=== PATIENT | female | born 1955 | race Caucasian/White ===

== ENCOUNTER → 2018-02-26 09:07 | Outpatient (CLI) | payer BC, SELFPAY ==
[2018-02-26 09:58] LABS: Bilirubin Negative (Negative); Blood Large (Negative); Clarity Clear; Glucose Negative (Negative); Ketones Negative (Negative); Leukocyte Esterase Large (Negative); Nitrite Negative (Negative); Urobilinogen 0.2 EU/dL (Up TO 0.2)
[2018-02-26 10:16] LABS: Bacteria Moderate HPF (Negative); C & S Indicated? C&S Done As Ordered; Casts Negative LPF (Negative); Crystals Negative HPF (Negative); Epithelial Cells Few HPF (Negative); Mucus Negative (Negative); RBC 20-50 (0-2); WBC >50 HPF (0-5)
== END ==
PROVIDERS: PCP Family Medicine; Visit Provider Advanced Practice Midwife
DX: R30.0 Dysuria (principal)
CPT/HCPCS: 81003; 81015; 87086

== ENCOUNTER 2018-04-28 16:19 | Outpatient (REF) | payer BC, SELFPAY ==
[2018-04-28 18:56] LABS: Abs Immature Grans 0.01 k/cumm (0.0-0.09); Absolute Basophil Count 0.04 k/cumm (0.0-0.2); Absolute Eosinophil Count 0.01 k/cumm (0.0-0.7); Absolute Lymphocyte Count 1.06 k/cumm (1.2-3.4); Absolute Monocyte Count 0.29 k/cumm (0.11-0.7); Absolute Neutrophil Count 3.47 k/cumm (1.2-6.7); Basophils % 0.8; Eosinophils % 0.2; HCT 37.3 % (36.0-46.0); HGB 12.1 g/dL (12.0-15.5); Immature Grans % 0.2; Lymphocytes % 21.7; Mean Corp. HGB Concentration 32.4 g/dL (32.0-36.0); Mean Corpuscular Hemoglobin 30.6 pg (27.0-33.0); Mean Corpuscular Volume 94.4 fL (80-95); Mean Platelet Volume 11.9 fL (8.0-11.0); Monocytes % 5.9; Neutrophils % 71.2; Platelet Count 144 x1000/uL (130-400); RBC 3.95 m/cumm (4.00-5.20); RBC Distribution Width 12.8 % (11.7-14.6); White Blood Cell Count 4.88 k/cumm (4.4-10.8)
== END 2018-04-28 16:39 ==
LOC: NCHCN 16:19
PROVIDERS: PCP Family Medicine; Visit Provider Family Medicine
DX: D69.6 Thrombocytopenia, unspecified (principal)
CPT/HCPCS: 85025

== ENCOUNTER 2018-07-19 12:50 | Outpatient (REF) | payer BC, SELFPAY ==
[2018-07-19] MEDS: Sulfameth/Trimeth DS TAB 3 TAB PO (13:11)
[2018-07-19 13:21] LABS: Bilirubin Negative (Negative); Blood Large (Negative); Clarity Sl Cloudy; Glucose Negative (Negative); Ketones Negative (Negative); Leukocyte Esterase Large (Negative); Nitrite Negative (Negative); Specific Gravity 1.015 (1.005-1.025); Urobilinogen 0.2 EU/dL (Up TO 0.2); pH 7.5 (5-8)
[2018-07-19 13:31] LABS: Bacteria Moderate HPF (Negative); C & S Indicated? C&S Done As Ordered; Casts Negative LPF (Negative); Crystals Negative HPF (Negative); Epithelial Cells Few HPF (Negative); Mucus Negative (Negative); RBC 20-50 (0-2); WBC >50 HPF (0-5)
== END 2018-07-19 13:10 ==
LOC: LBN 12:50
PROVIDERS: PCP Family Medicine; Visit Provider General Practice
DX: N39.0 Urinary tract infection, site not specified (principal)
CPT/HCPCS: 81003; 81015; 87086

== ENCOUNTER 2018-08-29 00:39 | Outpatient (CLI) | payer BC, SELFPAY ==
--- NOTE | 2018-08-29 09:27 | DI.MAMMO_ITS ---
SYMPTOMS/DIAGNOSIS: SCREENING, Z12.39 MAMMOGRAM: Mammograms were interpreted according to the usual protocol including computer analysis with CAD system, tomosynthesis and C view imaging. Comparison is made with 2013 through 2017. The breasts are composed of heterogeneously dense fibroglandular tissue, breast density Category C. No suspicious masses or suspicious microcalcifications are seen. There has been no significant change. IMPRESSION: Category I C, negative mammogram. Yearly screening mammography is recommended. [facility] [place] ASSESSMENT OF FINDINGS: Negative. Category 1. Patient will receive a letter notifying them of these results. Bi-RADS category C. The breasts are heterogeneously dense, which may obscure small masses.
== END 2018-08-29 00:59 ==
PROVIDERS: PCP Family Medicine; Visit Provider Family Medicine
DX: Z12.31 Encounter for screening mammogram for malignant neoplasm of breast (principal)
CPT/HCPCS: 77063; 77067

== ENCOUNTER 2019-08-21 12:57 | Outpatient (REF) | payer BC, SELFPAY ==
[2019-08-21 19:26] LABS: Anion Gap 6.1 mmol/L (3-11); BUN 19 mg/dL (7-18); C-Reactive Protein 0.08 mg/dL (0.0-0.3); CO2 28.9 mmol/L (21.0-32.0); CREATININE 1.05 mg/dL (0.55-1.02); Calcium 11.2 mg/dL (8.5-10.1); Chloride 106 mmol/L (98-107); Estimated GFR 53.28 (mL/min/1.73m2); Glucose 90 mg/dL (74-106); Potassium 4.7 mmol/L (3.5-5.1); Sodium 141 mmol/L (136-145); TSH (W/Ref FT4) 1.56 uIU/mL (0.36-3.74)
[2019-08-21 19:28] LABS: ESR 13 mm/hr (0-30)
== END 2019-08-21 13:17 ==
LOC: NCHCN 12:57
PROVIDERS: PCP Family Medicine; Visit Provider Family Medicine
DX: R51 Headache (principal)
CPT/HCPCS: 80048; 85652; 84443; 86140

== ENCOUNTER 2019-08-25 15:31 | Outpatient (CLI) | payer BC, SELFPAY ==
[2019-08-25 17:14] LABS: Calcium 10.7 mg/dL (8.5-10.1)
[2019-08-25 22:19] LABS: Ionized Calcium 1.39 mmol/L (1.12-1.32)
[2019-08-28 08:07] LABS: Vitamin D 25 Total 33.5 ng/ml (30-100)
[2019-08-28 11:44] LABS: Parathyroid Hormone,Intact 182 pg/mL (19-88)
== END 2019-08-25 15:51 ==
PROVIDERS: PCP Family Medicine; Visit Provider Family Medicine
DX: E83.52 Hypercalcemia (principal)
CPT/HCPCS: 36415; 82306; 82310; 82330; 83970

== ENCOUNTER 2019-09-09 08:47 | Outpatient (CLI) | payer BC, SELFPAY ==
[2019-09-09 10:42] LABS: Albumin 4.3 g/dL (3.4-5.0); CREATININE 0.97 mg/dL (0.55-1.02); Calcium 11.2 mg/dL (8.5-10.1); Estimated GFR 58.38 (mL/min/1.73m2)
[2019-09-11 05:48] LABS: Vitamin D 25 Total 31.6 ng/ml (30-100)
[2019-09-11 11:34] LABS: Parathyroid Hormone,Intact 171 pg/mL (19-88)
== END 2019-09-09 09:07 ==
PROVIDERS: PCP Family Medicine; Visit Provider Student in an Organized Health Care Education/Training Program
DX: E21.0 Primary hyperparathyroidism (principal)
CPT/HCPCS: 36415; 82306; 82040; 82310; 82565; 83970

== ENCOUNTER 2019-09-09 09:30 | Outpatient (REF) | payer BC, SELFPAY ==
[2019-09-09 10:36] LABS: Creatinine,Urine 57.21 mg/dL
[2019-09-09 10:47] LABS: Creatinine,24hr Ur 1.14 g/24hr (0.60-1.80); Total Volume 2000 ml
[2019-09-11 11:09] LABS: Calcium Urine 19.3 mg/dL (See Note); Calcium Urine 24 hr 386 mg/24hrs (100-300)
[2019-09-11 16:15] LABS: Timed Urine Volume 2000 mL
== END 2019-09-09 09:50 ==
LOC: LBN 09:30
PROVIDERS: PCP Family Medicine; Visit Provider Student in an Organized Health Care Education/Training Program
DX: E21.0 Primary hyperparathyroidism (principal)
CPT/HCPCS: 81050; 82340; 82570

== ENCOUNTER 2019-10-11 02:14 | Outpatient (CLI) | payer BC, SELFPAY ==
--- NOTE | 2019-10-11 | DI.DEXA_ITS ---
EXAM: XR DEXA BONE DENSITY W/WO MAYLIN CLINICAL HISTORY: PRIMARY HYPERPARATHYROIDISM, E21.0, TO ASSESS FOR OSTEOPOROSIS COMPARISON: No exams were available for comparison FINDINGS: DEXA scan was performed according to the usual protocol. Findings for left hip scanning are T-score -2.1 with left femoral neck T-score -2.4. Findings for lumbar spine scanning are T-score -2.5. Findings for left forearm scanning are T-score -3.7. IMPRESSION: Findings consistent with osteoporosis according to the WHO criteria. The lateral vertebral scanogram shows no gross vertebral compression fracture. I would note that the mid to upper thoracic spine is not well visualized and additional evaluation with thoracic spine radiographs may be obtained to ted luate the possibility of subtle compression fractures.
== END 2019-10-11 02:34 ==
PROVIDERS: PCP Family Medicine; Visit Provider Student in an Organized Health Care Education/Training Program
DX: E20.1 Pseudohypoparathyroidism (principal); M81.0 Age-related osteoporosis without current pathological fracture
CPT/HCPCS: 77080

== ENCOUNTER 2020-03-11 02:30 | Outpatient (CLI) | payer BC, SELFPAY ==
[2020-03-11 15:14] LABS: Calcium 9.4 mg/dL (8.5-10.1)
[2020-03-12 08:28] LABS: Parathyroid Hormone,Intact 98 pg/mL (19-88)
== END 2020-03-11 02:50 ==
PROVIDERS: PCP Family Medicine; Visit Provider Surgery
DX: E21.0 Primary hyperparathyroidism (principal)
CPT/HCPCS: 36415; 82310; 83970

== ENCOUNTER 2020-03-25 04:45 | Outpatient (CLI) | payer BC, SELFPAY ==
[2020-03-25 10:12] LABS: Anion Gap 5.2 mmol/L (3-11); BUN 19 mg/dL (7-18); CO2 30.8 mmol/L (21.0-32.0); CREATININE 1.03 mg/dL (0.55-1.02); Calcium 9.7 mg/dL (8.5-10.1); Chloride 105 mmol/L (98-107); Glucose 97 mg/dL (74-106); Potassium 4.1 mmol/L (3.5-5.1); Sodium 141 mmol/L (136-145); TSH 2.87 uIU/mL (0.36-3.74)
[2020-03-25 10:25] LABS: Vitamin D 25 Total 37.3 ng/ml (30-100)
[2020-03-26 11:55] LABS: Parathyroid Hormone,Intact 58 pg/mL (19-88)
== END 2020-03-25 05:05 ==
PROVIDERS: PCP Family Medicine; Visit Provider Internal Medicine Endocrinology, Diabetes & Metabolism
DX: E21.3 Hyperparathyroidism, unspecified (principal)
CPT/HCPCS: 36415; 80048; 82306; 83970; 84443

== ENCOUNTER 2020-05-03 16:14 | Outpatient (REF) | payer BC, SELFPAY ==
--- NOTE | 2020-05-03 15:30 | PAPFT_PTH ---
PATIENT: Acacia Silveira LOC: [facility] U#:[id number] AGE/SX: 64/F ROOM: RE05/03/[address]: Jordana Parsons : 1955 BED: DIS: 05/03/2020 SPEC #: [id number] RECD: 05/03/20 18:02 STATUS: JENNA REYajaira #: [id number] SILVIA: 05/03/20 15:[address]: Jordana Parsons DEPT: [facility] Cytology RECD BY: Linda Ferro Tissues: 1 - CX/ENDOCX FOR PAP SMEARS Procedures: PAP THIN PREP/UVM Screening HPV DNA PROBE Comments: [id number]
== END 2020-05-03 16:34 ==
LOC: NCHCN 16:14
PROVIDERS: PCP Family Medicine; Visit Provider Family Medicine
DX: Z12.4 Encounter for screening for malignant neoplasm of cervix (principal); Z11.51 Encounter for screening for human papillomavirus (HPV)
CPT/HCPCS: 88142; 87624

== ENCOUNTER 2020-05-14 01:24 | Outpatient (CLI) | payer BC, SELFPAY ==
[2020-05-14 10:22] LABS: Calcium 9.5 mg/dL (8.5-10.1)
[2020-05-15 11:06] LABS: Parathyroid Hormone,Intact 36 pg/mL (19-88)
== END 2020-05-14 01:44 ==
PROVIDERS: Surgery; PCP Family Medicine; Visit Provider Nurse Practitioner Adult Health
DX: E21.0 Primary hyperparathyroidism (principal)
CPT/HCPCS: 36415; 82310; 83970

== ENCOUNTER 2020-05-22 04:09 | Outpatient (CLI) | payer BC, SELFPAY ==
[2020-05-22 16:34] LABS: Anion Gap 4.2 mmol/L (3-11); BUN 26 mg/dL (7-18); CO2 29.8 mmol/L (21.0-32.0); CREATININE 0.94 mg/dL (0.55-1.02); Calcium 9.3 mg/dL (8.5-10.1); Chloride 106 mmol/L (98-107); Glucose 93 mg/dL (74-106); Potassium 4.1 mmol/L (3.5-5.1); Sodium 140 mmol/L (136-145)
[2020-05-23 04:26] LABS: Vitamin D 25 Total 36.1 ng/ml (30-100)
[2020-05-30 13:01] LABS: Parathyroid Hormone,Intact 44.3 pg/mL (19-88)
== END 2020-05-22 04:29 ==
PROVIDERS: PCP Family Medicine; Visit Provider Internal Medicine Endocrinology, Diabetes & Metabolism
DX: E21.3 Hyperparathyroidism, unspecified (principal)
CPT/HCPCS: 36415; 80048; 82306; 83970

== ENCOUNTER 2020-05-23 01:28 | Outpatient (CLI) | payer BC, SELFPAY ==
--- NOTE | 2020-05-23 | DI.MAMMO_ITS ---
EXAM: MG MAMMO SCREENING CLINICAL HISTORY: SCREENING, Z12.39 TECHNIQUE: Mammograms were interpreted according to the usual protocol including computer analysis w [email or web address] CAD system, tomosynthesis and C-view imaging. COMPARISON: FINDINGS: The breasts are heterogeneously dense. No dominant mass or clumped microcalcification is identified in either breast. Current examination is compared with previous examinations including August 2018 and there has been no gross interval change in appearance in comparison with the prior studies. IMPRESSION: No specific evidence of malignancy at this time. Routine screening examinations are suggested at yea rly intervals in this age group according to the ACS ACR guidelines. BI-RADS Category 1 - Negative Breast Density - Category C - Heterogeneously dense
== END 2020-05-23 01:48 ==
PROVIDERS: PCP Family Medicine; Visit Provider Family Medicine
DX: Z12.31 Encounter for screening mammogram for malignant neoplasm of breast (principal)
CPT/HCPCS: 77063; 77067

== ENCOUNTER 2020-10-22 03:46 | Outpatient (CLI) | payer BC, SELFPAY ==
[2020-10-22 16:55] LABS: BUN 19 mg/dL (7-18); CREATININE 0.9 mg/dL (0.55-1.02); Calcium 9.8 mg/dL (8.5-10.1); Chloride 103 mmol/L (98-107); Glucose 85 mg/dL (74-106); Potassium 4.5 mmol/L (3.5-5.1); Sodium 140 mmol/L (136-145)
[2020-10-24 04:40] LABS: Vitamin D 25 Total 55.2 ng/mL (30-100)
== END 2020-10-22 03:47 | disposition home or self-care (01) ==
LOC: LBO 03:46
PROVIDERS: PCP Family Medicine; Visit Provider Internal Medicine Endocrinology, Diabetes & Metabolism
DX: E21.3 Hyperparathyroidism, unspecified (principal); M81.8 Other osteoporosis without current pathological fracture
CPT/HCPCS: 36415; 80048; 82306

== ENCOUNTER 2021-06-05 02:23 | Outpatient (CLI) | payer BC, SELFPAY ==
[2021-06-06 08:45] LABS: Anion Gap 6.7 mmol/L (3-11); BUN 16 mg/dL (7-18); CO2 30.3 mmol/L (21.0-32.0); CREATININE 0.9 mg/dL (0.55-1.02); Calcium 9.2 mg/dL (8.5-10.1); Chloride 105 mmol/L (98-107); Glucose 86 mg/dL (74-106); Potassium 4.6 mmol/L (3.5-5.1); Sodium 142 mmol/L (136-145)
== END 2021-06-05 02:24 | disposition home or self-care (01) ==
LOC: LBO 02:23
PROVIDERS: PCP Family Medicine; Visit Provider Internal Medicine Endocrinology, Diabetes & Metabolism
DX: E21.3 Hyperparathyroidism, unspecified (principal); M81.8 Other osteoporosis without current pathological fracture
CPT/HCPCS: 36415; 80048; 82306

== ENCOUNTER 2021-08-25 00:44 | Outpatient (CLI) | payer BC, SELFPAY ==
--- NOTE | 2021-08-25 14:00 | DI.US_ITS ---
APPROVED REPORT EXAM: Comprehensive 2D, Doppler, and color-flow Echocardiogram Patient Location: Out-Patient Multimedia Production Assistant: Gogo Oliva RDCS (AE) Indications: Murmur Other Information Study Quality: Adequate Conclusion Normal left ventricular wall thickness and chamber size. Estimated ejection fraction is 60%. Wall m otion is normal Normal right ventricular size and systolic function Both atria are normal in size There are no structural or hemodynamically significant valvular abnormalities Borderline dilated ascending aorta measuring 3.38 cm Dilated aortic root measuring 3.49 cm Wall motion Left Ventricle The left ventricle is normal size. The left ventricular systolic function is normal. The left ventric ular ejection fraction is within the normal range. There is normal left ventricular wall thickness. T here is normal LV segmental wall motion. There is no ventricular septal defect visualized. LVEF is 60 %. Right Ventricle The right ventricle is normal size. The right ventricular systolic function is normal. The RVSP is 25 .4mmHg. Atria The left atrium size is normal. The right atrium size is normal. The interatrial septum is intact wit h no evidence for an atrial septal defect. Aortic Valve The aortic valve is normal in structure. There is no aortic valvular stenosis. No aortic regurgitatio n is present. Mitral Valve The mitral valve is normal in structure. No evidence of mitral valve stenosis. Trace mitral regurgita tion. Tricuspid Valve The tricuspid valve is normal in structure. There is no tricuspid valve stenosis. Trace tricuspid reg urgitation. Pulmonic Valve The pulmonary valve is normal in structure. There is no pulmonic valvular stenosis. There is no pulmo laura valvular regurgitation. Great Vessels Aortic root is mildly dilated. The ascending aorta is borderline dilated.3.38 cm IVC is normal in siz e and collapses >50% with inspiration. Pericardium There is no pericardial effusion. 2D Dimensions IVSD d PLAX 0.90 cm F: 0.6-1.0 LV Vol A2C d MOD 66.2 mL LVPW d PLAX 0.91 cm F: 0.6 - 1.0 LV Vol A4C d MOD 75.2 mL LVID d PLAX 4.33 cm F: 3.8 - 5.2 LA vol/ BSA A2C s A-L 18.6 mL/m2 LVDs 2.90 cm F: 2.2 - 3.5 LA vol/ BSA A4C s A-L 12.5 mL/m2 Ao Root d 3.49 cm F: 2.7 - 3.3 LA Vol/ BSA Biplane s A-L 15.5 mL/m2 RA Area A4C 8.91 cm2 LA Area A4C s MOD 9.76 cm2 RA Vol/ BSA A4C s A-L 11.2 mL/m2 LA Area A2C s MOD 11.72 cm2 Ao Asc Diam d 3.38 cm F: 2.3 - 3.1 LV EF A4C MOD 60.8 % LV EF Teichholz 61.6 % LV EF A2C MOD 60.2 % LVEF (Steiner's) 59.91 % F: 54 - 74 LV EF Biplane MOD 59.9 % LV Volume 57.61 mL F: 46 - 106 SV 42.72 mL LV Volume Index 35.56 mL/m2 F: 29 - 61 SV Index 26.31 mL/m2 LV Vol Biplane MOD 71.3 mL FS 32.80 % M-Mode TAPSE 2.03 cm (M/F) >1.7 LV Diastology MV E' medial 0.055 (>0.07 m/s) E/A Ratio 1.2 LV E/e MED 11.90 (<14) MV E Vmax 0.65 (0.4-1.3 m/s) MV E' lateral 0.100 (>0.1 m/s) MV A Vmax 0.55 (0.4-1.3 m/s) LV E/e LAT 6.50 (<14) MV E/A Ratio 1.09 MV E/E' medial 11.90 MV E/E' lateral 6.54 Aortic Valve LVOT Area 3.10 cm2 AoV Area Vmax 2.58 cm2 LVOT Vmax 0.79 m/s AoV Area/ BSA (Vmax) 1.59 cm2/m2 LVOT Mean Rodriguez. 0.49 m/s KAREN Mean Rodriguez. 2.10 cm2 LVOT Peak Grad 2.5 mmHg KAREN Mean Rodriguez. Index 1.29 cm2/m2 LVOT Mean Grad 1.2 mmHg LVOT VTI 0.151 m LVOT Diam s 1.95 cm AoV Vmax 0.95 m/s Velocity Ratio 0.83 AoV Mean Rodriguez. 0.73 m/s AoV Peak Grad 3.6 mmHg LVOT SV 46.72 mL AoV Mean Grad 2.3 mmHg AoV VTI 0.199 m AoV Area VTI 2.35 cm2 AoV Area/ BSA (VTI) 1.45 cm/m2 Mitral Valve MV DT 196 (160-240 msec) MV PHT 57 msec MV Area PHT 3.87 cm2 MV VTI 0.257 m MV Area VTI 1.82 (4.0-6.0 cm2) Pulmonary Valve PV Vmax 0.86 (0.5-1.5 m/s) RVOT Peak Gr. 2.75 mmHg PV Peak Grad 3.0 mmHg RVOT Mean Gr. 1.20 mmHg PV Mean Grad 1.4 mmHg RVOT VTI 0.172 m PV VTI 0.177 m RVOT Vmax 0.83 m/s Tricuspid Valve TR Peak Grad 22.3 mmHg TR Vmax 2.37 m/s RA Pressure 3.00 mmHg RVSP (TR) 25.4 mmHg
--- NOTE | 2021-08-25 15:15 | DI.MAMMO_ITS ---
Exam(s) MAMMO SCREENING EXAM: MAMMO SCREENING CLINICAL HISTORY: SCREENING, Z12.39 TECHNIQUE: Mammograms were interpreted according to the usual protocol including computer analysis w [employer] CAD system, tomosynthesis and C-view imaging. COMPARISON: 2012 through 2019 FINDINGS: The breasts are composed of heterogeneously dense fibroglandular densities, Breast Density category C . No suspicious masses or suspicious microcalcifications are seen. No skin thickening or abnormal axillary lymph nodes are seen. There has been no significant change from prior exams. IMPRESSION: BI-RADS Category 1, Negative mammogram. Yearly screening mammography is recommended. Breast Density Category C, heterogeneously Dense. The mammogram demonstrates the patient's breast tissue is dense. Dense breast tissue is very common a nd is not abnormal but dense breast tissue can make it harder to find cancer on a mammogram. Also, de nse breast tissue may increase breast cancer risk. This information about the result of the mammogram report was provided to the patient to raise their awareness. Use this report when you speak with the patient about their risks for breast cancer, which includes their family history. At that time, you may recommend additional screening tests (Ultrasound or MRI) as they might be useful based on their r isk. A negative radiographic report should not delay biopsy if a dominant or clinically suspicious mass is present. Up to ten percent of cancers are not identified on mammography. A negative report may reinforce clinical impression. Adenosis and dense breasts may obscure an underlying neoplasm. False positive reports average 6 to 10%.
== END 2021-08-25 01:04 ==
PROVIDERS: PCP Family Medicine; Visit Provider Family Medicine
DX: R01.1 Cardiac murmur, unspecified (principal); Z12.31 Encounter for screening mammogram for malignant neoplasm of breast; I77.810 Thoracic aortic ectasia; R92.2 Inconclusive mammogram
CPT/HCPCS: 77063; 77067; 93306

== ENCOUNTER 2021-09-05 11:11 | Outpatient (REF) | payer BC, SELFPAY ==
[2021-09-05 15:14] LABS: Anion Gap 8.3 mmol/L (3-11); BUN 24 mg/dL (7-18); CO2 28.7 mmol/L (21.0-32.0); CREATININE 1.1 mg/dL (0.55-1.02); Calcium 9.3 mg/dL (8.5-10.1); Chloride 107 mmol/L (98-107); Estimated GFR 50.17 (mL/min/1.73m2); Glucose 95 mg/dL (74-106); Sodium 144 mmol/L (136-145)
== END 2021-09-05 11:12 | disposition home or self-care (01) ==
LOC: NCHCN 11:11
PROVIDERS: PCP Family Medicine; Visit Provider Family Medicine
DX: R03.0 Elevated blood-pressure reading, without diagnosis of hypertension (principal)
CPT/HCPCS: 80048

== ENCOUNTER 2021-10-16 02:36 | Outpatient (CLI) | payer BC, SELFPAY ==
--- NOTE | 2021-10-16 | DI.DEXA_ITS ---
Exam(s) XR DEXA BONE DENSITY W/WO MAYLIN EXAM: XR DEXA BONE DENSITY W/WO MAYLIN CLINICAL HISTORY: HX OF PRIMARY HYPERPARATHYROIDISM, OSTEOPOROSIS TECHNIQUE: COMPARISON: CR XR DEXA BONE DENSITY W/WO MAYLIN from 10/11/2019 FINDINGS: Lateral Spine Image: Unremarkable. No compression deformities identified. Left hip: Total T-Score: -1.5. This compares to -2.1 on the prior examination for improvement of 9.6 percent in bone mineral density. Total Z-Score: -0.4 T- and Z-scores: Findings are consistent with osteopenia. Lumbar Spine: Total T-Score: -2.1. This compares with a total T-score of -2.5 on the prior examination for improvem ent of 6 percent in bone mineral density. Total Z-Score: -0.4 T- and Z-scores: Findings are consistent with osteopenia. IMPRESSION: Findings of osteopenia in the lumbar spine and left hip. Bone mineral density has improved since the prior examination from 10/11/2019.
== END 2021-10-16 02:56 ==
PROVIDERS: PCP Family Medicine; Visit Provider Internal Medicine Endocrinology, Diabetes & Metabolism
DX: Z13.820 Encounter for screening for osteoporosis (principal); M85.89 Other specified disorders of bone density and structure, multiple sites
CPT/HCPCS: 77080

== ENCOUNTER 2021-11-17 21:44 | Outpatient (REF) | payer BC, SELFPAY ==
[2021-11-17 18:52] LABS: Anion Gap 8.2 mmol/L (3-11); BUN 26 mg/dL (7-18); CO2 28.8 mmol/L (21.0-32.0); CREATININE 0.9 mg/dL (0.55-1.02); Chloride 100 mmol/L (98-107); Glucose 87 mg/dL (74-106); Potassium 3.7 mmol/L (3.5-5.1); Sodium 137 mmol/L (136-145); TSH (W/Ref FT4) 1.66 uIU/mL (0.36-3.74)
== END 2021-11-17 21:45 | disposition home or self-care (01) ==
LOC: NCHCN 21:44
PROVIDERS: PCP Family Medicine; Visit Provider Family Medicine
DX: E21.0 Primary hyperparathyroidism (principal); E83.52 Hypercalcemia
CPT/HCPCS: 80048; 84443

== ENCOUNTER 2022-02-25 15:24 | Outpatient (REF) | payer BC, SELFPAY ==
[2022-02-25 16:09] LABS: Anion Gap 3.5 mmol/L (3-11); BUN 26 mg/dL (7-18); CO2 30.5 mmol/L (21.0-32.0); CREATININE 1.1 mg/dL (0.55-1.02); Calcium 9.4 mg/dL (8.5-10.1); Chloride 105 mmol/L (98-107); Estimated GFR 50.01 (mL/min/1.73m2); Glucose 87 mg/dL (74-106); Potassium 4.3 mmol/L (3.5-5.1); Sodium 139 mmol/L (136-145)
== END 2022-02-25 15:25 | disposition home or self-care (01) ==
LOC: NCHCN 15:24
PROVIDERS: PCP Family Medicine; Visit Provider Family Medicine
DX: Z00.00 Encounter for general adult medical examination without abnormal findings (principal); I10 Essential (primary) hypertension; E83.52 Hypercalcemia; I73.00 Raynaud's syndrome without gangrene
CPT/HCPCS: 80048

== ENCOUNTER 2022-05-22 15:18 | Outpatient (REF) | payer BC, SELFPAY ==
[2022-05-22 18:17] LABS: Anion Gap 8.1 mmol/L (3-11); BUN 23 mg/dL (7-18); CO2 28.9 mmol/L (21.0-32.0); CREATININE 0.9 mg/dL (0.55-1.02); Calcium 9.4 mg/dL (8.5-10.1); Calculated LDL 103 mg/dL (<100); Chloride 103 mmol/L (98-107); Cholesterol 215 mg/dL (<200); Estimated GFR 71.39 (mL/min/1.73m2); Glucose 85 mg/dL (74-106); HDL Cholesterol 83 mg/dL (40-60); Potassium 3.7 mmol/L (3.5-5.1); Sodium 140 mmol/L (136-145); Triglyceride 148 mg/dL (<150)
[2022-05-25 10:39] LABS: Hepatitis C Ab w Rflx HCV PCR Negative (Negative)
[2022-05-25 10:45] LABS: HIV-1/2 Ag & Ab Screen Negative (Negative)
== END 2022-05-22 15:19 | disposition home or self-care (01) ==
LOC: NCHCN 15:18
PROVIDERS: PCP Family Medicine; Visit Provider Family Medicine
DX: Z00.00 Encounter for general adult medical examination without abnormal findings (principal); I10 Essential (primary) hypertension; Z11.4 Encounter for screening for human immunodeficiency virus [HIV]; Z11.59 Encounter for screening for other viral diseases
CPT/HCPCS: 80048; 80061; 86803; 87389

== ENCOUNTER 2022-08-26 02:59 | Outpatient (CLI) | payer BC, SELFPAY ==
--- NOTE | 2022-08-26 15:50 | DI.MAMMO_ITS ---
Exam(s) MAMMO SCREENING EXAM: MAMMO SCREENING CLINICAL HISTORY: SCREENING, Z12.39 TECHNIQUE: Mammograms were interpreted according to the usual protocol including computer analysis w [employer] CAD system, tomosynthesis and C-view imaging. COMPARISON: 2015 through 2021 FINDINGS: The breasts are composed of heterogeneously dense fibroglandular densities, Breast Density category C . No suspicious masses or suspicious microcalcifications are seen. No skin thickening or abnormal axillary lymph nodes are seen. There has been no significant change from prior exams. IMPRESSION: BI-RADS Category 1, Negative mammogram. Yearly screening mammography is recommended. Breast Density Category C, heterogeneously Dense. The mammogram demonstrates the patient's breast tissue is dense. Dense breast tissue is very common a nd is not abnormal but dense breast tissue can make it harder to find cancer on a mammogram. Also, de nse breast tissue may increase breast cancer risk. This information about the result of the mammogram report was provided to the patient to raise their awareness. Use this report when you speak with the patient about their risks for breast cancer, which includes their family history. At that time, you may recommend additional screening tests (Ultrasound or MRI) as they might be useful based on their r isk. A negative radiographic report should not delay biopsy if a dominant or clinically suspicious mass is present. Up to ten percent of cancers are not identified on mammography. A negative report may reinforce clinical impression. Adenosis and dense breasts may obscure an underlying neoplasm. False positive reports average 6 to 10%.
== END 2022-08-26 03:19 ==
LOC: DI 03:00
PROVIDERS: PCP Family Medicine; Visit Provider Family Medicine
DX: Z12.31 Encounter for screening mammogram for malignant neoplasm of breast (principal); R92.8 Other abnormal and inconclusive findings on diagnostic imaging of breast
CPT/HCPCS: 77063; 77067

== ENCOUNTER 2022-10-02 02:49 | Outpatient (CLI) | payer BC, SELFPAY ==
[2022-10-02 16:51] LABS: Anion Gap 8.9 mmol/L (3-11); BUN 17 mg/dL (7-18); CO2 28.1 mmol/L (21.0-32.0); CREATININE 1.1 mg/dL (0.55-1.02); Calcium 9.3 mg/dL (8.5-10.1); Chloride 104 mmol/L (98-107); Estimated GFR 56.11 (mL/min/1.73m2); Glucose 88 mg/dL (74-106); Potassium 3.8 mmol/L (3.5-5.1); Sodium 141 mmol/L (136-145)
[2022-10-02 17:16] LABS: Vitamin D 25 Total 71.6 ng/mL (30-100)
== END 2022-10-02 02:50 | disposition home or self-care (01) ==
PROVIDERS: PCP Family Medicine; Visit Provider Internal Medicine Endocrinology, Diabetes & Metabolism
DX: M81.8 Other osteoporosis without current pathological fracture (principal); Z86.39 Personal history of other endocrine, nutritional and metabolic disease
CPT/HCPCS: 36415; 80048; 82306

== ENCOUNTER → 2023-08-27 00:58 | Outpatient (CLI) | payer OTHER, SELFPAY ==
--- NOTE | 2023-08-27 11:54 | DI.MAMMO_ITS ---
Exam(s) MAMMO SCREENING EXAM: MAMMO SCREENING CLINICAL HISTORY: SCREENING, Z12.39 TECHNIQUE: Bilateral full field digital CC and MLO mammographic images were obtained with 3D tomosyn thesis and utilizing computer aided detection (CAD). COMPARISON: Available for comparison. FINDINGS: Masses/Architectural Distortion: None seen. Microcalcifications: No suspicious pleomorphic-type are seen. Skin Thickening/Nipple Retraction: None. IMPRESSION: 1. No significant interval change with no specific features of malignancy noted. 2. Unless there is more urgent need, screening mammography is recommended, as per [employer] guidelines. BI-RADS Category 1 - Negative Breast Density - Category C - Heterogeneously dense Breast density category C or D implies that the patient has dense breast tissue. Dense breast tissue is very common and is not abnormal but dense breast tissue can make it harder to find cancer on a ma mmogram. Also, dense breast tissue may increase their breast cancer risk. This information about the result of the mammogram report was provided to the patient to raise their awareness. Use this report when you speak with the patient about their risks for breast cancer, which includes their family hist ory. At that time, you may recommend for more screening tests (Ultrasound or MRI) as they might be us eful based on their risk. A negative radiographic report should not delay biopsy if a dominant or clinically suspicious mass is present. Up to ten percent of cancers are not identified on mammography. A negative report may reinforce clinical impression. Adenosis and dense breasts may obscure an underlying neoplasm. False positive reports average 6 to 10%. Patient will receive a letter notifying them of these results.
== END ==
PROVIDERS: PCP Family Medicine; Visit Provider Family Medicine
DX: Z12.31 Encounter for screening mammogram for malignant neoplasm of breast (principal); R92.333 Mammographic heterogeneous density, bilateral breasts
CPT/HCPCS: 77063; 77067

== ENCOUNTER → 2023-10-22 00:53 | Outpatient (CLI) | payer OTHER, SELFPAY ==
--- NOTE | 2023-10-22 | DI.DEXA_ITS ---
Exam(s) XR DEXA BONE DENSITY W/WO MAYLIN EXAM: XR DEXA BONE DENSITY W/WO MAYLIN CLINICAL HISTORY: OSTEOPOROSIS M81.8 HYPERPARATHYROIDISM Z86.39 TECHNIQUE: COMPARISON: CR XR DEXA BONE DENSITY W/WO MAYLIN from 10/16/2021 FINDINGS: Lateral Spine Image: Unremarkable. No compression deformities identified. Left hip: Total T-Score: -1.7. This compares to -1.5 on the prior examination. Total Z-Score: -0.4 T- and Z-scores: Findings are consistent with osteopenia. Lumbar Spine: Total T-Score: -1.9. This compares to -2.1 on the prior examination. Total Z-Score: 0.0 T- and Z-scores: This is consistent with osteopenia. Left forearm: There is osteoporosis in the left forearm with a total T-score of -3.8 and a Z-score of -2.2. This compares with a total T-score of -4.3 on the prior examination. IMPRESSION: There is no evidence of osteoporosis in the lumbar spine or left hip. Osteoporosis is again seen in the left forearm.
== END ==
PROVIDERS: PCP Family Medicine; Visit Provider Internal Medicine Endocrinology, Diabetes & Metabolism
DX: M81.0 Age-related osteoporosis without current pathological fracture (principal); M85.88 Other specified disorders of bone density and structure, other site; Z86.39 Personal history of other endocrine, nutritional and metabolic disease
CPT/HCPCS: 77080

== ENCOUNTER 2023-10-22 13:49 | Outpatient (CLI) | payer OTHER, SELFPAY ==
[2023-10-22 11:02] LABS: Abs Immature Grans 0.02 10^3/uL (0.0-0.06); Absolute Basophil Count 0.05 10^3/uL (0.0-0.2); Absolute Eosinophil Count 0.03 10^3/uL (0.0-0.7); Absolute Lymphocyte Count 1.53 10^3/uL (1.2-3.4); Absolute Monocyte Count 0.43 10^3/uL (0.1-0.8); Basophils % 0.9; Eosinophils % 0.5; HCT 38.7 % (36.0-46.0); HGB 12.8 g/dL (11.2-15.7); Immature Grans % 0.4; MCH 30.6 pg (27.0-33.0); MCHC 33.1 % (32.0-36.0); MCV 93 fL (80-95); MPV 11.2 fL (8.0-11.0); Monocytes % 7.9; Neutrophils % 62.3; Platelet Count 208 10^3/uL (130-400); RBC 4.18 10^6/uL (3.93-5.22); RDW 12.7 % (11.7-14.6); RDW-SD 43.3 fL; WBC 5.46 10^3/uL (4.4-10.8)
[2023-10-22 11:27] LABS: BUN 28 mg/dL (7-18); Calcium 9.1 mg/dL (8.5-10.1); Chloride 104 mmol/L (98-107); Estimated GFR 62.13 (mL/min/1.73m2); Glucose 104 mg/dL (74-106); Potassium 4.2 mmol/L (3.5-5.1); Sodium 141 mmol/L (136-145)
== END 2023-10-22 13:50 | disposition home or self-care (01) ==
LOC: LBO 13:50
PROVIDERS: PCP Family Medicine; Visit Provider Family Medicine
DX: M85.89 Other specified disorders of bone density and structure, multiple sites (principal); D69.6 Thrombocytopenia, unspecified; I10 Essential (primary) hypertension
CPT/HCPCS: 36415; 80048; 82306; 85025

== ENCOUNTER 2024-06-02 00:47 | Outpatient (CLI) | payer BC, MEDICARE, SELFPAY ==
--- OUTSIDE RECORDS SUMMARY | 2024-06-02 00:51 | XMS_ITS | Encounter Summary ---
Author Organization [facility] [place] [address] Care Team Providers Care Vessel Slagman Name Role Phone Jordana Parsons MD Primary Care Provider [phone] Reason for Visit * Auth/Cert Specialty Diagnoses / Procedures Referred By Contac t Referred To Contact Diagnoses HYPERPARATHYROIDISM Procedures PRO EXPLORE PARATHYROID GLANDS PRG EMG, LARYNX PARATHYROIDECTOMY OR EXPLORATION OF PARATHYROID(S) (WRVU 15.6) FACIAL NERVE MONITORING, SETUP LARYNGEAL (WRVU 1.57) Referral ID Status Reason Start Date Expiration Date Visits Re quested Visits Authorized [id number] 1 1 Encounter Details Date Type Department Care Team (Late st Contact Info) Description 02/12/2020 7:29 AM EDT Anesthesia [place] [address] Robert Melendez MD [facility] [place] [address] Wendy Stokes MD [facility] [place] [address] Anesthesia Record Procedure Summary Procedure Name Responsible Anesthesiologist Anesthesia Start Time Anesthesia Stop Time PARATHYROIDECTOMY OR EXPLORATION OF PARATHYROID(S) (WRVU 15.6) (Neck) Robert Melendez MD 02/12/20 0729 02/12/20 1044 Events Date Time Event Comment 02/12/2020 0704 0729 AN Verify 0729 Start 0729 An Start Data 0738 An Induction 0739 An Intubation 0745 Anesthesia Ready 0755 Quick Note Local by alberto n 0808 Procedure Start 0832 Break/Relief In I assumed ca re for Break Relief before which we: 1. Identified the patient 2. Identified the responsible provider(s) 3. Reviewed the pertinent medical history 4. Discussed the surgical plan and course 5. Reviewed intra-op anesthesia management and issues during anesthesia 6. Set expectations for the relief (and/or post-procedure) period 7. Allowed opportunity for questions and acknowledgement of understanding Wendy Stokes MD 0849 Break/Relief Out 1032 Extubation/LMA Out 1039 an stop data 1044 Recovery or ICU Handoff Noemí ent care was transferred to the destination unit staff after review of the patient's medical history, current anesthetic/surgical status and plan, according to the Provider Handoff Checklist. 1044 Stop Meds Name Total Midazolam 2 mg fentaNYL 100 mcg IV Lidocaine 60 mg Propofol 150 mg Rocuronium 6 mg ePHEDrine 30 mg Ondansetron 4 mg Dexamethasone 4 mg REMIfentanil INF 1.85 mg Succinylcholine 80 mg Lactated Ringers 700 mL * Agents Name O2 Air N2O Sevoflurane (et) * Blood No blood administrations on file. Lines, Drains, and Airways Type Details Placement Removal (RETIRED) Peripheral IV Line - Single Lumen 02/12/20; 620; metacarpal vein (top of hand), right; [id number]-[id number] catheter system; 20 gauge; Lyubov Schaeffer RN; distraction, intradermal injection; 0; no longer indicated, catheter/device intact, removed per policy/procedure; 02/12/20; 1304 02/12/20 0621 by Nate Gunderson RN 02/12/20 1304 by Khai Florian, CHELSEY ETT Mask Ventilation: Ea sy (1); ETT Type: Cuffed, NIM; ETT Size: 6 mm; Mac Blade: 3; Laryngoscopy Grade: 2; ETT Placement Verified By: Auscultation, Capnometry, Visual; Secured at Teeth: 23 cm; Inserted by: wong; Removal Date: 02/12/20; Removal Time: 1032 02/12/20 0744 by Wendy Stokes MD 02/12/20 1032 by Wendy Stokes MD Incision 02/12/20; 0819; neck ; 03/23/22 (LDA cleanup utility RA#[id number]); 1715 (LDA cleanup utility RA#[id number]) 02/12/20 0819 by Radha Wallace RN 03/23/22 1715 by Farhad Bateman documented in this encounter Social History Tobacco Use Types Packs/Day Years Used Date Smoking Tobacco: Never Smokeless Tobacco: Never Alcohol Use Standard Drinks/Week Comments Yes 5 (1 standard drink = 0.6 oz pur e alcohol) Sex and Gender Information Value Date Recorded Sex Assigned at Not on file Gender Identity Not on file Sexual Orientation Not on file documented as of this encounter OR Notes * Anesthesia Postprocedure Evaluation - Wendy Stokes - 02/12/2020 11:08 AM EDT Department of Anesthesiology Post-procedure Note Patient: Brayden Silveira Procedure Summary Date: 02/12/20 Room / Location: [address] MAIN OR Anesthesia Start: 728 Anesthesia Stop: 1043 Procedures: PARATHYROIDECTOMY OR EXPLORATION OF PARATHYROID(S) (WRVU 15.6) (N/A Neck) FACIAL NERVE MONITORING, SETUP LARYNGEAL (WRVU 1.57) (N/A Neck) Diagnosis: (HYPERPARATHYROIDISM) Surgeon: Starla Mayers MD Responsible Provider: Robert Melendez MD Anesthesia Type: general ASA Status: 2 All Anesthesia Providers: Anesthesiologist: Robert Melendez MD Soap Press Feeder: Wendy Stokes MD Vitals Value Taken Time BP 167/90 02/12/2020 11:00 AM Temp 36.4 ??C (97.5 ??F) 02/12/2020 10:43 AM Pulse Resp 18 02/12/2020 10:43 AM SpO2 99 % 02/12/2020 11:05 AM Pain Level 0 02/12/2020 10:43 AM Vitals shown include unvalidated device data. Patient Location: PACU/[facility] Level of Consciousness: Awake and Alert Pain Management: Satisfactory Analgesia PONV: None Cardiovascular Status: At Baseline Respiratory Status: At Baseline Postoperative Fluid Status: Possible Anesthetic Complications: NONE apparent at time of evaluation Final Primary Anesthesia Type: General (The anesthetic type performed was the same as planned.) Comments: * Anesthesia Preprocedure Evaluation - Robert Melendez MD - 02/09/2020 4:09 PM EDT Pre-Anesthesia Evaluation for: Brayden Silveira a 64 y.o. female. Procedure(s): PARATHYROIDECTOMY OR EXPLORATION OF PARATHYROID(S) (WRVU 15.6) FACIAL NERVE MONITORING, SETUP LARYNGEAL (WRVU 1.57) Patient Active Problem List Diagnosis ??? Hyperparathyroidism ??? Hypercalcemia ? ? Hyperparathyroidism, primary (PTH 182, Ca 10.1-11.2; upper limit of normal 10.1) => US+1cm RPTH adenoma ??? Nevus ??? Other seborrheic keratosis Past Medical History: Diagnosis Date ??? Hypercalcemia ??? Hyperparathyroidism ??? Raynaud's disease ??? Thrombocytopenia Past Surgical History: Procedure Laterality Date ??? SECTION ??? SINUS SURGERY ??? TONSILLECTOMY AND ADENOIDECTOMY ??? TUBAL LIGATION ??? TYMPANOPLASTY Bilateral Social History Tobacco Use ??? Smoking status: Never Smoker ??? Smokeless tobacco: Never Used Substance Use Topics ??? Alcohol use: Not on file Social History Substance and Sexual Activity Drug Use Not on file No Known Allergies Medications: MAR and/or home medications have been reviewed. Physical Exam: There were no vitals filed for this visit. There is no height or weight on file to calculate BMI. Airway Assessment: Mallampati: I TM distance: >3 FB Neck ROM: full Cardiovascular Assessment: Rhythm: regular Rate: normal cardiovascular exam normal Pulmonary Assessment: breath sounds clear to auscultation pulmonary exam normal Dental Assessment: - normal exam Misc Assessment: Patient is wearing No contact(s). IV access: Peripheral line Other exam findings: Anesthesia Plan: ASA 2 general, with a(n) intravenous induction 64 y.o., 58 kg female with hyperparathyroidism presenting for parathyroidectomy PMH significant for Raynaud's syndrome, migraines Anesthetic hx: No reported prior complications with anesthesia Airway hx: no records Anesthetic Plan: GA with Nim tube Region - Other Informed Consent: Anesthetic plan and risks discussed with patient. Use of blood products discussed with patient who consented to blood products. Plan discussed with attending. PAT Clinic Note documented in this encounter Plan of Treatment Upcoming Encounters Date Type Department Care Team (Late st Contact Info) Description 11/17/2024 9:30 AM EDT TH Visit (TeleHealth) Endocrinology at [facility] [place] [address] Elsy Staley MD [facility] [place] [address] 01/04/2025 10:45 AM EDT Office Visit Dermatology at [place] [address] [place] [address] Yousif Myers MD [address], [place] [address] documented as of this encounter Visit Diagnoses Not on filedocumented in this encounter Administered Medications Inactive Administered Medications - up to 3 most recent administrations Medication Order MAR Action Action Date Dose Rate Site dexamethasone (Decadron) injection PRN, Starting on Wed02/12/20 at 0740, Until Wed02/12/20 at 1050, Anesthesia Intra-op, Routine Given 02/12/2020 7:40 AM EDT 4 mg ePHEDrine 5 mg/mL multi-dose injection PRN, Starting on Wed02/12/20 at 0754, Until Wed02/12/20 at 1050, Anesthesia Intra-op, Routine Given 02/12/2020 10:13 AM EDT 5 mg Given 02/12/2020 9:22 AM EDT 5 mg Given 02/12/2020 9:19 AM EDT 5 mg fentaNYL 50 mcg/mL multi-dose injection PRN, Starting on Wed02/12/20 at 0738, Until Wed02/12/20 at 1050, Anesthesia Intra-op, Routine Given 02/12/2020 10:35 AM EDT 50 mcg Given 02/12/2020 7:38 AM EDT 50 mcg lactated ringers infusion CONTINUOUS PRN, Starting on Wed02/12/20 at 0729, Until Wed02/12/20 at 1050, Anesthesia Intra-op New Bag 02/12/2020 7:29 AM EDT lidocaine (PF) (XYLOCAINE) 100 mg/5 mL (2 %) injection PRN, Starting on Wed02/12/20 at 0738, Until Wed02/12/20 at 1050, Anesthesia Intra-op, Routine Given 02/12/2020 7:38 AM EDT 60 mg midazolam (PF) (VERSED) multi-dose injection PRN, Starting on Wed02/12/20 at 0729, Until Wed02/12/20 at 1050, Anesthesia Intra-op, Routine Given 02/12/2020 7:29 AM EDT 2 mg ondansetron (ZOFRAN) injection PRN, Starting on Wed02/12/20 at 1010, Until Wed02/12/20 at 1050, Anesthesia Intra-op, Routine Given 02/12/2020 10:10 AM EDT 4 mg propofol (DIPRIVAN) 10 mg/mL bolus injection (Anesthesia) PRN, Starting on Wed02/12/20 at 0738, Until Wed02/12/20 at 1050, Anesthesia Intra-op Given 02/12/2020 7:38 AM EDT 150 mg remifentanil (ULTIVA) 0.02 mg/mL IV infusion (ANESTHESIA) CONTINUOUS PRN, Starting on Wed02/12/20 at 0742, Until Wed02/12/20 at 1050, Anesthesia Intra-op New Bag 02/12/2020 7:39 AM EDT 0.2 mcg/kg/min 34.3 mL/hr rocuronium (ZEMURON) multi-dose injection PRN, Starting on Wed02/12/20 at 0738, Until Wed02/12/20 at 1050, Anesthesia Intra-op, Routine Given 02/12/2020 7:38 AM EDT 6 mg succinylcholine chloride (Quelicin) injection PRN, Starting on Wed02/12/20 at 0738, Until Wed02/12/20 at 1050, Anesthesia Intra-op, Routine Given 02/12/2020 7:38 AM EDT 80 mg documented in this encounter Care Teams Vessel Slagman Relationship Specialty Start Date End Date Jordana Parsons MD [facility] [address] [place] [address] PCP - General 06/17/10 documented as of this encounter
--- OUTSIDE RECORDS SUMMARY | 2024-06-02 00:51 | XMS_ITS | Encounter Summary ---
[place] [address] Care Team Providers Care Medical Instrument Technician Name Role Phone Jordana Parsons MD Primary Care Provider [phone] Encounter Details Date Type Department Care Team (Late st Contact Info) Description 07/27/2023 Telephone Dermatology at [address] [address] Sherrie Jeffrey LPN Social History Tobacco Use Types Packs/Day Years Used Date Smoking Tobacco: Never Smokeless Tobacco: Never Alcohol Use Standard Drinks/Week Comments Yes 5 (1 standard drink = 0.6 oz pur e alcohol) Sex and Gender Information Value Date Recorded Sex Assigned at Not on file Gender Identity Not on file Sexual Orientation Not on file documented as of this encounter Miscellaneous Notes * Telephone Encounter - Sherrie Jeffrey LPN - 07/27/2023 12:39 PM EST 07/06/23 right bicep, skin shave biopsy ED&C Bx: Actinic keratosis, no skin cancer, no further treatment necessary, return to clinic 12/30/23 at 10 AM. Reviewed biopsy results and Dr. Patel recommendation with patient. She voiced understanding. documented in this encounter Plan of Treatment Upcoming Encounters Date Type Department Care Team (Late st Contact Info) Description 11/17/2024 9:30 AM EDT TH Visit (TeleHealth) [place] [address] Elsy Staley MD [facility] [place] [address] 01/04/2025 10:45 AM EDT Office Visit Dermatology at [place] [address] [place] [phone] Yousif Myers MD [address], [place] [address] documented as of this encounter Visit Diagnoses Not on filedocumented in this encounter Care Teams Medical Instrument Technician Relationship Specialty Start Date End Date Jordana Parsons MD [facility] [address] [place] [address] PCP - General 06/17/10 documented as of this encounter
--- OUTSIDE RECORDS SUMMARY | 2024-06-02 00:51 | XMS_ITS | Encounter Summary ---
Author Organization [facility] [place] [address] Care Team Providers Care Airworthiness Safety Inspector Name Role Phone Jordana Parsons MD Primary Care Provider [phone] Encounter Details Date Type Department Care Team (Late st Contact Info) Description 09/15/2022 Telephone [place] [phone] Leta Walton Social History Tobacco Use Types Packs/Day Years [...] encounter Miscellaneous Notes * Telephone Encounter - Leta Walton - 09/15/2022 11:43 AM EST [facility] says they need a new DEXA dated for September it will w/today's date prior to when patient can have test done. documented in this encounter Plan of Treatment Upcoming Encounters Date Type Department Care Team (Late st Contact Info) Description 11/17/2024 9:30 AM EDT TH Visit (TeleHealth) [place] [phone] Elsy Staley MD [facility] DR ENDOCRINOLOGY [place], [place] [id number] 01/04/2025 10:45 AM EDT Office Visit Dermatology at [place] [address] [place] [phone] Yousif Myers MD [address], ROBERT [place] [address] documented as of this encounter Visit Diagnoses Not on filedocumented in this encounter Care Teams Airworthiness Safety Inspector Relationship Specialty Start Date End Date Jordana Parsons MD [facility] [address] [facility] [address] [place] [address] PCP - General 06/17/10 documented as of this encounter
--- OUTSIDE RECORDS SUMMARY | 2024-06-02 00:51 | XMS_ITS | Encounter Summary ---
Author Organization [facility] Address [facility] [place] [address] Care Team Providers Care Manager Content Name Role Phone Jordana Parsons MD Primary Care Provider [phone] Encounter Details Date Type Department Care Team (Latest Contact Info) Description 02/27/2021 2:00 PM EDT TH Visit (TeleHealth) [place] [address] Elsy Staley MD [facility] [place] [address] Hyperparathyroidism (PTH 182, Ca 10.1-11.2; normal<10.1) before PTH surgery; Other osteoporosis, unspecified pathological fracture presence Social History Tobacco Use Types Packs/Day Years Used Date Smoking Tobacco: Never Smokeless Tobacco: Never Alcohol Use Standard Drinks/Week Comments Yes 5 (1 standard drink = 0.6 oz pur e alcohol) Sex and Gender Information Value Date Recorded Sex Assigned at Not on file Gender Identity Not on file Sexual Orientation Not on file documented as of this encounter Last Filed Vital Signs Vital Sign Reading Time Taken Comments Blood Pressure - - Pulse 60 02/27/2021 2:07 PM EDT Temperature - - Respiratory Rate 12 02/27/2021 2:07 PM EDT Oxygen Saturation - - Inhaled Oxygen Concentration - - Weight 59 kg (130 lb) 02/27/2021 2:07 PM EDT Height 162.6 cm (5' 4) 02/27/2021 2:07 PM EDT Body Mass Index 22.31 02/27/2021 2:07 PM EDT documented in this encounter Patient Instructions * Patient Instructions* Elsy Staley MD - 02/27/2021 2:00 PM EDT # Primary => secondary hyperparathyroidism s/p RLP PTH adenoma resection on 02/12/20 with normalized iop PTH but now rising to 98 with normal Ca 9.4 likely d/t low vitD -She has good 25vitamin D at 36-37=> 55 (12/22/20) a year after surgery with normal TSH - To cont OTC-vit 4,000 iu daily +500 iu from Ca/D = 4,500 iu vitD daily to help enhance Ca absorption and cont taking Ca/D 600 mg/day supplement for her osteoporosis. - Target is to keep vitD up in 50s-60s range. BMP results were all ok with good kidney and Ca 9.7-9.8. - DXA on 10/11/19 pre-op showed severe osteoporosis T-score -3.7 at the distal 1/3 radius > spine(T-score -2.5) and femoral neck (T-score -2.4) - to recheck DXA in Sep 2021 at [facility] which should show better bone density results. - To recheck lab in Mar after 6 months interval at [facility] lab for BMP and 25vitD - will let her know all the results during the interim. - RTC late September 2021 a week after DXA scan or earlier if needed. Elsy Staley MD, PhD, FACE, FACP documented in this encounter Progress Notes * lEsy Staley MD - 02/27/2021 2:00 PM EDT Images from the original note were not included. Subjective: Patient ID: Brayden Silveira is a 65 y.o. female. 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 Smith& me) by her PCP, Jordana Parsons MD, on 09/07/19 for primary hyperparathyroidism. She was transferred under my care directly since 03/22/[address] Smith's recent graduation. Patient verbally consents to this telehealth visit and understands that this visit may be billed, similar to a clinic office visit. I provided care to the patient today via VDO call. The total time associated with this visit, chartreview, documentation, and coordination of care was 32 minutes. De-Kimberly reports that she stopped her routine running regimen in summer 2018- as she experienced severe joint pain for the previous 6 months and noted more muscle aches and body pain. No hx of nephrolithiasis or fracture but more GAINES daily since Jun 2019.=> better after PTH adenoma surgery in January 2020. She had menopause age 48 and tries not to eat dairy products. Maybe broke R 4th and 5th toes- stubbed running to get candy for the kids. She had an implant L maxilla over 1 year ago. Lab before initial endocrine consult visit showed elevated Ca 10.1-11.2 with high PTH 182 c/w primary hyperPTH 08/25/2019: 10.7 mg/dL concomitant PTH 182 pg/mL 25 OH 33.5 ng/mL ionized Ca2+ 1.39 mmol/L creatinine 1.05 mg/dL GFR 53 08/21/2019: 11.2 mg/dL 11/06/2016: 10.1 mg/dL 07/22/2012: 10.2 mg/dL At initial visit we did office neck US and it showed a distinct RLP 1-cm PTH adenoma which is confirmed by NM PTH nuclear scan on 11/09/19 as faint activity in the R lower pole. She underwent RLP PTH adenoma resection with Dr. Starla Mayers on 02/12/20 with good drop of PTHfrom 332 to 33 confirming that the adenoma was removed. Pathology confirmed RLP PTH adenoma. Surgical Pathology DIAGNOSIS A - Parathyroid, right lower, excision: Enlarged (0.10 g), hypercellular parathyroid, consistent with parathyroid adenoma. B - Central neck contents, left, excision: Two (2) benign lymph nodes. Electronically signed by: ??Juany BLANKENSHIP, Lydia Han Verified: ??02/19/2020 ?Pathologist Performed at: ??-[facility] Dept. of Pathology, [place], [place] Apart from occasional muscle ache after walking, she feels generally well with less GAINES and no kidney stone or fracture. Patient Active Problem List Diagnosis Code ??? Nevus D22.9 ??? Other seborrheic keratosis L82.1 ??? Hypercalcemia E83.52 ??? Rt PTH adenoma 1cm by ultrasound 09/07/19 s/p Rt lower PTH adenoma resection 02/12/20 with [id number] => 33 E21.0 ? ? Hyperparathyroidism (PTH 182, Ca 10.1-11.2; normal<10.1) before PTH surgery E21.3 Family Hx: Unsure if there is a family hx of FHH Mother is 85-pulmonary HTN, valve replacement, slight dementia- not as active as she used to be Father turning 90- bright still- had an [place], bypass in 70s 1 living sibling- they're well, Other brother in accident No known family hx of neck surgery, no pancreatic surgery, no pituitary surgery No Known Allergies Meds: Current Outpatient Medications: ??? calcium combo no.2-vitamin D3 600 mg-12.5 mcg (500 unit) Tablet Sustained Release, Take 1 tablet by mouth daily., Disp: , Rfl: ??? fluocinolone acetonide (SYNALAR) 0.01 % Solution, Soak Q-tips with the solution then use clean ears gently 2-3 times weekly. Use a few times weekly on the scalp as needed., Disp: 60 mL, Rfl: 0 ??? magnesium oxide (Mag-Ox) 400 mg (241.3 mg magnesium) Tablet, Take 400 mg by mouth daily., Disp:, Rfl: Review of Systems Endocrine: Negative for polyuria. Musculoskeletal: Positive for arthralgias. Neurological: Positive for headaches. Objective:Pulse 60 Resp 12 Ht 162.6 cm (5' 4) Wt 59 kg (130 lb) BMI 22.31 kg/m?? Physical Exam Appearance: Patient is very pleasant white female, normal weight, clinically euthyroid, not in acute distress, sitting comfortably at home. Skin - normal in appearance HEENT - PERRLA, EOMI, no lid lag or exophthalmos. Neck - supple, no goiter or nodule visible. Small surgical scar in the lower neck. Neuro - Non-focal, no proximal muscle weakness, no tremor, no facial asymmetry. ENDOCRINOLOGY THYROID ULTRASOUND REPORT Patient:Brayden Silveira, [id number] Date of exam: 09/07/19 Indication: primary hyperparathyroidism, to assess for parathyroid adenoma Comparison: none Performed by: Jenn Smith MD, Elsy Staley MD Real time images of the thyroid gland were obtained using a [id number] US machine. All measurements aregiven as Longitudinal/Sagittal x AP x Transverse. Right Lobe: The right lobe measures 3.5 x 0.7 x 1.0 , with homogeneous texture. There is a R sided parathyroid adenoma measuring 0.8 x 0.3 x 0.4cm with a very clear feeding vessel. Left Lobe:The left lobe measures 3.2 x 0.7 x 0.9cm, with homogeneous texture. Isthmus:The isthmus measures 0.2 cm. Impression: R sided parathyroid adenoma. Rec: Await DEXA & refer to see Dr. Starla Mayers for RLP adenoma resection DXA scan at [facility] ob 10/11/19 showed osteoporosis at the wrist >> spine > hip Outside LAB before the surgery: 08/25/2019: 10.7 mg/dL concomitant PTH 182 pg/mL 25 OH 33.5 ng/mL ionized Ca2+ 1.39 mmol/L creatinine 1.05 mg/dL GFR 53 08/21/2019: 11.2 mg/dL 11/06/2016: 10.1 mg/dL 07/22/2012: 10.2 mg/dL Intra-operative lab: Ref. Range 02/12/2020 08:23 02/12/2020 08:45 02/12/2020 08:54 02/12/2020 09:05 02/12/2020 09:40 Intraoper PTH Range: 9 - 77 pg/mL 332 (H) 101 (H) 81 (H) 33 Surgical Pathology Report Unknown [id number] ... Recent lab (outside) after the surgery: Date 03/11/20 03/25/20 05/22/20 10/22/20 06/05/21 Ca 9.4 9.7 9.3 9.8 9.2 PTH 98H 36.1 - 25vitaminD 37.3 - 55.2 60, better Outside lab on 06/05/21 showed entirely normal Calcium at 9.2 (normal 8.5-10.5) with good 25vitaminD at 60 (normal 30-100). So, you should take the same dose of all Rx further. Assessment and Plan: This is a very pleasant 65 y.o. female with a past medical history significant for thrombocytopenia, migraine headaches, initially referred to us on 09/07/19 for primary hyperparathyroidism. Parathyroid hormone is inappropriately elevated in the setting of hypercalcemia and a low normal vitamin D level at 33.5. She used to have worsening joint pain, worsening migraines which are likely related to the hyperparathyroidism and much better after PTH adenoma removal since January 2020. Patient has never experienced nephrolithiasis or fracture. The highest value of calcium obtained onroutine blood work was 11.2 mg/dL before the surgery. She has no history of osteoporotic fractures but DEXA scan on 10/11/19 showed severe osteoporosis at the wrist (T-score -3.7). No family history of hypercalcemia and her 24-hour urinary calcium level definitively excluded familial hypocalcuric hypercalcemia. She underwent RLP PTH adenoma resection with Dr. Starla Mayers on 02/12/20 with good drop of PTHfrom 332 to 33, confirming a cure and that the adenoma was removed. However, post-op lab in mid Feb 2020 showed rising PTH again at 98 (normal 19-88 at outside lab) with entirely normal Ca 9.4, suggestive of 2ry hyperPTH and most likely due to vitamin D deficiency since her pre-op was borderline low at 33.5 (normal 30-100). After PTH adenoma removal, we would expect the other 3 glands to resume producing normal amount of PTH but if pt has concommittent vitD defici ency with hungry bone syndrome post-op, then both Ca & vitD will drop low and PTH will rise to abnormally high to maintain Ca back within normal range. She is taking Ca/D 600mg/500iu without extra vitD initially so we added OTC-vitamin D supplement 2,000-4,000 iu daily to enhance Ca absorption and suppress PTH down successfully. # Primary => secondary hyperparathyroidism s/p RLP PTH adenoma resection on 02/12/20 with normalized iop PTH but now rising to 98 with normal Ca 9.4 likely d/t low vitD -She has good 25vitamin D at 36-37=> 55 (12/22/20) a year after surgery with normal TSH - To cont OTC-vit 4,000 iu daily +500 iu from Ca/D = 4,500 iu vitD daily to help enhance Ca absorption and cont taking Ca/D 600 mg/day supplement for her osteoporosis. - Target is to keep vitD up in 50s-60s range. BMP results were all ok with good kidney and Ca 9.7-9.8. - DXA on 10/11/19 pre-op showed severe osteoporosis T-score -3.7 at the distal 1/3 radius > spine(T-score -2.5) and femoral neck (T-score -2.4) - to recheck DXA in Sep 2021 at [facility] which should show better bone density results. - To recheck lab in Mar after 6 months interval at [facility] lab for BMP and 25vitD - will let her know all the results during the interim. - RTC late September 2021 a week after DXA scan or earlier if needed. Elsy Staley MD, PhD, FACE, FACP documented in this encounter Plan of Treatment Upcoming Encounters Date Type Department Care Team (Late st Contact Info) Description 11/17/2024 9:30 AM EDT TH Visit (TeleHealth) [place] [address] Elsy Staley MD [facility] [place] [address] 01/04/2025 10:45 AM EDT Office Visit Dermatology at [place] [address] [place] [id number] Yousif Myers MD [address], [place] [address] documented as of this encounter Visit Diagnoses Diagnosis Hyperparathyroidism (PTH 182, Ca 10.1-11.2; normal<10.1) before PTH surgery Hyperparathyroidism, unspecified Other osteoporosis, unspecified pathological fracture presence documented in this encounter Care Teams Manager Content Relationship Specialty Start Date End Date Jordana Parsons MD [address] [facility] [address] [place] [address] PCP - General 06/17/10 documented as of this encounter
--- OUTSIDE RECORDS SUMMARY | 2024-06-02 00:51 | XMS_ITS | Encounter Summary ---
Author Organization [facility] Address [facility] [place] [address] Care Team Providers Care Field Operations Coordinator Name Role Phone Jordana Parsons MD Primary Care Provider [phone] Encounter Details Date Type Department Care Team (Latest Contact Info) Description 09/15/2022 10:30 AM EST TH Visit (TeleHealth) [place] [address] Elsy Staley MD [facility] [place] [address] Other osteoporosis, unspecified pathological fracture presence; History of primary hyperparathyroidism Social History Tobacco Use Types Packs/Day Years [...] Sign Reading Time Taken Comments Blood Pressure 116/79 09/15/2022 10:15 AM EST Pulse 60 09/15/2022 10:15 AM EST Temperature - - Respiratory Rate 12 09/15/2022 10:15 AM EST Oxygen Saturation - - Inhaled Oxygen Concentration - - Weight 59 kg (130 lb) 09/15/2022 10:15 AM EST Height 162.6 cm (5' 4) 09/15/2022 10:15 AM EST Body Mass Index 22.31 09/15/2022 10:15 AM EST documented in this encounter Patient Instructions * Patient Instructions* Elsy Staley MD - 09/15/2022 10:30 AM EST # Primary and then secondary hyperparathyroidism s/p RLP PTH adenoma resection on 02/12/20 with normalized iop PTH but now rising to 98 with normal Ca 9.4 likely d/t low vitD -She has good 25vitamin D at 36-37=> 55 (12/22/20) a year after surgery in adequate vitD supplement with normalized PTH -To cont OTC-vitamin D 5,000 iu daily +500 iu from Ca/D = 5,500 iu vitD daily for now until we knowtest results soon to help enhance Ca absorption and cont taking Ca/D 600 mg/day supplement for her osteoporosis. Target is to keep vitD up in 50s-70s (normal 30-100 range). BMP results were all ok with good kidney and Ca 9.7-9.8. - DXA on 10/11/19 pre-op showed severe osteoporosis T-score -3.7 at the distal 1/3 radius > spine(T-score -2.5) and femoral neck (T-score -2.4) Repeat DXA ~ 2y post-op in Sep 2021 at [facility] showed much better bone density results out of osteoporosis into osteopenia, which is excellent. - To recheck lab soon at [facility] lab for BMP and 25vitD Orders Placed This Encounter Procedures Vitamin D, 25-Hydroxy Basic Metabolic Panel (non-fasting) - will let her know all the results during the interim. - RTC - 1 year after next DXA scan in Sep 2023. Indication for DXA scan at [facility] = history of primary hyperparathyroidism and osteoporosis s/p surgery in January 2020 with last DXA scan at [facility] on 10/07/21. To check 3 sites at spine, hip and wrist Elsy Staley MD, PhD, FACE, FACP documented in this encounter Progress Notes * Elsy Staley MD - 09/15/2022 10:30 AM EST Images from the original note were not included. Subjective: Patient ID: Brayden Silveira is a 66 y.o. female. 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 Smith& me) by her PCP, Jordana Parsons MD, on 09/07/19 for primary hyperparathyroidism. DXA scan beforesurgery showed severe osteoporosis in Sep 2019 and repeat DXA scan in Sep 2021 after PTH adenoma resection showed much better results back in osteopenia at both L-spine and hip which is excellent. Patient verbally consents to this telehealth visit and understands that this visit may be billed, similar to a clinic office visit. I provided care to the patient today via VDO call. The total time associated with this visit, chartreview prior to the visit, documentation, and coordination of care was 30 minutes. Brayden experienced severe joint pain for 6 months with more muscle aches and body pain. No hx of nephrolithiasis or fracture but more GAINES daily since Jun 2019. => all symptoms were better after PTH adenoma surgery in January 2020. She had menopause age 48 and tries not to eat dairy products. Maybe broke R 4th and 5th toes- stubbed running to get candy for the kids. She had an implant L maxilla over a few years prior. Lab before initial endocrine consult visit showed elevated Ca 10.1-11.2 with high PTH 182 c/w primary hyperPTH 08/25/2019: 10.7 mg/dL concomitant PTH 182 pg/mL 25 OH 33.5 ng/mL ionized Ca2+ 1.39 mmol/L creatinine 1.05 mg/dL GFR 53 08/21/2019: 11.2 mg/dL 11/06/2016: 10.1 mg/dL 07/22/2012: 10.2 mg/dL At initial visit we did office neck US which showed a distinct RLP 1-cm PTH adenoma, confirmed by NM PTH nuclear scan on [...] (2) benign lymph nodes. Electronically signed by: ??Lydia Harrington MD Verified: ??02/19/2020 ?Pathologist Performed at: ??-[facility] Dept. of Pathology, [place], [place] Apart from occasional muscle ache after walking, she feels generally well with less GAINES and no kidney stone or fracture. Patient Active Problem List Diagnosis Code ??? Nevus D22.9 ??? Other seborrheic keratosis L82.1 ??? Hypercalcemia E83.52 ??? Rt PTH adenoma 1cm by ultrasound 09/07/19 s/p Rt lower PTH adenoma resection 02/12/20 with [id number] => 33 E21.0 ? ? Hyperparathyroidism (PTH 182, Ca 10.1-11.2; normal<10.1) before PTH surgery E21.3 Family Hx: Unsure if there is a family hx of FHH Mother is 85-pulmonary HTN, valve replacement, slight dementia- not as active as she used to be Father turning 90- bright still- had an [place], bypass in 70s 1 living sibling- they're well, Other brother in accident No known family hx of neck surgery, no pancreatic surgery, no pituitary surgery No Known Allergies Meds: Current Outpatient Medications: ??? amLODIPine (Norvasc) 2.5 mg Tablet, Take 2.5 mg by mouth daily., Disp: , Rfl: ??? candesartan (Atacand) 16 mg Tablet, Take 16 mg by mouth daily., Disp: , Rfl: ??? Ubrelvy 100 mg Tablet, TAKE ONE TABLET BY MOUTH ONCE A SINGLE DOSE FOR MIGRAINE. MAY REPEAT ONCE IN 2 HOURS AFTER FIRST DOSE IF NEED, Disp: , Rfl: ??? calcium combo no.2-vitamin D3 600 mg-12.5 [...] 400 mg by mouth daily., Disp:, Rfl: ??? cholecalciferol, Vitamin D3, 125 mcg (5,000 unit) Tablet, Take 1 tablet by mouth daily., Disp: , Rfl: Review of Systems Endocrine: Negative for polyuria. Musculoskeletal: Positive for arthralgias. Neurological: Positive for headaches. Objective:BP 116/79 Pulse 60 Resp 12 Ht 162.6 cm (5' [...] asymmetry. ENDOCRINOLOGY THYROID ULTRASOUND REPORT Patient:Brayden Silveira, [id number] Date of exam: 09/07/19 Indication: primary hyperparathyroidism, to assess for parathyroid adenoma Comparison: none Performed by: Jenn Smith MD, Elsy Staley MD Real time images of the thyroid gland were obtained using a [id number] US machine. All measurements aregiven as Longitudinal/Sagittal [...] for RLP adenoma resection DXA scan at [facility] ob 10/11/19 showed osteoporosis at the [...] 81 (H) 33 Surgical Pathology Report Unknown [id number] ... Recent lab (outside) after the surgery: Date 03/11/20 03/25/20 05/22/20 10/22/20 06/05/21 11/17/21 10/02/22 TSH 1.66 Ca 9.4 9.7 9.3 9.8 9.2 9.3 PTH 98H 36.1 - 25vitaminD 37.3 - 55.2 60 71.6, better BMP All normal Outside lab on 06/05/21 showed entirely normal Calcium at 9.2 (normal 8.5-10.5) with good 25vitaminD at 60 (normal 30-100). So, you should take the same dose of all Rx further. Outside DXA scan at [facility] on 10/17/21 showed significant improvement in osteopenia at back and hip T-score -2.1 at the spine (up +6% since 10/11/2019) T-score -2.2 at the femoral neck T-score -1.5 at the total hip (+9.2% since 2019) (T-score -4.3 but some error on measurement of mid radius at mid radius, will recheck next time) Assessment and Plan: This is a very pleasant 66 y.o. female with a past medical history [...] normal Ca 9.4, suggestive of 2ry hyperPTH due to vitamin D deficiency since her pre-op was borderline low at 33.5 (normal 30- 100). After PTH adenoma removal, we would expect the other 3 glands to resume producing normal amount of PTH but if pt has concommittent vitD deficiency with hungry bone syndrome post-op, then both Ca & vitD will drop low and PTH will rise to abnormally high to maintain Ca back within normal range. She was taking Ca/D 600mg/500iu without extra vitD initially so we added OTC-vitamin D supplement 2,000-5,000 iu daily to enhance Ca absorption and suppress PTH down successfully. # Primary and then secondary hyperparathyroidism s/p RLP PTH adenoma resection on 02/12/20 with normalized iop PTH but now rising to 98 with normal Ca 9.4 likely d/t low vitD -She has good 25vitamin D at 36-37=> 55 (12/22/20) a year after surgery in adequate vitD supplement with normalized PTH -To cont OTC-vitamin D 5,000 iu daily +500 iu from Ca/D = 5,500 iu vitD daily for now until we knowtest results soon to help enhance Ca absorption and cont taking Ca/D 600 mg/day supplement for her osteoporosis. Target is to keep vitD up in 50s-70s (normal 30-100 range). BMP results were all ok with good kidney and Ca 9.7-9.8. - DXA on 10/11/19 pre-op showed severe osteoporosis T-score -3.7 at the distal 1/3 radius > spine(T-score -2.5) and femoral neck (T-score -2.4) Repeat DXA ~ 2y post-op in Sep 2021 at [facility] showed much better bone density results, out of osteoporosis into osteopenia at both the spine and hip, which is excellent. - To recheck lab soon at [facility] lab for BMP and 25vitD Orders Placed This Encounter Procedures ??? DXA Central Spine, Hip, and/or Whole Body (Generic) ??? Vitamin D, 25-Hydroxy ??? Basic Metabolic Panel (non-fasting) Indication for DXA scan at [facility] = history of primary hyperparathyroidism and osteoporosis s/p surgery in January 2020 with last DXA scan at [facility] on 10/07/21. To check 3 sites at spine, hip and wrist - RTC - 1 year after next DXA scan in Sep 2023. Elsy Staley MD, PhD, FACE, FACP documented in this encounter Plan of Treatment Upcoming Encounters Date Type Department Care Team (Late st Contact Info) Description 11/17/2024 9:30 AM EDT TH Visit (TeleHealth) [place] [address] Elsy Staley MD [facility] [place] [address] 01/04/2025 10:45 AM EDT Office Visit Dermatology at [address] [place] [phone] Yousif Myers MD [address], [place] [address] documented as of this encounter Visit Diagnoses Diagnosis Other osteoporosis, unspecified pathological fracture presence History of primary hyperparathyroidism documented in this encounter Care Teams Field Operations Coordinator Relationship Specialty Start Date End Date Jordana Parsons MD [address] [place] [address] [address] [place] [address] PCP - General 06/17/10 documented as of this encounter
--- OUTSIDE RECORDS SUMMARY | 2024-06-02 00:51 | XMS_ITS | Encounter Summary ---
Author Organization [facility] [place] [address] Care Team Providers Care Product Safety Engineer Name Role Phone Jordana Parsons MD Primary Care Provider [phone] Encounter Details Date Type Department Care Team (Latest Contact Info) Description 07/06/2023 Travel Social History Tobacco Use Types Packs/Day Years Used Date Smoking Tobacco: Never Smokeless Tobacco: Never Alcohol Use Standard Drinks/Week Comments Yes 5 (1 standard drink = 0.6 oz pur e alcohol) Sex and Gender Information Value Date Recorded Sex Assigned at Not on file Gender Identity Not on file Sexual Orientation Not on file documented as of this encounter Plan of Treatment Upcoming Encounters Date Type Department Care Team (Late st Contact Info) Description 11/17/2024 9:30 AM EDT TH Visit (TeleHealth) [place] [address] Elsy Staley MD [facility] [place] [address] 01/04/2025 10:45 AM EDT Office Visit Dermatology at [place] [address] [facility] [place] [phone] Yousif Myers MD [address], [place] [address] documented as of this encounter Visit Diagnoses Not on filedocumented in this encounter Care Teams Product Safety Engineer Relationship Specialty Start Date End Date Jordana Parsons MD [address] [place] [address] PCP - General 06/17/10 documented as of this encounter
--- OUTSIDE RECORDS SUMMARY | 2024-06-02 00:51 | XMS_ITS | Encounter Summary ---
Author Organization [facility] [place] [address] Care Team Providers Care Porcelain Enamel Sprayer Name Role Phone Jordana Parsons MD Primary Care Provider Encounter Details Date Type Department Care Team (Latest Contact Info) Description 06/02/2023 Transcribe [place] [phone] Jordana Parsons MD [address] [place] [address] [address] [place] [address] Thrombocytopenia, unspecified Social History Tobacco Use Types Packs/Day Years [...] AM EDT TH Visit (TeleHealth) [place] [phone] Elsy Staley MD [facility] [place] [address] 01/04/2025 10:45 AM EDT Office Visit Dermatology at [address] [place] [address] Yousif Myers MD [address], [place] [address] Scheduled Orders Name Type Priority Associated Diagnoses Orde r Schedule CBC (with Diff) Lab Routine Thrombocytopenia, unspecified Expected: 09/24/2023 (Approximate), Expires: 09/23/2024 Lab Use Only, Fax Request Lab Routine Thrombocytopenia, unspecified Expected: 06/02/2023 (Approximate), Expires: 06/02/2024 documented as of this encounter Visit Diagnoses Diagnosis Thrombocytopenia, unspecified documented in this encounter Care Teams Porcelain Enamel Sprayer Relationship Specialty Start Date End Date Jordana Parsons MD [address] [place] [address] [address] [place] [address] PCP - General 06/17/10 documented as of this encounter
--- OUTSIDE RECORDS SUMMARY | 2024-06-02 00:51 | XMS_ITS | Encounter Summary ---
Author Organization [facility] [place] [address] Care Team Providers Care Culinary Director Name Role Phone Jordana Parsons MD Primary Care Provider [phone] Reason for Visit * Reason Comments Follow-up Encounter Details Date Type Department Care Team (Latest Contact Info) Description 05/17/2020 10:20 AM EDT TH Visit (TeleHealth) [place] [address] Isamar Chambers APRN [facility] [place] [address] S/P parathyroidectomy Social History Tobacco Use Types Packs/Day Years Used Date Smoking Tobacco: Never Smokeless Tobacco: Never Alcohol Use Standard Drinks/Week Comments Yes 5 (1 standard drink = 0.6 oz pur e alcohol) Sex and Gender Information Value Date Recorded Sex Assigned at Not on file Gender Identity Not on file Sexual Orientation Not on file documented as of this encounter Progress Notes * Isamar Chambers APRN - 05/17/2020 10:20 AM EDT Parathyroidectomy Post-Op video health Visit Subjective: Ms. Brayden Silveira is a very pleasant 64 y.o. year old female who is 6 weeks s/p right lower parathyroidectomy for primary hyperparathyroidism. She is doing very well without complaints. She is not having hypocalcemic symptoms or issues with pain or difficulty swallowing. Exam: No data found. Healing anterior neck incision no ridge. No hematoma or seroma. Voice appears normal. Pathology results: A - Parathyroid, right lower, excision: Enlarged (0.10 g), hypercellular parathyroid, consistent with parathyroid adenoma. B - Central neck contents, left, excision: Two (2) benign lymph nodes. Labs: Ca 9.5 PTH 38 Assessment and Plan: Ms. Brayden Silveira is a very pleasant 64 y.o. year old female s/p targeted parathyroidectomy for primary hyperparathyroidism who is doing very well post- operatively without evidence of complications. Idiscussed the pathology results with the patient and recommended no further treatment. Calcium was checked today and was normal. She does not need to continue taking post-operative supplemental doses of calcium and vitamin D. She is taking calcium and D for bone health under the direction of Dr. Staley. I explained that she should have her serum calcium checked annually, and that we do not need to follow PTH levels unless her calcium level rises again. I discussed scar massage with vitamin E to aid in incisional appearance and discussed the importance of UV light protection on scar healing. Overall, she is doing very well post-operatively and I recommended follow up with me on an as needed basis hereafter. Isamar Chambers APRN documented in this encounter Plan of Treatment Upcoming Encounters Date Type Department Care Team (Late st Contact Info) Description 11/17/2024 9:30 AM EDT TH Visit (TeleHealth) [place] [address] Elsy Staley MD [facility] [place] [address] 01/04/2025 10:45 AM EDT Office Visit Dermatology at [place] [address] [facility] [place] [address] Yousif Myers MD [address], [place] [address] documented as of this encounter Visit Diagnoses Diagnosis S/P parathyroidectomy Other postprocedural status documented in this encounter Care Teams Culinary Director Relationship Specialty Start Date End Date Jordana Parsons MD [address] [facility] 1 [place] [address] PCP - General 06/17/10 documented as of this encounter
--- OUTSIDE RECORDS SUMMARY | 2024-06-02 00:51 | XMS_ITS | Encounter Summary ---
Author Organization [facility] [place] [address] Care Team Providers Care Hiv Prevention Specialist Name Role Phone Jordana Parsons MD Primary Care Provider [phone] Encounter Details Date Type Department Care Team (Late st Contact Info) Description 10/16/2021 Ancillary Procedure Radiology Library at [facility] [place] [phone] Elsy Staley MD [facility] [place] [address] Social History Tobacco Use Types Packs/Day Years [...] AM EDT TH Visit (TeleHealth) Endocrinology at [facility] [place] [phone] Elsy Staley MD [facility] [place] [address] 01/04/2025 10:45 AM EDT Office Visit Dermatology at [address] [address] Yousif Myers MD [address], [place] [address] documented as of this encounter Procedures Procedure Name Priority Date/Time Associated Diagnosis Comments FILM LIBRARY- STORAGE ONLY DXA IMAGES Routine 10/16/2021 12:00 AM EDT documented in this encounter Results * Film Library- Storage Only DXA Images (10/16/2021 12:00 AM EDT) Narrative [facility] - 10/17/2021 7:42 AM EDT This exam is auto-finalizing. It's purpose is for storage only. Elsy Staley MD IMG FILM LIBRARY ORDERABLES [place], [place] documented in this encounter Visit Diagnoses Not on filedocumented in this encounter Care Teams Hiv Prevention Specialist Relationship Specialty Start Date End Date Jordana Parsons MD [address] [place] [address] PCP - General 06/17/10 documented as of this encounter
--- OUTSIDE RECORDS SUMMARY | 2024-06-02 00:51 | XMS_ITS | Encounter Summary ---
Author Organization [facility] [place] [address] Care Team Providers Care Box Car Washer Name Role Phone Jordana Parsons MD Primary Care Provider [phone] Encounter Details Date Type Department Care Team (Latest Contact Info) Description 07/06/2023 9:56 PM EST - 07/06/2023 11:59 PM EST [place] [address] Discharge Disposition: Home Social History Tobacco Use Types Packs/Day Years Used Date Smoking Tobacco: Never Smokeless Tobacco: Never Alcohol Use Standard Drinks/Week Comments Yes 5 (1 standard drink = 0.6 oz pur e alcohol) Sex and Gender Information Value Date Recorded Sex Assigned at Not on file Gender Identity Not on file Sexual Orientation Not on file documented as of this encounter Medications at Time of Discharge Medication Sig Dispensed Refills Start Date End Date indomethacin (Indocin) 25 mg capsule TAKE 1 CAPSULE BY MOUTH NEEDED FOR MIGRAINES 06/21/2023 12/30/2023 cholecalciferol, Vitamin D3, 125 mcg (5,000 unit) Tablet Take 1 tablet by mouth daily. 09/15/2022 12/30/2023 candesartan (Atacand) 16 mg Tablet Take 16 mg by mouth daily. 05/06/2022 12/30/2023 Ubrelvy 100 mg Tablet TAKE ONE TABLET BY MOUTH ONCE A SINGLE DOSE FOR MIGRAINE. MAY REPEAT ONCE IN 2 HOURS AFTER FIRST DOSE IF NEED 03/12/2022 12/30/2023 calcium combo no.2-vitamin D3 600 mg-12.5 mcg (500 unit) Tablet Sustained Release Take 1 tablet by mouth daily. 02/27/2021 12/30/2023 fluocinolone acetonide (SYNALAR) 0.01 % Solution Soak Q-tips with the solution then use clean ears gently 2-3 times weekly. Use a few times weekly on the scalp as needed. 60 mL 10/17/2020 11/09/2023 magnesium oxide (Mag-Ox) 400 mg (241.3 mg magnesium) Tablet Take 400 mg by mouth daily. 12/30/2023 documented as of this encounter Plan of Treatment Upcoming Encounters Date Type Department Care Team (Late st Contact Info) Description 11/17/2024 9:30 AM EDT TH Visit (TeleHealth) [place] [address] Elsy Staley MD [facility] [address] 01/04/2025 10:45 AM EDT Office Visit Dermatology at [place] [address] [facility] [place] [address] Yousif Myers MD [address], [place] [address] documented as of this encounter Procedures Procedure Name Priority Date/Time Associated Diagnosis Comments SURGICAL PATHOLOGY REPORT Routine 07/06/2023 9:55 AM EST documented in this encounter Results * Surgical Pathology Report (07/06/2023 9:55 AM EST) Final Diagnosis [id number] ? Location: OPW The signing pathologist has (i) examined the relevant preparation(s) for the specimen(s) and (ii) rendered or confirmed the diagnosis(es). . ?Surgical Pathology DIAGNOSIS Right bicep, skin shave biopsy ED&C: - ??Lichenoid actinic keratosis Electronically signed by: ?Jolanta BLANKENSHIP, Estefania Verified: ??07/23/2023 16:19 ??Dermatopatholo gist Performed at: ??-[facility], [place] [address] Forestry Fire Aide: Farhad Loya MD, FCAP, ??CLIA Certificate: [id number] ADDITIONAL STUDIES Melan-A highlights pelt dropper distributed junctional melanocytes. SPECIMEN(S) SUBMITTED A - R biceps area of arm, shave ED&C Referring Identifier: ?(not provided) CLINICAL INFORMATION Since May erythematous 1 cm scaly patch; BCC/SCC SPECIMEN PROCESSING A - Labeled/Fixative : Patient demographics, formalin. Quantity/Size: ??Single, 1.5 x 1.0 x 0.1 cm. Tissue Description: Shave of a aponte-pink skin patch Sections/Process ing: Inked and entirely submitted in 2 cassettes as follows: ?A1: ??tips ?A2: ??body ??sns 07/23/2023 4:19 PM EST [facility] SPECIMEN FROM SKIN / Unknown 07/06/2023 9:55 AM EST 07/06/2023 9:55 AM EST Yousif Myers MD PATHOLOGY/CYTOLOGY O RDERABLES Performing Organization Address City/State/[facility] [[email or web address]] Co de Phone Number [facility] [address] [place] [address] documented in this encounter Visit Diagnoses Not on filedocumented in this encounter Care Teams Box Car Washer Relationship Specialty Start Date End Date Jordana Parsons MD [address] [place] [address] PCP - General 06/17/10 documented as of this encounter
--- OUTSIDE RECORDS SUMMARY | 2024-06-02 00:51 | XMS_ITS | Encounter Summary ---
Author Organization [facility] Address [facility] [place] [address] Care Team Providers Care Executive Meeting Manager Name Role Phone Jordana Parsons MD Primary Care Provider [phone] Reason for Visit * Reason Comments Establish Care * Consultation (Routine) - Closed Specialty Diagnoses / Procedures Referred By Agus galaviz Referred To Contact General Surgery Diagnoses Primary hyperparathyroidism Jenn Smith MD [facility] [place] [address] Starla Mayers MD [facility] [place] [address] Referral ID Status Reason Start Date Expiration Date V isits Requested Visits Authorized [id number] Closed Consult, Test & Treat 10/12/2019 10/11/2020 1 1 Encounter Details Date Type Department Care Team (Late st Contact Info) Description 12/28/2019 8:00 AM EDT Office [place] [address] Starla Mayers MD [facility] [place] [address] Isamar Chambers APRN [facility] [place] [address] Hyperparathyroidism, primary Social History Tobacco Use Types Packs/Day Years Used Date Smoking Tobacco: Never Smokeless Tobacco: Never Sex and Gender Information Value Date Recorded Sex Assigned at Not on file Gender Identity Not on file Sexual Orientation Not on file documented as of this encounter Last Filed Vital Signs Vital Sign Reading Time Taken Comments Blood Pressure 134/74 12/28/2019 7:41 AM EDT Pulse 66 12/28/2019 7:41 AM EDT Temperature 36.5 ??C (97.7 ??F) 12/28/2019 7:41 AM ED T Respiratory Rate 16 12/28/2019 7:41 AM EDT Oxygen Saturation 100% 12/28/2019 7:41 AM EDT Inhaled Oxygen Concentration - - Weight 58.1 kg (128 lb) 12/28/2019 7:41 AM EDT Height 162.6 cm (5' 4.02) 12/28/2019 7:41 AM ED T Body Mass Index 21.96 12/28/2019 7:41 AM EDT documented in this encounter Progress Notes * Starla Mayers MD - 12/28/2019 8:00 AM EDT Endocrine Surgery Initial Consultation HPI: Ms. Brayden Silveira is a very pleasant 64 y.o. year old female who presents for evaluation of primary hyperparathyroidism as a referral from Dr. Smith. Her hypercalcemia was initially detected on routinelabs. There is not a history of nephrolithiasis. She does have a history of osteoporosis. There is not a recent history of fractures. She reports symptoms of hyperparathyroidism includingfatigue, constipation and achiness. She also states her mood has been depressed and she feels irritable She states she has resigned from one of her jobs due to fatigue. She has daily headaches. There is not a history of previous anterior neck surgery. She does not have a family history of endocrinopathies, hypercalcemia or endocrine malignancy. She presents today for consideration of surgical management of her hyperparathyroidism. Recent labs: Serum calcium 11.2 mg/dL PTH 171 pg/mL 25-OH Vitamin D 31.6 ng/mL Ionized Calcium 1.39 mmol/L Phosphorus mg/dL 24 hour urine calcium 386 mg/24hr Recent studies: Recent DEXA scan: osteoporosis (lowest T score -3.7 in the forearm) Sestamibi scan: possible right lower parathyroid abnormality Cervical ultrasound with endocrinology demonstrated: Right Lobe: The right lobe measures 3.5 x 0.7 x 1.0 , with homogeneous texture. There is a R sided parathyroid adenoma measuring 0.8 x 0.3 x 0.4cm with a very clear feeding vessel. ?? Left Lobe: The left lobe measures 3.2 x 0.7 x 0.9cm, with homogeneous texture. ?? Isthmus: The isthmus measures 0.2 cm. ?? Impression: R sided parathyroid adenoma. Past Medical History: Diagnosis Date ??? Hypercalcemia ??? Hyperparathyroidism ??? Raynaud's disease ??? Thrombocytopenia Past Surgical History: Procedure Laterality Date ??? SECTION ??? SINUS SURGERY ??? TONSILLECTOMY AND ADENOIDECTOMY ??? TUBAL LIGATION ??? TYMPANOPLASTY Bilateral Current Outpatient Medications on File Prior to Visit Medication Sig Dispense Refill ??? indomethacin (Indocin) 25 mg Capsule Take 1 capsule by mouth 2 times daily (with meals). 270 capsule 12 ??? pantoprazole EC (Protonix) 20 mg Tablet, Delayed Release (E.C.) Take 1 tablet by mouth daily. 30 tablet 11 ??? amitriptyline (Elavil) 10 mg Tablet 1-2 PO QHS 60 tablet 3 ??? hydrOXYzine (VISTARIL) 25 mg Capsule TAKE ONE CAPSULE BY MOUTH THREE TIMES A DAY FOR MIGRAINE WITH INDOMETHACIN ??? indomethacin (Indocin) 25 mg Capsule TAKE UP TO THREE TIMES A DAY FOR MIGRAINE WITH VISTARIL ??? naratriptan (Amerge) 2.5 mg Tablet TAKE ONE TABLET BY MOUTH AT FIRST ONSET OF HEADACHE MAY REPEAT IN 2 HOURS MAX OF 5MG PER 24 HOURS ??? magnesium oxide (Mag-Ox) 400 mg (241.3 mg magnesium) Tablet Take 400 mg by mouth daily. ??? riboflavin, vitamin B2, (VITAMIN B-2 ORAL) Take 400 mg by mouth daily. No current facility-administered medications on file prior to visit. Allergies as of 12/28/2019 ??? (No Known Allergies) Family History: No thyroid cancer. No pituitary, pancreas or adrenal tumors. No parathyroid disease. 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 She lives with her . Nonsmoker. No professional public speaking or singing Review of Systems: Negative/Normal Positive/Abnormal Energy Level [] Fatigue, malaise Fever [x] Appetite [x] Weight Loss/Gain [x] ENT [x] Cardiovascular [x] Respiratory [x] Gastrointestinal [x] Bleeding [x] Bruising [x] Genitourinary [x] Musculoskeletal [] Some aching in bones Endocrine [x] Neuro [x] Psych [] Decreased concentration and mood Encounter Vitals: BP 134/74 Pulse 66 Temp 36.5 ??C (97.7 ??F) Resp 16 Ht 162.6 cm (5' 4.02) Wt 58.1 kg (128 lb) SpO2 100% BMI 21.96 kg/m?? Physical Exam: System Normal Abnl Findings General [x] [] Well nourished, appears well Skin [x] [] Warm and dry Neck [x] [] No thyromegaly, no masses, trachea midline Lymph Nodes [x] [] No cervical lymphadenopathy Lungs [x] [] Normal respiratory effort, clear to auscultation bilaterally Cardiovascular [x] [] Regular rate and rhythm, no murmurs Extremities [x] [] Warm, no edema, full ROM Neuro [x] [] Motor intact, voice normal Psych [x] [] Normal mood and affect; responds to questions appropriately Procedures performed this visit: Thyroid, Parathyroid and Cervical Ultrasound I performed a thyroid, parathyroid and cervical ultrasound at the time of the clinic visit today using the 12 mHz linear ultrasound transducer. The thyroid, parathyroid and central and bilateral lateral neck lymph node basins were evaluated. The findings include: Thyroid Isthmus: Thickness: 0.15 cm Nodules: none Right lobe: Lobe: 4.21 x 1.00 x 1.38 cm Nodules: none Left lobe: Lobe: 3.60 x 0.92 x 1.09 cm Nodules: none In the right upper parathyroid location (posterior to the midpole of the right thyroid) is a hypoechoic nodule measuring 1.13 x 0.29 x 0.42cm There is also a very small (3 x 3 x 3mm) hypoechoic, avascular nodule posterior to the left lower pole that could represent a very mildly enlarged parathyroid. Cervical lymph nodes Central neck: Normal ultrasonographic appearing lymph nodes Right lateral neck: Normal ultrasonographic appearing lymph nodes Left lateral neck: Normal ultrasonographic appearing lymph nodes Assessment and Plan: Ms. Brayden Silveiar is a 64 y.o. year old female with symptomatic biochemical primary hyperparathyroidism and a history of osteoporosis . Localization studies including ultrasound and sestamibi scan indicate a definite right-sided parathyroid abnormality, and I also visualized a very small (3mm) nodule on the left. We discussed the typical work up and management of primary hyperparathyroidism. I therefore recommended parathyroidectomy with intraoperative parathyroid hormone monitoring targeting the right-sided gland. If IOPTH levels do not decrease appropriately, we will have a low threshold to p roceed with a bilateral exploration. I discussed the risks of parathyroidectomy with the patient including, but not limited to, nerve injury resulting in voice changes or hoarseness of voice, low calcium related to removal of parathyroid tissue, bleeding which may require reoperation, infection andcomplications related to anesthesia. She confirmed understanding of these risks and consent was obtained today. Surgery will be scheduled for the soonest mutually convenient date. [facility] Data Patient Characteristics Body mass index is 21.96 kg/m??. Patient Ethnicity & Race Ethnic Group Patient Race Not nor White Prior neck irradiation: no Prior anterior neck surgery: no Pre-operative laryngoscopy: no Anti-coagulation meds (aspirin, warfarin, clopidogrel, heparin, oral thrombin or factor Xa inhibitors): no Disease Characteristics Primary Pre-Operative Diagnosis: sporadic primary hyperparathyroidism Persistent/Recurrent Hyperparathyroidism: No Calcium: high 24-hour Urine calcium: high GFR decreased: No Ionized calcium: high PTH: high [id number] D: normal Subjective Symptoms: yes Objective Symptoms: yes Imaging Studies: Localization studies performed: yes Localization study type: ultrasound and sestamibi Ultrasound result: Localized single gland with high confidence Sestamibi result: Localized single gland with low confidence documented in this encounter Plan of Treatment Upcoming Encounters Date Type Department Care Team (Late st Contact Info) Description 11/17/2024 9:30 AM EDT TH Visit (TeleHealth) [place] [address] Elsy Staley MD [facility] [place] [address] 01/04/2025 10:45 AM EDT Office Visit Dermatology at [address] [place] [address] Yousif Myers MD [address], [place] [address] Scheduled Referrals Name Type Priority Associated Diagnoses Orde r Schedule Referral to General Surgery Outpatient Referral Routine Primary hyperparathyroidism Ordered: 10/12/2019 documented as of this encounter Visit Diagnoses Diagnosis Hyperparathyroidism, primary Primary hyperparathyroidism documented in this encounter Care Teams Executive Meeting Manager Relationship Specialty Start Date End Date Jordana Parsons MD [facility] [address] [place] [address] PCP - General 06/17/10 documented as of this encounter
--- OUTSIDE RECORDS SUMMARY | 2024-06-02 00:51 | XMS_ITS | Encounter Summary ---
Author Organization [facility] Address [facility] [place] [address] Care Team Providers Care Research And Development Director Name Role Phone Jordana Parsons MD Primary Care Provider [phone] Encounter Details Date Type Department Care Team (Late st Contact Info) Description 02/19/2020 Telephone [place] [phone] Starla Mayers MD [facility] [address] [place] [address] Social History Tobacco Use Types Packs/Day Years [...] encounter Miscellaneous Notes * Telephone Encounter - Starla Myaers MD - 02/19/2020 2:35 PM EDT I called Ms. Brayden Silveira today to discuss the results of her pathology. Specifically, this demonstrated A - Parathyroid, right lower, excision: Enlarged (0.10 g), hypercellular parathyroid, consistent with parathyroid adenoma. B - Central neck contents, left, excision: Two (2) benign lymph nodes. She is doing well. Her voice sounds normal. She is not complaining of perioral numbness/tingling, numbness/tingling in the hands, or muscle spasms. She will taper off her calcium supplementation. I answered her questions, and we will plan to do her follow up remotely. Isamar Chambers APRN has already sent a Ca and PTH lab orders to [facility] to be done mid-February. documented in this encounter Plan of Treatment Upcoming Encounters Date Type Department Care Team (Late st Contact Info) Description 11/17/2024 9:30 AM EDT TH Visit (TeleHealth) [place] [id number] Elsy Staley MD [facility] [place] [address] 01/04/2025 10:45 AM EDT Office Visit Dermatology at [place] [address] [facility] [place] [phone] Yousif Myers MD [address] [place] [address] documented as of this encounter Visit Diagnoses Not on filedocumented in this encounter Care Teams Research And Development Director Relationship Specialty Start Date End Date Jordana Parsons MD [address] [place] [address] PCP - General 06/17/10 documented as of this encounter
--- OUTSIDE RECORDS SUMMARY | 2024-06-02 00:51 | XMS_ITS | Encounter Summary ---
Author Organization [facility] [place] [address] Care Team Providers Care Wrapper Sorter Name Role Phone Jordana Parsons MD Primary Care Provider [phone] Reason for Visit * Auth/Cert Specialty Diagnoses / Procedures Referred By Contac t Referred To Contact Diagnoses HYPERPARATHYROIDISM Procedures PRO EXPLORE PARATHYROID GLANDS PRG EMG, LARYNX PARATHYROIDECTOMY OR EXPLORATION OF PARATHYROID(S) (WRVU 15.6) FACIAL NERVE MONITORING, SETUP LARYNGEAL (WRVU 1.57) Referral ID Status Reason Start Date Expiration Date Visits Re quested Visits Authorized [id number] 1 1 Encounter Details Date Type Department Care Team (Late st Contact Info) Description 02/12/2020 7:30 AM EDT - 02/12/2020 9:58 AM EDT [place] [address] Jevon Fisher MD [facility] [place] [address] PARATHYROIDECTOMY OR EXPLORATION OF PARATHYROID(S) (WRVU 15.6) Social History Tobacco Use Types Packs/Day Years [...] Sign Reading Time Taken Comments Blood Pressure 154/96 02/12/2020 6:05 AM EDT Pulse 62 02/12/2020 6:05 AM EDT Temperature 36.5 ??C (97.7 ??F) 02/12/2020 6:05 AM ED T Respiratory Rate 16 02/12/2020 6:05 AM EDT Oxygen Saturation 100% 02/12/2020 6:05 AM EDT Inhaled Oxygen Concentration - - Weight 57.2 kg (126 lb) 02/12/2020 6:05 AM EDT Height 162.6 cm (5' 4) 02/12/2020 6:05 AM EDT Body Mass Index 21.63 02/12/2020 6:05 AM EDT documented in this encounter Discharge Instructions * Patient Instructions* JulienAndreyjosé Valle - 02/12/2020 10:46 AM EDT PARATHYROIDECTOMY PATIENT DISCHARGE INSTRUCTIONS What to Expect Following Surgery: Swelling and/or bruising under and around the incision is normal. It is usually greatest on the second or third day following surgery. You may also feel the sensation of swelling or firmness that canlast for a month or more Your scar will be most visible for 1-2 months following your operation and will gradually fade overthe next 6-8 months. As it heals, a scar often looks more pink or red than the skin around it. You may feel a ???healing ridge?? directly under the incision. This is completely normal and is the result of swelling, healing, and scar formation. Usually, this will go away when healing is complete in 3-6 months. The skin just above and below your incision will feel numb. This will improve over several months but some patients may have long-term decrease in sensation over these areas. You may notice minor difficulty in swallowing which will improve over time. Your voice may be hoarse or weak at first--this is normal and does not mean there was damage done to the nerves that make the vocal cords move. Your voice will usually go back to normal after severaldays to a few weeks. Incision Care: Neck incisions heal rapidly--usually within a week or two. The incision can get wet in the shower 24 hours after surgery. However, do not submerge the incision underwater (i.e. bath tub, swimming pool, hot tub, etc.) for at least 2 weeks after your operation. Pat the incision dry immediately following your shower. Do not scrub the area vigorously for the next 2 weeks. You have a skin glue closure, and you may notice tiny pieces of yellow/white/julien material on your washcloth or there may be a thin clear or purplish/julien crust around the edges of the incision. Thisis normal. The glue will start to come off about a week after surgery. Do not pull off the skin glue in order to allow time for the incision to heal completely. If there is still some glue on your skin 2 weeks after surgery, you may gently wash it away. Do not use any ointments/salves/Vitamin E on the incision for 2 weeks as these may impair early wound healing. After 2 weeks (and after the skin glue is gone), you may apply vitamin E oil or scar creams to the incision. Gentle massage may help soften your scar tissue. Incisions are sensitive to sunlight. For at least 1 year after surgery you should use sunscreen when outdoors for long periods of time to prevent permanent darkening of the scar. This includes tanning booths. Pain Management: You may apply ice or cold packs to the incision for 15-20 minutes several times a day for the first2-3 days following surgery to help with discomfort. You may feel some stiffness/soreness in your shoulders, back, and neck. This may take a few days orweeks to go away completely. You may use moist warm heat, a heating pad, or massage to these areas for 15-20 minutes several times a day. Do not be afraid to move your neck - gently flexing and stretching your neck muscles and light massage will help prevent stiffness NSAIDs (non-steroidal anti-inflammatory drugs) such as ibuprofen (Motrin, Advil) and naproxen (Naprosyn, Aleve) or acetaminophen (Tylenol) are most helpful for the pain experienced after surgery. Generally, these are even more effective than the stronger pain medications (narcotics or opioids) after parathyroid surgery. Take NSAIDS or Tylenol every 6 hours [id number] for the first 3-5 days following surgery to help minimize pain. It is unusual to require opioid pain medications after parathyroid surgery. If you were prescribed oxycodone, use only for severe pain, and never take with alcohol. Opioid medications typically causeconstipation, so we suggest using a stool softener in addition (metamucil, colace...etc.). Diet & Activity: No restrictions in your diet are necessary. Activity as tolerated by your comfort level. You may return to work as soon as you would like. However, if your job requires heavy lifting or strenuous physical activity, your surgeon may ask you to wait to return to work for two weeks. NO DRIVING for at least 8 hours following any dose of an opioid pain medication if one was prescribed for you. Pathology Report: All specimens removed at surgery are analyzed by a pathologist. This report usually takes approximately 5-7 business days to be ready. Dr. Fisher will call you with this report as soon as it is available. Follow-up Appointment: Will be scheduled with Dr. Fisher in 6 weeks with a lab appointment to check your calcium Date and time will be mailed to you Please call [phone] to confirm the date and time of your appointment if you do not hear from us in the next 2 weeks Call Doctor for: Call if you have trouble talking or breathing (call [phone] if this is severe) Call if you develop numbness or tingling around your mouth/lips or on the tips of your fingers or your hands, as this may mean your calcium is low. This may also be related to pain medication, where the breathing tube was positioned against your lips, the positioning of your arms and hands in the operating room, or how you were positioned when sleeping. If the sensation does not go away within a half hour, or if it worsens prior to that, call us immediately so we can discuss increasing your calcium if we think you need it. Call if your incision becomes red or begins to drain fluid. Call if you have fevers greater than 101 degrees F Call if you have persistent nausea or vomiting (this may be related to opioid pain medications). Call if you begin feeling worse, rather than better, several days after surgery. Information about Calcium Supplementation WHAT IS THE EFFECT OF SURGERY ON MY CALCIUM LEVELS? The parathyroid glands are responsible for controlling the body???s calcium levels, and you probably needed parathyroid surgery because your calcium level was too high. However, after we remove the abnormal gland(s), the remaining parathyroids frequently do not work perfectly right away. This can result in a decrease in blood calcium levels. This is usually temporary and the remaining parathyroid glands almost always make a full recovery. ??? WHAT ARE THE SYMPTOMS OF LOW CALCIUM? If the calcium level in the blood stream decreases after surgery, you may experience symptoms of numbness, tingling, or cramps in the fingers, toes, legs, or around the mouth. ??? WHAT ARE CALCIUM SUPPLEMENTS? Each over the counter calcium supplement tablet is approximately 500-600 mg. ??? There are several different types of calcium sold over the counter. Some of the more common brands you will see include: Tums, Viactiv, Citracal, Caltrate. ??? The two main forms of calcium in supplements are carbonate and citrate. Calcium carbonate (Tums, Viactiv) is absorbed most efficiently when taken with food, whereas calcium citrate (Citracal) is absorbed equally well when taken with or without food. ??? HOW MUCH CALCIUM SHOULD I TAKE AFTER SURGERY? The exact dose of calcium that is right for you after surgery depends on several factors including the type and extent of surgery. ??? Most patients will temporarily require some extra calcium as the parathyroid glands recover. ??? You probably already purchased calcium supplements after reviewing your preoperative handout. ??? A good guideline is to start with 600-1200 mg (1-2 over the counter supplements) twice a day. If you notice symptoms of numbness/tingling, you may need to take it more frequently (up to 3-4 timesper day). If you have no symptoms, the dose can be gradually decreased and the extra calcium stopped altogether within a few days of surgery. ??? WHAT ABOUT VITAMIN D? Vitamin D can be very helpful with calcium levels, as adequate vitamin D stores in the body help your body absorb calcium. ??? If you were on Vitamin D prior to surgery, this can be resumed post-operatively. ??? Additional Vitamin D may be included in your calcium supplement, this is fine as well. ??? If you are not on Vitamin D and would like to start after surgery, an over the counter supplement of 400-800 IU is the usual recommended dosage, however, if you are on other medications or have other health issues, you will want to discuss this with your PCP. ??? If your surgeon is concerned about your calcium levels, (s)he may prescribe a different form ofvitamin D called Rocaltrol (Calcitriol). This should be taken as instructed. Note that this is not a replacement for calcium, it should be taken in addition to the recommended calcium supplements to help with absorption. COMMONLY ASKED QUESTIONS: ??? Are there side effects to calcium supplements? The most common side effect is constipation and stomach upset. If you are taking high doses of calcium after surgery, be sure to include a stool softener or laxative as needed. Minimize narcotics, as these can also cause constipation. Finally, decrease your calcium supplements if you note no symptoms of low calcium as noted above. Do I need a blood test after surgery to check my calcium levels? Your calcium level will be checkedat your routine follow up visit to make sure it has returned to normal. You will most likely be offthe postoperative supplements by then. Our bodies will signal us that the calcium level is low withthe symptoms noted above. If you do not have these symptoms, then most likely your calcium level isjust fine. Should I take a long-term calcium supplement? Routine calcium supplements can be good for general bone health, especially if you have osteoporosis as a result of your hyperparathyroidism. We recommend that you discuss long-term supplementation with your PCP. Phone number for questions: [phone] before 5 PM on weekdays [phone] after 5 PM and on weekends/holidays. Ask for the general surgery resident window/distribution clerk. Future Appointments Date Time Provider Department Center 05/17/2020 9:20 AM [facility]L [facility] 05/17/2020 10:20 AM Isamar Chambers APRN [facility] SURG [facility] documented in this encounter Medications at Time of Discharge Medication Sig Dispensed Refills Start Date End Date calcium citrate-vitamin D (Calcium Citrate +) 315 mg-5 mcg (200 unit) Tablet Take 2 tablets by mouth 3 times daily (with meals). 02/12/2020 02/27/2021 calcium carbonate (CALCIUM 600 ORAL) Take 1,200 mg by mouth daily. 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 12/30/2023 riboflavin, vitamin B2, (VITAMIN B-2 ORAL) Take 400 mg by mouth daily. 02/27/2021 documented as of this encounter Progress Notes * Khai Florian RN - 02/12/2020 12:36 PM EDT Patient alert and oriented, vital signs stable. Reviewed discharge instructions; patient and Damaso- verbalized understanding. Copy of instruction sheet with contact numbers for questions/concerns with patient and . Pain assessment documented. Patient escorted out of department via wheelchair with RN to OR. documented in this encounter H&P Notes * Gopi Julien - 02/12/2020 5:43 AM EDT Endocrine Surgery Preop H&P NAME: Brayden Silveira DATE: 02/12/20 SURGEON: JEVON FISHER PROCEDURE: Parathyroidectomy BRIEF HISTORY: Brayden Silveira is a 64 y.o. female with symptomatic biochemical primary hyperparathyroidism. She presents today for parathyroidectomy. The patient reports no interval change. There has been no interval medical illness or hospitalizations. Questions have been addressed. Smoking HX: Social History Tobacco Use Smoking Status Never Smoker Smokeless Tobacco Never Used PMH: Patient Active Problem List Diagnosis Date Noted ??? Hyperparathyroidism ??? Hypercalcemia 09/07/2019 ? ? Hyperparathyroidism, primary (PTH 182, Ca 10.1-11.2; upper limit of normal 10.1) => US+1cm RPTH adenoma 09/07/2019 ??? Nevus 11/16/2013 ??? Other seborrheic keratosis 11/16/2013 PSH: Past Surgical History: Procedure Laterality Date ??? SECTION ??? SINUS SURGERY ??? TONSILLECTOMY AND ADENOIDECTOMY ??? TUBAL LIGATION ??? TYMPANOPLASTY Bilateral MEDS: No current facility-administered medications on file prior to encounter. Current Outpatient Medications on File Prior to Encounter Medication Sig Dispense Refill ??? calcium carbonate (CALCIUM 600 ORAL) Take 1,200 mg by mouth daily. ??? magnesium oxide (Mag-Ox) 400 mg (241.3 mg magnesium) Tablet Take 400 mg by mouth daily. ??? riboflavin, vitamin B2, (VITAMIN B-2 ORAL) Take 400 mg by mouth daily. ??? amitriptyline (Elavil) 10 mg Tablet 1-2 PO QHS 60 tablet 3 ??? hydrOXYzine (VISTARIL) 25 mg Capsule TAKE ONE CAPSULE BY MOUTH THREE TIMES A DAY FOR MIGRAINE WITH INDOMETHACIN ??? indomethacin (Indocin) 25 mg Capsule TAKE UP TO THREE TIMES A DAY FOR MIGRAINE WITH VISTARIL ALL: No Known Allergies Physical Exam There were no vitals filed for this visit. Gen: NAD, pleasant, sitting comfortably in bed HEENT: normocephalic, atraumatic, EOMI, sclerae anicteric Neck: supple, trachea midline Card: RRR, Pulm: Non-labored breathing on room air Abd: soft, NT, BS+ Ext: warm, dry, no edema Neuro: A&Ox3, CN II-XII grossly intact, nonfocal, conversant LABS: No results found for: NA, K, CL, CO2, BUN, CREATININE Assessment/Plan: Brayden Silveira is a 64 y.o. female presenting today for planned parathyroidectomy due to symptomatic biochemical primary hyperparathyroidism. Consent signed and confirmed in chart. Questions addressed. Will proceed with planned surgery. Gopi Julien MD 02/12/2020 Endocrine Surgery Service Pager [phone] documented in this encounter Miscellaneous Notes * Op Note - Jevon Fisher MD - 02/12/2020 10:26 AM EDT [facility] Operative Note Patient Name: Brayden Silveira : [id number] MR#: [id number] Case Date: 02/12/2020 Surgeon: Surgeon(s) and Role: * Jevon Fisher MD - Primary * Gopi Julien MD - Resident Preoperative diagnosis: HYPERPARATHYROIDISM Postoperative diagnosis: HYPERPARATHYROIDISM Procedure(s) (LRB): PARATHYROIDECTOMY OR EXPLORATION OF PARATHYROID(S) (WRVU 15.6) (N/A) FACIAL NERVE MONITORING, SETUP LARYNGEAL (WRVU 1.57) (N/A) Anesthesia: General Estimated Blood Loss: 21 mL Specimens removed during surgery: Order Name Source Comment Collection Info Order Time SPECIMEN TO PATHOLOGY 312 HYPERPARATHYROIDISM ? right lower parathyroid excision YES, Please perform frozen section No 02/12/2020 8:45 AM Number of tissue samples (in container) 1 Time specimen removed from patient: 8:45 AM Biospecimen to store? No SPECIMEN TO PATHOLOGY 3-3122 OR 22 HYPERPARATHYROIDISM Left central neck contents excision No 02/12/2020 10:06 AM Time specimen removed from patient: 10:05 AM Number of tissue samples (in container) 1 Biospecimen to store? No Drains: * No LDAs found * Surgical Closure: Primary Closure - skin incision is completely closed without any wires, juan carlos, drains or other devices Disposition: awakened from anesthesia, extubated and taken to the recovery room in a stable condition, having suffered no apparent untoward event. Condition: doing well without problems (Please see the Surgical Encounter Summary for any Implant and Specimen details pertinent to this patient.) HPI/Surgical Indications: Ms. Brayden Silveira is a 64 y.o. year old female [...] we will have a low threshold to proceed with a bilateral exploration. Procedure Description: The patient was taken to the operating room and placed on the operating table in the supine position. Adequate general anesthesia was completed by anesthesiology with the eRALOS3 recurrent laryngeal nerve monitoring system. A crease on the anterior neck was identified and marked, and this area was infiltrated with 10 cc 0.25% marcaine with epinephrine. She was then prepped and draped in the usual sterile fashion over the anterior neck. A timeout procedure was done, and all members of the OR team were in agreement. The procedure began by making a curvilinear incision along the lower anterior neck along the previously marked skin crease with a scalpel. Electrocautery was used to continue dissection through the subcutaneous tissue and through the platysma muscle. Subplatysmal flaps were created in cranial and caudal directions. The median raphe of the strap muscles was divided with electrocautery. We developed a plane between the right strap muscles down to the right internal jugular vein, and florina a baseline PTH from the internal jugular vein. IOPTH levels are noted in the below. We then dissected the strap muscles off the thyroid lobe out to its lateral aspect. The middle thyroidal veins were ligated.We dissected into the paratracheal and paraesophageal space and identified the recurrent laryngeal nerve as it ran into the tracheoesophageal groove and carefully preserved this. We identified a right upper parathyroid gland in the normal anatomic position which was normal appearing. It seemed that the large upper parathyroid gland I had visualized on pre-operative ultrasound was probably a thyroid nodule. We then identified a right lower parathyroid that was mildly enlarged and closely attached to the right inferior pole of the thyroid. We dissected it free, but did not have good enough exposure to draw a pre-excision level. We ligated its vascular pedicle with a 3-0 silk suture. The gland was passed off the table as a frozen specimen since it did not seem remarkably enlarged. At 10 and 20 minutes, we florina post-excision PTHs from the internal jugular vein. It was confirmed an enlarged parathyroid gland, but because of the preoperative ultrasound suspicion for a possible left-sided gland and because the intraoperative findings had not matched the ultrasound, I decided to proceed directly to a bilateral exploration. The left side was explored in an identical fashion. First we the left thyroid lobe from the overlying vertical strap muscles. We dissected into the tracheoesophageal groove, and identified a recurrent laryngeal nerve signal. Almost immediately, we identified a left lower parathyroid glandthat was normal in appearance. We continue to explore for the left upper gland. Especially as we got the results of the 10 and 20-minute IO PTH, which had declined significantly from 332 to 81, but were not yet convincing for biochemical cure. I then asked anesthesia to draw peripheral IO PTH level, which was done from the patient's left foot. While we waited for this to result, we continue to explore for the missing left-sided parathyroid gland. I ended up doing a left central neck dissection,but none of the contents appeared to contain a parathyroid gland. There really was no tongue of cervical thymus, so no thymectomy was done. I did open the carotid sheath on the left side and did not find any suspicious parathyroid glands. We mobilized the entire thyroid lobe, so that it was attached only by its upper and lower pole vessels. This allowed us to thoroughly explore the area posteriorto the lobe and also the tracheoesophageal groove along its entire cervical length. No candidate parathyroid glands were seen. I decided not to do a left hemithyroidectomy, since there were no nodules seen in the thyroid on preoperative ultrasound. We decided to wait for the peripheral PTH level, which returned at 33, which is consistent with a biochemical cure. We therefore decided to conclude our exploration without removing additional parathyroid tissue. To summarize, the right lower parathyroid gland was removed. The right upper parathyroid gland was identified in its normal anatomic position and appeared normal. The left lower parathyroid gland wasidentified in its normal anatomical position and also appeared normal. The left upper parathyroid gland was never seen. The IO PTH level fell from 332 to 33. We then irrigated the operative field. A Valsalva to 30 millimeters of mercury was accomplished by Anesthesia. Hemostasis was assured. The recurrent laryngeal nerves were tested again, and both were fully functional on the nerve monitor. We placed Surgicel in the paratracheal spaces bilaterally, closed the strap muscles using running 3-0 Vicryl suture, the platysma with interrupted 3-0 Vicryl suture, and the skin with running 5-0 Prolene subcuticular suture. The decreasing values and kinetics of the IOPTH indicated a biochemical cure. We then placed Dermabond on the incision and removed the Prolene suture. IOPTH findings: Baseline: 332 pg/mL 10-min post-excision 101 pg/mL 20-min post-excision 81 pg/mL 45 minute post-excision peripheral draw 33 Pg/mL Infection Bundle used? N/A Attestation: Case Date: 02/12/2020 I was present and I participated during the entire procedure (does not need to include opening and closing). JEVON FISHER MD 02/12/2020 * Brief Op Note - Jevon Fisher MD - 02/12/2020 10:21 AM EDT Brief Operative Note Patient Name: Brayden Silveira : [id number] MR#: [id number] Case Date: 02/12/2020 Surgeon: Surgeon(s) and Role: * Jevon Fisher MD - Primary * Gopi Julien MD - Resident Preoperative diagnosis: HYPERPARATHYROIDISM Postoperative diagnosis: HYPERPARATHYROIDISM Procedure(s) (LRB): PARATHYROIDECTOMY OR EXPLORATION OF PARATHYROID(S) (WRVU 15.6) (N/A) FACIAL NERVE MONITORING, SETUP LARYNGEAL (WRVU 1.57) (N/A) Anesthesia: General Findings: mildly enlarged right lower parathyroid (confirmed by frozen section). Normal-appearing right upper and left lower parathyroids visualized. Left upper parathyroid not identified, but peripheral blood draw approximately 45 minutes s/p excision of right lower gland confirmed biochemical cure, so we concluded the case. IOPTH findings: Baseline: 332 pg/mL 10-min post-excision 101 pg/mL 20-min post-excision 81 pg/mL 45 minute post-excision peripheral draw 33 Pg/mL Complications: none apparent Intake: Intraprocedure Crystalloid Total Anesthesia Output Blood Loss 21 mL Lactated Ringers Volume (mL) 700 mL Transfusion No data found in the last 1 encounters. Output: Estimated Blood Loss: 21 mL Urine Output:: (no urine output recorded) Other Output: (no other output recorded) Drains: none Specimens removed during surgery: Order Name Source Comment Collection Info Order Time SPECIMEN TO PATHOLOGY 3-3122 HYPERPARATHYROIDISM ? right lower parathyroid excision YES, Please perform frozen section No 02/12/2020 8:45 AM Number of tissue samples (in container) 1 Time specimen removed from patient: 8:45 AM Biospecimen to store? No SPECIMEN TO PATHOLOGY [id number] OR 22 HYPERPARATHYROIDISM Left central neck contents excision No 02/12/2020 10:06 AM Time specimen removed from patient: 10:05 AM Number of tissue samples (in container) 1 Biospecimen to store? No Disposition: awakened from anesthesia, extubated and taken to the recovery room in a stable condition, having suffered no apparent untoward event. Condition: doing well without problems Attestation: Case Date: 02/12/2020 I was present and I participated during the entire procedure (does not need to include opening and closing). (Please see the Surgical Encounter Summary for any Implant and Specimen details pertinent to this patient.) documented in this encounter Plan of Treatment Upcoming Encounters Date Type Department Care Team (Late st Contact Info) Description 11/17/2024 9:30 AM EDT TH Visit (TeleHealth) [place] [address] Elsy Staley MD [facility] [place] [address] 01/04/2025 10:45 AM EDT Office Visit Dermatology at [place] [address] [facility] [place] [place] [address] Yousif Myers MD [address], [place] [address] documented as of this encounter Procedures Procedure Name Priority Date/Time Associated Diagnosis Comments SPECIMEN TO PATHOLOGY Routine 02/12/2020 10:06 AM EDT HC INTRAOPERATIVE PTH STAT 02/12/2020 9:40 AM EDT HC INTRAOPERATIVE PTH STAT 02/12/2020 9:05 AM EDT HC INTRAOPERATIVE PTH STAT 02/12/2020 8:54 AM EDT SURGICAL PATHOLOGY REPORT Routine 02/12/2020 8:45 AM EDT SPECIMEN TO PATHOLOGY STAT 02/12/2020 8:45 AM EDT HC INTRAOPERATIVE PTH STAT 02/12/2020 8:23 AM EDT Needle Electromyography, Larynx Global (64000) 02/12/2020 7:28 AM EDT HYPERPARATHYROIDIS M Explore Parathyroid Glands (50128) 02/12/2020 7:28 AM EDT HYPERPARATHYROIDIS M documented in this encounter Results * Specimen to Pathology (02/12/2020 10:06 AM EDT) AP Specimen 02/12/2020 10:0 6 AM EDT 02/12/2020 10:06 AM EDT Narrative [facility] - 02/12/2020 10:06 AM EDT Specimen requisition ordered. ??Separate Pathology report to follow Jevon Fisher MD PATHOLOGY/CYTOLOG Y ORDERABLES Performing Organization Address [facility] Co de Phone Number [facility] [place] [place] [address] * Intraoperative PTH ([facility]) (02/12/2020 9:40 AM EDT) PTH, Intraoperative 33 9 - 77 pg/mL [facility] Comment: peripheral post Called by: MICHAEL, Read back by: Linda Wallace_, Date/Time:02/12/20 10:10. A 50 % decrease in venous iPTH levels at 10 min post adenoma excision is expected if all the hypersecreting parathyroid tissue has been removed (Maxim GL et al. Surgery 1993:114; [id number]) Blood specimen (specimen) 02/12/2020 9:40 AM EDT 02/12/2020 9:46 AM EDT Narrative Resulting Agency Comment Spec In Lab Jevon Fisher MD CHEMISTRY ORDERAB LES Performing Organization Address [facility]/ZIP Co de Phone Number [facility] [place] [place] [address] * (ABNORMAL) Intraoperative PTH ([facility]) (02/12/2020 9:05 AM EDT) PTH, Intraoperative 81(H) 9 - 77 pg/mL [facility] Comment: 20 minute post Called by: MICHAEL, Read back by: Linda Wallace_, Date/Time:02/12/20 09:37. A 50 % decrease in venous iPTH levels at 10 min post adenoma excision is expected if all the hypersecreting parathyroid tissue has been removed (Maxim GL et al. Surgery 1993:114; [id number]) Blood specimen (specimen) 02/12/2020 9:05 AM EDT 02/12/2020 9:11 AM EDT Narrative Resulting Agency Comment Spec In Lab Jevon Fisher MD CHEMISTRY ORDERAB LES Performing Organization Address [facility] de Phone Number [facility] [place] [place] [address] * (ABNORMAL) Intraoperative PTH ([facility]) (02/12/2020 8:54 AM EDT) PTH, Intraoperative 101(H) 9 - 77 pg/mL [facility] Comment: 10 minute post Called by: MICHAEL, Read back by: Linda Wallace_, Date/Time:02/12/20 09:31. A 50 % decrease in venous iPTH levels at 10 min post adenoma excision is expected if all the hypersecreting parathyroid tissue has been removed (Maxim GL et al. Surgery 1993:114; [id number]) Blood specimen (specimen) 02/12/2020 8:54 AM EDT 02/12/2020 8:59 AM EDT Narrative Resulting Agency Comment Spec In Lab Jevon Fisher MD CHEMISTRY ORDERAB LES Performing Organization Address [facility] de Phone Number [facility] [place] [phone] * Surgical Pathology Report (02/12/2020 8:45 AM EDT) Final Diagnosis [id number] ? Location: [facility]; [facility]; A The signing pathologist has (i) examined the relevant preparation(s) for the specimen(s) and (ii) rendered or confirmed the diagnosis(es). . ?Surgical Pathology DIAGNOSIS A - Parathyroid, right lower, excision: Enlarged (0.10 g), hypercellular parathyroid, consistent with parathyroid adenoma. B - Central neck contents, left, excision: Two (2) benign lymph nodes. Electronically signed by: ??Lydia Harrington MD Verified: ??02/19/2020 ?Pathologist Performed at: ??[facility] Dept. of Pathology, [place], [place] SPECIMEN(S) SUBMITTED A - ? right lower parathyroid, excision (1) ?for frozen section B - Left central neck contents, excision (1) CLINICAL INFORMATION Hyperparathyroidi sm The intraoperative PTH decreased from 322 pg/mL to 33 pg/mL. SPECIMEN PROCESSING A - Labeled/Fixative: ? Right lower parathyroid, fresh for frozen section. Quantity/Size/Abad ght: Single, 0.7 x 0.6 x 0.3 cm, 0.10 g. Tissue Description: Red-brown nodule. Sections/Processi ng: The specimen is totally submitted for frozen section in 1 cassette labeled A1. B - Labeled/Fixative: Left central neck contents, fresh. Quantity/Size: Two, 1.4 x 1.1 x 0.3 cm combined. Tissue Description: [place]-yellow adipose tissue without grossly identified lymph nodes. Sections/Processi ng: Entirely submitted in 1 cassette labeled B1. ??ajw ?Frozen Section FROZEN SECTION DIAGNOSIS AFS - ? right lower parathyroid, excision (1) ?for frozen section: Enlarged parathyroid gland. 02/12/20 09:01 Electronically signed by: ??Rosie Howard MD Verified: ??02/12/2020 ?Pathologist Performed at: ??[facility] Dept. of Pathology, [place], [place] This intraoperative consultation should be interpreted as a preliminary diagnosis pending review of the entire specimen and special studies, if any. 02/19/2020 10:17 AM EDT [facility] LYMPH NODE SPECIMEN / Unknown 02/12/2020 8:45 AM EDT 02/12/2020 8:45 AM EDT LYMPH NODE SPECIMEN / Unknown 02/12/2020 8:45 AM EDT 02/12/2020 8:45 AM EDT Jevon Fisher MD PATHOLOGY/CYTOLOG Y ORDERABLES Performing Organization Address [facility] Co de Phone Number [facility] [place] [place] [address] * Specimen to Pathology (02/12/2020 8:45 AM EDT) AP Specimen 02/12/2020 8:45 AM EDT 02/12/2020 8:45 AM EDT Narrative [facility] - 02/12/2020 8:45 AM EDT Specimen requisition ordered. ??Separate Pathology report to follow Jevon Fisher MD PATHOLOGY/CYTOLOG Y ORDERABLES Performing Organization Address [facility] de Phone Number [facility] [place] [address] * (ABNORMAL) Intraoperative PTH ([facility]) (02/12/2020 8:23 AM EDT) PTH, Intraoperative 332(H) 9 - 77 pg/mL [facility] Comment: baseline. Called by: MICHAEL, Read back by: Linda Wallace_, Date/Time:02/12/20 08:52. A 50 % decrease in venous iPTH levels at 10 min post adenoma excision is expected if all the hypersecreting parathyroid tissue has been removed (Maxim GL et al. Surgery 1993:114; [id number]) Blood specimen (specimen) 02/12/2020 8:23 AM EDT 02/12/2020 8:28 AM EDT Narrative Resulting Agency Comment Spec In Lab Jevon Fisher MD CHEMISTRY ORDERAB LES Performing Organization Address [facility] Co de Phone Number [facility] [place] [place] [address] documented in this encounter Visit Diagnoses Not on filedocumented in this encounter Administered Medications Inactive Administered Medications - up to 3 most recent administrations Medication Order MAR Action Action Date Dose Rate Site acetaminophen (Tylenol) tablet 1,000 mg 1,000 mg, Oral, ONCE, 1 dose, On Wed02/12/20 at 0630, Administer with SIP of H2O only., Day of Surgery (Day of Procedure), Routine Given 02/12/2020 6:12 AM EDT 1,000 mg BUpivacaine-EPINEPHrine 0.25 %-1:200,000 injection ONCE PRN, Starting on Wed02/12/20 at 0833, Until Wed02/12/20 at 1505, Intra-Operative (Intra-Procedure), Routine Given 02/12/2020 8:33 AM EDT 10 mLs 19- Surgical Site fentaNYL 50 mcg/mL multi-dose injection 12.5-25 mcg, Intravenous, EVERY 5 MIN PRN, Starting on Wed02/12/20 at 0816, Until Wed02/12/20 at 1505, Pain, Give 12.5 mcg every 5 minutes PRN for mild to moderate pain (1-5) Give 25 mcg every 5 minutes PRN for moderate to severe pain (6-10). Hold for respiratory rate less than 10 per minute. Maximum dose 250 mcg over one hour. If ordered with hydromorphone or morphine, give hydromorphone or morphine first and use fentanyl for breakthrough pain., Routine Given 02/12/2020 11:14 AM EDT 12.5 mcg Given 02/12/2020 11:08 AM EDT 25 mcg ibuprofen (Advil;Motrin) tablet 600 mg 600 mg, Oral, EVERY 6 HOURS PRN, Starting on Wed02/12/20 at 1048, Until Wed02/12/20 at 1505, Pain, Administer orally with milk or food to minimize GI irritation. Maximum dose of 3200 mg from all sources in 24 hours, Routine Given 02/12/2020 11:27 AM EDT 600 mg lactated ringers infusion 1,000 mL, at 100 mL/hr, Intravenous, CONTINUOUS, Starting on Wed02/12/20 at 0630, Until Wed02/12/20 at 1305, Day of Surgery (Day of Procedure) New Bag 02/12/2020 6:23 AM EDT 1,000 mLs 100 mL/hr lidocaine (XYLOCAINE) 10 mg/mL (1 %) injection 3 mg 3 mg (0.3 mL), Subcutaneous, ONCE PRN, 1 dose, Starting on Wed02/12/20 at 0605, Until Wed02/12/20 at 0612, for discomfort with PIV insertion, Day of Surgery (Day of Procedure), Routine Given 02/12/2020 6:12 AM EDT 3 mg sodium chloride 0.9 % (flush) flush 5-20 mL 5-20 mL, Intravenous, EVERY 1 MIN PRN, Starting on Wed02/12/20 at 0605, Until Wed02/12/20 at 1305, flush, Flush pertains to all indwelling lines. Flush per protocol found in the job aid using the link provided on this medication record., Day of Surgery (Day of Procedure), Routine Given 02/12/2020 6:23 AM EDT 5 mLs documented in this encounter Active and Recently Administered Medications Times are shown in EDT. Scheduled Medication Order 02/10/2020 02/11/2020 02/12/2020 acetaminophen (Tylenol) tablet 1,000 mg (COMPLETED) 1,000 mg, Oral, ONCE, 1 dose, On Wed02/12/20 at 0630, Administer with SIP of H2O only., Day of Surgery (Day of Procedure), Routine 0612 (Given - Provid er: Nate Gunderson RN) Continuous Medication Order 02/10/2020 02/11/2020 02/12/2020 lactated ringers infusion (CANCELED) 1,000 mL, at 100 mL/hr, Intravenous, CONTINUOUS, Starting on Wed02/12/20 at 0630, Until Wed02/12/20 at 1305, Day of Surgery (Day of Procedure) 0623 (New Bag - Prov ider: Nate Gunderson RN) PRN Medication Order 02/10/2020 02/11/2020 02/12/2020 acetaminophen (Tylenol) tablet 650 mg 650 mg, Oral, EVERY 4 HOURS PRN, Starting on Wed02/12/20 at 1048, Until Wed02/12/20 at 1505, Pain, Maximum dose of acetaminophen is 4000 mg from all sources in 24 hours., Routine BUpivacaine-EPINEPHrine 0.25 %-1:200,000 injection (CANCELED) ONCE PRN, Starting on Wed02/12/20 at 0833, Until Wed02/12/20 at 1505, Intra-Operative (Intra-Procedure), Routine 0833 (Given - Provid er: Gopi Julien) fentaNYL 50 mcg/mL multi-dose injection 12.5-25 mcg, Intravenous, EVERY 5 MIN PRN, Starting on Wed02/12/20 at 0816, Until Wed02/12/20 at 1505, Pain, Give 12.5 mcg every 5 minutes PRN for mild to moderate pain (1-5) Give 25 mcg every 5 minutes PRN for moderate to severe pain (6-10). Hold for respiratory rate less than 10 per minute. Maximum dose 250 mcg over one hour. If ordered with hydromorphone or morphine, give hydromorphone or morphine first and use fentanyl for breakthrough pain., Routine 1108 (Given - Provid er: Khai Florian RN)1114 (Given - Provider: Khai Florian RN) ibuprofen (Advil;Motrin) tablet 600 mg 600 mg, Oral, EVERY 6 HOURS PRN, Starting on Wed02/12/20 at 1048, Until Wed02/12/20 at 1505, Pain, Administer orally with milk or food to minimize GI irritation. Maximum dose of 3200 mg from all sources in 24 hours, Routine 1127 (Given - Provid er: Khai Florian RN) lidocaine (XYLOCAINE) 10 mg/mL (1 %) injection 3 mg (COMPLETED) 3 mg (0.3 mL), Subcutaneous, ONCE PRN, 1 dose, Starting on Wed02/12/20 at 0605, Until Wed02/12/20 at 0612, for discomfort with PIV insertion, Day of Surgery (Day of Procedure), Routine 06 (Given - Provid er: Nate Gunderson RN) sodium chloride 0.9 % (flush) flush 5-20 mL (CANCELED) 5-20 mL, Intravenous, EVERY 1 MIN PRN, Starting on Wed02/12/20 at 0605, Until Wed02/12/20 at 1305, flush, Flush pertains to all indwelling lines. Flush per protocol found in the job aid using the link provided on this medication record., Day of Surgery (Day of Procedure), Routine 06 (Given - Provid er: Nate Gunderson RN) documented in this encounter Care Teams Wrapper Sorter Relationship Specialty Start Date End Date Jordana Parsons MD [address] [place] [address] PCP - General 06/17/10 documented as of this encounter
--- OUTSIDE RECORDS SUMMARY | 2024-06-02 00:51 | XMS_ITS | Encounter Summary ---
[place] [address] Care Team Providers Care Travel Specialist Name Role Phone Jordana Parsons MD Primary Care Provider [phone] Reason for Visit * Reason Onset Date Comments Prior Authorization 10/21/2020 fluocinolone acetonide (SYNALAR) 0.01 % Solution Encounter Details Date Type Department Care Team (Late st Contact Info) Description 10/21/2020 Telephone Dermatology at [address] [phone] Flor Nesbitt CMA Prior Authorization (fluocinolone acetonide (SYNALAR) 0.01 % Solution ) Social History Tobacco Use Types Packs/Day Years [...] encounter Miscellaneous Notes * Telephone Encounter - Flor Nesbitt CMA - 10/21/2020 10:53 AM EDT Images from the original note were not included. 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 Use a fewtimes weekly on the scalp as needed. Disp: 60 ml Refills: 0 Currently taking: no If yes, how long: Diagnosis for this medication: ?? Seborrheic dermatitis L21.9 documented in this encounter Plan of Treatment Upcoming Encounters Date Type Department Care Team (Late st Contact Info) Description 11/17/2024 9:30 AM EDT TH Visit (TeleHealth) [place] [address] Elsy Staley MD [facility] [place] [address] 01/04/2025 10:45 AM EDT Office Visit Dermatology at [address] [place] [address] Yousif Myers MD [address] [place] [address] documented as of this encounter Visit Diagnoses Not on filedocumented in this encounter Care Teams Travel Specialist Relationship Specialty Start Date End Date Jordana Parsons MD [facility] [address] [address] PCP - General 06/17/10 documented as of this encounter
--- OUTSIDE RECORDS SUMMARY | 2024-06-02 00:51 | XMS_ITS | Encounter Summary ---
Author Organization [facility] [place] [address] Care Team Providers Care Stave Bolt Equalizer Name Role Phone Jordana Parsons MD Primary Care Provider [phone] Encounter Details Date Type Department Care Team (Late st Contact Info) Description 08/20/2022 Telephone [place] [phone] Paloma Frank Social History Tobacco Use Types Packs/Day Years [...] AM EDT TH Visit (TeleHealth) [place] [address] Elsy Staley MD [facility] [place] [address] 01/04/2025 10:45 AM EDT Office Visit Dermatology at [place] [address] [facility] [place] [phone] Yousif Myers MD [address] [facility], [address] [place] [address] documented as of this encounter Visit Diagnoses Not on filedocumented in this encounter Care Teams Stave Bolt Equalizer Relationship Specialty Start Date End Date Jordana Parsons MD [address] [facility] [address] [place] [address] PCP - General 06/17/10 documented as of this encounter
--- OUTSIDE RECORDS SUMMARY | 2024-06-02 00:51 | XMS_ITS | Encounter Summary ---
Author Organization [facility] [place] [address] Care Team Providers Care Manager Labor Delivery Name Role Phone Jordana Parsons MD Primary Care Provider [phone] Encounter Details Date Type Department Care Team (Latest Contact Info) Description 03/22/2020 11:30 AM EDT TH Visit (TeleHealth) [place] [address] Elsy Staley MD [facility] [place] [address] Hyperparathyroidism (PTH 182, Ca 10.1-11.2; normal<10.1) before PTH surgery Social History Tobacco Use Types Packs/Day Years [...] Taken Comments Blood Pressure - - Pulse - - Temperature - - Respiratory Rate 12 03/22/2020 11:40 AM EDT Oxygen Saturation - - Inhaled Oxygen Concentration - - Weight 57.2 kg (126 lb) 03/22/2020 11:40 AM EDT Height 162.6 cm (5' 4) 03/22/2020 11:40 AM EDT Body Mass Index 21.63 03/22/2020 11:40 AM EDT documented in this encounter Progress Notes * Elsy Staley MD - 03/22/2020 11:30 AM EDT Images from the original note were not included. Subjective: Patient ID: Brayden Silveira is a 64 y.o. female. 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 Smith & me) by her PCP, Jordana Parsons MD, on 09/07/19 for primary hyperparathyroidism. She is now transferred under my care directly from today (03/22/20) after Dr. Smith's recent graduation. Brayden reports that she stopped her routine running regimen last summer 2018- as she experienced severe joint pain for the previous 6 months and noted more muscle aches and body pain. No hx of nephrolithiasis or fracture but more GAINES daily since Jun 2019. Usually takes 400 mg Mg2+/b2 for migraine headaches which used to wake her up at night. She had menopause age 48 and tries [...] Lydia Han Verified: ??02/19/2020 ?Pathologist Performed at: ??-[facility] Dept. of Pathology, [place], [place] Patient Active Problem List Diagnosis Code ??? Nevus D22.9 ??? Other seborrheic keratosis L82.1 ??? Hypercalcemia E83.52 ??? Rt PTH adenoma 1cm by ultrasound 09/07/19 s/p Rt lower PTH adenoma resection 02/12/20 with [id number] => 33 E21.0 ? ? Hyperparathyroidism (PTH 182, Ca 10.1-11.2; normal<10.1) before PTH surgery E21.3 Family Hx: Unsure if there is a family hx of FHH Mother is 85-pulmonary HTN, valve replacement, slight dementia- not as active as she used to be Father turning 90- bright still- had an AR, bypass in 70s 1 living sibling- they're well, Other brother in accident No known family hx of neck surgery, no pancreatic surgery, no pituitary surgery No Known Allergies Meds: Current Outpatient Medications: ??? lactobacillus rhamnosus, GG, (CULTURELLE) 10 billion cell Capsule, Take 1 capsule by mouth daily., Disp: , Rfl: ??? calcium citrate-vitamin D (Calcium Citrate +) 315 mg-5 mcg (200 unit) Tablet, Take 2 tablets bymouth 3 times daily (with meals)., Disp: , Rfl: ??? calcium carbonate (CALCIUM 600 ORAL), Take 1,200 mg by mouth daily., Disp: , Rfl: ??? amitriptyline (Elavil) 10 mg Tablet, 1-2 PO QHS, Disp: 60 tablet, Rfl: 3 ??? hydrOXYzine (VISTARIL) 25 mg Capsule, TAKE ONE CAPSULE BY MOUTH THREE TIMES A DAY FOR MIGRAINE WITH INDOMETHACIN, Disp: , Rfl: ??? indomethacin (Indocin) 25 mg Capsule, TAKE UP TO THREE TIMES A DAY FOR MIGRAINE WITH VISTARIL, Disp: , Rfl: ??? magnesium oxide (Mag-Ox) 400 mg (241.3 mg magnesium) Tablet, Take 400 mg by mouth daily., Disp:, Rfl: ??? riboflavin, vitamin B2, (VITAMIN B-2 ORAL), Take 400 mg by mouth daily., Disp: , Rfl: Review of Systems Endocrine: Negative for polyuria. Musculoskeletal: Positive for arthralgias. Neurological: Positive for headaches. Objective:Resp 12 Ht 162.6 cm (5' 4) Wt 57.2 kg (126 lb) BMI 21.63 kg/m?? Physical Exam Appearance: Patient is very pleasant white female, normal weight, clinically euthyroid, not in acute distress. Skin - normal in appearance HEENT - PERRLA, EOMI, no lid lag or exophthalmos. Neck - supple, no goiter or nodule visible. Small surgical scar in the lower neck. Neuro - Non-focal, no proximal muscle weakness, no tremor, no facial asymmetry. ENDOCRINOLOGY THYROID ULTRASOUND REPORT Patient:Brayden Silveira, [id number] Date of exam: 09/07/19 Indication: primary hyperparathyroidism, to assess for parathyroid adenoma Comparison: none Performed by: Jenn Smith MD, Elsy Staley MD Real time images of the thyroid gland were obtained using a [id number] US machine. All measurements aregiven as Longitudinal/Sagittal [...] for RLP adenoma resection DXA scan at [facility] ob 10/11/19 showed osteoporosis at the [...] 81 (H) 33 Surgical Pathology Report Unknown [id number] ... Recent lab (outside) after the surgery: Date 03/11/20 03/25/20 05/22/20 Ca 9.4 9.7 9.3 PTH 98H 36.1 25vitaminD 37.3 - Assessment and Plan: This is a very pleasant 64 y.o. female with a past medical history significant for thrombocytopenia, migraine headaches, initially referred to us on 09/07/19 for primary hyperparathyroidism. Parathyroid hormone is inappropriately elevated in the setting of hypercalcemia and a low normal vitamin D level at 33.5. Jacob-Kimberly endorses worsening joint pain, worsening migraines for the previous 6 months and is wondering if the symptoms are related to the hyperparathyroidism. Patient has never experienced nephrolithiasis or fracture. The highest value of calcium obtained on routine blood work was 11.2 mg/dL without any a concomitant albumin provided. She has no history of osteoporotic fractures. We tried to obtain a DEXA scan to assess for osteoporosis. Her GFR currently is 53. There is no family history of hypercalcemia or neck surgeries and her 24-hour urinary calcium level definitively excluded familial hypocalcuric hypercalcemia. Dr. Smith explained to Brayden the fact that we would not expect the modest elevation in her calcium level to contribute significantly to joint pain/migraine headache s although it is possible. Thyroid ultrasound at the initial visit on 09/07/19 revealed a right sided parathyroid adenoma, which is confirmed by NM PTH nuclear scan on 11/09/19 as a faint activity in the R lower pole. She underwent RLP PTH adenoma resection with Dr. Starla Mayers on 02/12/20 with good drop of PTHfrom 332 to 33, confirming a cure and that the adenoma was removed. However, recent lab showed rising PTH again at 98 (normal 19-88 at outside lab) but entirely normalCa 9.4, suggestive of 2ry hyperPTH and most likely due to vitamin D deficiency since her pre-op wasborderline low at 33.5 (normal 30-100). After PTH adenoma removal, we would expect the other 3 glands to resume producing normal amount of PTH but if pt has concommittent vitD deficiency with hungry bone syndrome post-op, then both Ca & vitD will drop low and PTH will rise to abnormally high tomaintain Ca back within normal range. She is taking Ca/D 1,200mg but no extra vitD supplement so wewill check lab for new baseline post-op vitD and start OTC-vitD 2,000 iu daily to enhance Ca absorption and suppress PTH down soon. # Primary => secondary hyperparathyroidism s/p RLP PTH adenoma resection on 02/12/20 with normalized iop PTH but now rising to 98 with normal Ca 9.4 likely d/t low vitD -obtain 25vitamin D as new baseline after surgery and will also check TSH at the same time - To start OTC-vit 2,000 iu daily to help enhance Ca absorption and cont taking Ca/D 1,200 mg/day supplement Addendum 04/03/20: Outside lab on 03/25 showed low normal vitamin D at 37.3 (normal 30-100). So, you should take double doses of her OTCvitamin-D from 2,000 to 4,000-5,000 iu daily for her osteoporosis,to keep vitD up in 50s-60s range. BMP results were all ok with good kidney and Ca 9.7. - DXA on 10/11/19 pre-op showed severe osteoporosis T-score -3.7 at the distal 1/3 radius > spine(T-score -2.5) and femoral neck (T-score -2.4) - To recheck lab in 2 mo at [facility] lab for PTH, BMP and 25vitD Orders Placed This Encounter Procedures ??? Vitamin D, 25-Hydroxy ??? Vitamin D, 25-Hydroxy ??? PTH ??? Basic Metabolic Panel (non-fasting) ??? TSH - will let her know all the results soon. - RTC 6-12 mo or earlier if needed. Elsy Staley MD, PhD, FACE, FACP documented in this encounter Plan of Treatment Upcoming Encounters Date Type Department Care Team (Late st Contact Info) Description 11/17/2024 9:30 AM EDT TH Visit (TeleHealth) [place] [address] Elsy Staley MD [facility] [place] [address] 01/04/2025 10:45 AM EDT Office Visit Dermatology at [place] [address] [facility] [place] [phone] Yousif Myers MD [address], [place] [address] documented as of this encounter Visit Diagnoses Diagnosis Hyperparathyroidism (PTH 182, Ca 10.1-11.2; normal<10.1) before PTH surgery Hyperparathyroidism, unspecified documented in this encounter Care Teams Manager Labor Delivery Relationship Specialty Start Date End Date Jordana Parsons MD [facility] [address] [address] PCP - General 06/17/10 documented as of this encounter
--- OUTSIDE RECORDS SUMMARY | 2024-06-02 00:51 | XMS_ITS | Encounter Summary ---
Author Organization [facility] [place] [address] Care Team Providers Care Any Commodity Sales Deliverer Name Role Phone Jordana Parsons MD Primary Care Provider [phone] Reason for Referral * Consultation (Routine) - Closed Specialty Diagnoses / Procedures Referred By Contac t Referred To Contact Endocrinology Diagnoses Hyperparathyroidism, primary Osteopenia, unspecified location Jordana Parsons MD [address] [place] [address] [facility] Endocrinology [address] [place] [id number] Referral ID Status Reason Start Date Expiration Date V isits Requested Visits Authorized [id number] Closed Consult, Test & Treat PCP Updated and/or Approved 06/02/2022 06/02/2023 12 12 Encounter Details Date Type Department Care Team (Latest Contact Info) Description 06/02/2022 Transcribe Orders eDH Incoming Referrals [phone] Jordana Parsons MD [address] [place] [address] Hyperparathyroidism, primary; Osteopenia, unspecified location Social History Tobacco Use Types Packs/Day Years [...] AM EDT TH Visit (TeleHealth) [place] [address] Elsy Staley MD [facility] [place] [address] 01/04/2025 10:45 AM EDT Office Visit Dermatology at [place] [address] [place] [phone] Yousif Myers MD [address], [place] [address] Scheduled Referrals Name Type Priority Associated Diagnoses Order Schedule Referral to Endocrinology Outpatient Referral Routine Hyperparathyroidism , primary Osteopenia, unspecified location Ordered: 06/02/2022 documented as of this encounter Visit Diagnoses Diagnosis Hyperparathyroidism, primary Primary hyperparathyroidism Osteopenia, unspecified location documented in this encounter Care Teams Any Commodity Sales Deliverer Relationship Specialty Start Date End Date Jordana Parsons MD [facility] [address] [place] [address] PCP - General 06/17/10 documented as of this encounter
--- OUTSIDE RECORDS SUMMARY | 2024-06-02 00:51 | XMS_ITS | Clinical Summary ---
[place] [address] Care Team Providers Care Field Examiner Name Role Phone Jordana Parsons MD Primary Care Provider [phone] Allergies No known active allergies Medications Medication Sig Dispensed Refills Start Date End Date Status amLODIPine (Norvasc) 5 mg tablet Take 1 tablet by mouth Daily at Noon. 12/14/2023 Active Active Problems Problem Noted Date Diagnosed Date Hypercalcemia 09/07/2019 Rt PTH adenoma 1cm by ultras ound 09/07/19 s/p Rt lower PTH adenoma resection 02/12/20 with iopPTH 332 => 33 09/07/2019 Nevus 11/16/2013 Other seborrheic keratosis 11/16/2013 Hyperparathyroidism (PTH 182 , Ca 10.1-11.2; normal<10.1) before PTH surgery Encounters Date Type Department Care Team Description 04/10/2024 Telephone [place] [phone] Elsy Staley MD from Last 3 Months Immunizations Name Administration Dates Next Due Covid-19 Monovalent (Moderna Spikevax) 12yrs+ ([id number]) 05/16/2021,08/21/2020,07/24/2020 Social History Tobacco Use Types Packs/Day Years Used Date Smoking Tobacco: Never Smokeless Tobacco: Never Alcohol Use Standard Drinks/Week Comments Yes 5 (1 standard drink = 0.6 oz pur e alcohol) Sex and Gender Information Value Date Recorded Sex Assigned at Not on file Gender Identity Not on file Sexual Orientation Not on file Last Filed Vital Signs Vital Sign Reading Time Taken Comments Blood Pressure 120/70 11/09/2023 10:50 AM EDT Pulse 64 11/09/2023 10:50 AM EDT Temperature 36.4 ??C (97.5 ??F) 02/12/2020 10:43 AM E DT Respiratory Rate 12 11/09/2023 10:50 AM EDT Oxygen Saturation 98% 02/12/2020 12:30 PM EDT Inhaled Oxygen Concentration - - Weight 58.5 kg (129 lb) 11/09/2023 10:50 AM EDT Height 162.6 cm (5' 4) 11/09/2023 10:50 AM EDT Body Mass Index 22.14 11/09/2023 10:50 AM EDT Plan of Treatment Upcoming Encounters Date Type Department Care Team (Late st Contact Info) Description 11/17/2024 9:30 AM EDT TH Visit (TeleHealth) [place] [address] Elsy Staley MD [facility] [address] 01/04/2025 10:45 AM EDT Office Visit Dermatology at [place] [address] [facility] [place] [phone] Yousif Myers MD [address] [facility] [place] [address] Health Maintenance Due Date Last Done Comments CT Colonography 1957 Colonoscopy 1957 Colorectal Cancer Screening 1957 FIT DNA 1957 FIT 1957 Sigmoidoscopy (10 year) with FIT yearly 1957 Sigmoidoscopy 1957 Hepatitis C Screening 10/15/1975 Tetanus/Diphtheria/Pertussis Vaccines (1 - Tdap) 1976 HPV test 10/15/1987 PAP Smear 10/15/1987 Breast Cancer Share Decision Needed 1997 Breast Cancer screening 1997 Zoster vaccine (1 of 2) 10/15/2007 Advance Directive 2012 Bone Density Scan 2022 Pneumoccocal Vaccine: 65+ (1 of 1 - PCV) 2022 Covid-19 Vaccine (4 - 2022-24 season) 2024 05/16/2021, 08/21/2020, 07/24/2020 Influenza (Flu) vaccine (1 o f 1 - Influenza standard series) 03/26/2024 Advance Directives * Full Code (Latest Code Status on File) Date Activated Date Inactivated Comments 02/12/2020 6:50 AM 02/12/2020 3:10 PM Question Answer Comments Does patient have capacity to make decision: Yes Care Teams Field Examiner Relationship Specialty Start Date End Date Jordana Parsons MD [address] [place] [address] PCP - General 06/17/10
--- OUTSIDE RECORDS SUMMARY | 2024-06-02 00:51 | XMS_ITS | Encounter Summary ---
Author Organization [facility] [place] [address] Care Team Providers Care Stock Control Supervisor Name Role Phone Jordana Parsons MD Primary Care Provider [phone] Encounter Details Date Type Department Care Team (Late st Contact Info) Description 02/13/2020 Telephone [place] [address] Deysi Guerrier RN Social History Tobacco Use Types Packs/Day Years [...] encounter Miscellaneous Notes * Telephone Encounter - Deysi Caban RN - 02/13/2020 1:03 PM EDT Per Sonja Chambers NP lab orders (PTH and calcium) sent to local hospital ([facility]) to be completed per patients request. Patient notified. documented in this encounter Plan of Treatment Upcoming Encounters Date Type Department Care Team (Late st Contact Info) Description 11/17/2024 9:30 AM EDT TH Visit (TeleHealth) [place] [address] Elsy Staley MD [facility] [place] [address] 01/04/2025 10:45 AM EDT Office Visit Dermatology at [place] [address] [place] [phone] Yousif Myers MD [address], [place] [address] documented as of this encounter Visit Diagnoses Diagnosis Hyperparathyroidism, primary (PTH 182, Ca 10.1-11.2; upper limit of normal 10.1) => US+1cm R PTH adenoma Primary hyperparathyroidism documented in this encounter Care Teams Stock Control Supervisor Relationship Specialty Start Date End Date Jordana Parsons MD [facility] [address] [place] [address] PCP - General 06/17/10 documented as of this encounter
--- OUTSIDE RECORDS SUMMARY | 2024-06-02 00:51 | XMS_ITS | Encounter Summary ---
Author Organization [facility] [place] [address] Care Team Providers Care Housecleaner Name Role Phone Jordana Parsons MD Primary Care Provider [phone] Reason for Visit * Reason Onset Date Comments Medication Refill 04/14/2021 Encounter Details Date Type Department Care Team (Late st Contact Info) Description 04/14/2021 Refill Neurology at [address] [address] Merrick Le MD [facility] [place] [address] Social History Tobacco Use Types Packs/Day Years [...] AM EDT TH Visit (TeleHealth) [place] [address] Elsy Staley MD [facility] [place] [address] 01/04/2025 10:45 AM EDT Office Visit Dermatology at [address] [place] [address] Yousif Myers MD [address], [place] [address] documented as of this encounter Visit Diagnoses Not on filedocumented in this encounter Care Teams Housecleaner Relationship Specialty Start Date End Date Jordana Parsons MD [facility] [address] [place] [address] PCP - General 06/17/10 documented as of this encounter
--- OUTSIDE RECORDS SUMMARY | 2024-06-02 00:51 | XMS_ITS | Encounter Summary ---
[place] [address] Care Team Providers Care Deckhand Maintenance Name Role Phone Jordana Parsons MD Primary Care Provider Reason for Visit * Reason Comments Skin Lesion Encounter Details Date Type Department Care Team (Late st Contact Info) Description 07/06/2023 9:45 AM EST Office Visit Dermatology at [address] [phone] Yousfi Myers MD [address] [facility] [place] [address] Multiple benign nevi; Family history of malignant melanoma Social History Tobacco Use Types Packs/Day Years Used Date Smoking Tobacco: Never Smokeless Tobacco: Never Alcohol Use Standard Drinks/Week Comments Yes 5 (1 standard drink = 0.6 oz pur e alcohol) Sex and Gender Information Value Date Recorded Sex Assigned at Not on file Gender Identity Not on file Sexual Orientation Not on file documented as of this encounter Progress Notes * Yousif Myers MD - 07/06/2023 9:45 AM EST Problem List: 1. Repeat skin checkup, lesion of concern on her arm 2. History of dysplastic nevus with mild atypia, left anterior thigh, April 2002, excised by Dr. Jacob. 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 4. Family history of malignant melanoma in father who is alive and well. Brayden follows up concerned about lesion on her arm. 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 Assessment plan: Rule out SCC versus BCC, superficial types 1. After obtaining for consent site was anesthetized with shave biopsy 2. Triple antibiotic ointment bandage placed. After curettage site measured 1 cm in diameter. 3. Wound care directions and supplies given. 4. Return to clinic within the next 6 months for a general skin checkup History of solar damage and history of malignant melanoma 1. Return to clinic within the next 6 months for general total-body skin checkup. 2. Her last total-body skin examination with me was in April 2022. CC: Jordana Parsons MD documented in this encounter Plan of Treatment Upcoming Encounters Date Type Department Care Team (Late st Contact Info) Description 11/17/2024 9:30 AM EDT TH Visit (TeleHealth) [place] [address] Elsy Staley MD [facility] [place] [address] 01/04/2025 10:45 AM EDT Office Visit Dermatology at [address] [place] [phone] Yousif Myers MD [address] [place] [address] RD, [place] [address] documented as of this encounter Visit Diagnoses Diagnosis Multiple benign nevi Benign neoplasm of skin, site unspecified Family history of malignant melanoma Family history of other specified malignant neoplasm documented in this encounter Care Teams Deckhand Maintenance Relationship Specialty Start Date End Date Jordana Parsons MD [facility] [address] [place] [address] PCP - General 06/17/10 documented as of this encounter
--- OUTSIDE RECORDS SUMMARY | 2024-06-02 00:51 | XMS_ITS | Encounter Summary ---
Author Organization [facility] Address [facility] [place] [address] Care Team Providers Care Oracle Manufacturing Consultant Name Role Phone Jordana Parsons MD Primary Care Provider [phone] Encounter Details Date Type Department Care Team (Latest Contact Info) Description 11/09/2023 10:30 AM EDT TH Visit (TeleHealth) [place] [address] Elsy Staley MD [facility] [address] Other osteoporosis, unspecified pathological fracture presence; History of primary hyperparathyroidism; Other fatigue Social History Tobacco Use Types Packs/Day Years [...] Pulse 64 11/09/2023 10:50 AM EDT Temperature - - Respiratory Rate 12 11/09/2023 10:50 AM EDT Oxygen Saturation - - Inhaled Oxygen Concentration - - Weight 58.5 kg (129 lb) 11/09/2023 10:50 AM EDT Height 162.6 cm (5' 4) 11/09/2023 10:50 AM EDT Body Mass Index 22.14 11/09/2023 10:50 AM EDT documented in this encounter Patient Instructions * Patient Instructions* Elsy Staley MD - 11/09/2023 10:30 AM EDT During the interim, she stays healthy and no Fx or kidney stone. She has been taking Ca/D and extraOTC-Vitamin 5,000 iu daily as previously Recent lab on 10/22/23 showed good Ca 9.1, Cr 1.0 and good 25vitamin D 60 (normal 30-100) stable trend on current Rx. Follow-up DXA scan 10/22/23 showed improvement out of osteoporosis at the spine back to average withT-score -1.9, better osteopenia at the hip (Total hip -1.7) but still osteoporosis at the wrist (T-score -3.8, up from -4.3) # Primary and then secondary hyperparathyroidism s/p [...] all ok with good kidney and Ca 9.0-9.8. - To repeat DXA ~ 2y post-op in Sep 2025 at [facility] showed much better bone density results, out of osteoporosis into osteopenia at both the spine and hip, which is excellent. Indication for DXA scan at [facility] = history of primary hyperparathyroidism and osteoporosis s/p surgery in January 2020 with last DXA scan at [facility] on 10/07/21. To check 3 sites at spine, hip and wrist - To recheck lab yearly at [facility] lab for BMP, TSH, and 25vitD Orders Placed This Encounter Procedures Basic Metabolic Panel (non-fasting) TSH Vitamin D, 25-Hydroxy - RTC - 1 year after next DXA scan in Oct 2024. Elsy Staley MD, PhD, FACE, FACP documented in this encounter Progress Notes * Elsy Staley MD - 11/09/2023 10:30 AM EDT Images from the original note were not included. Subjective: Patient ID: Brayden Silveira is a 68 y.o. female. 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 Smith& mo) by her PCP, Jordana Parsons MD, on [...] (2) benign lymph nodes. Electronically signed by: Lydia Harrington MD Verified: 02/19/2020 Pathologist Performed at: -[facility] Dept. of Pathology, [place], [place] Apart from occasional muscle ache after walking, she feels generally well with less GAINES and no kidney stone or fracture. During the interim, she stays healthy and no Fx or kidney stone. She has been taking Ca/D and extra OTC-Vitamin 5,000 iu daily as previously Recent lab on 10/22/23 showed good Ca 9.1, Cr 1.0 and good 25vitamin D 60 (normal 30-100) Follow-up showed improvement out of osteoporosis at the spine back to average with T-score -1.9, better osteopenia at the hip (Total hip -1.7) but still osteoporosis at the wrist (T-score -3.8, up from -4.3) Patient Active Problem List Diagnosis Code Nevus D22.9 Other seborrheic keratosis L82.1 Hypercalcemia E83.52 Rt PTH adenoma 1cm by ultrasound 09/07/19 s/p Rt lower PTH adenoma resection 02/12/20 with iopPTH 332=> 33 E21.0 Hyperparathyroidism (PTH 182, Ca 10.1-11.2; normal<10.1) before PTH surgery E21.3 Family Hx: Unsure if there is a family hx of FHH Mother is 85-pulmonary HTN, valve replacement, slight dementia- not as active as she used to be Father turning 90- bright still- had an CO, bypass in 70s 1 living sibling- they're well, Other brother in accident No known family hx of neck surgery, no pancreatic surgery, no pituitary surgery No Known Allergies Meds: Current Outpatient Medications: indomethacin (Indocin) 25 mg capsule, TAKE 1 CAPSULE BY MOUTH NEEDED FOR MIGRAINES, Disp: , Rfl: cholecalciferol, Vitamin D3, 125 mcg (5,000 unit) Tablet, Take 1 tablet by mouth daily., Disp: , Rfl: candesartan (Atacand) 16 mg Tablet, Take 16 mg by mouth daily., Disp: , Rfl: Ubrelvy 100 mg Tablet, TAKE ONE TABLET BY MOUTH ONCE A SINGLE DOSE FOR MIGRAINE. MAY REPEAT ONCEIN 2 HOURS AFTER FIRST DOSE IF NEED, Disp: , Rfl: calcium combo no.2-vitamin D3 600 mg-12.5 mcg (500 unit) Tablet Sustained Release, Take 1 tablet bymouth daily., Disp: , Rfl: magnesium oxide (Mag-Ox) 400 mg (241.3 mg magnesium) Tablet, Take 400 mg by mouth daily., Disp: , Rfl: Review of Systems Endocrine: Negative for polyuria. Musculoskeletal: Positive for arthralgias. Neurological: Positive for headaches. Objective:BP 120/70 Pulse 64 Resp 12 Ht 162.6 cm (5' 4) Wt 58.5 kg (129 lb) BMI 22.14 kg/m?? Physical Exam Appearance: Patient is very [...] asymmetry. ENDOCRINOLOGY THYROID ULTRASOUND REPORT Patient:Brayden Silveira, [id number] Date of exam: 09/07/19 Indication: primary hyperparathyroidism, to assess for parathyroid adenoma Comparison: none Performed by: Jenn Smith MD, Elsy Staley MD Real time images of the thyroid gland were obtained using a [id number] US machine. All measurements aregiven as Longitudinal/Sagittal [...] for RLP adenoma resection DXA scan at [facility] ob 10/11/19 showed osteoporosis at the wrist [...] 81 (H) 33 Surgical Pathology Report Unknown [id number] ... Recent lab (outside) after the surgery: Date 03/11/20 03/25/20 05/22/20 10/22/20 06/05/21 11/17/21 10/02/22 10/22/23 TSH 1.66 Ca 9.4 9.7 9.3 9.8 9.2 9.3 9.1 PTH 98H 36.1 - 25vitaminD 37.3 - 55.2 60 71.6, better 60, stable BMP All normal normal Outside lab on 06/05/21 showed entirely normal Calcium at 9.2 (normal 8.5-10.5) with good 25vitaminD at 60 (normal 30-100). So, you should take the same dose of all Rx further. Outside DXA scan at [facility] on 10/17/21 showed significant improvement in osteopenia at back and hip T-score -2.1 at the spine (up +6% since 10/11/2019) T-score -2.2 at the femoral neck T-score -1.5 at the total hip (+9.2% since 2019) (T-score -4.3 but some error on measurement of mid radius at mid radius, will recheck next time) Outside DXA scan 10/22/23 showed improvement out of osteoporosis at the spine back to average with T-score -1.9, better osteopenia at the hip (Total hip -1.7) but still osteoporosis at the wrist (T-score -3.8, up from -4.3) Assessment and Plan: This is a very pleasant 68 y.o. female with a past medical history [...] removal since January 2020. Patient has never had experienced nephrolithiasis or fracture. The highest value of calcium obtained on routine blood work was 11.2 mg/dL before the surgery. She has no history of osteoporotic fractures but DEXA scan on 10/11/19 showed severe osteoporosis at the wrist (T-score -3.7)=> down to -4.3 on 10/17/21 and then better on recent DXA scan Sep 2023. No family history of hypercalcemia and her [...] initially so we added OTC-vitamin D supplement 5,000 iu daily to enhance Ca absorption and suppress PTH down successfully. During the interim, she stays healthy and no Fx or kidney stone. She has been taking Ca/D and extraOTC-Vitamin 5,000 iu daily as previously Recent lab on 10/22/23 showed good Ca 9.1, Cr 1.0 and good 25vitamin D 60 (normal 30-100) stable trend on current Rx. Follow-up DXA scan 10/22/23 showed improvement out of osteoporosis at the spine back to average withT-score -1.9, better osteopenia at the hip (Total hip -1.7) but still osteoporosis at the wrist (T-score -3.8, up from -4.3) # Primary and then secondary hyperparathyroidism s/p [...] all ok with good kidney and Ca 9.0-9.8. - To repeat DXA ~ 2y post-op in Sep 2025 at [facility] showed much better bone density results, out of osteoporosis into osteopenia at both the spine and hip, which is excellent. Indication for DXA scan at [facility] = history of primary hyperparathyroidism and osteoporosis s/p surgery in January 2020 with last DXA scan at [facility] on 10/07/21. To check 3 sites at spine, hip and wrist - To recheck lab yearly at [facility] lab for BMP, TSH, and 25vitD Orders Placed This Encounter Procedures Basic Metabolic Panel (non-fasting) TSH Vitamin D, 25-Hydroxy - RTC - 1 year after next DXA scan in Oct 2024. Elsy Staley MD, PhD, FACE, FACP documented in this encounter Plan of Treatment Upcoming Encounters Date Type Department Care Team (Late st Contact Info) Description 11/17/2024 9:30 AM EDT TH Visit (TeleHealth) [place] [address] Elsy Staley MD [facility] [place] [address] 01/04/2025 10:45 AM EDT Office Visit Dermatology at [place] [address] [place] [address] Yousif Myers MD [address], [place] [address] Scheduled Orders Name Type Priority Associated Diagnoses Orde r Schedule Basic Metabolic Panel (non-fasting) Lab Routine Other osteoporosis, unspecified pathological fracture presence History of primary hyperparathyroidism Other fatigue Expected: 11/08/2024, Expires: 05/10/2025 TSH Lab Routine Other osteoporosis, unspecified pathological fracture presence History of primary hyperparathyroidism Other fatigue Expected: 11/08/2024, Expires: 05/10/2025 Vitamin D, 25-Hydroxy Lab Routine Other osteoporosis, unspecified pathological fracture presence History of primary hyperparathyroidism Other fatigue Expected: 11/08/2024 (Approximate), Expires: 05/10/2025 documented as of this encounter Visit Diagnoses Diagnosis Other osteoporosis, unspecified pathological fracture presence History of primary hyperparathyroidism Other fatigue documented in this encounter Care Teams Oracle Manufacturing Consultant Relationship Specialty Start Date End Date Jordana Parsons MD [facility] [address] [place] [address] PCP - General 06/17/10 documented as of this encounter
--- OUTSIDE RECORDS SUMMARY | 2024-06-02 00:51 | XMS_ITS | Encounter Summary ---
[place] [address] Care Team Providers Care Linoleum Floor Installer Name Role Phone Jordana Parsons MD Primary Care Provider [phone] Encounter Details Date Type Department Care Team (Late st Contact Info) Description 03/21/2020 Telephone [place] [phone] Caron Luis, [facility] Social History Tobacco Use Types Packs/Day Years [...] encounter Miscellaneous Notes * Telephone Encounter - Caron Luis, [facility] - 03/21/2020 9:57 AM EDT GAP Poultry Breeder Pre-Telemedicine Phone Note [] Patient not reached [x] Patient reached and the following information was reviewed/obtained per protocol: [x] Confirmed patient name and date of [x] Confirmed telemedicine jett (Vidyo and Virtual Visit) is downloaded and functioning [x] Confirmed location of patient - TeleVisit is taking place in [x] [place] [] [place] [] If not on [facility], working on signing up for [facility] [x] Confirmed has completed any pre-visit questionnaires [] If has not received required pre-visit questionnaires, send via [facility] [x] Reviewed patient medications ??? calcium citrate-vitamin D (Calcium Citrate +) 315 mg-5 mcg (200 unit) Tablet ??? calcium carbonate (CALCIUM 600 ORAL) ??? amitriptyline (Elavil) 10 mg Tablet ??? hydrOXYzine (VISTARIL) 25 mg Capsule ??? indomethacin (Indocin) 25 mg Capsule ??? magnesium oxide (Mag-Ox) 400 mg (241.3 mg magnesium) Tablet ??? riboflavin, vitamin B2, (VITAMIN B-2 ORAL) [x] Documented self-reported vitals: [x] Weight: 126lb [x] Height 5'4 [] pulse recorded: [] Other information or concerns documented in this encounter Plan of Treatment Upcoming Encounters Date Type Department Care Team (Late st Contact Info) Description 11/17/2024 9:30 AM EDT TH Visit (TeleHealth) [place] [address] Elsy Staley MD [facility] [place] [address] 01/04/2025 10:45 AM EDT Office Visit Dermatology at [place] [address] [place] [phone] Yousif Myers MD [address] [facility], [place] [address] documented as of this encounter Visit Diagnoses Not on filedocumented in this encounter Care Teams Linoleum Floor Installer Relationship Specialty Start Date End Date Jordana Parsons MD [facility] [address] [facility] [address] [place] [address] PCP - General 06/17/10 documented as of this encounter
--- OUTSIDE RECORDS SUMMARY | 2024-06-02 00:51 | XMS_ITS | Encounter Summary ---
[place] [address] Care Team Providers Care Switchboard Manager Name Role Phone Jordana Parsons MD Primary Care Provider [phone] Reason for Visit * Reason Comments Follow-up Encounter Details Date Type Department Care Team (Late st Contact Info) Description 12/30/2023 10:00 AM EDT Office Visit Dermatology at [address] [address] Yousif Myers MD [address] [facility], [facility] [address] Family history of malignant melanoma; Multiple benign nevi Social History Tobacco Use Types Packs/Day Years [...] Progress Notes * Yousif Myers MD - 12/30/2023 10:00 AM EDT Problem List: 1. Repeat skin checkup, 2. History of dysplastic nevus with mild atypia, left anterior thigh, April 2002, excised by Dr. Jacob. 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 4. Family history of malignant melanoma in father who is alive and well. Brayden follows up for repeat skin checkup. She continues to work [employer]di[employer] at the [employer] and is enjoying this very much. Patient grew up in [facility] [facility] has had a fair amount of sun exposure over the years. She has not noted any new lesions of concern. An actinic keratosis biopsied and treated on the right bicep area at her last visit in June remains well-healed. Physical examination reveals a pleasant 67-year-old woman who has benign examination of the head and the neck the chest the back the hands arms forearms thighs and calves. She has mild actinic damageof the nasal bridge and lower cutaneous lip but nothing requires therapy at this time. She has excellent healing at the actinic keratosis treatment site on her right bicep without evidence of recurrence. Assessment plan: Benign skin examination in a 66-year-old woman 1. Continue sun avoidance precautions 2. Return to clinic in 1 year for repeat check given the family history of melanoma and her own personal sun exposure history Family history of malignant melanoma in her father who is alive and well 1. Patient reassured about her benign examination today. cc Jordana Parsons MD documented in this encounter Plan of Treatment Upcoming Encounters Date Type Department Care Team (Late st Contact Info) Description 11/17/2024 9:30 AM EDT TH Visit (TeleHealth) [place] [address] Elsy Staley MD [facility] [place] [address] 01/04/2025 10:45 AM EDT Office Visit Dermatology at [place] [address] [facility] [place] [address] Yousif Myers MD [address] [facility], [place] [address] documented as of this encounter Visit Diagnoses Diagnosis Family history of malignant melanoma Family history of other specified malignant neoplasm Multiple benign nevi Benign neoplasm of skin, site unspecified documented in this encounter Care Teams Switchboard Manager Relationship Specialty Start Date End Date Jordana Parsons MD [address] [place] [address] PCP - General 06/17/10 documented as of this encounter
--- OUTSIDE RECORDS SUMMARY | 2024-06-02 00:51 | XMS_ITS | Encounter Summary ---
[place] [address] Care Team Providers Care Cook Fry Name Role Phone Jordana Parsons MD Primary Care Provider [phone] Reason for Visit * Reason Comments Skin Check Encounter Details Date Type Department Care Team (Late st Contact Info) Description 05/25/2022 3:45 PM EDT Office Visit Dermatology at [address] [address] Yousif Myers MD [address] [facility], [facility] [place] [address] Multiple benign nevi; Family history [...] Progress Notes * Yousif Myers MD - 05/25/2022 3:45 PM EDT Problem List: 1. ??Repeat skin checkup, ?? 2. ??History of dysplastic nevus with mild atypia, left anterior thigh, April 2002, excised by Dr. Jacob. ?? 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. ?? 4. ??Family history of malignant melanoma in father who is alive and well. Brayden follows up for repeat skin checkup. I last saw her in 2019. She is still working at the [employer] but plans to retire after this year. Patient grew up in [facility] has had a fair amount of sun exposure over the years. Physical examination reveals a pleasant 66-year-old woman who has benign examination of the head and the neck the chest the back the hands arms forearms thighs and calves. She has mild actinic damageof the nasal bridge and lower cutaneous lip but nothing requires therapy at this time. Assessment plan: Benign skin examination in a 66-year-old woman 1. Continue sun avoidance precautions 2. Continue with repeat skin checkups every roughly 3-year basis given the family history of melanoma and [...] AM EDT TH Visit (TeleHealth) [place] [address] Elsy Staley MD [facility] [address] 01/04/2025 10:45 AM EDT Office Visit Dermatology at [address] [phone] Yousif Myers MD [address] [facility] [address] [place] [address] documented as of this encounter Visit Diagnoses Diagnosis Multiple benign nevi Benign neoplasm of skin, site unspecified Family history of malignant melanoma Family history of other specified malignant neoplasm documented in this encounter Care Teams Cook Fry Relationship Specialty Start Date End Date Jordana Parsons MD [address] [place] [address] [address] [place] [address] PCP - General 06/17/10 documented as of this encounter
--- OUTSIDE RECORDS SUMMARY | 2024-06-02 00:51 | XMS_ITS | Encounter Summary ---
Author Organization [facility] [place] [address] Care Team Providers Care Rn Medication Name Role Phone Jordana Parsons MD Primary Care Provider Encounter Details Date Type Department Care Team (Late st Contact Info) Description 10/22/2023 Ancillary Procedure Radiology Library at [facility] [place] [phone] Jordana Parsons MD [address] [place] [address] [address] [place] [address] Social History Tobacco Use Types Packs/Day Years [...] AM EDT TH Visit (TeleHealth) Endocrinology at [facility] [place] [phone] Elsy Staley MD [facility] [place] [address] 01/04/2025 10:45 AM EDT Office Visit Dermatology at [address] [place] [address] Yousif Myers MD [address] [place] [address] RD, [place] [address] documented as of this encounter Procedures Procedure Name Priority Date/Time Associated Diagnosis Comments FILM LIBRARY- STORAGE ONLY DXA IMAGES Routine 10/22/2023 12:00 AM EDT documented in this encounter Results * Film Library- Storage Only DXA Images (10/22/2023 12:00 AM EDT) Narrative [facility] - 10/26/2023 3:48 PM EDT This exam is auto-finalizing. It's purpose is for storage only. Jordana Parsons MD IMG FILM LIBRARY ORD ERABLES [place], [place] documented in this encounter Visit Diagnoses Not on filedocumented in this encounter Care Teams Rn Medication Relationship Specialty Start Date End Date Jordana Parsons MD [facility] [address] [place] [address] PCP - General 06/17/10 documented as of this encounter
--- OUTSIDE RECORDS SUMMARY | 2024-06-02 00:51 | XMS_ITS | Encounter Summary ---
Author Organization [facility] [place] [address] Care Team Providers Care Colorist Photography Name Role Phone Jordana Parsons MD Primary Care Provider [phone] Encounter Details Date Type Department Care Team (Late st Contact Info) Description 04/10/2024 Telephone [place] [phone] Elsy Staley MD [facility] [place] [place] [address] Social History Tobacco Use Types Packs/Day Years [...] encounter Miscellaneous Notes * Telephone Encounter - Shanel Mcdonnell RN - 04/10/2024 2:41 PM EDT This nurse faxed the requested labs to [facility] per the patient's call to the office. * Telephone Encounter - Shanel Mcdonnell RN - 04/10/2024 2:41 PM EDT Copied from CRM #[id number]. Topic: Specialty Dept CRMs - Orders >> Apr 10, 2024 10:08 AM Gaby Resendiz wrote: Orders Request Specialist: Elsy Staley MD Relationship (if other than patient-full name): Brayden Silveira Type of Request: [x] Input orders Type/Name of Order: Labs If Labs and Imaging list name of specific test(s): To recheck lab yearly at [facility] lab for BMP, TSH, and 25vitD Date of Lab/Imaging/Testing Appt: x Date of Provider Appt: 11.14.24 Appt Type with Provider: FUV Patient Requesting to Have Orders Sent to Facility Outside of [facility]: Yes If Yes, Name of Facility: [facility] Address: x Phone #: x Fax #: x documented in this encounter Plan of Treatment Upcoming Encounters Date Type Department Care Team (Late st Contact Info) Description 11/17/2024 9:30 AM EDT TH Visit (TeleHealth) [place] [address] Elsy Staley MD [facility] [place] [address] 01/04/2025 10:45 AM EDT Office Visit Dermatology at [address] [place] [phone] Yousif Myers MD [address] [facility], [place] [address] documented as of this encounter Visit Diagnoses Not on filedocumented in this encounter Care Teams Colorist Photography Relationship Specialty Start Date End Date Jordana Parsons MD [facility] [address] [address] PCP - General 06/17/10 documented as of this encounter
--- OUTSIDE RECORDS SUMMARY | 2024-06-02 00:51 | XMS_ITS | Encounter Summary ---
Author Organization [facility] [place] [address] Care Team Providers Care Count Team Clerk Name Role Phone Jordana Parsons MD Primary Care Provider [phone] Reason for Visit * Auth/Cert Specialty Diagnoses / Procedures Referred By Contac t Referred To Contact Diagnoses HYPERPARATHYROIDISM Procedures PRO EXPLORE PARATHYROID GLANDS PRG EMG, LARYNX PARATHYROIDECTOMY OR EXPLORATION OF PARATHYROID(S) (WRVU 15.6) FACIAL NERVE MONITORING, SETUP LARYNGEAL (WRVU 1.57) Referral ID Status Reason Start Date Expiration Date Visits Re quested Visits Authorized [id number] 1 1 Encounter Details Date Type Department Care Team (Latest Contact Info) Description 02/12/2020 5:35 AM EDT - 02/12/2020 1:05 PM EDT Hospital [place] [address] Jevon Fisher MD [facility] [place] [address] Hyperparathyroidism , primary (PTH 182, Ca 10.1-11.2; upper limit of normal 10.1) => US+1cm R PTH adenoma; Hyperparathyroidism Discharge Disposition: Home Social History Tobacco Use [...] Sign Reading Time Taken Comments Blood Pressure 157/82 02/12/2020 12:00 PM EDT Pulse 62 02/12/2020 6:05 AM EDT Temperature 36.4 ??C (97.5 ??F) 02/12/2020 10:43 AM E DT Respiratory Rate 16 02/12/2020 12:00 PM EDT Oxygen Saturation 98% 02/12/2020 12:30 PM EDT Inhaled Oxygen Concentration - - Weight 57.2 kg (126 lb) 02/12/2020 6:05 AM EDT Height 162.6 cm (5' 4) 02/12/2020 6:05 AM EDT Body Mass Index 21.63 02/12/2020 6:05 AM EDT documented in this encounter Discharge Instructions * Patient Instructions* Gopi Julien - 02/12/2020 10:46 AM EDT PARATHYROIDECTOMY PATIENT [...] Take NSAIDS or Tylenol every 6 hours [id number] for the first 3-5 days following surgery [...] will be mailed to you Please call [phone] to confirm the date and time of [...] with your PCP. Phone number for questions: [phone] before 5 PM on weekdays [phone] after 5 PM and on weekends/holidays. Ask for the general surgery resident concrete floater. Future Appointments Date Time Provider Department Center 05/17/2020 9:20 AM [facility]Y [facility]W L Lab 3L [facility] 05/17/2020 10:20 AM Isamar Chambers APRN [facility] [place] documented in this encounter Medications at Time [...] of department via wheelchair with RN to [place]. documented in this encounter H&P Notes * [...] Julien MD 02/12/2020 Endocrine Surgery Service Pager [phone] documented in this encounter Miscellaneous Notes * Op Note - Jevon Fisher MD - 02/12/2020 10:26 AM EDT [facility] [place] Note Patient Name: Brayden Silveira : [id number] MR#: [id number] Case Date: 02/12/2020 Surgeon: Surgeon(s) and Role: [...] anesthesia was completed by anesthesiology with the [employer] recurrent laryngeal nerve monitoring system. A crease [...] Operative Note Patient Name: Brayden Silveira : [id number] MR#: [id number] Case Date: 02/12/2020 Surgeon: Surgeon(s) and Role: [...] AM EDT TH Visit (TeleHealth) [place] [address] Elsy Staley MD [facility] [place] [address] 01/04/2025 10:45 AM EDT Office Visit Dermatology at [place] [address] [facility] [facility] [place] [address] Yousif Myers MD [address] [place] [address] documented as of this encounter Procedures Procedure [...] 8:23 AM EDT Needle Electromyography, Larynx Global (37269) 02/12/2020 7:28 AM EDT HYPERPARATHYROIDIS M Explore Parathyroid Glands (38364) 02/12/2020 7:28 AM EDT HYPERPARATHYROIDIS M documented in this encounter Results * Specimen to Pathology (02/12/2020 10:06 AM EDT) AP Specimen 02/12/2020 10:0 6 AM EDT 02/12/2020 10:06 AM EDT Narrative [facility] - 02/12/2020 10:06 AM EDT Specimen requisition ordered. ??Separate Pathology report to follow Jevon Fisher MD PATHOLOGY/CYTOLOG Y ORDERABLES Performing Organization Address [facility] Co de Phone Number [facility] [place] [address] * Intraoperative PTH ([facility]) (02/12/2020 9:40 AM EDT) PTH, Intraoperative 33 9 - 77 pg/mL [facility] Comment: peripheral post Called by: MICHAEL, Read back by: Linda Wallace_, Date/Time:02/12/20 10:10. A 50 % decrease in venous iPTH levels at 10 min post adenoma excision is expected if all the hypersecreting parathyroid tissue has been removed (Maxim GL et al. Surgery 1993:114; [id number]) Blood specimen (specimen) 02/12/2020 9:40 AM EDT 02/12/2020 9:46 AM EDT Narrative Resulting Agency Comment Spec In Lab Jevon Fisher MD CHEMISTRY ORDERAB LES Performing Organization Address [facility]/ZIP Co de Phone Number [facility] [place] [address] * (ABNORMAL) Intraoperative PTH ([facility]) (02/12/2020 9:05 AM EDT) PTH, Intraoperative 81(H) 9 - 77 pg/mL [facility] Comment: 20 minute post Called by: MICHAEL, Read back by: Linda Wallace_, Date/Time:02/12/20 09:37. A 50 % decrease in venous iPTH levels at 10 min post adenoma excision is expected if all the hypersecreting parathyroid tissue has been removed (Maxim GL et al. Surgery 1993:114; [id number]) Blood specimen (specimen) 02/12/2020 9:05 AM EDT 02/12/2020 9:11 AM EDT Narrative Resulting Agency Comment Spec In Lab Jevon Fisher MD CHEMISTRY ORDERAB LES Performing Organization Address [facility] de Phone Number [facility] [place] [address] * (ABNORMAL) Intraoperative PTH ([facility]) (02/12/2020 8:54 AM EDT) PTH, Intraoperative 101(H) 9 - 77 pg/mL [facility] Comment: 10 minute post Called by: MICHAEL, Read back by: Linda Wallace_, Date/Time:02/12/20 09:31. A 50 % decrease in venous iPTH levels at 10 min post adenoma excision is expected if all the hypersecreting parathyroid tissue has been removed (Maxim GL et al. Surgery 1993:114; [id number]) Blood specimen (specimen) 02/12/2020 8:54 AM EDT 02/12/2020 8:59 AM EDT Narrative Resulting Agency Comment Spec In Lab Jevon Fisher MD CHEMISTRY ORDERAB LES Performing Organization Address [facility] Co de Phone Number [facility] [place] [address] * Surgical Pathology Report (02/12/2020 8:45 AM EDT) Final Diagnosis [id number] ? Location: [place]; [facility]; A The signing pathologist has (i) examined the relevant preparation(s) for the specimen(s) and (ii) rendered or confirmed the diagnosis(es). . ?Surgical Pathology DIAGNOSIS A - Parathyroid, right lower, excision: Enlarged (0.10 g), hypercellular parathyroid, consistent with parathyroid adenoma. B - Central neck contents, left, excision: Two (2) benign lymph nodes. Electronically signed by: ??Lydai Harrington MD Verified: ??02/19/2020 ?Pathologist Performed at: ??-[facility] [place]. [place], [place], [place] SPECIMEN(S) SUBMITTED A - ? right [...] Howard MD Verified: ??02/12/2020 ?Pathologist Performed at: ??-[facility] [place]. [place], [place], [place] This intraoperative consultation should be interpreted as a preliminary diagnosis pending review of the entire specimen and special studies, if any. 02/19/2020 10:17 AM EDT [facility] LYMPH NODE SPECIMEN / Unknown 02/12/2020 8:45 AM EDT 02/12/2020 8:45 AM EDT LYMPH NODE SPECIMEN / Unknown 02/12/2020 8:45 AM EDT 02/12/2020 8:45 AM EDT Jevon Fisher MD PATHOLOGY/CYTOLOG Y ORDERABLES Performing Organization Address [facility] de Phone Number [facility] [place] [address] * Specimen to Pathology (02/12/2020 8:45 AM EDT) AP Specimen 02/12/2020 8:45 AM EDT 02/12/2020 8:45 AM EDT Narrative [facility] - 02/12/2020 8:45 AM EDT Specimen requisition ordered. ??Separate Pathology report to follow Jevon Fisher MD PATHOLOGY/CYTOLOG Y ORDERABLES Performing Organization Address [facility] de Phone Number [facility] [place] [address] * (ABNORMAL) Intraoperative PTH ([facility]) (02/12/2020 8:23 AM EDT) PTH, Intraoperative 332(H) 9 - 77 pg/mL [facility] Comment: baseline. Called by: MICHAEL, Read back by: Linda Wallace_, Date/Time:02/12/20 08:52. A 50 % decrease in venous iPTH levels at 10 min post adenoma excision is expected if all the hypersecreting parathyroid tissue has been removed (Maxim GL et al. Surgery 1993:114; 3160-1655) Blood specimen (specimen) 02/12/2020 8:23 AM EDT 02/12/2020 8:28 AM EDT Narrative Resulting Agency Comment Spec In Lab Jevon Fisher MD CHEMISTRY ORDERAB LES Performing Organization Address [facility] Co de Phone Number [facility] [place] [address] documented in this encounter Visit Diagnoses Diagnosis Hyperparathyroidism, primary (PTH 182, Ca 10.1-11.2; upper limit of normal 10.1) => US+1cm R PTH adenoma Primary hyperparathyroidism Hyperparathyroidism Hyperparathyroidism, unspecified documented in this encounter Administered Medications Inactive Administered Medications - up to 3 most recent administrations Medication Order MAR Action Action Date Dose Rate Site acetaminophen (Tylenol) tablet 1,000 mg 1,000 mg, Oral, ONCE, 1 dose, On Wed02/12/20 at 0630, Administer with SIP of H2O only., Day of Surgery (Day of Procedure), Routine Given 02/12/2020 6:12 AM EDT 1,000 mg fentaNYL 50 mcg/mL multi-dose injection 12.5-25 mcg, [...] 1305, Day of Surgery (Day of Procedure) 06 (New Bag - Prov ider: Nate Gunderson [...] Until Wed02/12/20 at 1505, Intra-Operative (Intra-Procedure), Routine 08 (Given - Provid er: Gopi Julien) fentaNYL [...] RN) documented in this encounter Care Teams Count Team Clerk Relationship Specialty Start Date End Date Jordana Parsons MD [facility] [address] [place] [address] PCP - General 06/17/10 documented as of this encounter
--- OUTSIDE RECORDS SUMMARY | 2024-06-02 00:51 | XMS_ITS | Encounter Summary ---
Author Organization [facility] [address] Care Team Providers Care Photoengraving Machine Operator/Tender Name Role Phone Jordana Parsons MD Primary Care Provider [phone] Reason for Visit * Reason Comments Skin Check Encounter Details Date Type Department Care Team (Late st Contact Info) Description 10/17/2020 2:00 PM EDT Office Visit Dermatology at [facility] [address] [place] [address] Laina Montes MD [facility] [place] [address] Notalgia paresthetica; Clavus; Multiple benign nevi; Seborrheic dermatitis; EIC (epidermal inclusion cyst) Social History Tobacco Use Types Packs/Day Years Used Date Smoking Tobacco: Never Smokeless Tobacco: Never Alcohol Use Standard Drinks/Week Comments Yes 5 (1 standard drink = 0.6 oz pur e alcohol) Sex and Gender Information Value Date Recorded Sex Assigned at Not on file Gender Identity Not on file Sexual Orientation Not on file documented as of this encounter Progress Notes * Laina Montes MD - 10/17/2020 2:00 PM EDT DERMATOLOGY OUTPATIENT CLINIC NOTE Date of service: 10/17/2020 Brayden Silveira : 1955 Provider: Laina Montes MD PROBLEM: FSE SKIN HISTORY: Dysplastic nevus with mild atypia, left anterior thigh, April 2002, excised by Dr. Jacob. TORO Silveira is a 65 y.o. year old female. Here today for FSE with the following concerns: - Spot on her stomach, present for years, unsure if changing. - Growths on her palms, maybe warts? She has had these previously - Lesions on her nose and upper lip, previously diagnosed and treated with LN2 as AK's - Pimple like lesions on the back of her neck and on her hairline which do not go away - Using tea tree shampoo for scaly scalp - Itchy spot on her back - Small growth under her left arm, used to be able to express white fluid - Wears hearing aids and notes she has itchy ears. - Small spot on her upper eyelid excised by a previous logistics planning manager. Eyelashes are growing into her eye now in that place. 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 lactobacillus rhamnosus, GG, (CULTURELLE) 10 billion cell Capsule Take 1 capsule by mouth daily. ??? calcium citrate-vitamin D (Calcium Citrate +) 315 mg-5 mcg (200 unit) Tablet Take 2 tablets by mouth 3 times daily (with meals). ??? calcium carbonate (CALCIUM 600 ORAL) Take 1,200 mg by mouth daily. ??? amitriptyline (Elavil) 10 mg Tablet 1-2 PO QHS 60 tablet 3 ??? hydrOXYzine (VISTARIL) 25 mg Capsule TAKE ONE CAPSULE BY MOUTH THREE TIMES A DAY FOR MIGRAINE WITH INDOMETHACIN ??? indomethacin (Indocin) 25 mg Capsule TAKE UP TO THREE TIMES A DAY FOR MIGRAINE WITH VISTARIL ??? magnesium oxide (Mag-Ox) 400 mg (241.3 mg magnesium) Tablet Take 400 mg by mouth daily. ??? riboflavin, vitamin B2, (VITAMIN B-2 ORAL) Take 400 mg by mouth daily. No current facility-administered medications for this visit. PROBLEM LIST: Patient Active Problem List Diagnosis Code ??? Nevus D22.9 ??? Other seborrheic keratosis L82.1 ??? Hypercalcemia E83.52 ??? Rt PTH adenoma 1cm by ultrasound 09/07/19 s/p Rt lower PTH adenoma resection 02/12/20 with [id number] => 33 E21.0 ? ? Hyperparathyroidism (PTH 182, Ca 10.1-11.2; normal<10.1) before PTH surgery E21.3 ROS General: feeling well. Oriented X 3. Skin: denies other skin complaints EXAM General: NAD, pleasant, cooperative Skin: The patient was asked to disrobe to the level of their comfort. Full skin examination of the scalp, hair, head, face, neck, back, chest, abdomen, right and left upper extremities, right and left lower extremities and buttocks was normal with the exception of the findings listed below. Significant skin findings: - In medial scapular area where patient describes intense itch there is no rash or other skin findings to account for symptoms. - left palmar hand x 2: 3 mm keratotic papule - right axillae: 3 mm mobile nodule - slight erythema and scale of the scalp and external auditory meatus - Multiple, 0.3-0.5cm, medium-brown, evenly-pigmented macules and papules. All with regular pigmentpattern on dermoscopy. No pigmented lesions suspicious for melanoma. ASSESSMENT/PLAN Notalgia Paresthetica - Discussed benign condition and provided reassurance - OTC Sarna or Capsaicin cream can be applied for the itching Small wart vs [place] - Joint decision to pare down and treat with LN2 today. Liquid Nitrogen Procedure - two freeze thaw cycles Number of lesions - 2 The patient's consent for liquid nitrogen was obtained. Risks and benefits were explained. The possible need for additional liquid nitrogen was reviewed. Risks of increased pigmentation, decreased pigmentation, blister formation, infection, pain, and recurrence were all discussed. The patient tolerated the procedure well. Wound care was reviewed. Epidermal inclusion cyst (EIC) - Discussed benign nature of lesion and provided reassurance - No treatment necessary at this time. Can be excised if it becomes bothersome. - Observe skin for change in color, size or character. Call if such occur Seborrheic Dermatitis - Discussed etiology and therapeutic options. - Start Rx: Synalar solution, soak Q-tips with the solution then clean ears. Use a few times weeklyon the scalp as needed. Benign appearing nevi with even pigmentation and well defined margins are noted - Discussed benign nature of lesion and provided reassurance - No treatment necessary at this time - Observe skin for change in color, size or character. Call if such occur. RTC - 1 year for full skin check, sooner if needed. Reminder placed in system for scheduling. Note initiated and routed to physician for review and change by: Venkatesh Long LPN I, Venkatesh Long LPN, have performed the documentation for this encounter in the presence of and acting as a scribe for Laina Montes MD. I, Dr. Laina Montes, performed the visit service though my nurse assisted me in scribing the note. I reviewed and edited this note above, a scribed service performed by my nurse. On closure of this note I agree with the accuracy of the documentation. Laina Montes MD Section of Dermatology [facility] documented in this encounter Plan of Treatment Upcoming Encounters Date Type Department Care Team (Late st Contact Info) Description 11/17/2024 9:30 AM EDT TH Visit (TeleHealth) [place] [address] Elsy Staley MD [facility] [place] [address] 01/04/2025 10:45 AM EDT Office Visit Dermatology at [address] [place] [address] Yousif Myers MD [address] [place] [address] documented as of this encounter Visit Diagnoses Diagnosis Notalgia paresthetica Disturbance of skin sensation Clavus Corns and callosities Multiple benign nevi Benign neoplasm of skin, site unspecified Seborrheic dermatitis Seborrheic dermatitis, unspecified EIC (epidermal inclusion cyst) Sebaceous cyst documented in this encounter Care Teams Photoengraving Machine Operator/Tender Relationship Specialty Start Date End Date Jordana Parsons MD [address] [place] [address] [address] PCP - General 06/17/10 documented as of this encounter
--- OUTSIDE RECORDS SUMMARY | 2024-06-02 00:52 | XMS_ITS | Encounter Summary ---
Author Organization [facility] Address [address] [place] [address] Care Team Providers Care Life Insurance Salesperson Name Role Phone Unavailable Primary Care Provider Unavailabl e Encounter Details Date Type Department Care Team (Late st Contact Info) Description 01/13/2002 Results Only [facility] [address] [place] [address] Zoltan De La Garza, [employer]ER [address] [place] [address] Social History Tobacco Use Types Packs/Day Years Used Date Smoking Tobacco: Never Assessed Sex and Gender Information Value Date Recorded Sex Assigned at Not on file Gender Identity Not on file Sexual Orientation Not on file documented as of this encounter Plan of Treatment Not on file documented as of this encounter Procedures Procedure Name Priority Date/Time Associated Diagnosis Comments CYTOPATHOLOGY Routine 01/13/2002 0:00 EDT documented in this encounter Results * CYTOPATHOLOGY (01/13/2002 0:00 EDT) Pathology Report: CYTOPATHOLOGY REPORT Reports generated via electronic interface contain original data; however they are lacking the format of the original report. Caution should be taken when reading/interpreti ng unformatted reports. Name: ? KIKI SILVEIRA ? Accession #: ? [id number] : ? 1955 (Age: 46) ??F ?Collect Date: ? 01/13/2002 Location: ? [facility] ? Receive Date: ? 01/17/2002 Provider: ?ZOLTAN DE LA GARZA NP Copy to: ? Specimen/Source: ?ThinPrep Pap Test, Cervix/Endocervix Last Menstrual Period: ? 12/16/01 ? SPECIMEN ADEQUACY ? Satisfactory for Evaluation - transformation zone component present GENERAL CATEGORIZATION ? Negative for Intraepithelial Lesion or Malignancy ? Document reviewed and electronically signed by: ? Bel Suárez, SCT(ASCP) ? Report Date: ??01/20/2002 08:48 End of Report [facility] 01/13/2002 01/17/2002 Zoltan De La Garza NP PATHOLOGY ORDERABLES [facility] [address] [place] [address] documented in this encounter Visit Diagnoses Not on filedocumented in this encounter
--- OUTSIDE RECORDS SUMMARY | 2024-06-02 00:52 | XMS_ITS | Encounter Summary ---
Author Organization [facility] Address [address] [place] [address] Care Team Providers Care Precision Farming Coordinator Name Role Phone Unavailable Primary Care Provider Unavailabl e Encounter Details Date Type Department Care Team (Late st Contact Info) Description 07/21/2012 Results Only [facility] - [facility] [address] [place], [place] [address] Jordana Caldwell MD [address] [facility] [address] [address] [place] [address] Social History Tobacco Use Types Packs/Day Years Used Date Smoking Tobacco: Never Assessed Sex and Gender Information Value Date Recorded Sex Assigned at Not on file Gender Identity Not on file Sexual Orientation Not on file documented as of this encounter Plan of Treatment Not on file documented as of this encounter Procedures Procedure Name Priority Date/Time Associated Diagnosis Comments PAP TEST- RESULT ONLY Routine 07/21/2012 0:00 EST documented in this encounter Results * PAP TEST- RESULT ONLY (07/21/2012 0:00 EST) Pathology Report: CYTOPATHOLOGY REPORT Reports generated via electronic interface contain original data; however they are lacking the format of the original report. Caution should be taken when reading/interpreti ng unformatted reports. Name: ? KIKI SILVEIRA ? Accession #: ? [id number] ? : ? 1955 (Age: 56) ??F ?Collect Date: ? 07/21/2012 ? Location: ? [facility] ? Receive Date: ? 07/25/2012 ? Provider: JORDANA CALDWELL MD Copy to: ? Final Report SPECIMEN ADEQUACY ? Satisfactory for Evaluation - transformation zone component present GENERAL CATEGORIZATION ? Negative for Intraepithelial Lesion or Malignancy ?? Specimen/Source: ??Pap Test, Cervix/Endocervix, ThinPrep Imaging System with manual evaluation Document reviewed and electronically signed by: ? Mike Matson, CT(ASCP) ? Report ??Date: 07/28/2012 11:21 HPV with Pap Test ? Date Ordered: ? 07/28/2012 ? Status: ?? Signed Out ?Date Complete: ? 08/01/2012 ? By: ??System Interface ? Date Reported: ? 08/01/2012 ? Interpretation RESULT: Negative for HPV. No E6 or E7 mRNA is detected from HPV types 16,18,31,33,35, 39,45,51,52,56,58, 59,66, and 68 by loan associate mediated amplification. Comments Document reviewed and electronically signed by: ? System Interface ? Report date: 08/01/2012 By the signature above, the attending physician certifies that he/she has personally conducted a gross and/or microscopic examination of the described specimens and rendered or confirmed the above diagnosis. End of Report [facility] 07/21/2012 07/25/2012 Jordana Caldwell MD PATHOLOGY ORDERABLES Performing Organization Address City/State/[facility] Co de Phone Number [facility] [address] [place] [address] documented in this encounter Visit Diagnoses Not on filedocumented in this encounter
--- OUTSIDE RECORDS SUMMARY | 2024-06-02 00:52 | XMS_ITS | Encounter Summary ---
Author Organization [facility] Address [address] [place] [address] Care Team Providers Care Environmental Research Project Manager Name Role Phone None, Provider Primary Care Provider Unavailabl e Encounter Details Date Type Department Care Team (Late st Contact Info) Description 09/09/2019 Lab Requisition [facility] Pathology & Laboratory Medicine - [address] [address] Unknown, Provider, Social History Tobacco Use Types Packs/Day Years Used Date Smoking Tobacco: Never Assessed Sex and Gender Information Value Date Recorded Sex Assigned at Not on file Gender Identity Not on file Sexual Orientation Not on file documented as of this encounter Plan of Treatment Not on file documented as of this encounter Procedures Procedure Name Priority Date/Time Associated Diagnosis Comments CALCIUM, URINE 24HR Routine 09/09/2019 5:50 EST documented in this encounter Results * (ABNORMAL) CALCIUM, URINE 24HR (09/09/2019 5:50 EST) Calcium, Urine 19.3 See Note mg/dL 09/11/2019 11:05 [facility] Comment: NOTE: Reference range not established Calcium, Urine 24 hr 386(H) 100 - 300 mg/24hrs 09/11/2019 11:05 [facility] Comment: Reference range assumes a normal daily intake of calcium between 600 - 800 mg/day. Urine Volume 2,000 mL 09/11/2019 11:05 [facility] Urine Collection Period 24.0 Hours 09/11/2019 11:05 [facility] Urine 24 HOUR URINE SPECIMEN / Unknown 09/09/2019 5:50 EST 09/10/2019 15:36 EST Provider Unknown MD URINALYSIS ORDERABLE [facility] [address] [place] [id number] documented in this encounter Visit Diagnoses Not on filedocumented in this encounter Care Teams Environmental Research Project Manager Relationship Specialty Start Date End Date None, Provider PCP - General 05/27/16 documented as of this encounter
--- OUTSIDE RECORDS SUMMARY | 2024-06-02 00:52 | XMS_ITS | Encounter Summary ---
Author Organization [facility] Address [address] [place] [address] Care Team Providers Care Airport Representative Name Role Phone None, Provider Primary Care Provider Unavailabl e Encounter Details Date Type Department Care Team (Latest Contact Info) Description 05/06/2020 Lab Requisition [facility] Pathology & Laboratory Medicine - [facility] [address] [place] [address] Jordana Parsons MD [address] [place] [phone] Encounter for general adult medical examination without abnormal findings; Encounter for screening for malignant neoplasm of cervix; Encounter for screening for human papillomavirus (HPV) Social History Tobacco Use Types Packs/Day Years Used Date Smoking Tobacco: Never Assessed Sex and Gender Information Value Date Recorded Sex Assigned at Not on file Gender Identity Not on file Sexual Orientation Not on file documented as of this encounter Plan of Treatment Not on file documented as of this encounter Procedures Procedure Name Priority Date/Time Associated Diagnosis Comments PAP TEST Today 05/03/2020 15:30 EDT Encounter for general adult medical examination without abnormal findings Encounter for screening for malignant neoplasm of cervix Encounter for screening for human papillomavirus (HPV) HPV DNA DETECTION WITH GENOTYPING, PCR Today 05/03/2020 15:30 EDT Encounter for general adult medical examination without abnormal findings Encounter for screening for malignant neoplasm of cervix Encounter for screening for human papillomavirus (HPV) documented in this encounter Results * HUMAN PAPILLOMAVIRUS (HPV) DETECTION-HIGH RISK TYPES (05/03/2020 15:30 EDT) HPV other High Risk types, PCR Negative Negative 05/14/2020 15:14 [facility] Comment:No E6 or E7 mRNA is detected from HPV types 16,18,31,33,35,39,45,51,52,56,58,59,66, and 68 by patient registration rep mediated amplification. Papanicolaou smear specimen (specimen) CERVIX UTERI STRUCTURE / Unknown 05/03/2020 15:30 EDT 05/13/2020 10:53 EDT Jordana Parsons MD MICROBIOLOGY - GENER AL ORDERABLES [facility] [address] [place] [address] * PAP TEST (05/03/2020 15:30 EDT) Specimens A. Cervix and/or Endocervix , ThinPrep Imaging System with Manual Evaluation 05/14/2020 15:14 [facility] Specimen Adequacy Satisfactory for Evaluation - transformation zone component present 05/14/2020 15:14 [facility] General Categorization Negative for intraepithelial lesion or malignancy 05/14/2020 15:14 [facility] Attestation . 05/14/2020 15:14 [facility] at 1514 Clinical History See below 05/14/20 15:14 [facility] HPV The result for the Human Papillomavirus (HPV) Detection-High Risk Types is Negative. No E6 or E7 mRNA is detected from HPV types 16,18,31,33,35,39 ,45,51,52,56,58,5 9,66, and 68 by patient registration rep mediated amplification.Jade ting was performed on specimen [id number] and was resulted on 05/14/2020 1506 EDT by QUINTON, LAB INSTRUMENT RESULTS IN 05/14/2020 15:14 T [facility] Performing Lab [facility] 05/14/2020 15:14 T [facility] Scanned Images 05/14/2020 15:14 [facility] Papanicolaou smear specimen (specimen) CERVIX UTERI STRUCTURE / Unknown 05/03/2020 15:30 EDT 05/06/2020 10:54 EDT Jordana Parsons MD PATHOLOGY ORDERABLES [facility] [address] [place] [address] documented in this encounter Visit Diagnoses Diagnosis Encounter for general adult medical examination without abnormal findings Unspecified general medical examination Encounter for screening for malignant neoplasm of cervix Screening for malignant neoplasm of the cervix Encounter for screening for human papillomavirus (HPV) Special screening examination for human papillomavirus (HPV) documented in this encounter Care Teams Airport Representative Relationship Specialty Start Date End Date None, Provider PCP - General 05/27/16 documented as of this encounter
--- OUTSIDE RECORDS SUMMARY | 2024-06-02 00:52 | XMS_ITS | Encounter Summary ---
Author Organization [facility] Address [facility] [place] [address] Care Team Providers Care Non Emergency Services Ambulance Driver Name Role Phone Jordana Parsons MD Primary Care Provider [phone] Reason for Visit * Consultation (Routine) - Specialty Diagnoses / Procedures Referred By Contac t Referred To Contact Endocrinology Diagnoses Primary hyperparathyroidism Hypercalcemia Jordana Parsons MD [address] [place] [address] [facility] [address] [place] [address] [facility] [address] [place] [phone] Referral ID Status Reason Start Date Expiration Date V isits Requested Visits Authorized [id number] Consult, Test [facility] PCP Updated and/or Approved 08/31/2019 11/29/2019 6 6 Encounter Details Date Type Department Care Team (Latest Contact Info) Description 09/07/2019 10:30 AM EST Office Visit [place] [address] Elsy Staley MD [facility] [place] [address] Jenn Smith MD [facility] [place] [address] Primary hyperparathyroidism Social History Tobacco Use Types Packs/Day Years Used Date Smoking Tobacco: Never Smokeless Tobacco: Never Sex and Gender Information Value Date Recorded Sex Assigned at Not on file Gender Identity Not on file Sexual Orientation Not on file documented as of this encounter Last Filed Vital Signs Vital Sign Reading Time Taken Comments Blood Pressure 139/80 09/07/2019 10:37 AM EST Pulse 67 09/07/2019 10:37 AM EST Temperature - - Respiratory Rate - - Oxygen Saturation - - Inhaled Oxygen Concentration - - Weight 57.5 kg (126 lb 12.8 oz) 020 10:37 AM EST Height 162.6 cm (5' 4) 09/07/2019 10:3 7 AM EST Body Mass Index 21.77 09/07/2019 10:37 AM EST documented in this encounter Patient Instructions * Patient Instructions* Jenn Smith - 09/07/2019 10:30 AM EST Calcium Content of Selected Foods Dairy and Soy Amount Calcium (mg) Milk (skim, low fat, whole) 1 cup 300 Buttermilk 1 cup 300 Cottage Cheese .5 cup 65 Ice Cream or Ice Milk .5 cup 100 Sour Cream, cultured 1 cup 250 Soy Milk, calcium fortified 1 cup 200 to 400 Yogurt 1 cup 450 Yogurt drink 12 oz 300 [place] Instant Breakfast 1 packet 250 Hot [place], calcium fortified 1 packet 320 Nonfat dry milk powder 5 Tbsp 300 Brie Cheese 1 oz 50 Hard Cheese (cheddar, yomi) 1 oz 200 Mozzarella 1 oz 200 Parmesan Cheese 1 Tbsp 70 Vietnamese or Gruyere 1 oz 270 Vegetables [place] squash, cooked 1 cup 90 Arugula, raw 1 cup 125 Bok Cuca, raw 1 cup 40 Broccoli, cooked 1 cup 180 Chard or Okra, cooked 1 cup 100 Chicory (curly endive), raw 1 cup 40 Guido greens 1 cup 50 [place], brine packed 1 cup 10 Dandelion greens, raw 1 cup 80 Kale, raw 1 cup 55 Kelp or Kombe 1 cup 60 Mustard greens 1 cup 40 Spinach, cooked 1 cup 240 Turnip greens, raw 1 cup 80 Fruits Figs, dried, uncooked 1 cup 300 Kiwi, raw 1 cup 50 Sevier juice, calcium fortified 8 oz 300 Sevier juice, from concentrate 1 cup 20 Legumes Garbanzo Beans, cooked 1 cup 80 Legumes, general, cooked .5 cup 15 to 50 Holden Beans, cooked 1 cup 75 Soybeans, boiled .5 cup 100 Temphe .5 cup 75 Tofu, firm, calcium set 4 oz 250 to 750 Tofu, soft regular 4 oz 120 to 390 White Beans, cooked .5 cup 70 Grains Cereals (calcium fortified) .5 to 1 cup 250 to 1000 Amaranth, cooked .5 cup 135 Bread, calcium fortified 1 slice 150 to 200 Brown rice, long grain, raw 1 cup 50 Oatmeal, instant 1 package 100 to 150 Tortillas, corn 2 85 Nuts and Seeds Almonds, toasted unblanched 1 oz 80 Sesame seeds, whole roasted 1 oz 280 Sesame tahini 1 oz (2 Tbsp) 130 [place] seeds, dried 1 oz 50 Fish Mackerel, canned 3 oz 250 Sol[place], canned, with bones 3 oz 170 to 210 Sardines 3 oz 370 Other Molasses, blackstrap 1 Tbsp 135 * When range is given, calcium content varies by product. * The calcium content of plant foods is varied. Most vegetables, legumes, nuts, seeds, and dried fruit contain some calcium. Listed are selected significant sources of well-absorbed calcium. References: ??? USDA database, Handbook 8 palm program ??? Mango and Restoration How Much Do You Need? Age Calcium (mg) 1 - 3 year old 500 mg 4 - 8 year old 800 mg 9 - 18 year old 1300 mg 19 - 50 year old 1000 mg 51 - 70 year old 1200 mg > 70 year old 1200 mg http://[email or web address].org/adult/edu/calciumContent/index.html documented in this encounter Progress Notes * Jenn Smith - 09/07/2019 10:30 AM EST Images from the original note were not included. Subjective: Patient ID: Brayden Silveira is a 63 y.o. female. HPI Brayden Silveira is a 63 y/o female with a past medical hx significant for migraine headaches, thrombocytopenia, Raynaud's disease presenting in referral from Jordana Parsons MD for discussion related to suspected primary hyperparathyroidism. Brayden reports that she stopped her routine running regimen this past summer- has experienced severe joint pain for the past 6 months or so. No hx of nephrolithiasis. Thrombocytopenia is in her chart- did have excessive bleeding with placenta previa but otherwise had a vaginal delivery without trouble/ tonsils and adenoids/4 TM surgeries. Usually takes 400 mg Mg2+/b2 for migraine headaches. Meds on the list are new- supplements have not helped the migraines. Is seeing chiropractor/therapeutic massage for this. Has had a headache daily since Jun, not necessarily migraine. Wake her up at night. Menarche age 15, menopause age 48. Tries not to eat dairy products. Maybe broke R 4th and 5th toes-stubbed running to get candy for the kids. Last visit with the dentist was 6 months ago- has an implant L maxilla 1 year ago. 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 hydrOXYzine (VISTARIL) 25 mg Capsule, TAKE ONE CAPSULE BY MOUTH THREE TIMES A DAY FOR MIGRAINE WITH INDOMETHACIN, Disp: , Rfl: ??? indomethacin (Indocin) 25 mg Capsule, TAKE UP TO THREE TIMES A DAY FOR MIGRAINE WITH VISTARIL, Disp: , Rfl: ??? naratriptan (Amerge) 2.5 mg Tablet, TAKE ONE TABLET BY MOUTH AT FIRST ONSET OF HEADACHE MAY REPEAT IN 2 HOURS MAX OF 5MG PER 24 HOURS, Disp: , Rfl: ??? magnesium oxide (Mag-Ox) 400 mg (241.3 mg magnesium) Tablet, Take 400 mg by mouth daily., Disp:, Rfl: ??? riboflavin, vitamin B2, (VITAMIN B-2 ORAL), Take 400 mg by mouth daily., Disp: , Rfl: Review of Systems Endocrine: Negative for polyuria. Musculoskeletal: Positive for arthralgias. Neurological: Positive for headaches. Objective:BP 139/80 Pulse 67 Ht 162.6 cm (5' 4) Wt 57.5 kg (126 lb 12.8 oz) BMI 21.77 kg/m?? Physical Exam PHYSICAL EXAM: Vitals Office [place] 09/07/[place] [facility] Weight 57.5 kg (126 lb 12.8 oz) Height 162.6 cm (5' 4) BSA (Calculated - sq m) 1.61 sq meters BMI (Calculated) 21.76 Heart Rate 67 BP 139/80 Gen: NAD, AAOx3, speaking full sentences, very pleasant demeanor, normal habitus Skin: no acanthosis nigricans, no rashes, no bruising, no purple striae, no pretibial myxedema or hyperpigmentation Eyes: PERRL, EOMI, anicteric sclerae without injection, no proptosis or lid lag ENT: moist oral mucosa Neck: no thyromegaly, no thyroid nodules Pulm: CTAB, no stridor Cardiac: reg s1s2, no m/r/g GI: minimal abdominal adiposity MSK: 5/5 strength in all muscle groups of the upper and lower extremities, no LE edema Neuro: no tremor is present 07/19/2018: platelets 144 08/25/2019: 10.7 mg/dL concomitant PTH 182 pg/mL 25 OH 33.5 ng/mL ionized Ca2+ 1.39 mmol/L creatinine 1.05 mg/dL GFR 53 08/21/2019: 11.2 mg/dL 11/06/2016: 10.1 mg/dL 07/22/2012: 10.2 mg/dL Assessment and Plan: This is a very pleasant 63-year-old female with a past medical history significant for thrombocytopenia, migraine headaches presenting in referral from Jordana Parsons MD for discussion related to suspected primary hyperparathyroidism. Parathyroid hormone is inappropriately elevated in the setting ofhypercalcemia and a normal vitamin D level. De-Kimberly endorses worsening joint pain, worsening migraines for the past 6 months and is wondering if the symptoms are related to the hyperparathyroidism. Patient has never experienced nephrolithiasis. The highest value of calcium obtained on routine blood work was 11.2 mg/dL without any a concomitant albumin provided. She has no history of osteoporotic fractures. We will obtain a DEXA scan to assess for osteoporosis. Her GFR currently is 53. Thyroid ultrasound today revealed a right sided parathyroid adenoma. There is no family history of hypercalcemia or neck surgeries, will obtain a 24-hour urinary calcium level to definitively exclude familial hypocalcuric hypercalcemia. I explained to De-Kimberly the fact that I would not expect the modest elevation in her calcium level to contribute significantly to joint pain/migraine headaches although it is possible. #primary hyperparathyroidism -obtain 24 Hour urinary calcium level with contomitant PTH,calcium,albumin, 25 OH Vit D to definitively exclude familial hypocalcuric hypercalcemia with calcium/creatinine ratio -obtain DEXA to assess for osteoporosis, needs to include distal 1/3 radius -parathyroid ultrasound with R sided parathyroid adenoma, difficult to assess lower vs upper -anticipate possible administration of zolendronic acid 5mg prior to procedure to reduce risk of hungry bone syndrome -provided list of calcium containing foods, prefer she obtain 1200mg in total daily through divideddoses Case discussed and seen with staff Riding Instructor, Elsy Staley MD. Jenn Smith MD PGY-5 [facility] [place]ocr[facility] Fellow Pager #[phone] * Elsy Staley MD - 09/07/2019 10:30 AM EST Images from the original note were not included. I have seen the patient and reviewed Dr. Smith's above history and I agree with the details as written. The assessment and plan were formulated in discussion with me and I agree with them as documented. I also directly supervised thyroid and parathyroid US and agree with the findings as written. Clearly seen on US is a definite Rt PTH adenoma of 1.0x0.3x0.4 cm with feeding vessels. No need for PTH nuclear scan in our opinion and will refer her to see Dr. Starla Mayers for possible PTH adenoma r esection. Will also check baseline DXA scan locally soon. 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 Patient Active Problem List Diagnosis Code ??? Nevus D22.9 ??? Other seborrheic keratosis L82.1 ??? Hypercalcemia E83.52 ? ? Hyperparathyroidism, primary (PTH 182, Ca 10.1-11.2; upper limit of normal 10.1) => US+1cm RPTH adenoma E21.0 Elsy Staley MD, PhD, FACP, FACE * Jenn Smith - 09/07/2019 10:30 AM EST ENDOCRINOLOGY THYROID ULTRASOUND REPORT Patient:Brayden Silveira, [id number] Date of exam: 09/07/2019 Indication: primary hyperparathyroidism, to assess for parathyroid adenoma Comparison: none Performed by: Jenn Smith MD, Elsy Staley MD Real time images of the thyroid gland were obtained using a [id number] US machine. All measurements aregiven as Longitudinal/Sagittal x AP x Transverse. Right Lobe: The right lobe measures 3.5 x 0.7 x 1.0 , with homogeneous texture. There is a R sided parathyroid adenoma measuring 0.8 x 0.3 x 0.4cm with a very clear feeding vessel. Left Lobe: The left lobe measures 3.2 x 0.7 x 0.9cm, with homogeneous texture. Isthmus: The isthmus measures 0.2 cm. Impression: R sided parathyroid adenoma. Plan: Await DEXA documented in this encounter Plan of Treatment Upcoming Encounters Date Type Department Care Team (Late st Contact Info) Description 11/17/2024 9:30 AM EDT TH Visit (TeleHealth) [place] [address] Elsy Staley MD [facility] [place] [address] 01/04/2025 10:45 AM EDT Office Visit Dermatology at [place] [address] [facility] [place] [id number] Yousif Myers MD [address], [place] [address] documented as of this encounter Visit Diagnoses Diagnosis Primary hyperparathyroidism documented in this encounter Care Teams Non Emergency Services Ambulance Driver Relationship Specialty Start Date End Date Jordana Parsons MD [address] [place] [address] PCP - General 06/17/10 documented as of this encounter
--- OUTSIDE RECORDS SUMMARY | 2024-06-02 00:52 | XMS_ITS | Encounter Summary ---
Author Organization [facility] [place] [address] Care Team Providers Care Armor Reconnaissance Vehicle Crewman Name Role Phone Jordana Parsons MD Primary Care Provider [phone] Encounter Details Date Type Department Care Team (Late st Contact Info) Description 10/11/2019 Ancillary Procedure Radiology Library at [facility] [place] [address] Jordana Parsons MD [address] [place] [address] [facility] [address] [place] [address] Social History Tobacco Use Types Packs/Day Years [...] AM EDT TH Visit (TeleHealth) [place] [address] Elsy Staley MD [facility] [place] [address] 01/04/2025 10:45 AM EDT Office Visit Dermatology at [place] [address] [facility] [place] [place] [address] Yousif Myers MD [address], [place] [address] documented as of this encounter Procedures Procedure Name Priority Date/Time Associated Diagnosis Comments FILM LIBRARY- STORAGE ONLY DXA IMAGES Routine 10/11/2019 12:00 AM EDT documented in this encounter Results * Film Library- Storage Only DXA Images (10/11/2019 12:00 AM EDT) Narrative [facility] - 10/12/2019 3:36 PM EDT This exam is auto-finalizing. It's purpose is for storage only. Jordana Parsons MD IMG FILM LIBRARY ORD ERABLES [place], [place] documented in this encounter Visit Diagnoses Not on filedocumented in this encounter Care Teams Armor Reconnaissance Vehicle Crewman Relationship Specialty Start Date End Date Jordana Parsons MD [address] [place] [address] [address] [place] [address] PCP - General 06/17/10 documented as of this encounter
--- OUTSIDE RECORDS SUMMARY | 2024-06-02 00:52 | XMS_ITS | Referral Summary ---
Author Organization [facility] Address [address] [place] [address] Care Team Providers Care Portfolio Lead Name Role Phone None, Provider Primary Care Provider Unavailabl e Allergies No known active allergies Medications Medication Sig Dispensed Refills Start Date End Date Status hepatitis A vaccine, PF, (HAVRIX) 1,440 Karina unit/mL syringeIndications:Tra chelsy advice encounter Inject 1 mL into the muscle once for 1 dose 1 Syringe 0 08/01/2015 Active typhoid polysaccharide vaccine (TYPHIM ) 25 mcg/0.5 mL syringeIndications:Tra chelsy advice encounter Inject 0.5 mL into the muscle once for 1 dose 1 Syringe 0 08/01/2015 Active diphtheria, pertussis, acellular,, tetanus vaccine, PF, (ADACEL) 2 Lf-(2.5-5-3-5 mcg)-5Lf/0.5 mL syringeIndications:Tra chelsy advice encounter Inject 0.5 mL into the muscle once for 1 dose 1 Syringe 0 08/01/2015 Active poliovirus vaccine, IPV, (IPOL) 40-8-32 unit/0.5 mL syringeIndications:Tra chelsy advice encounter Inject 0.5 mL into the skin once for 1 dose 1 Syringe 0 08/01/2015 Active ciprofloxacin HCl (CIPRO) 500 mg tablet Take 1 Tab by mouth every 12 hours For severe diarrhea 6 Tab 0 08/01/2015 Active Immunizations Name Administration Dates Next Due Hepatitis A Vaccine Adult (HAVRIX/VAQTA) IM 01/2016 Poliovirus Vaccine IPV IM OR SQ 08/01/2015 Tdap Vaccine =>7YO IM 08/01/2015 Typhoid ViCPs (TYPHIM Vi) Vaccine IM 08/01/2015 Social History Tobacco Use Types Packs/Day Years Used Date Smoking Tobacco: Never Assessed Sex and Gender Information Value Date Recorded Sex Assigned at Not on file Gender Identity Not on file Sexual Orientation Not on file Last Filed Vital Signs Vital Sign Reading Time Taken Comments Blood Pressure 124/84 08/01/2015 1419 EST Pulse - - Temperature 35.9 ??C (96.7 ??F) 08/01/2015 1419 EST Respiratory Rate - - Oxygen Saturation - - Inhaled Oxygen Concentration - - Weight - - Height - - Body Mass Index - - Plan of Treatment Not on file Procedures Procedure Name Priority Date/Time Associated Diagnosis Comments HEPATITIS C AB W REFLEX TO HCV RNA BY PCR Routine 05/22/2022 15:55 EDT from Last 3 Months or Most Recently Relevant to Health Maintenance Results * HEPATITIS C AB W REFLEX TO HCV RNA BY PCR (05/22/2022 15:55 EDT) Hep C Antibody Negative Negative 05/25/2022 10:35 EDT [facility] Blood VENOUS BLOOD / Unknown 05/22/2022 15:55 EDT 05/23/2022 21:47 EDT Provider Outr Resulting Lab CHEMISTRY & BLOOD GAS ORDERABLES [facility] [address] [place] [address] from Last 3 Months or Most Recently Relevant to Health Maintenance Care Teams Portfolio Lead Relationship Specialty Start Date End Date None, Provider PCP - General 05/27/16
--- OUTSIDE RECORDS SUMMARY | 2024-06-02 00:52 | XMS_ITS | Encounter Summary ---
Author Organization [facility] Address [address] [place] [address] Care Team Providers Care Dental Equipment Installer And Servicer Name Role Phone None, Provider Primary Care Provider Unavailabl e Encounter Details Date Type Department Care Team (Late st Contact Info) Description 03/25/2020 Lab Requisition [facility] Pathology & Laboratory Medicine - [facility] [address] [place] [address] Outr Resulting Lab, Provider Social History Tobacco Use Types Packs/Day Years Used Date Smoking Tobacco: Never Assessed Sex and Gender Information Value Date Recorded Sex Assigned at Not on file Gender Identity Not on file Sexual Orientation Not on file documented as of this encounter Plan of Treatment Not on file documented as of this encounter Procedures Procedure Name Priority Date/Time Associated Diagnosis Comments PTH INTACT Routine 03/25/2020 9:02 EDT documented in this encounter Results * PTH INTACT (03/25/2020 9:02 EDT) Intact PTH 58 19 - 88 pg/mL 03/26/2020 11:49 EDT [facility] Blood VENOUS BLOOD / Unknown 03/25/2020 9:02 EDT 03/25/2020 16:03 EDT Provider Outr Resulting Lab CHEMISTRY & BLOOD GAS ORDERABLES [facility] [address] [place] [address] documented in this encounter Visit Diagnoses Not on filedocumented in this encounter Care Teams Dental Equipment Installer And Servicer Relationship Specialty Start Date End Date None, Provider PCP - General 05/27/16 documented as of this encounter
--- OUTSIDE RECORDS SUMMARY | 2024-06-02 00:52 | XMS_ITS | Encounter Summary ---
Author Organization [facility] Address [address] [place] [address] Care Team Providers Care Regional Extension Service Specialist Name Role Phone Unavailable Primary Care Provider Unavailabl e Encounter Details Date Type Department Care Team (Late st Contact Info) Description 07/24/2010 Results Only [facility] Laboratory Services - [facility] ([facility]) [address] [place], [place] [address] Zee Thapa, [facility] [address] [place] [phone] Social History Tobacco Use Types Packs/Day Years Used Date Smoking Tobacco: Never Assessed Sex and Gender Information Value Date Recorded Sex Assigned at Not on file Gender Identity Not on file Sexual Orientation Not on file documented as of this encounter Plan of Treatment Not on file documented as of this encounter Procedures Procedure Name Priority Date/Time Associated Diagnosis Comments CYTOPATHOLOGY Routine 07/24/2010 0:00 EST documented in this encounter Results * CYTOPATHOLOGY (07/24/2010 0:00 EST) Pathology Report: CYTOPATHOLOGY REPORT ? Reports generated via electronic interface contain original data; ? however they are lacking the format of the original report. ? Caution should be taken when reading/interpreti ng unformatted reports. ? Name: ? BEST, KIKI ? Accession #: ? [id number] ? : ? 1955 (Age: 54) ??F ?Collect Date: ? 07/24/2010 ? Location: ? [facility] ? Receive Date: ? 07/24/2010 ? Provider: ?ZEE KRISSY SURGICAL SUPPLIES STERILIZER ? Copy to: ? Specimen/Source: ?Pap Test, Cervix/Endocervix, ThinPrep Imaging System ? with manual evaluation ? Last Menstrual Period: ? 2004 ? SPECIMEN ADEQUACY ? Satisfactory for Evaluation ? - transformation zone component present ? - obscuring contamination, possibly lubricant ? GENERAL CATEGORIZATION ? Negative for Intraepithelial Lesion or Malignancy ? Document reviewed and electronically signed by: ? Lynan Dano, CT(ASCP) ? Report Date: ??07/30/2010 09:54 ? End of Report ? LESTER CHEW 07/24/2010 07/24/2010 Zee Thapa SURGICAL SUPPLIES STERILIZER PATHOLOGY ORDERABLES Performing Organization Address City/State/[place] Co de Phone Number LESTER CHEW [address] [place] [address] documented in this encounter Visit Diagnoses Not on filedocumented in this encounter
--- OUTSIDE RECORDS SUMMARY | 2024-06-02 00:52 | XMS_ITS | Encounter Summary ---
Author Organization [facility] Address [address] [place] [address] Care Team Providers Care Topper Packer Name Role Phone Unavailable Primary Care Provider Unavailabl e Encounter Details Date Type Department Care Team (Late st Contact Info) Description 07/22/2009 Orders Only [facility] Laboratory Services - [facility] ([facility]) [address] [place], [place] [id number] Zee Thapa, [facility] [address] [place] [phone] Social History Tobacco Use Types Packs/Day Years Used Date Smoking Tobacco: Never Assessed Sex and Gender Information Value Date Recorded Sex Assigned at Not on file Gender Identity Not on file Sexual Orientation Not on file documented as of this encounter Plan of Treatment Not on file documented as of this encounter Procedures Procedure Name Priority Date/Time Associated Diagnosis Comments CYTOPATHOLOGY Routine 07/22/2009 0:00 EST documented in this encounter Results * CYTOPATHOLOGY (07/22/2009 0:00 EST) Pathology Report: CYTOPATHOLOGY REPORT ? Reports generated via electronic interface contain original data; ? however they are lacking the format of the original report. ? Caution should be taken when reading/interpreti ng unformatted reports. ? Name: ? BEST, KIKI ? Accession #: ? [id number] ? : ? 1955 (Age: 53) ??F ?Collect Date: ? 07/22/2009 ? Location: ? [facility] ? Receive Date: ? 07/23/2009 ? Provider: ?ZEE KRISSY COMMUNITY ORGANIZATION DIRECTOR ? Copy to: ? Specimen/Source: ?Pap Test, Cervix/Endocervix, ThinPrep Imaging System ? with manual evaluation ? Last Menstrual Period: ? 9/04 ? Other: ? HPVA - HPV testing requested if ASC-US on the current ThinPrep Pap test. ? SPECIMEN ADEQUACY ? Satisfactory for Evaluation ? - transformation zone component present ? - scant squamous epithelial component secondary to excessive mucus ? GENERAL CATEGORIZATION ? Negative for Intraepithelial Lesion or Malignancy ? Document reviewed and electronically signed by: ? Barbara Brambilag, CT(ASCP) ? Report Date: ??07/24/2009 13:26 ? End of Report ? LESTER CHEW 07/22/2009 07/23/2009 Zee Thapa COMMUNITY ORGANIZATION DIRECTOR PATHOLOGY ORDERABLES LESTER CHEW [address] [place] [address] documented in this encounter Visit Diagnoses Not on filedocumented in this encounter
--- OUTSIDE RECORDS SUMMARY | 2024-06-02 00:52 | XMS_ITS | Encounter Summary ---
Author Organization [facility] Address [address] [place] [address] Care Team Providers Care Etymology Teacher Name Role Phone Unavailable Primary Care Provider Unavailabl e Encounter Details Date Type Department Care Team (Late st Contact Info) Description 04/22/2006 Results Only [facility] [address] [place] [address] Zee Thapa, [facility] [address] [place] [phone] Social History Tobacco Use Types Packs/Day Years Used Date Smoking Tobacco: Never Assessed Sex and Gender Information Value Date Recorded Sex Assigned at Not on file Gender Identity Not on file Sexual Orientation Not on file documented as of this encounter Plan of Treatment Not on file documented as of this encounter Procedures Procedure Name Priority Date/Time Associated Diagnosis Comments CYTOPATHOLOGY Routine 04/22/2006 0:00 EDT documented in this encounter Results * CYTOPATHOLOGY (04/22/2006 0:00 EDT) Pathology Report: CYTOPATHOLOGY REPORT Reports generated via electronic interface contain original data; however they are lacking the format of the original report. Caution should be taken when reading/interpreti ng unformatted reports. Name: ? KIKI SILVEIRA ? Accession #: ? [id number] : ? 1955 (Age: 50) ??F ?Collect Date: ? 04/22/2006 Location: ? [facility] ? Receive Date: ? 04/26/2006 Provider: ?ZEE THAPA CROTCH PIECE BASTER Copy to: ? Specimen/Source: ?ThinPrep Pap Test, Cervix/Endocervix, processed on AcadiaSoftPrep Imaging System, with manual evaluation Last Menstrual Period: ? Mar 2004 Other: ? HPVA - HPV testing requested if ASC-US on the current ThinPrep Pap test. ? SPECIMEN ADEQUACY ? Satisfactory for Evaluation - transformation zone component present - obscuring lubricant contamination GENERAL CATEGORIZATION ? Negative for Intraepithelial Lesion or Malignancy ? Document reviewed and electronically signed by: ? SARAH Castaneda(ASCP) ? Report Date: ??04/29/2006 13:29 End of Report LESTER CHEW 04/22/2006 04/26/2006 Zee Thapa CROTCH PIECE BASTER PATHOLOGY ORDERABLES LESTER CHEW [address] [place] [address] documented in this encounter Visit Diagnoses Not on filedocumented in this encounter
--- OUTSIDE RECORDS SUMMARY | 2024-06-02 00:52 | XMS_ITS | Encounter Summary ---
Author Organization [facility] Address [facility] [place] [address] Care Team Providers Care Fabric Worker Fitter Name Role Phone Jordana Parsons MD Primary Care Provider [phone] Reason for Referral * Consultation (Routine) - Closed Specialty Diagnoses / Procedures Referred By Contac t Referred To Contact General Surgery Diagnoses Primary hyperparathyroidism Jenn Smith MD [facility] [place] [address] Starla Mayers MD [facility] [place] [address] Referral ID Status Reason Start Date Expiration Date V isits Requested Visits Authorized [id number] Closed Consult, Test & Treat 10/12/2019 10/11/2020 1 1 Encounter Details Date Type Department Care Team (Late st Contact Info) Description 10/12/2019 Telephone [place] [address] Jenn Smith MD [facility] [place] [address] Social History Tobacco Use Types Packs/Day Years Used Date Smoking Tobacco: Never Smokeless Tobacco: Never Sex and Gender Information Value Date Recorded Sex Assigned at Not on file Gender Identity Not on file Sexual Orientation Not on file documented as of this encounter Miscellaneous Notes * Telephone Encounter - Jenn Smith - 10/12/2019 2:36 PM EDT Endocrinology Telephone Note: Spoke with Brayden about the results of her DEXA scan which do show osteoporosis at the level of thelumbar spine with t-score of -2.5, also at the level of the distal 1/3 radius with t-score of -3.7,and L femoral neck osteopenia with t- score -2.4. The results were scanned in to the wrong patient's chart- they are in [id number] (will contact area secretary about that). This finding does warrant consideration for parathyroidectomy but not urgently. All non-urgent OR cases are on hold given current COVID-[address] referral to [facility] to have it in the books. Explained that it is completely fine to wait on this surgery. In the meantime, watch out for sx of nephrolithiasis. Did not order sestamibi at this time. Jenn Smith MD PGY-5 [facility] Endocrinology, Diabetes, and Metabolism Fellow Pager #[phone] documented in this encounter Plan of Treatment Upcoming Encounters Date Type Department Care Team (Late st Contact Info) Description 11/17/2024 9:30 AM EDT TH Visit (TeleHealth) [place] [address] Elsy Staley MD [facility] [place] [address] 01/04/2025 10:45 AM EDT Office Visit Dermatology at [place] [address] [place] [place] [phone] Yousif Myers MD [address], [place] [address] Scheduled Referrals Name Type Priority Associated Diagnoses Orde r Schedule Referral to General Surgery Outpatient Referral Routine Primary hyperparathyroidism Ordered: 10/12/2019 documented as of this encounter Visit Diagnoses Diagnosis Primary hyperparathyroidism documented in this encounter Care Teams Fabric Worker Fitter Relationship Specialty Start Date End Date Jordana Parsons MD [address] [place] [address] PCP - General 06/17/10 documented as of this encounter
--- OUTSIDE RECORDS SUMMARY | 2024-06-02 00:52 | XMS_ITS | Encounter Summary ---
Author Organization [facility] Address [address] [place] [address] Care Team Providers Care Grinder Operator Name Role Phone None, Provider Primary Care Provider Unavailabl e Encounter Details Date Type Department Care Team (Late st Contact Info) Description 06/19/2020 Lab Requisition [facility] Pathology & Laboratory Medicine - [address] [address] Outr Resulting Lab, Provider Social History Tobacco [...] Priority Date/Time Associated Diagnosis Comments PTH INTACT After X-Ray 05/22/2020 15:34 EDT documented in this encounter Results * PTH INTACT (05/22/2020 15:34 EDT) Intact PTH 44 19 - 88 pg/mL 07/11/2020 11:46 EST [facility] Blood VENOUS BLOOD / Unknown 05/22/2020 15:34 EDT 07/09/2020 13:58 EST Provider Outr Resulting Lab CHEMISTRY & BLOOD GAS ORDERABLES [facility] [address] [place] [address] documented in this encounter Visit Diagnoses Not on filedocumented in this encounter Care Teams Grinder Operator Relationship Specialty Start Date End Date None, Provider PCP - General 11/2/16 documented as of this encounter
--- OUTSIDE RECORDS SUMMARY | 2024-06-02 00:52 | XMS_ITS | Encounter Summary ---
Author Organization [facility] [place] [address] Care Team Providers Care Research Physician Name Role Phone Jordana Parsons MD Primary Care Provider [phone] Reason for Visit * Reason Comments TeleHealth Encounter Details Date Type Department Care Team (Late st Contact Info) Description 11/17/2019 Telephone Neurology at [address] [phone] [place] [address] TeleHealth Social History Tobacco Use Types Packs/Day Years Used Date Smoking Tobacco: Never Smokeless Tobacco: Never Sex and Gender Information Value Date Recorded Sex Assigned at Not on file Gender Identity Not on file Sexual Orientation Not on file documented as of this encounter Miscellaneous Notes * Telephone Encounter - Sobia Bean CCMA - 11/17/2019 10:46 AM EDT Unable to speak with patient to review medications and allergies prior to upcoming tele- appointment scheduled with Neurology provider. documented in this encounter Plan of Treatment Upcoming Encounters Date Type Department Care Team (Late st Contact Info) Description 11/17/2024 9:30 AM EDT TH Visit (TeleHealth) [place] [address] Elsy Staley MD [facility] [place] [address] 01/04/2025 10:45 AM EDT Office Visit Dermatology at [place] [address] [place] [phone] Yousif Myers MD [address], [place] [address] documented as of this encounter Visit Diagnoses Not on filedocumented in this encounter Care Teams Research Physician Relationship Specialty Start Date End Date Jordana Parsons MD [address] [place] [address] [address] PCP - General 06/17/10 documented as of this encounter
--- OUTSIDE RECORDS SUMMARY | 2024-06-02 00:52 | XMS_ITS | Encounter Summary ---
Author Organization [facility] Address [address] [place] [address] Care Team Providers Care Cost Control Specialist Name Role Phone None, Provider Primary Care Provider Unavailabl e Encounter Details Date Type Department Care Team (Late st Contact Info) Description 05/23/2022 Lab Requisition [facility] Pathology & Laboratory Medicine - [address] [address] Outr Resulting Lab, Provider Social History Tobacco [...] RNA BY PCR Routine 05/22/2022 15:55 EDT documented in this encounter Results * HEPATITIS C AB W REFLEX TO HCV RNA BY PCR (05/22/2022 15:55 EDT) Hep C Antibody Negative Negative 05/25/2022 10:35 EDT [facility] Blood VENOUS BLOOD / Unknown 05/22/2022 15:55 EDT 05/23/2022 21:47 EDT Provider Outr Resulting Lab CHEMISTRY & BLOOD GAS ORDERABLES [facility] [address] [place] [address] documented in this encounter Visit Diagnoses Not on filedocumented in this encounter Care Teams Cost Control Specialist Relationship Specialty Start Date End Date None, Provider PCP - General 05/27/16 documented as of this encounter
--- OUTSIDE RECORDS SUMMARY | 2024-06-02 00:52 | XMS_ITS | Encounter Summary ---
Author Organization [facility] Address [address] [place] [address] Care Team Providers Care Roller Staker Name Role Phone None, Provider Primary Care Provider Unavailabl e Encounter Details Date Type Department Care Team (Late st Contact Info) Description 08/25/2019 Lab Requisition [facility] Pathology & [place] [address] Unknown, Provider, Social History Tobacco Use Types [...] Date/Time Associated Diagnosis Comments PTH INTACT Routine 08/25/2019 15:51 EST documented in this encounter Results * (ABNORMAL) PTH INTACT (08/25/2019 15:51 EST) Intact PTH 182(H) 19 - 88 pg/mL 08/28/2019 11:38 EST [facility] Blood VENOUS BLOOD / Unknown 08/25/2019 15:51 EST 08/26/2019 7:44 EST Provider Unknown MD CHEMISTRY & BLOOD GA S ORDERABLES [facility] [address] [place] [address] documented in this encounter Visit Diagnoses Not on filedocumented in this encounter Care Teams Roller Staker Relationship Specialty Start Date End Date None, Provider PCP - General 05/27/16 documented as of this encounter
--- OUTSIDE RECORDS SUMMARY | 2024-06-02 00:52 | XMS_ITS | Clinical Summary ---
Author Organization [facility] Address [address] [place] [address] Care Team Providers Care Plum Packer Name Role Phone None, Provider Primary Care [...] Mass Index - - Plan of Treatment Health Maintenance Due Date Last Done Comments RSV Immunization ( o r 60+ Years) (1 - 1-dose 60+ series) 2017 Fall Risk Screening 2022 COVID-19 Vaccine (2022-24 season) 2023 Hepatitis C Screen Completed 05/22/2022 Procedures Procedure Name Priority Date/Time Associated Diagnosis Comments HEPATITIS C AB W REFLEX TO HCV RNA BY PCR Routine 05/22/2022 15:55 EDT from Last 3 Months or Most Recently Relevant to Health Maintenance Results * HEPATITIS C AB W REFLEX TO HCV RNA BY PCR (05/22/2022 15:55 EDT) Hep C Antibody Negative Negative 05/25/2022 10:35 EDT [facility] Blood VENOUS BLOOD / Unknown 05/22/2022 15:55 EDT 05/23/2022 21:47 EDT Provider Outr Resulting Lab CHEMISTRY & BLOOD GAS ORDERABLES [facility] [address] [place] [address] from Last 3 Months or Most Recently Relevant to Health Maintenance Care Teams Plum Packer Relationship Specialty Start Date End Date None, Provider PCP - General 05/27/16
--- OUTSIDE RECORDS SUMMARY | 2024-06-02 00:52 | XMS_ITS | Encounter Summary ---
Author Organization [facility] [place] [address] Care Team Providers Care Manager Games Name Role Phone Jordana Parsons MD Primary Care Provider [phone] Encounter Details Date Type Department Care Team (Late st Contact Info) Description 09/13/2019 Notes [place] [address] Jenn Smith MD [facility] [place] [address] Social History Tobacco Use Types Packs/Day Years Used Date Smoking Tobacco: Never Smokeless Tobacco: Never Sex and Gender Information Value Date Recorded Sex Assigned at Not on file Gender Identity Not on file Sexual Orientation Not on file documented as of this encounter Progress Notes * Jenn Smith - 09/13/2019 12:13 PM EST Received OSH for Brayden Silveira Corrected calcium 11.0 mg/dL Creatinine 0.97 24 hour urinary creatinine 57.21 mg/dL 24 hour urinary calcium 386 mg/24hrs 25 oh vit D 31 PTH 171 Consistent with primary hyperparathyroidism. Calcium to creatinine ratio: 0.5949- definitively excludes [facility]. Await dexa. Jenn Smith MD PGY-5 [facility] Endocrinology, Diabetes, and Metabolism Fellow Pager #[phone] documented in this encounter Plan of Treatment Upcoming Encounters Date Type Department Care Team (Late st Contact Info) Description 11/17/2024 9:30 AM EDT TH Visit (TeleHealth) [place] [address] Elsy Staley MD [facility] [place] [address] 01/04/2025 10:45 AM EDT Office Visit Dermatology at [place] [address] [place] [address] Yousif Myers MD [address], [place] [address] documented as of this encounter Visit Diagnoses Not on filedocumented in this encounter Care Teams Manager Games Relationship Specialty Start Date End Date Jordana Parsons MD [facility] [address] [place] [address] PCP - General 06/17/10 documented as of this encounter
--- OUTSIDE RECORDS SUMMARY | 2024-06-02 00:52 | XMS_ITS | Encounter Summary ---
Author Organization [facility] Address [address] [place] [address] Care Team Providers Care Instrument Repairer Helper Name Role Phone None, Provider Primary Care Provider Unavailabl e Encounter Details Date Type Department Care Team (Late st Contact Info) Description 05/23/2022 Lab Requisition [facility] Pathology & Laboratory Medicine - [facility] [address] [place], [place] [address] Outr Resulting Lab, Provider Social History Tobacco [...] Procedure Name Priority Date/Time Associated Diagnosis Comments HIV 1/2 ANTIGEN AND ANTIBODY, 4TH GENERATION Routine 05/22/2022 15:55 EDT documented in this encounter Results * HIV 1/2 ANTIGEN AND ANTIBODY, 4TH GENERATION (05/22/2022 15:55 EDT) HIV 1 and 2 Antibody/p24 Antigen, 4th Generation Negative Negative 05/25/2022 10:40 EDT [facility] Comment:If acute HIV-1 infec tion is suspected in a high risk patient, submit plasma specimen for HIV-1 RNA quantitation test. Blood VENOUS BLOOD / Unknown 05/22/2022 15:55 EDT 05/23/2022 21:47 EDT Narrative [facility] - 05/25/2022 10:40 EDT Fourth Generation assay performed on the Siemens Centaur XPT. Provider Outr Resulting Lab IMMUNOLOGY A ND SEROLOGY ORDERABLES [facility] [address] [place] [address] documented in this encounter Visit Diagnoses Not on filedocumented in this encounter Care Teams Instrument Repairer Helper Relationship Specialty Start Date End Date None, Provider PCP - General 05/27/16 documented as of this encounter
--- OUTSIDE RECORDS SUMMARY | 2024-06-02 00:52 | XMS_ITS | Encounter Summary ---
Author Organization [facility] Address [address] [place] [address] Care Team Providers Care Medical Office Scheduler Name Role Phone Unavailable Primary Care Provider Unavailabl e Encounter Details Date Type Department Care Team (Late st Contact Info) Description 05/25/2002 Results Only [facility] [address] [place] [address] Hafsa Jacob MD [address] [place], [place] [address] Social History Tobacco Use Types Packs/Day Years Used Date Smoking Tobacco: Never Assessed Sex and Gender Information Value Date Recorded Sex Assigned at Not on file Gender Identity Not on file Sexual Orientation Not on file documented as of this encounter Plan of Treatment Not on file documented as of this encounter Procedures Procedure Name Priority Date/Time Associated Diagnosis Comments SURGICAL PATHOLOGY Routine 05/25/2002 0:00 EST documented in this encounter Results * SURGICAL PATHOLOGY (05/25/2002 0:00 EST) Pathology Report: SURGICAL PATHOLOGY REPORT Reports generated via electronic interface contain original data; however they are lacking the format of the original report. Caution should be taken when reading/interpreti ng unformatted reports. Name: ? KIKI SILVEIRA ? Accession #: ? [id number] ? : ? 1955 (Age: 46) ??F ? Collect Date: ? 05/25/2002 ? Location: ? [facility] ? Receive Date: ? 05/25/2002 ? Provider: HAFSA JACOB MD Copy to: CROW KEITH MD ? Final Pathologic Diagnosis: Skin of thigh, left anterior, shave excision: ? 1. ?? Melanocytic nevus, compound lentiginous type, with unusual architectural features and mild ?cytologic atypia. ?- Lesion extends focally to edge of shave excision specimen. Microscopic Description: ? The epidermis is hyperplastic with elongate and anastomosing rete ridges. There is a proliferation of melanocytes with epidermal and dermal components. The intraepidermal melanocytes are arranged in nests and as individual cells in a lentiginous pattern. ??The nests predominate and vary in size, shape, and spacing. ??Some of the nests bridge between rete ridges. ??Although the individual melanocytes are unevenly spaced in some areas, they show no tendency toward confluent growth or upward migration. ??The melanocytes are enlarged and show a mild degree of nuclear size and shape variation. ??The dermal component consists of nests and cords of similar melanocytes that show clinic administrator maturation with descent. ??There is papillary dermal fibroplasia. ??(Dr. Sparks)/b Document reviewed and electronically signed by: Carlene Sparks MD Report ??Date: 05/29/2002 16:36 By the signature above, the attending physician certifies that he/she has personally conducted a gross and/or microscopic examination of the described specimens and rendered or confirmed the above diagnosis. Specimen(s) Received: ? 3 mm jct nevus/lentigo L ant thigh ??shave exc ? Clinical History: ? Fair freckled skin ??3 mm jct nevus L ant thigh, sl increase pigment; clinically WNL ??R/O atypia Gross Description: ? Received in formalin labelled Silveira and L thigh is a aponte curling irregular 0.7 x 0.5 cm skin shave with a central aponte-brown 0.3 x 0.2 cm homogeneous macule. ??The specimen is trisected and entirely submitted in one cassette. ??(Ted Howard)/sara End of Report [facility] 05/25/2002 05/25/2002 15: 27 EST Hafsa Jacob MD PATHOLOGY ORDERABLES [facility] [address] [place] [address] documented in this encounter Visit Diagnoses Not on filedocumented in this encounter
--- OUTSIDE RECORDS SUMMARY | 2024-06-02 00:52 | XMS_ITS | Encounter Summary ---
[place] [address] Care Team Providers Care Custom Bow Maker Name Role Phone Jordana Parsons MD Primary Care Provider [phone] Reason for Referral * Diagnostic Test (Routine) - Closed Specialty Diagnoses / Procedures Referred By Contac t Referred To Contact Radiology Diagnoses Hyperparathyroidism, primary Procedures NM Parathyroid w Spect CT & Thyroid Imaging (Leb) Starla Mayers MD [facility] [place] [address] [place] [address] Referral ID Status Reason Start Date Expiration Date V isits Requested Visits Authorized [id number] Closed Specialty Service Requested 10/17/2019 04/18/2021 1 1 Reason for Visit * Diagnostic Test (Routine) - Closed Specialty Diagnoses / Procedures Referred By Contac t Referred To Contact Radiology Diagnoses Hyperparathyroidism, primary Procedures NM Parathyroid w Spect CT & Thyroid Imaging (Leb) Starla Mayers MD [facility] [place] [address] [place] [address] Referral ID Status Reason Start Date Expiration Date V isits Requested Visits Authorized [id number] Closed Specialty Service Requested 10/17/2019 04/18/2021 1 1 Encounter Details Date Type Department Care Team (Latest Contact Info) Description 11/15/2019 8:19 AM EDT Hospital Encounter [place] [address] Starla Mayers MD [facility] [place] [address] Hyperparathyroidism , primary (PTH 182, Ca 10.1-11.2; upper limit of normal 10.1) => US+1cm R PTH adenoma Discharge Disposition: Home Social History Tobacco Use Types Packs/Day Years Used Date Smoking Tobacco: Never Smokeless Tobacco: Never Sex and Gender Information Value Date Recorded Sex Assigned at Not on file Gender Identity Not on file Sexual Orientation Not on file documented as of this encounter Medications at Time of Discharge Medication Sig Dispensed Refills Start Date End Date hydrOXYzine (VISTARIL) 25 mg Capsule TAKE ONE CAPSULE BY MOUTH THREE TIMES A DAY FOR MIGRAINE WITH INDOMETHACIN 08/21/2019 02/27/2021 indomethacin (Indocin) 25 mg Capsule TAKE UP TO THREE TIMES A DAY FOR MIGRAINE WITH VISTARIL 08/21/2019 02/27/2021 naratriptan (Amerge) 2.5 mg Tablet TAKE ONE TABLET BY MOUTH AT FIRST ONSET OF HEADACHE MAY REPEAT IN 2 HOURS MAX OF 5MG PER 24 HOURS 08/21/2019 02/09/2020 magnesium oxide (Mag-Ox) 400 mg (241.3 mg magnesium) Tablet Take 400 mg by mouth daily. 12/30/2023 riboflavin, vitamin B2, (VITAMIN B-2 ORAL) Take 400 mg by mouth daily. 02/27/2021 documented as of this encounter Plan of Treatment Upcoming Encounters Date Type Department Care Team (Late st Contact Info) Description 11/17/2024 9:30 AM EDT TH Visit (TeleHealth) [place] [address] Elsy Staley MD [facility] ENDOCRINOLOGY [place], [place] [id number] 01/04/2025 10:45 AM EDT Office Visit Dermatology at [place] [address] [place] [address] Yousif Myers MD [address], [place] [address] documented as of this encounter Procedures Procedure Name Priority Date/Time Associated Diagnosis Comments NM PARATHYROID W/SPECT CT AND THYROID IMAGING Routine 11/15/2019 12:11 PM EDT Hyperparathyroidism , primary (PTH 182, Ca 10.1-11.2; upper limit of normal 10.1) => US+1cm R PTH adenoma documented in this encounter Results * NM Parathyroid w Spect CT & Thyroid Imaging (Leb) (11/15/2019 12:11 PM EDT) Anatomical Region Laterality Modality Nuclear Medicine Impressions 11/15/2019 4:18 PM EDT 1. ??There is suggestion of mildly increased activity in the lower pole of the right thyroid lobe with delayed washout which may represent an adenoma. However, no definite adenoma is visualized. 2. ??Incidentally noted rounded soft tissue density nodule anterior to the aortic arch. This could represent an enlarged lymph node or a thymoma. Comparison with prior imaging if available, to assess for interval change maybe beneficial. Preliminary report signed by: Jamshid Patel at 11/15/2019 3:52 PM I have personally reviewed the image(s) and the resident's interpretation and agree with the findings, Greg Leonardo at 11/15/2019 4:18 PM Thank you for letting us participate in the care of this patient. For questions regarding this report, please contact the number below. ? Electronically signed by: Greg Leonardo [facility] ([phone]), at 11/15/2019 4:18 PM Narrative 11/15/2019 4:18 PM EDT EXAMINATION: NM PARATHYROID W SPECT CT AND THYROID IMAGING (LEB) CLINICAL HISTORY: primary hyperparathyroidism with concomitant osteoporosis SURGICAL PLANNING TECHNIQUE: Technetium-99m sestamibi was administered intravenously at a dose of 21 mCi. 15 minutes later, anterior image of the neck and chest was obtained. Two hours later, the anterior image of the neck and chest was repeated. Tomographic imaging of the neck and chest was then performed with the images reconstructed in the axial, coronal and sagittal planes. A low dose CT scan was acquired for attenuation correction and anatomic localization. Technetium-99m pertechnetate was then administered intravenously at a dose of 17.9 mCi. 20 minutes later, the anterior image of the neck and chest was repeated. COMPARISON: None FINDINGS: Early and delayed sestamibi scans: Suggestion of mildly increased activity at the lower pole of the right thyroid lobe with delayed washout. SPECT-CT sestamibi scan: Suggestion of asymmetrically mildly increased activity within the lower pole of the right thyroid lobe (axial image 40). Pertechnetate thyroid scan: Symmetric thyroid uptake. Incidental CT findings: 1.1 cm round soft tissue density nodule anterior to the aortic arch. Procedure Note Greg Leonardo MD - 11/15/2019 EXAMINATION: NM PARATHYROID W SPECT CT AND THYROID IMAGING (LEB) CLINICAL HISTORY: primary hyperparathyroidism with concomitantosteoporosis SURGICAL PLANNING TECHNIQUE: Technetium-99m sestamibi was administered intravenously at a dose of 21mCi. 15 minutes later, anterior image of the neck and chest was obtained. Two hours later, the anterior image of the neck and chest was repeated. Tomographic imaging of the neck and chest was then performed with theimages reconstructed in the axial, coronal and sagittal planes. A low dose CTscan was acquired for attenuation correction and anatomic localization. Technetium-99m pertechnetate was then administered intravenously at a doseof 17.9 mCi. 20 minutes later, the anterior image of the neck and chest was repeated. COMPARISON: None FINDINGS: Early and delayed sestamibi scans: Suggestion of mildly increased activityat the lower pole of the right thyroid lobe with delayed washout. SPECT-CT sestamibi scan: Suggestion of asymmetrically mildly increasedactivity within the lower pole of the right thyroid lobe (axial image 40). Pertechnetate thyroid scan: Symmetric thyroid uptake. Incidental CT findings: 1.1 cm round soft tissue density nodule anteriorto the aortic arch. IMPRESSION 1. There is suggestion of mildly increased activity in the lower pole ofthe right thyroid lobe with delayed washout which may represent an adenoma.However, no definite adenoma is visualized. 2. Incidentally noted rounded soft tissue density nodule anterior to theaortic arch. This could represent an enlarged lymph node or a thymoma. Comparisonwith prior imaging if available, to assess for interval change maybebeneficial. Preliminary report signed by: Jamshid Patel at 11/15/2019 3:52 PM I have personally reviewed the image(s) and the resident's interpretationand agree with the findings, Greg Leonardo at 11/15/2019 4:18 PM Thank you for letting us participate in the care of this patient. Forquestions regarding this report, please contact the number below. Electronically signed by: Greg Leonardo [facility]([phone]), at 11/15/2019 4:18 PM Starla Mayers MD IMG NM ORDERABLES documented in this encounter Visit Diagnoses Diagnosis Hyperparathyroidism, primary (PTH 182, Ca 10.1-11.2; upper limit of normal 10.1) => US+1cm R PTH adenoma Primary hyperparathyroidism documented in this encounter Administered Medications Inactive Administered Medications - up to 3 most recent administrations Medication Order MAR Action Action Date Dose Rate Site technetium (Tc-99m) sestamibi injection 21 mCi 21 mCi, Intravenous, ONCE PRN, 1 dose, Starting on Wed11/15/19 at 0839, Until Wed11/15/19 at 0839, Per Protocol, Routine Given 11/15/2019 8:39 AM EDT 21 mCi Right Arm documented in this encounter Care Teams Custom Bow Maker Relationship Specialty Start Date End Date Jordana Parsons MD [address] [place] [address] PCP - General 06/17/10 documented as of this encounter
--- OUTSIDE RECORDS SUMMARY | 2024-06-02 00:52 | XMS_ITS | Encounter Summary ---
Author Organization [facility] Address [address] [place] [address] Care Team Providers Care Glue Maker Bone Name Role Phone Manas Dye MD Primary Care Provider Lola petit Encounter Details Date Type Department Care Team (Late st Contact Info) Description 10/24/2015 Results Only [facility] [phone] Liliana Lambert MD [address] [place] [address] Social History Tobacco Use Types Packs/Day Years Used Date Smoking Tobacco: Never Assessed Sex and Gender Information Value Date Recorded Sex Assigned at Not on file Gender Identity Not on file Sexual Orientation Not on file documented as of this encounter Plan of Treatment Not on file documented as of this encounter Procedures Procedure Name Priority Date/Time Associated Diagnosis Comments SURGICAL PATHOLOGY Routine 10/25/2015 11 :27 EDT documented in this encounter Results * SURGICAL PATHOLOGY (10/25/2015 11:27 EDT) Pathology Report: SURGICAL PATHOLOGY REPORT Reports generated via electronic interface contain original data; however they are lacking the format of the original report. Caution should be taken when reading/interpret ing unformatted reports. Name: ? KIKI SILVEIRA ? Accession #: ? [id number] ? : ? 1955 (Age: 60) ??F ? Collect Date: ? 10/25/2015 ? Location: ? [facility] ? Receive Date: ? 10/25/2015 ? Provider: DOCTOR UNKNOWN MD Copy to: ? Comment: ? This order was created erroneously. ??No surgical pathology specimen was submitted on this patient for this date of service. ??The charges have been credited. ?? Document reviewed and electronically signed by: Liliana Bear for STAFF PATHOLOGIST Report ??Date: 10/25/2015 11:37 By the signature above, the attending physician certifies that he/she has personally conducted a gross and/or microscopic examination of the described specimens and rendered or confirmed the above diagnosis. Specimen(s) Received: End of Report [facility] 10/25/2015 11:2 7 EDT 10/25/2015 11:27 EDT Provider Unknown MD PATHOLOGY ORDERABLES [facility] [address] [place] [address] documented in this encounter Visit Diagnoses Not on filedocumented in this encounter Care Teams Glue Maker Bone Relationship Specialty Start Date End Date Manas Dye MD PCP - General 05/31/15 05/26/16 documented as of this encounter
--- OUTSIDE RECORDS SUMMARY | 2024-06-02 00:52 | XMS_ITS | Encounter Summary ---
Author Organization [facility] [place] [address] Care Team Providers Care Net Mender Name Role Phone Jordana Parsons MD Primary Care Provider [phone] Encounter Details Date Type Department Care Team (Late st Contact Info) Description 09/08/2019 Orders Only [place] [address] Jenn Smith MD [facility] [place] [address] Social History Tobacco Use Types Packs/Day Years [...] AM EDT TH Visit (TeleHealth) [place] [address] Elsy Staley MD [facility] [place] [address] 01/04/2025 10:45 AM EDT Office Visit Dermatology at [place] [address] [facility] [place] [phone] Yousif Myers MD [address] [place] [address] documented as of this encounter Visit Diagnoses Not on filedocumented in this encounter Care Teams Net Mender Relationship Specialty Start Date End Date Jordana Parsons MD [facility] [address] [place] [address] PCP - General 06/17/10 documented as of this encounter
--- OUTSIDE RECORDS SUMMARY | 2024-06-02 00:52 | XMS_ITS | Encounter Summary ---
Author Organization [facility] Address [address] [place] [address] Care Team Providers Care Mangle Feeder Name Role Phone Manas Dye MD Primary Care Provider Lola petit Encounter Details Date Type Department Care Team (Late st Contact Info) Description 10/23/2015 Results Only [facility] [phone] Crow Caldwell MD [address] [place] [address] Social History Tobacco Use Types [...] Diagnosis Comments PAP TEST- RESULT ONLY Routine 10/23/2015 0:00 EDT documented in this encounter Results * PAP TEST- RESULT ONLY (10/23/2015 0:00 EDT) Pathology Report: CYTOPATHOLOGY REPORT Reports generated via electronic interface contain original data; however they are lacking the format of the original report. Caution should be taken when reading/interpreti ng unformatted reports. Name: ? KIKI SILVEIRA ? Accession #: ? [id number] ? : ? 1955 (Age: 60) ??F ?Collect Date: ? 10/23/2015 ? Location: ? [facility] ? Receive Date: ? 10/25/2015 ? Provider: CROW CALDWELL MD Copy to: ? Final Report SPECIMEN ADEQUACY ? Satisfactory for Evaluation - assessment of transformation zone component not applicable ( e.g. atrophy, vaginal sample, hysterectomy) GENERAL CATEGORIZATION ? Negative for Intraepithelial Lesion or Malignancy ?? Last Menstrual Period: Years Hormonal/Contracep tive status: None Specimen/Source: ??Pap Test, Cervix, ThinPrep Imaging System with manual evaluation Document reviewed and electronically signed by: ? Shaina Rothman, [facility](ASCP) ? Report ??Date: 10/28/2015 14:46 HPV with Pap Test ? Date Ordered: ? 10/28/2015 ? Status: ?? Signed Out ?Date Complete: ? 10/31/2015 ? By: ??System Interface ? Date Reported: ? 10/31/2015 ? Interpretation RESULT: Negative for HPV. No E6 or E7 mRNA is detected from HPV types 16,18,31,33,35, 39,45,51,52,56,58, 59,66, and 68 by endless track vehicle mechanic mediated amplification. Comments Document reviewed and electronically signed by: ? System Interface ? Report date: 10/31/2015 By the signature above, the attending physician certifies that he/she has personally conducted a gross and/or microscopic examination of the described specimens and rendered or confirmed the above diagnosis. End of Report [facility] 10/23/2015 10/25/2015 Crow Caldwell MD PATHOLOGY ORDERABLES [facility] [address] [place] [address] documented in this encounter Visit Diagnoses Not on filedocumented in this encounter Care Teams Mangle Feeder Relationship Specialty Start Date End Date Manas Dye MD PCP - General 05/31/15 05/26/16 documented as of this encounter
--- OUTSIDE RECORDS SUMMARY | 2024-06-02 00:52 | XMS_ITS | Encounter Summary ---
[place] [address] Care Team Providers Care Ice Guard Skating Rink Name Role Phone Jordana Parsons MD Primary Care Provider [phone] Reason for Visit * Reason Comments Skin Check Encounter Details Date Type Department Care Team (Late st Contact Info) Description 04/27/2019 4:15 PM EDT Office Visit Dermatology at [address] [address] Yousif Myers MD [address] [facility] [place] [address] [place] (actinic keratosis); Family history of malignant melanoma Social History Tobacco Use Types Packs/Day Years Used Date Smoking Tobacco: Never Smokeless Tobacco: Never Sex and Gender Information Value Date Recorded Sex Assigned at Not on file Gender Identity Not on file Sexual Orientation Not on file documented as of this encounter Progress Notes * Yousif Myers MD - 04/27/2019 4:15 PM EDT Problem List: 1. Repeat skin checkup, new lesion left nasal tip 2. History of dysplastic nevus with mild atypia, left anterior thigh, April 2002, excised by Dr. Jacob. ?? 3. 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. ?? 4. Family history of malignant melanoma in father who is alive and well. Brayden follows up after last being seen in 2013. She has noted a new lesion on the left nasal tip. It feels a rough. She reminds me that she grew up in [facility] and had a has had a fair amount of sun exposure over the years. Physical examination reveals a pleasant 63-year-old woman with benign examination of the face the neck the chest the back the hands the arms of forearms the thighs and the calves. She has a very early and fairly minimal actinic keratosis on the left lower nasal tip. There is no evidence of any malig nant lesions. The left anterior thigh scar site is well-healed without any recurrent atypical nevusthere. She has very mild seborrheic dermatitis throughout her scalp and a little bit in the exterior external auditory canals. She has no premalignant or malignant scalp lesions on exam today. Assessment and plan: Benign skin examination in a 63-year-old woman with a family history of malignant melanoma 1. Patient reassured about her benign nevi and about her benign skin examination today 2. Given family history would recommend that I see her on a roughly every 3-year basis for skin checkup. 3. Continue sun avoidance precautions which patient is trying to follow. Mild seborrheic dermatitis scalp and external auditory canals, and acne excoriae lower occipital scalp 1. Agree with use of 1% hydrocortisone cream as she is already doing 2. Recommend trial of tea tree shampoo. 3. This may also help for her mild acne excoriae of the lower occipital scalp Actinic keratosis left nasal tip 1. LN 2 x 2 applied to single site CC: Jordana Parsons MD documented in this encounter Plan of Treatment Upcoming Encounters Date Type Department Care Team (Late st Contact Info) Description 11/17/2024 9:30 AM EDT TH Visit (TeleHealth) [place] [address] Elsy Staley MD [facility] [address] 01/04/2025 10:45 AM EDT Office Visit Dermatology at [place] [address] [facility] [place] [phone] Yousif Myers MD [address] [facility], [place] [address] documented as of this encounter Visit Diagnoses Diagnosis AK (actinic keratosis) Actinic keratosis Family history of malignant melanoma Family history of other specified malignant neoplasm documented in this encounter Care Teams Ice Guard Skating Rink Relationship Specialty Start Date End Date Jordana Parsons MD [facility] [address] [place] [address] PCP - General 06/17/10 documented as of this encounter
--- OUTSIDE RECORDS SUMMARY | 2024-06-02 00:52 | XMS_ITS | Encounter Summary ---
Author Organization [facility] Address [address] [place] [address] Care Team Providers Care Ludlow Machine Operator Name Role Phone None, Provider Primary Care Provider Unavailabl e Encounter Details Date Type Department Care Team (Late st Contact Info) Description 03/11/2020 Lab Requisition [facility] Pathology & Laboratory Medicine - [facility] [address] [place] [address] Outr Resulting Lab, Provider Social History Tobacco [...] Date/Time Associated Diagnosis Comments PTH INTACT Routine 03/11/2020 13:48 EDT documented in this encounter Results * (ABNORMAL) PTH INTACT (03/11/2020 13:48 EDT) Intact PTH 98(H) 19 - 88 pg/mL 03/12/2020 8:22 EDT [facility] Blood VENOUS BLOOD / Unknown 03/11/2020 13:48 EDT 03/11/2020 21:00 EDT Provider Outr Resulting Lab CHEMISTRY & BLOOD GAS ORDERABLES [facility] [address] [place] [address] documented in this encounter Visit Diagnoses Not on filedocumented in this encounter Care Teams Ludlow Machine Operator Relationship Specialty Start Date End Date None, Provider PCP - General 05/27/16 documented as of this encounter
--- OUTSIDE RECORDS SUMMARY | 2024-06-02 00:52 | XMS_ITS | Encounter Summary ---
Author Organization [facility] Address [address] [place] [address] Care Team Providers Care Opener Name Role Phone Unavailable Primary Care Provider Unavailabl e Encounter Details Date Type Department Care Team (Late st Contact Info) Description 01/25/2003 Results Only [facility] - [facility] [address] [place] [address] Zoltan De La Garza, KNITTING INSPECTOR [address] [place] [address] Social History Tobacco Use Types [...] Priority Date/Time Associated Diagnosis Comments CYTOPATHOLOGY Routine 01/25/2003 0:00 EDT documented in this encounter Results * CYTOPATHOLOGY (01/25/2003 0:00 EDT) Pathology Report: CYTOPATHOLOGY REPORT Reports generated via electronic interface contain original data; however they are lacking the format of the original report. Caution should be taken when reading/interpreti ng unformatted reports. Name: ? KIKI SILVEIRA ? Accession #: ? [id number] : ? 1955 (Age: 47) ??F ?Collect Date: ? 01/25/2003 Location: ? [facility] ? Receive Date: ? 01/30/2003 Provider: ?ZOLTAN DE LA GARZA KNITTING INSPECTOR Copy to: ? Specimen/Source: ?ThinPrep Pap Test, Cervix/Endocervix Last Menstrual Period: ? 01/13/03 Other: ? Additional clinical information: [address] HPVA - HPV testing requested if ASC-US on the current ThinPrep Pap test. ? SPECIMEN ADEQUACY ? Satisfactory for Evaluation - transformation zone component present GENERAL CATEGORIZATION ? Negative for Intraepithelial Lesion or Malignancy ? Document reviewed and electronically signed by: ? SARAH Sanchez(ASCP) ? Report Date: ??02/01/2003 06:45 End of Report [facility]W 01/25/2003 01/30/2003 Zoltan De La Garza NP PATHOLOGY ORDERABLES [facility] CHEW [address] [place] [address] documented in this encounter Visit Diagnoses Not on filedocumented in this encounter
--- OUTSIDE RECORDS SUMMARY | 2024-06-02 00:52 | XMS_ITS | Encounter Summary ---
Author Organization [facility] [place] [address] Care Team Providers Care Soaker Hides Name Role Phone Jordana Parsons MD Primary Care Provider [phone] Encounter Details Date Type Department Care Team (Late st Contact Info) Description 11/17/2019 Telephone [place] [phone] Natalia Rahman RN Social History Tobacco Use Types Packs/Day Years Used Date Smoking Tobacco: Never Smokeless Tobacco: Never Sex and Gender Information Value Date Recorded Sex Assigned at Not on file Gender Identity Not on file Sexual Orientation Not on file documented as of this encounter Miscellaneous Notes * Telephone Encounter - Natalia Beal RN - 11/17/2019 11:57 AM EDT Tootie harding left a new home phone number. documented in this encounter Plan of Treatment Upcoming Encounters Date Type Department Care Team (Late st Contact Info) Description 11/17/2024 9:30 AM EDT TH Visit (TeleHealth) [place] [phone] Elsy Staley MD [facility] [place] [place] [address] 01/04/2025 10:45 AM EDT Office Visit Dermatology at [address] [address] Yousif Myers MD [address], [place] [address] documented as of this encounter Visit Diagnoses Not on filedocumented in this encounter Care Teams Soaker Hides Relationship Specialty Start Date End Date Jordana Parsons MD [facility] [address] [place] [address] PCP - General 06/17/10 documented as of this encounter
--- OUTSIDE RECORDS SUMMARY | 2024-06-02 00:52 | XMS_ITS | Encounter Summary ---
Author Organization [facility] Address [address] [place] [address] Care Team Providers Care Bath Attendant Name Role Phone None, Provider Primary Care Provider Unavailabl e Encounter Details Date Type Department Care Team (Late st Contact Info) Description 08/25/2019 Lab Requisition [facility] Pathology & [place] [address] Unknown, Provider, MD Social History Tobacco Use Types Packs/Day Years Used Date Smoking Tobacco: Never Assessed Sex and Gender Information Value Date Recorded Sex Assigned at Not on file Gender Identity Not on file Sexual Orientation Not on file documented as of this encounter Plan of Treatment Not on file documented as of this encounter Procedures Procedure Name Priority Date/Time Associated Diagnosis Comments CALCIUM, IONIZED Routine 08/25/2019 15:5 1 EST documented in this encounter Results * (ABNORMAL) CALCIUM, IONIZED (08/25/2019 15:51 EST) Calcium, Ionized 1.39(H) 1.12 - 1.32 mmol/L 08/25/2019 22:14 EST [facility] Blood VENOUS BLOOD / Unknown 08/25/2019 15:51 EST 08/25/2019 22:05 EST Narrative [facility] - 08/25/2019 22:14 EST Testing performed on heparinized plasma. Results may be biased 5% lower than that of whole blood. Provider Unknown MD CHEMISTRY & BLOOD GA S ORDERABLES [facility] [address] [place] [address] documented in this encounter Visit Diagnoses Not on filedocumented in this encounter Care Teams Bath Attendant Relationship Specialty Start Date End Date None, Provider PCP - General 05/27/16 documented as of this encounter
--- OUTSIDE RECORDS SUMMARY | 2024-06-02 00:52 | XMS_ITS | Encounter Summary ---
Author Organization [facility] Address [address] [place] [address] Care Team Providers Care Readiness Paraprofessional Name Role Phone None, Provider Primary Care Provider Unavailabl e Encounter Details Date Type Department Care Team (Late st Contact Info) Description 05/14/2020 Lab Requisition [facility] Pathology & Laboratory Medicine - [facility] [address] [place] [address] Outr Resulting Lab, Provider Social History Tobacco [...] Date/Time Associated Diagnosis Comments PTH INTACT Routine 05/14/2020 9:22 EDT documented in this encounter Results * PTH INTACT (05/14/2020 9:22 EDT) Intact PTH 36 19 - 88 pg/mL 05/15/2020 11:02 EDT [facility] Blood VENOUS BLOOD / Unknown 05/14/2020 9:22 EDT 05/14/2020 16:58 EDT Provider Outr Resulting Lab CHEMISTRY & BLOOD GAS ORDERABLES [facility] [address] [place] [address] documented in this encounter Visit Diagnoses Not on filedocumented in this encounter Care Teams Readiness Paraprofessional Relationship Specialty Start Date End Date None, Provider PCP - General 05/27/16 documented as of this encounter
--- OUTSIDE RECORDS SUMMARY | 2024-06-02 00:52 | XMS_ITS | Encounter Summary ---
Author Organization [facility] Address [facility] [place] [address] Care Team Providers Care Car Oiler Name Role Phone Jordana Parsons MD Primary Care Provider [phone] Reason for Referral * Diagnostic Test (Routine) - Closed Specialty Diagnoses / Procedures Referred By Contac t Referred To Contact Radiology Diagnoses Hyperparathyroidism, primary Procedures NM Parathyroid w Spect CT & Thyroid Imaging (Leb) Starla Mayers MD [facility] [address] [place] [address] Referral ID Status Reason Start Date Expiration Date V isits Requested Visits Authorized [id number] Closed Specialty Service Requested 10/17/2019 04/18/2021 1 1 Encounter Details Date Type Department Care Team (Late st Contact Info) Description 10/17/2019 Orders Only [place] [address] Starla Mayers MD [facility] [place] [address] Hyperparathyroidism, primary (PTH 182, Ca 10.1-11.2; upper limit of normal 10.1) => US+1cm R PTH adenoma Social History Tobacco Use Types Packs/Day Years [...] AM EDT TH Visit (TeleHealth) [place] [address] Elsy Staley MD [facility] [place] [address] 01/04/2025 10:45 AM EDT Office Visit Dermatology at [place] [address] [place] [address] Yousif Myers MD [address], [place] [address] documented as of this encounter Results * NM Parathyroid w [...] report, please contact the number below. ? Narrative 11/15/2019 4:18 PM EDT EXAMINATION: NM [...] Electronically signed by: Greg Leonardo [facility]([phone]), at 11/15/2019 4:18 PM Starla Mayers MD IM NM ORDERABLES documented in this encounter Visit Diagnoses Diagnosis Hyperparathyroidism, primary (PTH 182, Ca 10.1-11.2; upper limit of normal 10.1) => US+1cm R PTH adenoma Primary hyperparathyroidism Hyperparathyroidism, primary (PTH 182, Ca 10.1-11.2; upper limit of normal 10.1) => US+1cm R PTH adenoma Primary hyperparathyroidism documented in this encounter Care Teams Car Oiler Relationship Specialty Start Date End Date Jordana Parsons MD [address] [place] [address] PCP - General 06/17/10 documented as of this encounter
--- OUTSIDE RECORDS SUMMARY | 2024-06-02 00:52 | XMS_ITS | Encounter Summary ---
Author Organization [facility] [place] [address] Care Team Providers Care Dial Painter Name Role Phone Jordana Parsons MD Primary Care Provider [phone] Reason for Visit * Consultation (Routine) - Closed Specialty Diagnoses / Procedures Referred By Agus t Referred To Contact Neurology Diagnoses New daily persistent headache Jenn Smith MD [facility] [place] [address] [facility] [address] [place] [phone] Referral ID Status Reason Start Date Expiration Date V isits Requested Visits Authorized [id number] Closed Specialty Service Requested 09/10/2019 09/09/2020 1 1 Encounter Details Date Type Department Care Team (Latest Contact Info) Description 11/20/2019 8:30 AM EDT TH Visit (TeleHealth) Neurology at [address] [address] Merrick Le MD [facility] [place] [address] Chronic migraine without aura, with intractable migraine, so stated, with status migrainosus; Hemicrania continua Social History Tobacco Use Types Packs/Day Years Used Date Smoking Tobacco: Never Smokeless Tobacco: Never Sex and Gender Information Value Date Recorded Sex Assigned at Not on file Gender Identity Not on file Sexual Orientation Not on file documented as of this encounter Progress Notes * Merrick Le MD - 11/20/2019 8:30 AM EDT Neurology Headache New Patient Telephone Consultation?11-20-19 [facility] Referring Provider: Jenn Smith MD This is a 64 year-old??R-handed woman referred by Jenn Smith MD, to whom I will send the consult upon completion. CC:?? 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 The mass has not yet been biopsied. Onset of HAs in her 30's. No hx of motion sickness or FHx. She has gradually transformed to continuous daily GAINES. Currently, gets zero GAINES free days and has forat least 1 year. Frequency and severity was going up by 2014 when she had a nl brain MRI. Over time, she has 1 day per week mild, severe as frequently as 2-3 days per week and as infrequently as 2-3 days per month, the rest moderate. Never has had aura. Location: L eye, L temporal, neck, side locked The HAs are throbbing, not worse with activity, with photophonophobia, N, no V. On the ipsilateral side: Positive: periorbital edema Negative: ear fullness, flushing, ptosis, red eye, lacrimation, nasal stuffiness, rhinorrhea, agitation, irritability She is taking indomethacin 25 mg + hydroxyzine 25 mg at least 3 days per week, or hydroxyzine 25 mg4-5 nights per week, but none for a week. This can cause pain freedom or just relief. She has BCBS insurance. No PBM. Prior Treatments: Beta blockers 1. Propranolol Muscle relaxants 2. Cyclobenzaprine Antihistamines 3. Hydroxyzine NSAIDs 4. Indomethacin 5. ASA Excedrin 6. Ibuprofen 7. Naproxen Triptans 8. Kera- did not work 9. Carlene- did not work, but we don't know dose 10. Almo- did not work Supplements 11. Mag 12. B2 Misc 13. APAP Current Outpatient Medications on File Prior to Visit Medication Sig Dispense Refill ??? hydrOXYzine (VISTARIL) 25 mg Capsule TAKE [...] facility-administered medications on file prior to visit. No Known Allergies Previous testing: MRI in 2015 nl by report Family History: Migraine or other headaches in the family:?? no Past Medical History: Diagnosis Date ??? Hypercalcemia ??? Hyperparathyroidism ??? Raynaud's disease ??? Thrombocytopenia Past Surgical History: Procedure Laterality Date ??? SECTION ??? SINUS SURGERY ??? TONSILLECTOMY AND ADENOIDECTOMY ??? TUBAL LIGATION ??? TYMPANOPLASTY Bilateral Social History Socioeconomic History ??? Marital status: Spouse name: Not on file ??? Number of children: Not on file ??? Years of education: Not on file ??? Highest education level: Not on file Occupational History ??? Not on file Social Needs ??? Financial resource strain: Not on file ??? Food insecurity Worry: Not on file Inability: Not on file ??? Transportation needs Medical: Not on file Non-medical: Not on file Tobacco Use ??? Smoking status: Never Smoker ??? Smokeless tobacco: Never Used Substance and Sexual Activity ??? Alcohol use: Not on file ??? Drug use: Not on file ??? Sexual activity: Not on file Lifestyle ??? Physical activity Days per week: Not on file Minutes per session: Not on file ??? Stress: Not on file Relationships ??? Social connections Talks on phone: Not on file Gets together: Not on file Attends judaism service: Not on file Active member of club or organization: Not on file Attends meetings of clubs or organizations: Not on file Relationship status: Not on file ??? Intimate partner violence Fear of current or ex partner: Not on file Emotionally abused: Not on file Physically abused: Not on file Forced sexual activity: Not on file Other Topics Concern ??? Not on file Social History Narrative ??? Not on file ROS: HEENT: headache CV: negative GI: negative : negative Endocrine: high calcium, parathyroid tumor Musculoskeletal: negative Impression: ?? 1. Chronic migraine without aura, with intractable migraine, so stated, with status migrainosus 2. Hemicrania continua This could be HC because of a partial response to prn indocin, side locked GAINES, and ipsilateral periorbital edema. We will do an indocin trial to see if she gets a 100% response. I will protect her GItract with pantoprazole. If she does not have HC, this is chronic migraine. I will start treating her with amitriptyline 10-20 mg PO QHS to help migraine and sleep, since hydroxyzine gives her a hangover. If amitriptyline fails, and since propranolol also failed, she would then be a candidate for a MAB or BTX. In the pandemic, I recommend home use of a MAB. Since 3 generic triptans have failed, she is also a candidate for a gepant. I will wait on this until she no longer has daily continuous GAINES. Plan: Week 1: Start pantoprazole (Protonix) 20 mg daily to protect- stay on that Start Indomethacin (indocin) 25 mg one capsule 3 times per day with meals If in a week, the headache is gone, that is the dose, stay on it. If in a week headache is still there, fill the 50 mg indocin and: Week 2 50 mg indocin 3 times daily with meals If in a week, headache is gone, that is the dose, stay on it. If in a week headache is still there: Week 3: ?? Take one 25 and one 50 mg indocin (75 mg) 3 times daily with meals If in a week, your headache is gone, that is the dose, stay on it. If in a week the headache is still there, this is not HC but Chronic Migraine, and she would stop the indocin, stop the Protonix and talk with me about the next step for Chronic Migraine. I spent 80 minutes in this visit with 60 minutes devoted to telephone patient counseling, in addition to prep time. Brayden Silveira gave verbal consent over the phone for this telephone visit. The patient understands that this visit will be billed to their insurance, similar to a clinic visit. Thank you, Dr. Smith, for this consult. Merrick Le MD documented in this encounter Plan of Treatment Upcoming Encounters Date Type Department Care Team (Late st Contact Info) Description 11/17/2024 9:30 AM EDT TH Visit (TeleHealth) [place] [address] Elsy Staley MD [facility] [place] [address] 01/04/2025 10:45 AM EDT Office Visit Dermatology at [place] [address] [place] [phone] Yousif Myers MD [address], [place] [address] documented as of this encounter Visit Diagnoses Diagnosis 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
--- OUTSIDE RECORDS SUMMARY | 2024-06-02 00:52 | XMS_ITS | Encounter Summary ---
Author Organization [facility] Address [address] [place] [address] Care Team Providers Care Knife Cutter Name Role Phone None, Provider Primary Care Provider Unavailabl e Encounter Details Date Type Department Care Team (Late st Contact Info) Description 09/09/2019 Lab Requisition [facility] Pathology & Laboratory Medicine - [address] [address] Unknown, Provider, Social History Tobacco Use Types [...] Date/Time Associated Diagnosis Comments PTH INTACT Routine 09/09/2019 9:01 EST documented in this encounter Results * (ABNORMAL) PTH INTACT (09/09/2019 9:01 EST) Intact PTH 171(H) 19 - 88 pg/mL 09/11/2019 11:[address] [facility] Blood VENOUS BLOOD / Unknown 09/09/2019 9:01 EST 09/10/2019 15:38 EST Provider Unknown MD CHEMISTRY & BLOOD GA S ORDERABLES [facility] [address] [place] [address] documented in this encounter Visit Diagnoses Not on filedocumented in this encounter Care Teams Knife Cutter Relationship Specialty Start Date End Date None, Provider PCP - General 05/27/16 documented as of this encounter
--- OUTSIDE RECORDS SUMMARY | 2024-06-02 00:52 | XMS_ITS | Encounter Summary ---
[place] [address] Care Team Providers Care Technical Operator Name Role Phone Jordana Parsons MD Primary Care Provider [phone] Reason for Visit * Diagnostic Test (Routine) - Closed Specialty Diagnoses / Procedures Referred By Contac t Referred To Contact Radiology Diagnoses Hyperparathyroidism, primary Procedures NM Parathyroid w Spect CT & Thyroid Imaging (Leb) Starla Mayers MD [facility] [place] [address] [place] [address] Referral ID Status Reason Start Date Expiration Date V isits Requested Visits Authorized [id number] Closed Specialty Service Requested 10/17/2019 04/18/2021 1 1 Encounter Details Date Type Department Care Team (Latest Contact Info) Description 11/15/2019 8:20 AM EDT Hospital Encounter [place] [address] Starla Mayers MD [facility] [place] [address] Discharge Disposition: Home Social History Tobacco Use [...] AM EDT TH Visit (TeleHealth) [place] [address] Elsy Staley MD [facility] [place] [address] 01/04/2025 10:45 AM EDT Office Visit Dermatology at [place] [address] [facility] [place] [address] Yousif Myers MD [address] [facility] [place] [address] documented as of this encounter Procedures Procedure Name Priority Date/Time Associated Diagnosis Comments NM PARATHYROID W/SPECT CT AND THYROID IMAGING Routine 11/15/2019 12:11 PM EDT Hyperparathyroidism , primary (PTH 182, Ca 10.1-11.2; upper limit of normal 10.1) => US+1cm R PTH adenoma documented in this encounter Visit Diagnoses Not on filedocumented in this encounter Administered Medications Inactive Administered Medications - up to 3 most recent administrations Medication Order MAR Action Action Date Dose Rate Site technetium (Tc-99m) pertechnetate (TC04) injection 17.9 mCi 17.9 mCi, Intravenous, ONCE PRN, 1 dose, Starting on Wed11/15/19 at 1150, Until Wed11/15/19 at 1150, Per Protocol, Routine Given 11/15/2019 11:50 AM EDT 17.9 mCi Right Arm documented in this encounter Care Teams Technical Operator Relationship Specialty Start Date End Date Jordana Parsons MD [facility] [address] [facility] [address] [place] [address] PCP - General 06/17/10 documented as of this encounter
--- OUTSIDE RECORDS SUMMARY | 2024-06-02 00:52 | XMS_ITS | Encounter Summary ---
[place] [address] Care Team Providers Care Vending Machine Repairer Name Role Phone Jordana Parsons MD Primary Care Provider [phone] Reason for Visit * Diagnostic Test (Routine) - Closed Specialty Diagnoses / Procedures Referred By Contac t Referred To Contact Radiology Diagnoses Hyperparathyroidism, primary Procedures NM Parathyroid w Spect CT & Thyroid Imaging (Leb) Starla Mayers MD [facility] [place] [address] [place] [address] Referral ID Status Reason Start Date Expiration Date V isits Requested Visits Authorized [id number] Closed Specialty Service Requested 10/17/2019 04/18/2021 1 1 Encounter Details Date Type Department Care Team (Latest Contact Info) Description 11/15/2019 8:20 AM EDT Hospital Encounter [place] [address] Starla Mayers MD [facility] [place] [address] Discharge Disposition: Home Social History [...] AM EDT TH Visit (TeleHealth) [place] [address] Elsy Staley MD [facility] [place] [address] 01/04/2025 10:45 AM EDT Office Visit Dermatology at [place] [address] [facility] [place] [address] Yousif Myers MD [address] [facility], [place] [address] documented as of this encounter Procedures Procedure [...] below. ? Electronically signed by: Greg Leonardo [facility] ([phone]), at 11/15/2019 4:18 PM Narrative 11/15/2019 4:18 [...] the number below. Electronically signed by: Greg Leonardo, [facility]([phone]), at 11/15/2019 4:18 PM Starla Mayers MD IM NM ORDERABLES documented in this encounter Visit Diagnoses Not on filedocumented in this encounter Administered Medications Inactive Administered Medications - up to 3 most recent administrations Medication Order MAR Action Action Date Dose Rate Site ALPRAZolam (Xanax) 0.5 mg tablet 1 dose, Starting on Wed11/15/19 at 1038, Until Wed11/15/19 at 1043, PRAVIN ENGEL: cabinet override Given 11/15/2019 10:43 AM EDT 0.5 mg documented in this encounter Care Teams Vending Machine Repairer Relationship Specialty Start Date End Date Jordana Parsons MD [address] [place] [address] PCP - General 06/17/10 documented as of this encounter
--- OUTSIDE RECORDS SUMMARY | 2024-06-02 00:52 | XMS_ITS | Encounter Summary ---
Author Organization [place] [address] Care Team Providers Care Secondary History Teacher Name Role Phone Jordana Parsons MD Primary Care Provider [phone] Reason for Referral * Consultation (Routine) - Closed Specialty Diagnoses / Procedures Referred By Agus t Referred To Contact Neurology Diagnoses New daily persistent headache Jenn Smith MD [facility] [address] [place] [address] [facility] [address] [place] [address] Referral ID Status Reason Start Date Expiration Date V isits Requested Visits Authorized [id number] Closed Specialty Service Requested 09/10/2019 09/09/2020 1 1 Encounter Details Date Type Department Care Team (Late st Contact Info) Description 09/10/2019 [place] [phone] Jenn Smith MD [facility] [address] [place] [address] New daily persistent headache Social History Tobacco Use Types Packs/Day Years [...] AM EDT TH Visit (TeleHealth) [place] [address] Elsy Staley MD [facility] [place] [address] 01/04/2025 10:45 AM EDT Office Visit Dermatology at [place] [address] [place] [address] Yousif Myers MD [address] [place] [address] Scheduled Referrals Name Type Priority Associated Diagnoses Orde r Schedule Referral to Neurology Outpatient Referral Routine New daily persistent headache Ordered: 09/10/2019 documented as of this encounter Visit Diagnoses Diagnosis New daily persistent headache documented in this encounter Care Teams Secondary History Teacher Relationship Specialty Start Date End Date Jordana Parsons MD [facility] [address] [facility] [address] [place] [address] PCP - General 06/17/10 documented as of this encounter
--- OUTSIDE RECORDS SUMMARY | 2024-06-02 00:52 | XMS_ITS | Encounter Summary ---
Author Organization [facility] Address [address] [place] [address] Care Team Providers Care Disability Manager Name Role Phone Unavailable Primary Care Provider Unavailabl e Encounter Details Date Type Department Care Team (Late st Contact Info) Description 04/25/2007 Results Only [facility] [address] [place] [address] Zee Thapa, [facility] [address] [place] [phone] Social History Tobacco Use Types Packs/Day Years Used Date Smoking Tobacco: Never Assessed Sex and Gender Information Value Date Recorded Sex Assigned at Not on file Gender Identity Not on file Sexual Orientation Not on file documented as of this encounter Plan of Treatment Not on file documented as of this encounter Procedures Procedure Name Priority Date/Time Associated Diagnosis Comments CYTOPATHOLOGY Routine 04/25/2007 0:00 EDT documented in this encounter Results * CYTOPATHOLOGY (04/25/2007 0:00 EDT) Pathology Report: CYTOPATHOLOGY REPORT Reports generated via electronic interface contain original data; however they are lacking the format of the original report. Caution should be taken when reading/interpreti ng unformatted reports. Name: ? KIKI SILVEIRA ? Accession #: ? [id number] : ? 1955 (Age: 51) ??F ?Collect Date: ? 04/25/2007 Location: ? [facility] ? Receive Date: ? 04/27/2007 Provider: ?ZEE THAPA DINING MANAGER Copy to: ? Specimen/Source: ?ThinPrep Pap Test, Cervix/Endocervix, processed on [employer] ThinPrep Imaging System, with manual evaluation Last Menstrual Period: ? 03/29 Other: ? HPVA - HPV testing requested if ASC-US on the current ThinPrep Pap test. ? SPECIMEN ADEQUACY ? Satisfactory for Evaluation - transformation zone component present - scant squamous epithelial component GENERAL CATEGORIZATION ? Negative for Intraepithelial Lesion or Malignancy ? Document reviewed and electronically signed by: ? Barbara Gay, CT(ASCP) ? Report Date: ??05/03/2007 13:21 End of Report LESTER CHEW 04/25/2007 04/27/2007 Zee Thapa DINING MANAGER PATHOLOGY ORDERABLES Performing Organization Address City/State/[facility] Co de Phone Number LESTER CHEW [address] [place] [address] documented in this encounter Visit Diagnoses Not on filedocumented in this encounter
--- OUTSIDE RECORDS SUMMARY | 2024-06-02 00:52 | XMS_ITS | Encounter Summary ---
Author Organization [facility] Address [address] [place] [address] Care Team Providers Care Case Finisher Name Role Phone Manas Dye MD Primary Care Provider Lola petit Reason for Visit * Reason Comments Travel Consult Encounter Details Date Type Department Care Team (Late st Contact Info) Description 08/01/2015 15:00 EST Office Visit [facility] Infectious Disease - [address] [address] Rosie Varner, [employer] OBSERVER [address] [facility] [place] [phone] Travel advice encounter (Primary Dx) Discharge Disposition: Auto Discharge Social History Tobacco Use Types Packs/Day Years [...] - - Body Mass Index - - documented in this encounter Discharge Diagnoses Diagnosis Z71.89 Other specified counseling-Z71.89[ICD-10-CM] documented in this encounter Ordered Prescriptions Prescription Sig Dispensed Refills Start Date End Da te ciprofloxacin HCl (CIPRO) 500 mg tablet Take 1 Tab by mouth every 12 hours For severe diarrhea 6 Tab 0 08/01/2015 poliovirus vaccine, IPV, (IPOL) 40-8-32 unit/0.5 mL syringeIndications:Travel advice encounter Inject 0.5 mL into the skin once for 1 dose 1 Syringe 0 08/01/2015 diphtheria, pertussis, acellular,, tetanus vaccine, PF, (ADACEL) 2 Lf-(2.5-5-3-5 mcg)-5Lf/0.5 mL syringeIndications:Travel advice encounter Inject 0.5 mL into the muscle once for 1 dose 1 Syringe 0 08/01/2015 typhoid polysaccharide vaccine (TYPHIM ) 25 mcg/0.5 mL syringeIndications:Travel advice encounter Inject 0.5 mL into the muscle once for 1 dose 1 Syringe 0 08/01/2015 hepatitis A vaccine, PF, (HAVRIX) 1,440 Karina unit/mL syringeIndications:Travel advice encounter Inject 1 mL into the muscle once for 1 dose 1 Syringe 0 08/01/2015 atovaquone-proguanil (MALARONE) 250-100 mg per tabletIndications:Travel advice encounter Take 1 Tab by mouth daily for 27 days Start two days prior, while travel and 7 days post travel. Take with food. 27 Tab 0 08/01/2015 08/28/2015 documented in this encounter Discharge Disposition Disposition Code Departure Means Destination Auto Discharge documented in this encounter Progress Notes * Carmine Kapoor RN - 08/01/2015 1550 EST Immunizations given as ordered without incident. Cipro RX given as ordered by Rosie Varner NP if patient develops travelers diarrhea, fever, abdominal pain. I was supervised by Rosie Varner NP who was present and immediately available in the office suite. 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 No LMP recorded. Immunodeficiency: There is no immunization history for the selected administration types on file for this patient. Risk/Benefit Review: Malaria maps reviewed with patient she will be traveling in a malaria area. Malarone given. Foodborne illnesses in particular hep A and typhoid discussed with patient. She will receive hep A and typhoid today. She will be traveling in [place] and will need adult polio. She will receive tetanus today as a preventative measure. She denies the flu vaccine. She is aware not to swim any freshwater lakes or streams. She will use deet for the protection of mosquito born illnesses. She will seek post exposure to rabies if necessary Patient Education Topic: environmental concerns, freshwater swimming, future shots, malaria, rabies, safe food/water and what to do if ill while there Method: Handout and Verbal Taught to: Patient Barriers: None Outcomes: independent Physical Exam: BP 124/84 mmHg Temp(Src) 35.9 ??C (96.7 ??F) (Tympanic) Immunizations ordered:Hepatitis A vaccine, Polio (IPV), Tdap and Typhim Total visit time: 20 minutes. Time spent on counseling by provider: 20 minutes. documented in this encounter Plan of Treatment Not on file documented as of this encounter Visit Diagnoses Diagnosis Travel advice encounter- Primary Other specified counseling documented in this encounter Orders Immunization/Injection Count Last Ordered Date First Ordered Date HEPATITIS A VACCINE ADULT IM 1 08/01/2015 POLIOVIRUS VACCINE IPV SQ 08/01/2015 TDAP VACCINE =>7YO IM 1 08/01/2015 TYPHOID VICPS (TYPHIM ) VACCINE IM 01/2016 documented in this encounter Care Teams Case Finisher Relationship Specialty Start Date End Date Manas Dye MD PCP - General 05/31/15 05/26/16 documented as of this encounter
--- OUTSIDE RECORDS SUMMARY | 2024-06-02 00:52 | XMS_ITS | Encounter Summary ---
[place] [address] Care Team Providers Care Blocker And Polisher Gold Wheel Name Role Phone Jordana Parsons MD Primary Care Provider [phone] Reason for Visit * Reason Comments Skin Check Encounter Details Date Type Department Care Team (Late st Contact Info) Description 11/16/2013 4:15 PM EDT Office Visit Dermatology at [address] [address] Yousif Myers MD [address] [facility] [place] [address] Nevus (Primary Dx); Other seborrheic keratosis Social History Tobacco Use Types Packs/Day Years Used Date Smoking Tobacco: Never Sex and Gender Information Value Date Recorded Sex Assigned at Not on file Gender Identity Not on file Sexual Orientation Not on file documented as of this encounter Progress Notes * Yousif Myers MD - 11/16/2013 4:43 PM EDT Problem List: 1. Repeat skin checkup. 2. History of dysplastic nevus with mild atypia, left anterior thigh, April 2002, excised by Dr. Jacob. 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 4. Family history of malignant melanoma in father who is alive and well. Brayden follows up and has been doing well. She would like to have a lesion on her right dorsal hand checked and would like to have a general skin checkup as well. Physical examination reveals a 5 mm junctional pigmented nevus on the mid central abdomen just right at the umbilicus, with central darker pigmentation, brown to black, with tenant coordinator brown peripherally. Otherwise, she has a very homogeneous freckled appearance to her skin, the back, the chest, the hands, arms, forearms, thighs, and calves. There are no lesions of concern today. She does have what appears to be an actinic versus a seborrheic keratosis on the right dorsal hand. Assessment and Plan: 1. Benign skin examination. a. Patient reassured about benign skin examination. b. Continue sun avoidance precautions. c. Recommend return to clinic p.r.n. for new lesions/concerns. 2. Roman-k versus actinic, right dorsal hand. a. LN2 times two applied to site. b. Difficult to tell clinically to differentiate between the two, but I think treating it is prudent today. I would like to see her back p.r.n. for new lesions/concerns. COPY: Jordana Parsons M.D. documented in this encounter Plan of Treatment Upcoming Encounters Date Type Department Care Team (Late st Contact Info) Description 11/17/2024 9:30 AM EDT TH Visit (TeleHealth) [place] [address] Elsy Staley MD [facility] [place] [address] 01/04/2025 10:45 AM EDT Office Visit Dermatology at [place] [address] [facility] [place] [phone] Yousif Myers MD [address] [place] [address] documented as of this encounter Visit Diagnoses Diagnosis Nevus- Primary Benign neoplasm of skin, site unspecified Other seborrheic keratosis documented in this encounter Care Teams Blocker And Polisher Gold Wheel Relationship Specialty Start Date End Date Jordana Parsons MD [address] [place] [address] PCP - General 06/17/10 documented as of this encounter
--- NOTE | 2024-06-02 08:30 | DI.US_ITS ---
APPROVED REPORT EXAM: Comprehensive 2D, Doppler, and color-flow Echocardiogram Patient Location: Out-Patient Embroidery Finisher: Gogo Oliva RDCS (AE) Indications: Dilation of aorta, aortic aneurysm of unspecified site wo rupture Other Information Study Quality: Good Conclusion Normal left ventricular wall thickness and chamber size. EF is 60 to 65%. Wall motion is normal Normal right ventricular size and function Both atria are normal in size There are no structural valvular abnormalities There is mild mitral and tricuspid regurgitation Mildly dilated aortic root and ascending aorta. Measurement is 3.72 cm Wall motion Left Ventricle The left ventricle is normal size. The left ventricular systolic function is normal. The left ventric ular ejection fraction is within the normal range. There is normal left ventricular wall thickness. T here is normal LV segmental wall motion. There is no ventricular septal defect visualized. LVEF is 60 -65%. Right Ventricle The right ventricle is normal size. The right ventricular systolic function is normal. Atria The left atrium size is normal. The right atrium size is normal. The interatrial septum is intact wit h no evidence for an atrial septal defect. Aortic Valve The aortic valve is normal in structure. There is no aortic valvular stenosis. No aortic regurgitatio n is present. Mitral Valve The mitral valve is normal in structure. No evidence of mitral valve stenosis. Mild mitral regurgitat ion. Tricuspid Valve The tricuspid valve is normal in structure. There is no tricuspid valve stenosis. Mild tricuspid regu rgitation. The RVSP is 20.4mmHg. Pulmonic Valve The pulmonary valve is normal in structure. There is no pulmonic valvular stenosis. Trace pulmonic re gurgitation. Great Vessels Aortic root is mildly dilated. The ascending aorta is mildly dilated. Aortic arch is normal in calib er. IVC is normal in size and collapses >50% with inspiration. Pericardium There is no pericardial effusion. 2D Dimensions IVSD d PLAX 0.90 cm F: 0.6-1.0 Ao Root d 3.72 cm F: 2.7 - 3.3 LVPW d PLAX 0.90 cm F: 0.6 - 1.0 Ao Asc Diam d 3.72 cm F: 2.3 - 3.1 LVID d PLAX 4.40 cm F: 3.8 - 5.2 LVDs 2.84 cm F: 2.2 - 3.5 LV EF Teichholz 64.5 % FS 34.99 % LV EDV (Teich) 85.9 mL LV ESV (Teich) 30.5 mL Auto EF LV EDV A4C 74.6 mL LV EDV A2C 83.6 mL LV EDV BP 78.4 mL LV ESV A4C 28.5 mL LV ESV A2C 31.7 mL LV ESV BP 29.6 mL LVEF(%) A4C 61.8 % LVEF(%) A2C 62.1 % LVEF(%) BP 62.2 % LV SV A4C 46.1 ml LV SV A2C 51.9 ml LV SV BP 48.8 ml LV CO A4C 2.8 L/min LV CO A2C 2.9 L/min LV CO BP 2.9 L/min HR A4C 60.00 BPM HR A2C 56.87 BPM LV EDV Index (BP) LA Volume LA Length A4C 3.6 cm LA Length A2C 4.2 cm LA Area A4C s 9.78 cm2 LA Area A2C s 11.55 cm2 LA Vol A4C A-L 22.41 mL LA Vol A2C A-L 27.04 mL LA Vol Biplane A-L 26.5 mL LA Vol/BSA A4C A-L LA Vol/BSA A2C A-L LA Vol/BSA BP A-L 16.6 mL/m2 LA Vol A4C MOD 20.0 mL LA Vol A2C MOD 26.3 mL LA Vol BP MOD 24.5 mL RA Volume RA Area A4C 10.9 cm2 RA ESV A4C (A-L) 29.5mL RA Vol/BSA A4C A-L RA Length A4C 3.4 cm RA ESV A4C (MOD) 27.0mL LV Diastology MV E' medial 0.059 (>0.07 m/s) MV E Vmax 0.69 (0.4-1.3 m/s) MV E/E' MED 11.63 (<14) MV A Vmax 0.60 (0.4-1.3 m/s) MV E' lateral 0.085 (>0.1 m/s) E/A Ratio 1.1 MV E/E' LAT 8.10 (<14) MV E' Average 0.072 m/s MV E/E'(average) 9.55 Aortic Valve AoV Vmax 1.19 m/s LVOT Vmax 0.86 m/s AoV Peak Grad 5.7 mmHg LVOT Peak Grad 3.0 mmHg AoV Area (Vmax) 2.18 cm2 LVOT VTI 0.190 m AoV VTI 0.261 m LVOT Mean Grad 1.7 mmHg AoV Mean Rodriguez. 0.82 m/s LVOT SV 57.36 mL AoV Mean Grad 3.1 mmHg LVOT Diam s 1.95 cm AoV Area (VTI) 2.19 cm2 AV Regurg Peak Gr. 5.67 mmHg Velocity Ratio 0.72 Mitral Valve MV DT 207 (160-240 msec) MV Vmax TIPS 0.69 m/s MV Mean Grad 0.7 (<2mmHg) MV VTI 0.223 m Pulmonary Valve PV Vmax 0.74 (0.5-1.5 m/s) RVOT Vmax 0.75 m/s PV Peak Grad 2.2 mmHg RVOT Peak Gr. 2.2 mmHg PV Mean Rodriguez 0.53 m/s RVOT VTI 0.168 m PV Mean Grad 1.3 mmHg RVOT Mean Gr. 1.2 mmHg Tricuspid Valve RA Pressure 3.00 mmHg TR Vmax 2.08 m/s TV S' 0.12 m/s TR Peak Grad 17.3 mmHg RVSP (TR) 20.4 mmHg
== END 2024-06-02 01:07 ==
PROVIDERS: PCP Family Medicine; Visit Provider Family Medicine
DX: I71.9 Aortic aneurysm of unspecified site, without rupture (principal)
CPT/HCPCS: 93306

== ENCOUNTER 2024-08-30 00:04 | Outpatient (CLI) | payer MEDICARE, OTHER, SELFPAY ==
--- OUTSIDE RECORDS SUMMARY | 2024-08-30 00:06 | XMS_ITS | Encounter Summary ---
Author Organization [facility] [place] [address] Care Team Providers Care Human Resources Trainer Name Role Phone Jordana Parsons MD Primary Care Provider [phone] Encounter Details Date Type Department Care Team (Latest Contact Info) Description 06/02/2023 Transcribe [place] [phone] Jordana Parsons MD [address] [place] [address] [address] [place] [address] Thrombocytopenia, unspecified Social History Tobacco Use Types [...] AM EDT TH Visit (TeleHealth) [place] [phone] Elsy Staley MD [facility] [place] [address] 01/04/2025 10:45 AM EDT Office Visit Dermatology at [address] [place] [address] Yousif Myers MD [address] [place] [address] Scheduled Orders Name Type Priority Associated Diagnoses Orde r Schedule CBC (with Diff) Lab Routine Thrombocytopenia, unspecified Expected: 09/24/2023 (Approximate), Expires: 09/23/2024 documented as of this encounter Visit Diagnoses Diagnosis Thrombocytopenia, unspecified documented in this encounter Care Teams Human Resources Trainer Relationship Specialty Start Date End Date Jordana Parsons MD [address] [place] [address] PCP - General 06/17/10 documented as of this encounter
--- OUTSIDE RECORDS SUMMARY | 2024-08-30 00:06 | XMS_ITS | Clinical Summary ---
Author Organization [facility] [place] [address] Care Team Providers Care Freelance Writer Name Role Phone Jordana Parsons MD Primary Care Provider [phone] Allergies No known active allergies Medications Medication [...] , [place] 10.1-11.2; normal<10.1) before PTH surgery Immunizations Name Administration Dates Next Due Covid-19 Monovalent (Moderna Spikevax) 12yrs+ (1126-1135) 05/16/2021,08/21/2020,07/24/2020 Social History Tobacco Use Types Packs/Day [...] AM EDT TH Visit (TeleHealth) [place] [address] Elsy Staley MD [facility] [place] [address] 01/04/2025 10:45 AM EDT Office Visit Dermatology at [place] [address] [place] [address] Yousif Myers MD [address] [place] [address] Health Maintenance Due Date Last Done Comments CT Colonography 1955 Colonoscopy 1955 Colorectal Cancer Screening 1955 FIT DNA 1955 FIT 1955 Sigmoidoscopy (10 year) with FIT yearly 1955 Sigmoidoscopy 1955 Hepatitis C Screening 10/15/1975 Tetanus/Diphtheria/Pertussis Vaccines (1 - Tdap) 1976 HPV test 10/15/1987 PAP Smear 10/15/1987 Breast Cancer Share Decision Needed 1997 Breast Cancer screening 1997 Pneumoccocal Vaccine: 50+ (1 of 1 - PCV) 10/15/2007 Zoster vaccine (1 of 2) 10/15/2007 Advance Directive 2012 Bone Density Scan 2022 Covid-19 Vaccine ( season) 2024 05/16/2021, 08/21/2020, 07/24/2020 Influenza (Flu) vaccine (1 o f 1 - Influenza standard series) 03/26/2024 Advance Directives * Full Code (Latest Code Status on File) Date Activated Date Inactivated Comments 02/12/2020 6:50 AM 02/12/2020 3:10 PM Question Answer Comments Does patient have capacity to make decision: Yes Care Teams Freelance Writer Relationship Specialty Start Date End Date Jordana Parsons MD [facility] [address] [place] [address] PCP - General 06/17/10
--- OUTSIDE RECORDS SUMMARY | 2024-08-30 00:06 | XMS_ITS | Encounter Summary ---
Author Organization [facility] Address [facility] [place] [address] Care Team Providers Care Floor Cashier Name Role Phone Jordana Parsons MD Primary Care Provider [phone] Encounter Details Date Type Department Care Team (Latest Contact Info) Description 09/15/2022 10:30 AM EST TH Visit (TeleHealth) [place] [address] Elsy Staley MD [facility] [place] [address] Other osteoporosis, unspecified pathological fracture presence; History [...] ~ 2y post-op in Sep 2021 at [facility] showed much better bone density results out of osteoporosis into osteopenia, which is excellent. - To recheck lab soon at [facility] lab for BMP and 25vitD Orders Placed This Encounter Procedures Vitamin D, 25-Hydroxy Basic Metabolic Panel (non-fasting) - will let her know all the results during the interim. - RTC - 1 year after next DXA scan in Sep 2023. Indication for DXA scan at [facility] = history of primary hyperparathyroidism and osteoporosis s/p surgery in January 2020 with last DXA scan at [facility] on 10/07/21. 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 Dept. of Pathology, [place], [place] Apart from occasional muscle ache after walking, she feels generally well with less GAINES and no kidney stone or fracture. Patient Active Problem List Diagnosis Code ??? Nevus D22.9 ??? Other seborrheic keratosis L82.1 ??? Hypercalcemia E83.52 ??? Rt PTH adenoma 1cm by ultrasound 09/07/19 s/p Rt lower PTH adenoma resection 02/12/20 with [id number] => 33 E21.0 ? ? Hyperparathyroidism (PTH 182, Ca 10.1-11.2; normal<10.1) before PTH surgery E21.3 Family Hx: Unsure if there is a family hx of FHH Mother is 85-pulmonary HTN, valve replacement, slight dementia- not as active as she used to be Father turning 90- bright still- had an [place], bypass in 70s 1 living sibling- they're [...] asymmetry. ENDOCRINOLOGY THYROID ULTRASOUND REPORT Patient:Brayden Silveira, [id number] Date of exam: 09/07/19 Indication: primary hyperparathyroidism, to assess for parathyroid adenoma Comparison: none Performed by: Jenn Smith MD, Elsy Staley MD Real time images of the thyroid gland were obtained using a [id number] US machine. All measurements aregiven as Longitudinal/Sagittal [...] for RLP adenoma resection DXA scan at [facility] ob 10/11/19 showed osteoporosis at [...] 81 (H) 33 Surgical Pathology Report Unknown [id number] ... Recent lab (outside) after the surgery: [...] all Rx further. Outside DXA scan at [facility] on 10/17/21 showed significant improvement [...] ~ 2y post-op in Sep 2021 at [facility] showed much better bone density results, out of osteoporosis into osteopenia at both the spine and hip, which is excellent. - To recheck lab soon at [facility] lab for BMP and 25vitD Orders Placed This Encounter Procedures ??? DXA Central Spine, Hip, and/or Whole Body (Generic) ??? Vitamin D, 25-Hydroxy ??? Basic Metabolic Panel (non-fasting) Indication for DXA scan at [facility] = history of primary hyperparathyroidism and osteoporosis s/p surgery in January 2020 with last DXA scan at [facility] on 10/07/21. To check 3 sites at spine, hip and wrist - RTC - 1 year after next DXA scan in Sep 2023. Elsy Staley MD, PhD, FACE, FACP documented in this encounter Plan of Treatment Upcoming Encounters Date Type Department Care Team (Late st Contact Info) Description 11/17/2024 9:30 AM EDT TH Visit (TeleHealth) [place] [address] Elsy Staley MD [facility] [address] 01/04/2025 10:45 AM EDT Office Visit Dermatology at [address] [place] [address] Yousif Myers MD [address], [place] [address] documented as of this encounter Visit Diagnoses Diagnosis Other osteoporosis, unspecified pathological fracture presence History of primary hyperparathyroidism documented in this encounter Care Teams Floor Cashier Relationship Specialty Start Date End Date Jordana Parsons MD [address] [place] [address] [address] [place] [address] PCP - General 06/17/10 documented as of this encounter
--- OUTSIDE RECORDS SUMMARY | 2024-08-30 00:06 | XMS_ITS | Encounter Summary ---
Author Organization [facility] [place] [address] Care Team Providers Care Watch Guard Gate Name Role Phone Jordana Parsons MD Primary Care Provider [phone] Encounter Details Date Type Department Care Team (Late st Contact Info) Description 02/13/2020 Telephone [place] [address] Deysi Guerrier RN Social History [...] (PTH and calcium) sent to local hospital ([facility]) to be completed per patients request. Patient notified. documented in this encounter Plan of Treatment Upcoming Encounters Date Type Department Care Team (Late st Contact Info) Description 11/17/2024 9:30 AM EDT TH Visit (TeleHealth) [place] [address] Elsy Staley MD [facility] [place] [address] 01/04/2025 10:45 AM EDT Office Visit Dermatology at [place] [address] [place] [address] Yousif Myers MD [address], [place] [address] documented as of this encounter Visit Diagnoses Diagnosis Hyperparathyroidism, primary (PTH 182, Ca 10.1-11.2; upper limit of normal 10.1) => US+1cm R PTH adenoma Primary hyperparathyroidism documented in this encounter Care Teams Watch Guard Gate Relationship Specialty Start Date End Date Jordana Parsons MD [facility] [address] [place] [address] PCP - General 06/17/10 documented as of this encounter
--- OUTSIDE RECORDS SUMMARY | 2024-08-30 00:06 | XMS_ITS | Encounter Summary ---
[place] [address] Care Team Providers Care Trade Show Specialist Name Role Phone Jordana Parsons MD Primary Care Provider [phone] Reason for Visit * Reason Comments Skin Lesion Encounter Details Date Type Department Care Team (Late st Contact Info) Description 07/06/2023 9:45 AM EST Office Visit Dermatology at [address] [phone] Yousif Myers MD [address] [facility], [facility] [place] [address] Multiple benign nevi; Family history [...] April 2002, excised by Dr. Jacob. 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 4. Family history of malignant melanoma in father who is alive and well. Brayden follows up concerned about lesion on her arm. 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 Physical examination reveals a pleasant [...] AM EDT TH Visit (TeleHealth) [place] [address] Elsy Staley MD [facility] [place] [address] 01/04/2025 10:45 AM EDT Office Visit Dermatology at [address] [place] [address] Yousif Myers MD [address] [place] [address] RD, [place] [address] documented as of this encounter Visit Diagnoses Diagnosis Multiple benign nevi Benign neoplasm of skin, site unspecified Family history of malignant melanoma Family history of other specified malignant neoplasm documented in this encounter Care Teams Trade Show Specialist Relationship Specialty Start Date End Date Jordana Parsons MD [facility] [address] [place] [address] PCP - General 06/17/10 documented as of this encounter
--- OUTSIDE RECORDS SUMMARY | 2024-08-30 00:06 | XMS_ITS | Encounter Summary ---
Author Organization [facility] [place] [address] Care Team Providers Care Welfare Director Name Role Phone Jordana Parsons MD Primary Care Provider [phone] Reason for Visit * Reason Onset Date Comments Medication Refill 04/14/2021 Encounter Details Date Type Department Care Team (Late st Contact Info) Description 04/14/2021 Refill Neurology at [facility] [address] [place] [address] Merrick Le MD Social History Tobacco Use Types Packs/Day [...] AM EDT TH Visit (TeleHealth) [place] [address] Elsy Staley MD [facility] [place] [address] 01/04/2025 10:45 AM EDT Office Visit Dermatology at [place] [address] [facility] [place] [phone] Yousif Myers MD [address], [place] [address] documented as of this encounter Visit Diagnoses Not on filedocumented in this encounter Care Teams Welfare Director Relationship Specialty Start Date End Date Jordana Parsons MD [address] [place] [address] PCP - General 06/17/10 documented as of this encounter
--- OUTSIDE RECORDS SUMMARY | 2024-08-30 00:06 | XMS_ITS | Encounter Summary ---
Author Organization [facility] [place] [address] Care Team Providers Care Dinkey Motor Operator Name Role Phone Jordana Parsons MD Primary Care Provider [phone] Encounter Details Date Type Department Care Team (Late st Contact Info) Description 11/17/2019 Telephone [place] [address] Natalia Rahman RN Social History Tobacco Use [...] AM EDT TH Visit (TeleHealth) [place] [phone] Elsy Staley MD [facility] [place] [address] 01/04/2025 10:45 AM EDT Office Visit Dermatology at [address] [place] [address] Yousif Myers MD [address], [place] [address] documented as of this encounter Visit Diagnoses Not on filedocumented in this encounter Care Teams Dinkey Motor Operator Relationship Specialty Start Date End Date Jordana Parsons MD [facility] [address] [place] [address] PCP - General 06/17/10 documented as of this encounter
--- OUTSIDE RECORDS SUMMARY | 2024-08-30 00:06 | XMS_ITS | Encounter Summary ---
Author Organization [facility] Address [facility] [address] [facility] [place] [address] Care Team Providers Care Oil Gauger Name Role Phone Jordana Parsons MD Primary Care Provider [phone] Encounter Details Date Type Department Care Team (Late st Contact Info) Description 02/19/2020 Telephone [place] [phone] Starla Mayers MD [facility] [place] [address] Social History Tobacco Use Types Packs/Day Years [...] Miscellaneous Notes * Telephone Encounter - Starla Mayers MD - 02/19/2020 2:35 PM EDT I [...] a Ca and PTH lab orders to [facility] to be done mid-February. documented in this encounter Plan of Treatment Upcoming Encounters Date Type Department Care Team (Late st Contact Info) Description 11/17/2024 9:30 AM EDT TH Visit (TeleHealth) [place] [address] Elsy Staley MD [facility] [place] [address] 01/04/2025 10:45 AM EDT Office Visit Dermatology at [place] [address] [facility] [place] [address] Yousif Myers MD [address], [place] [address] documented as of this encounter Visit Diagnoses Not on filedocumented in this encounter Care Teams Oil Gauger Relationship Specialty Start Date End Date Jordana Parsons MD [address] [place] [address] PCP - General 06/17/10 documented as of this encounter
--- OUTSIDE RECORDS SUMMARY | 2024-08-30 00:06 | XMS_ITS | Encounter Summary ---
[place] [address] Care Team Providers Care Pastry Decorator Name Role Phone Jordana Parsons MD Primary Care Provider [phone] Reason for Visit * Reason Onset Date Comments Prior Authorization 10/21/2020 fluocinolone acetonide (SYNALAR) 0.01 % Solution Encounter Details Date Type Department Care Team (Late st Contact Info) Description 10/21/2020 Telephone Dermatology at [address] [phone] Flor Nesbitt CMA Prior Authorization (fluocinolone acetonide [...] Authorization for Primary Care [place] [address] Request received via: Message Patient: Brayden Silveira Patient : 1955 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 Cortes: [id number] Physician: Laina Montes MD Medication Requested: fluocinolone [...] AM EDT TH Visit (TeleHealth) [place] [address] [facility] [place] [address] 01/04/2025 10:45 AM EDT Office Visit Dermatology at [address] [place] [address] Yousif Myers MD [address], [place] [address] documented as of this encounter Visit Diagnoses Not on filedocumented in this encounter Care Teams Pastry Decorator Relationship Specialty Start Date End Date Jordana Parsons MD [facility] [address] [address] PCP - General 06/17/10 documented as of this encounter
--- OUTSIDE RECORDS SUMMARY | 2024-08-30 00:06 | XMS_ITS | Encounter Summary ---
[place] [address] Care Team Providers Care Chute Greaser Name Role Phone Jordana Parsons MD Primary Care Provider [phone] Encounter Details Date Type Department Care Team (Late st Contact Info) Description 07/27/2023 Telephone Dermatology at [address] [address] Sherrie Jeffrey LPN Social History [...] AM EDT TH Visit (TeleHealth) [place] [address] Elsy Staley MD [facility] [place] [address] 01/04/2025 10:45 AM EDT Office Visit Dermatology at [place] [address] [place] [address] Yousif Myers MD [address], [place] [address] documented as of this encounter Visit Diagnoses Not on filedocumented in this encounter Care Teams Chute Greaser Relationship Specialty Start Date End Date Jordana Parsons MD [facility] [address] [place] [address] PCP - General 06/17/10 documented as of this encounter
--- OUTSIDE RECORDS SUMMARY | 2024-08-30 00:06 | XMS_ITS | Encounter Summary ---
Author Organization [facility] Address [facility] [place] [address] Care Team Providers Care Investigator Utility Bill Complaints Name Role Phone Jordana Parsons MD Primary Care Provider [phone] Encounter Details Date Type Department Care Team (Latest Contact Info) Description 02/27/2021 2:00 PM EDT TH Visit (TeleHealth) [place] [address] Elsy Staley MD [facility] [place] [address] Hyperparathyroidism (PTH 182, Ca 10.1-11.2; normal<10.1) before [...] to recheck DXA in Sep 2021 at [facility] which should show better bone density results. - To recheck lab in Mar after 6 months interval at [facility] lab for BMP and 25vitD - will let her know all the results during the interim. - RTC late September 2021 a week after DXA scan or earlier if needed. Elsy Staley MD, PhD, FACE, FACP documented in this encounter Progress Notes * Elsy Staley MD - 02/27/2021 2:00 PM EDT Images from the original note were not included. Subjective: Patient ID: Brayden Silveira is a 65 y.o. female. 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 of Pathology, [place], [place] Apart from occasional muscle ache after walking, she feels generally well with less GAINES and no kidney stone or fracture. Patient Active Problem List Diagnosis Code ??? Nevus D22.9 ??? Other seborrheic keratosis L82.1 ??? Hypercalcemia E83.52 ??? Rt PTH adenoma 1cm by ultrasound 09/07/19 s/p Rt lower PTH adenoma resection 02/12/20 with [id number] => 33 E21.0 ? ? Hyperparathyroidism (PTH 182, Ca 10.1-11.2; normal<10.1) before PTH surgery E21.3 Family Hx: Unsure if there is a family hx of FHH Mother is 85-pulmonary HTN, valve replacement, slight dementia- not as active as she used to be Father turning 90- bright still- had an [place], bypass in 70s 1 living sibling- they're [...] asymmetry. ENDOCRINOLOGY THYROID ULTRASOUND REPORT Patient:Brayden Silveira, [id number] Date of exam: 09/07/19 Indication: primary hyperparathyroidism, to assess for parathyroid adenoma Comparison: none Performed by: Jenn Smith MD, Elsy Staley MD Real time images of the thyroid gland were obtained using a [id number] US machine. All measurements aregiven as Longitudinal/Sagittal [...] for RLP adenoma resection DXA scan at [facility] ob 10/11/19 showed osteoporosis at the [...] 81 (H) 33 Surgical Pathology Report Unknown [id number] ... Recent lab (outside) after the surgery: [...] to recheck DXA in Sep 2021 at [facility] which should show better bone density results. - To recheck lab in Mar after 6 months interval at [facility] lab for BMP and 25vitD - will [...] AM EDT TH Visit (TeleHealth) [place] [address] Elsy Staley MD [facility] [place] [address] 01/04/2025 10:45 AM EDT Office Visit Dermatology at [place] [address] [place] [address] Yousif Myers MD [address], [place] [address] documented as of this encounter Visit Diagnoses Diagnosis Hyperparathyroidism (PTH 182, Ca 10.1-11.2; normal<10.1) before PTH surgery Hyperparathyroidism, unspecified Other osteoporosis, unspecified pathological fracture presence documented in this encounter Care Teams Investigator Utility Bill Complaints Relationship Specialty Start Date End Date Jordana Parsons MD [address] [facility] [address] [place] [address] PCP - General 06/17/10 documented as of this encounter
--- OUTSIDE RECORDS SUMMARY | 2024-08-30 00:06 | XMS_ITS | Encounter Summary ---
Author Organization [facility] [place] [address] Care Team Providers Care Pharmacy Intern Name Role Phone Jordana Parsons MD Primary Care Provider Reason for Referral * Consultation (Routine) - Closed Specialty Diagnoses / Procedures Referred By Contac t Referred To Contact Endocrinology Diagnoses Hyperparathyroidism, primary Osteopenia, unspecified location Jordana Parsons MD [address] [place] [address] [facility] [address] [place] [phone] Referral ID Status Reason Start Date Expiration Date V isits Requested Visits Authorized [id number] Closed Consult, Test & Treat PCP Updated and/or Approved 06/02/2022 06/02/2023 12 12 Encounter Details Date Type Department Care Team (Latest Contact Info) Description 06/02/2022 Transcribe Orders eDH Incoming Referrals [phone] Jordana Parsons MD [address] [place] [address] Hyperparathyroidism, primary; Osteopenia, unspecified location [...] TH Visit (TeleHealth) [place] [address] Elsy Staley MD [facility] [place] [address] 01/04/2025 10:45 AM EDT Office Visit Dermatology at [place] [address] [place] [address] Yousif Myers MD [address], [place] [address] Scheduled Referrals Name Type Priority Associated Diagnoses Order Schedule Referral to Endocrinology Outpatient Referral Routine Hyperparathyroidism , primary Osteopenia, unspecified location Ordered: 06/02/2022 documented as of this encounter Visit Diagnoses Diagnosis Hyperparathyroidism, primary Primary hyperparathyroidism Osteopenia, unspecified location documented in this encounter Care Teams Pharmacy Intern Relationship Specialty Start Date End Date Jordana Parsons MD [facility] [address] [place] [address] PCP - General 06/17/10 documented as of this encounter
--- OUTSIDE RECORDS SUMMARY | 2024-08-30 00:06 | XMS_ITS | Encounter Summary ---
Author Organization [facility] [place] [address] Care Team Providers Care Mining Professionals Name Role Phone Jordana Parsons MD Primary Care Provider [phone] Encounter Details Date Type Department Care Team (Late st Contact Info) Description 10/22/2023 Ancillary Procedure Radiology Library at [facility] [place] [phone] Jordana Parsons MD [address] [place] [address] [address] [place] [address] Social History Tobacco Use Types Packs/Day Years [...] AM EDT TH Visit (TeleHealth) Endocrinology at [facility] [place] [phone] Elsy Staley MD [facility] [address] 01/04/2025 10:45 AM EDT Office Visit Dermatology at [address] [place] [address] Yousif Myers MD [address] [place] [address] RD, [place] [address] documented as of this encounter Procedures Procedure Name Priority Date/Time Associated Diagnosis Comments FILM LIBRARY- STORAGE ONLY DXA IMAGES Routine 10/22/2023 12:00 AM EDT documented in this encounter Results * Film Library- Storage Only DXA Images (10/22/2023 12:00 AM EDT) Narrative [facility] - 10/26/2023 3:48 PM EDT This exam is auto-finalizing. It's purpose is for storage only. Jordana Parsons MD IMG FILM LIBRARY ORD ERABLES [place], [place] documented in this encounter Visit Diagnoses Not on filedocumented in this encounter Care Teams Mining Professionals Relationship Specialty Start Date End Date Jodrana Parsons MD [facility] [address] [place] [address] PCP - General 06/17/10 documented as of this encounter
--- OUTSIDE RECORDS SUMMARY | 2024-08-30 00:06 | XMS_ITS | Encounter Summary ---
Author Organization [facility] Address [facility] [place] [address] Care Team Providers Care Quenching Machine Operator Name Role Phone Jordana Parsons MD Primary Care Provider [phone] Reason for Visit * Reason Comments Establish Care * Consultation (Routine) - Closed Specialty Diagnoses / Procedures Referred By Agus galaviz Referred To Contact General Surgery Diagnoses Primary hyperparathyroidism Jenn Smith MD [facility] [place] [address] Starla Mayers MD [facility] [place] [address] Referral ID Status Reason Start Date Expiration Date V isits Requested Visits Authorized [id number] Closed Consult, Test & Treat 10/12/2019 10/11/2020 1 1 Encounter Details Date Type Department Care Team (Late st Contact Info) Description 12/28/2019 8:00 AM EDT Office [place] [address] Starla Mayers MD [facility] [place] [address] Isamar Chambers APRN [facility] [place] [address] Hyperparathyroidism, primary Social History Tobacco Use Types [...] Social History: 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. She lives with her . Nonsmoker. No [...] lymph nodes Assessment and Plan: Ms. Brayden Silveira is a 64 y.o. [...] scheduled for the soonest mutually convenient date. [facility] Patient Characteristics Body mass index is [...] decreased: No Ionized calcium: high PTH: high 60-OL-Xxkkrdi D: normal Subjective Symptoms: yes Objective Symptoms: [...] AM EDT TH Visit (TeleHealth) [place] [address] lEsy Staley MD [facility] [place] [address] 01/04/2025 10:45 AM EDT Office Visit Dermatology at [address] [place] [address] Yousif Myers MD [address], [place] [address] Scheduled Referrals Name Type Priority Associated Diagnoses Orde r Schedule Referral to General Surgery Outpatient Referral Routine Primary hyperparathyroidism Ordered: 10/12/2019 documented as of this encounter Visit Diagnoses Diagnosis Hyperparathyroidism, primary Primary hyperparathyroidism documented in this encounter Care Teams Quenching Machine Operator Relationship Specialty Start Date End Date Jordana Parsons MD [facility] [address] [place] [address] PCP - General 06/17/10 documented as of this encounter
--- OUTSIDE RECORDS SUMMARY | 2024-08-30 00:06 | XMS_ITS | Encounter Summary ---
Author Organization [facility] Address [facility] [place] [address] Care Team Providers Care Senior Android Developer Name Role Phone Jordana Parsons MD Primary Care Provider [phone] Encounter Details Date Type Department Care Team (Latest Contact Info) Description 11/09/2023 10:30 AM EDT TH Visit (TeleHealth) [place] [address] Elsy Staley MD [facility] [address] Other osteoporosis, unspecified pathological fracture presence; History [...] ~ 2y post-op in Sep 2025 at [facility] showed much better bone density results, out of osteoporosis into osteopenia at both the spine and hip, which is excellent. Indication for DXA scan at [facility] = history of primary hyperparathyroidism and osteoporosis s/p surgery in January 2020 with last DXA scan at [facility] on 10/07/21. 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 Smith& oh) by her PCP, Jordana Parsons MD, on [...] Harrington MD Verified: 02/19/2020 Pathologist Performed at: -[facility] Dept. [place], [place], [place] Apart from occasional muscle ache after [...] Father turning 90- bright still- had an [place], bypass in 70s 1 living sibling- they're [...] asymmetry. ENDOCRINOLOGY THYROID ULTRASOUND REPORT Patient:Brayden Silveira, [id number] Date of exam: 09/07/19 Indication: primary hyperparathyroidism, to assess for parathyroid adenoma Comparison: none Performed by: Jenn Smith MD, Elsy Staley MD Real time images of the thyroid gland were obtained using a [id number] US machine. All measurements aregiven as Longitudinal/Sagittal [...] RLP adenoma resection DXA scan at [facility] ob 10/11/19 showed osteoporosis at the [...] 81 (H) 33 Surgical Pathology Report Unknown [id number] ... Recent lab (outside) after the surgery: [...] all Rx further. Outside DXA scan at [facility] on 10/17/21 showed significant improvement in [...] ~ 2y post-op in Sep 2025 at [facility] showed much better bone density results, out of osteoporosis into osteopenia at both the spine and hip, which is excellent. Indication for DXA scan at [facility] = history of primary hyperparathyroidism and osteoporosis s/p surgery in January 2020 with last DXA scan at [facility] on 10/07/21. To check 3 sites at spine, hip and wrist - To recheck lab yearly at [facility] lab for BMP, TSH, and 25vitD Orders [...] AM EDT TH Visit (TeleHealth) [place] [address] Elsy Staley MD [facility] [place] [address] 01/04/2025 10:45 AM EDT Office Visit Dermatology at [place] [address] [place] [address] Yousif Myers MD [address], [place] [address] Scheduled Orders Name Type Priority Associated Diagnoses [...] fatigue documented in this encounter Care Teams Senior Android Developer Relationship Specialty Start Date End Date Jordana Parsons MD [facility] [address] [place] [address] PCP - General 06/17/10 documented as of this encounter
--- OUTSIDE RECORDS SUMMARY | 2024-08-30 00:06 | XMS_ITS | Encounter Summary ---
Author Organization [facility] [place] [address] Care Team Providers Care Copying Machine Repairer Name Role Phone Jordana Parsons MD Primary Care Provider [phone] Reason for Visit * Auth/Cert Specialty Diagnoses / Procedures Referred By Contac t Referred To Contact Diagnoses HYPERPARATHYROIDISM Procedures PRO EXPLORE PARATHYROID GLANDS PRG EMG, LARYNX PARATHYROIDECTOMY OR EXPLORATION OF PARATHYROID(S) (WRVU 15.6) FACIAL NERVE MONITORING, SETUP LARYNGEAL (WRVU 1.57) Referral ID Status Reason Start Date Expiration Date Visits Re quested Visits Authorized [id number] 1 1 Encounter Details Date Type Department Care Team (Late st Contact Info) Description 02/12/2020 7:30 AM EDT - 02/12/2020 9:58 AM EDT Surgery [place] [address] Jevon Fisher MD [facility] [place] [address] PARATHYROIDECTOMY OR EXPLORATION OF PARATHYROID(S) (WRVU 15.6) [...] Take NSAIDS or Tylenol every 6 hours fcoodr-haj-slnhw for the first 3-5 days following surgery [...] will be mailed to you Please call [phone] to confirm the date and time of [...] with your PCP. Phone number for questions: [phone] before 5 PM on weekdays [phone] after 5 PM and on weekends/holidays. Ask for the general surgery resident debone supervisor. Future Appointments Date Time Provider Department Center 05/17/2020 9:20 AM [facility]ACY [facility]W 3L [facility] 05/17/2020 10:20 AM Isamar Chambers APRN [facility] documented in this encounter Medications at Time [...] Julien MD 02/12/2020 Endocrine Surgery Service Pager [phone] documented in this encounter Miscellaneous Notes * Op Note - Jevon Fisher MD - 02/12/2020 10:26 AM EDT [facility] Operative Note Patient Name: Brayden Silveira : [id number] MR#: [id number] Case Date: 02/12/2020 Surgeon: Surgeon(s) and Role: [...] anesthesia was completed by anesthesiology with the [employer] recurrent laryngeal nerve monitoring system. A crease [...] Operative Note Patient Name: Brayden Silveira : [id number] MR#: [id number] Case Date: 02/12/2020 Surgeon: Surgeon(s) and Role: [...] AM EDT TH Visit (TeleHealth) [place] [address] Elsy Staley MD [facility] [place] [address] 01/04/2025 10:45 AM EDT Office Visit Dermatology at [place] [address] [place] [address] Yousif Myers MD [address], [place] [address] documented as of this encounter Procedures Procedure [...] 8:23 AM EDT Needle Electromyography, Larynx Global (40157) 02/12/2020 7:28 AM EDT HYPERPARATHYROIDIS M Explore Parathyroid Glands (50188) 02/12/2020 7:28 AM EDT HYPERPARATHYROIDIS M documented in this encounter Results * Specimen to Pathology (02/12/2020 10:06 AM EDT) AP Specimen 02/12/2020 10:0 6 AM EDT 02/12/2020 10:06 AM EDT Narrative [facility] - 02/12/2020 10:06 AM EDT Specimen requisition ordered. ??Separate Pathology report to follow Jevon Fisher MD PATHOLOGY/CYTOLOG Y ORDERABLES Performing Organization Address [facility] Co de Phone Number [facility] [place] [address] * Intraoperative PTH ([facility]) (02/12/2020 9:40 AM EDT) PTH, Intraoperative 33 9 - 77 pg/mL [facility] Comment: peripheral post Called by: MICHAEL, Read back by: Linda Wallace_, Date/Time:02/12/20 10:10. A 50 % decrease in venous iPTH levels at 10 min post adenoma excision is expected if all the hypersecreting parathyroid tissue has been removed (Maxim GL et al. Surgery 1993:114; 4389-6081) Blood specimen (specimen) 02/12/2020 9:40 AM EDT 02/12/2020 9:46 AM EDT Narrative Resulting Agency Comment Spec In Lab Jevon Fisher MD CHEMISTRY ORDERAB LES Performing Organization Address [facility]/ZIP Co de Phone Number [facility] [place] [address] * (ABNORMAL) Intraoperative PTH ([facility]) (02/12/2020 9:05 AM EDT) PTH, Intraoperative 81(H) 9 - 77 pg/mL [facility] Comment: 20 minute post Called by: MICHAEL, Read back by: Linda Wallace_, Date/Time:02/12/20 09:37. A 50 % decrease in venous iPTH levels at 10 min post adenoma excision is expected if all the hypersecreting parathyroid tissue has been removed (Maxim GL et al. Surgery 1993:114; [id number]) Blood specimen (specimen) 02/12/2020 9:05 AM EDT 02/12/2020 9:11 AM EDT Narrative Resulting Agency Comment Spec In Lab Jevon Fisher MD CHEMISTRY ORDERAB LES Performing Organization Address [facility] de Phone Number [facility] [place] [address] * (ABNORMAL) Intraoperative PTH ([facility]) (02/12/2020 8:54 AM EDT) PTH, Intraoperative 101(H) 9 - 77 pg/mL [facility] Comment: 10 minute post Called by: MICHAEL, Read back by: Linda Wallace_, Date/Time:02/12/20 09:31. A 50 % decrease in venous iPTH levels at 10 min post adenoma excision is expected if all the hypersecreting parathyroid tissue has been removed (Maxim GL et al. Surgery 1993:114; 5967-1739) Blood specimen (specimen) 02/12/2020 8:54 AM EDT 02/12/2020 8:59 AM EDT Narrative Resulting Agency Comment Spec In Lab Jevon Fisher MD CHEMISTRY ORDERAB LES Performing Organization Address [facility] de Phone Number [facility] [place] [phone] * Surgical Pathology Report (02/12/2020 8:45 AM EDT) Final Diagnosis [id number] ? Location: [facility]; [facility]; A The signing pathologist has (i) examined the relevant preparation(s) for the specimen(s) and (ii) rendered or confirmed the diagnosis(es). . ?Surgical Pathology DIAGNOSIS A - Parathyroid, right lower, excision: Enlarged (0.10 g), hypercellular parathyroid, consistent with parathyroid adenoma. B - Central neck contents, left, excision: Two (2) benign lymph nodes. Electronically signed by: ??Lydia Harrington MD Verified: ??02/19/2020 ?Pathologist Performed at: ??-[facility] Dept. [place], [place], [place] SPECIMEN(S) SUBMITTED A - ? right [...] Howard MD Verified: ??02/12/2020 ?Pathologist Performed at: ??-[facility] Dept. of Pathology, [place], [place] This intraoperative consultation should be interpreted as a preliminary diagnosis pending review of the entire specimen and special studies, if any. 02/19/2020 10:17 AM EDT [facility] LYMPH NODE SPECIMEN / Unknown 02/12/2020 8:45 AM EDT 02/12/2020 8:45 AM EDT LYMPH NODE SPECIMEN / Unknown 02/12/2020 8:45 AM EDT 02/12/2020 8:45 AM EDT Jevon Fisher MD PATHOLOGY/CYTOLOG Y ORDERABLES Performing Organization Address [facility] Co de Phone Number [facility] [place] [address] * Specimen to Pathology (02/12/2020 8:45 AM EDT) AP Specimen 02/12/2020 8:45 AM EDT 02/12/2020 8:45 AM EDT Narrative [facility] - 02/12/2020 8:45 AM EDT Specimen requisition ordered. ??Separate Pathology report to follow Jevon Fisher MD PATHOLOGY/CYTOLOG Y ORDERABLES Performing Organization Address [facility] de Phone Number [facility] [place] [address] * (ABNORMAL) Intraoperative PTH ([facility]) (02/12/2020 8:23 AM EDT) PTH, Intraoperative 332(H) 9 - 77 pg/mL [facility] Comment: baseline. Called by: MICHAEL, Read back by: Linda Wallace_, Date/Time:02/12/20 08:52. A 50 % decrease in venous iPTH levels at 10 min post adenoma excision is expected if all the hypersecreting parathyroid tissue has been removed (Maxim GL et al. Surgery 1993:114; 5026-1250) Blood specimen (specimen) 02/12/2020 8:23 AM EDT 02/12/2020 8:28 AM EDT Narrative Resulting Agency Comment Spec In Lab Jevon Fisher MD CHEMISTRY ORDERAB LES Performing Organization Address [facility] Co de Phone Number [facility] [place] [address] documented in this encounter Visit Diagnoses Not [...] RN) documented in this encounter Care Teams Copying Machine Repairer Relationship Specialty Start Date End Date Jordana Parsons MD [address] [place] [address] PCP - General 06/17/10 documented as of this encounter
--- OUTSIDE RECORDS SUMMARY | 2024-08-30 00:06 | XMS_ITS | Encounter Summary ---
Author Organization [facility] [place] [address] Care Team Providers Care Awning Installer Name Role Phone Jordana Parsons MD Primary Care Provider [phone] Reason for Visit * Reason Comments TeleHealth Encounter Details Date Type Department Care Team (Late st Contact Info) Description 11/17/2019 Telephone Neurology at [address] [address] Merrick Le MD TeleHealth Social History Tobacco Use Types Packs/Day [...] AM EDT TH Visit (TeleHealth) [place] [address] Elsy Staley MD [facility] [place] [address] 01/04/2025 10:45 AM EDT Office Visit Dermatology at [place] [address] [place] [address] Yousif Myers MD [address], ROBERT [place] [address] documented as of this encounter Visit Diagnoses Not on filedocumented in this encounter Care Teams Awning Installer Relationship Specialty Start Date End Date Jordana Parsons MD [address] [place] [address] PCP - General 06/17/10 documented as of this encounter
--- OUTSIDE RECORDS SUMMARY | 2024-08-30 00:06 | XMS_ITS | Encounter Summary ---
Author Organization [facility] [place] [address] Care Team Providers Care Right Of Way Maintenance Supervisor Name Role Phone Jordana Parsons MD Primary Care Provider [phone] Reason for Visit * Consultation (Routine) - Closed Specialty Diagnoses / Procedures Referred By Agus galaviz Referred To Contact Neurology Diagnoses New daily persistent headache Jenn Smith MD [facility] [place] [address] [facility] Neurology [address] [place] [address] Referral ID Status Reason Start Date Expiration Date V isits Requested Visits Authorized [id number] Closed Specialty Service Requested 09/10/2019 09/09/2020 1 1 Encounter Details Date Type Department Care Team (Latest Contact Info) Description 11/20/2019 8:30 AM EDT TH Visit (TeleHealth) Neurology at [address] [address] Merrick Le MD Chronic migraine without aura, with intractable migraine, [...] EDT Neurology Headache New Patient Telephone Consultation?11-20-19 [facility] Referring Provider: Jnen Smith MD This is a 64 year-old??R-handed [...] file Gets together: Not on file Attends jainism service: Not on file Active member of [...] AM EDT TH Visit (TeleHealth) [place] [address] Elsy Staley MD [facility] [place] [address] 01/04/2025 10:45 AM EDT Office Visit Dermatology at [place] [address] [place] [address] Yousif Myers MD [address], [place] [address] documented as of this encounter Visit Diagnoses Diagnosis Chronic migraine without aura, with intractable migraine, so stated, with status migrainosus Hemicrania continua documented in this encounter Care Teams Right Of Way Maintenance Supervisor Relationship Specialty Start Date End Date Jordana Parsons MD [address] [facility] [address] [place] [address] PCP - General 06/17/10 documented as of this encounter
--- OUTSIDE RECORDS SUMMARY | 2024-08-30 00:06 | XMS_ITS | Encounter Summary ---
Author Organization [facility] [place] [address] Care Team Providers Care Member Of The Legislative Council Name Role Phone Jordana Parsons MD Primary Care Provider [phone] Encounter Details Date Type Department Care Team (Late st Contact Info) Description 10/16/2021 Ancillary Procedure Radiology Library at [facility], [place] [address] Elsy Staley MD [facility] [place] [address] Social History Tobacco Use Types Packs/Day Years [...] AM EDT TH Visit (TeleHealth) [place]ocrinology [place] [address] Elsy Staley MD [facility] [place] [address] 01/04/2025 10:45 AM EDT Office Visit Dermatology at [address] [address] Yousif Myers MD [address], [place] [address] documented as of this encounter Procedures Procedure Name Priority Date/Time Associated Diagnosis Comments FILM LIBRARY- STORAGE ONLY DXA IMAGES Routine 10/16/2021 12:00 AM EDT documented in this encounter Results * Film Library- Storage Only DXA Images (10/16/2021 12:00 AM EDT) Narrative [facility] - 10/17/2021 7:42 AM EDT This exam is auto-finalizing. It's purpose is for storage only. Elsy Staley MD IMG FILM LIBRARY ORDERABLES [place], [place] documented in this encounter Visit Diagnoses Not on filedocumented in this encounter Care Teams Member Of The Legislative Council Relationship Specialty Start Date End Date Jordana Parsons MD [address] [place] [address] PCP - General 06/17/10 documented as of this encounter
--- OUTSIDE RECORDS SUMMARY | 2024-08-30 00:06 | XMS_ITS | Encounter Summary ---
[place] [address] Care Team Providers Care Data Operations Director Name Role Phone Jordana Parsons MD Primary Care Provider [phone] Reason for Visit * Reason Comments Skin Check Encounter Details Date Type Department Care Team (Late st Contact Info) Description 10/17/2020 2:00 PM EDT Office Visit Dermatology at [facility] [address] [place] [address] Laina Montes MD Notalgia paresthetica; Clavus; Multiple benign nevi; Seborrheic [...] thigh, April 2002, excised by Dr. Jacob. HPI Brayden Silveira is a 65 y.o. year old [...] her upper eyelid excised by a previous business owner/engineer. Eyelashes are growing into her eye now in that place. 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 ? Hyperparathyroidism (PTH [...] applied for the itching Small wart vs [place] - Joint decision to pare down and [...] and change by: Venkatesh Long LPN I, Vnekatesh Long LPN, have performed the documentation for [...] documentation. Laina Montes MD Section of Dermatology [facility] documented in this encounter Plan of Treatment Upcoming Encounters Date Type Department Care Team (Late st Contact Info) Description 11/17/2024 9:30 AM EDT TH Visit (TeleHealth) [place] [address] Elsy Staley MD [facility] [place] [place] [address] 01/04/2025 10:45 AM EDT Office Visit Dermatology at [address] [place] [address] Yousif Myers MD [address] [place] [address], [place] [address] documented as of this encounter Visit Diagnoses Diagnosis Notalgia paresthetica Disturbance of skin sensation Clavus Corns and callosities Multiple benign nevi Benign neoplasm of skin, site unspecified Seborrheic dermatitis Seborrheic dermatitis, unspecified EIC (epidermal inclusion cyst) Sebaceous cyst documented in this encounter Care Teams Data Operations Director Relationship Specialty Start Date End Date Jordana Parsons MD [facility] [address] [place] [address] PCP - General 06/17/10 documented as of this encounter
--- OUTSIDE RECORDS SUMMARY | 2024-08-30 00:06 | XMS_ITS | Encounter Summary ---
Author Organization [facility] [address] Care Team Providers Care Corrections Specialist Name Role Phone Jordana Parsons MD Primary Care Provider [phone] Encounter Details Date Type Department Care Team (Latest Contact Info) Description 07/06/2023 9:56 PM EST - 07/06/2023 11:59 PM EST Hospital [place] [address] Discharge Disposition: Home Social History Tobacco Use [...] AM EDT TH Visit (TeleHealth) [place] [address] Elsy Staley MD [facility] [address] 01/04/2025 10:45 AM EDT Office Visit Dermatology at [place] [address] [facility] [place] [address] Yousif Myers MD [address], [place] [address] documented as of this encounter Procedures Procedure Name Priority Date/Time Associated Diagnosis Comments SURGICAL PATHOLOGY REPORT Routine 07/06/2023 9:55 AM EST documented in this encounter Results * Surgical Pathology Report (07/06/2023 9:55 AM EST) Final Diagnosis [id number] ? Location: OPW The signing pathologist has (i) examined the relevant preparation(s) for the specimen(s) and (ii) rendered or confirmed the diagnosis(es). . ?Surgical Pathology DIAGNOSIS Right bicep, skin shave biopsy ED&C: - ??Lichenoid actinic keratosis Electronically signed by: ?Jolanta BLANKENSHIP, Estefania Verified: ??07/23/2023 16:19 ??Dermatopatholo gist Performed at: ??-[facility] Dept. of Pathology, [place] [address] Tool Hardener: Farhad Loya MD, FCAP, ??CLIA Certificate: [id number] ADDITIONAL STUDIES Melan-A highlights tubular splitting machine tender distributed junctional melanocytes. SPECIMEN(S) SUBMITTED A - [...] ?A2: ??body ??sns 07/23/2023 4:19 PM EST [facility] SPECIMEN FROM SKIN / Unknown 07/06/2023 9:55 AM EST 07/06/2023 9:55 AM EST Yousif Myers MD PATHOLOGY/CYTOLOGY O RDERABLES Performing Organization Address City/State/[facility] Co de Phone Number [facility] [address] [place] [address] documented in this encounter Visit Diagnoses Not on filedocumented in this encounter Care Teams Corrections Specialist Relationship Specialty Start Date End Date Jordana Parsons MD [address] [place] [address] PCP - General 06/17/10 documented as of this encounter
--- OUTSIDE RECORDS SUMMARY | 2024-08-30 00:06 | XMS_ITS | Encounter Summary ---
Author Organization [facility] [place] [place] [address] Care Team Providers Care Promotions Executive Producer Name Role Phone Jordana Parsons MD Primary Care Provider [phone] Reason for Visit * Auth/Cert Specialty Diagnoses / Procedures Referred By Contac t Referred To Contact Diagnoses HYPERPARATHYROIDISM Procedures PRO EXPLORE PARATHYROID GLANDS PRG EMG, LARYNX PARATHYROIDECTOMY OR EXPLORATION OF PARATHYROID(S) (WRVU 15.6) FACIAL NERVE MONITORING, SETUP LARYNGEAL (WRVU 1.57) Referral ID Status Reason Start Date Expiration Date Visits Re quested Visits Authorized [id number] 1 1 Encounter Details Date Type Department Care Team (Late st Contact Info) Description 02/12/2020 7:29 AM EDT Anesthesia Event [place] [address] Robert Melendez MD [facility] DR ANESTHESIOLOGY [place] [address] Wendy Stokes MD [facility] ANESTHESIOLOGY [place] [address] Anesthesia Record Procedure Summary Procedure Name Responsible [...] 620; metacarpal vein (top of hand), right; [id number]-qnc-ylhukz catheter system; 20 gauge; Lyubov Schaeffer RN; [...] Procedure Summary Date: 02/12/20 Room / Location: [address] MAIN OR Anesthesia Start: 728 Anesthesia Stop: 1043 Procedures: PARATHYROIDECTOMY OR EXPLORATION OF PARATHYROID(S) (WRVU 15.6) (N/A Neck) FACIAL NERVE MONITORING, SETUP LARYNGEAL (WRVU 1.57) (N/A Neck) Diagnosis: (HYPERPARATHYROIDISM) Surgeon: Starla Mayers MD Responsible Provider: Robert Melendez MD Anesthesia Type: general ASA Status: 2 All Anesthesia Providers: Anesthesiologist: Robert Melendez MD Optimization Engineer: Wendy Stokes MD Vitals Value Taken Time BP 167/90 02/12/2020 11:00 AM Temp 36.4 ??C (97.5 ??F) 02/12/2020 10:43 AM Pulse Resp 18 02/12/2020 10:43 AM SpO2 99 % 02/12/2020 11:05 AM Pain Level 0 02/12/2020 10:43 AM Vitals shown include unvalidated device data. Patient Location: PACU/[facility] Level of Consciousness: Awake and Alert Pain [...] EDT TH Visit (TeleHealth) Endocrinology at [facility] [place] [address] Elsy Staley MD [facility] [place] [address] 01/04/2025 10:45 AM EDT Office Visit Dermatology at [place] [address] [place] [address] Yousif Myers MD [address], [place] [address] documented as of this encounter Visit Diagnoses [...] mg documented in this encounter Care Teams Promotions Executive Producer Relationship Specialty Start Date End Date Jordana Parsons MD [facility] [address] [place] [address] PCP - General 06/17/10 documented as of this encounter
--- OUTSIDE RECORDS SUMMARY | 2024-08-30 00:06 | XMS_ITS | Encounter Summary ---
Author Organization [facility] [place] [address] Care Team Providers Care Automatic I Threading Machine Feeder Name Role Phone Jordana Parsons MD Primary Care Provider [phone] Reason for Visit * Auth/Cert Specialty Diagnoses / Procedures Referred By Contac t Referred To Contact Diagnoses HYPERPARATHYROIDISM Procedures PRO EXPLORE PARATHYROID GLANDS PRG EMG, LARYNX PARATHYROIDECTOMY OR EXPLORATION OF PARATHYROID(S) (WRVU 15.6) FACIAL NERVE MONITORING, SETUP LARYNGEAL (WRVU 1.57) Referral ID Status Reason Start Date Expiration Date Visits Re quested Visits Authorized [id number] 1 1 Encounter Details Date Type Department Care Team (Latest Contact Info) Description 02/12/2020 5:35 AM EDT - 02/12/2020 1:05 PM EDT Hospital Encounter [place] [address] Jevon Fisher MD [facility] [place] [address] Hyperparathyroidism , primary (PTH 182, Ca 10.1-11.2; [...] Take NSAIDS or Tylenol every 6 hours ehxguu-exu-fravd for the first 3-5 days following surgery [...] will be mailed to you Please call [phone] to confirm the date and time of [...] with your PCP. Phone number for questions: [phone] before 5 PM on weekdays [phone] after 5 PM and on weekends/holidays. Ask for the general surgery resident fire control technician g. Future Appointments Date Time Provider Department Center 05/17/2020 9:20 AM [facility] L Lab 3L [facility] 05/17/2020 10:20 AM Isamra Chambers APRN [facility] [place] documented [...] of department via wheelchair with RN to [place]. documented in this encounter H&P Notes * [...] Julien MD 02/12/2020 Endocrine Surgery Service Pager [phone] documented in this encounter Miscellaneous Notes * Op Note - Jevon Fisher MD - 02/12/2020 10:26 AM EDT [facility] Operative Note Patient Name: Brayden Silveira : [id number] MR#: [id number] Case Date: 02/12/2020 Surgeon: Surgeon(s) and Role: [...] anesthesia was completed by anesthesiology with the Simpareltronic recurrent laryngeal nerve monitoring system. A crease [...] Operative Note Patient Name: Brayden Silveira : [id number] MR#: [id number] Case Date: 02/12/2020 Surgeon: Surgeon(s) and Role: [...] AM EDT TH Visit (TeleHealth) [place] [address] Elsy Staley MD [facility] [place] [address] 01/04/2025 10:45 AM EDT Office Visit Dermatology at [place] [address] [facility] [place] [address] Yousif Myers MD [address], [place] [address] documented as of this encounter Procedures Procedure [...] 8:23 AM EDT Needle Electromyography, Larynx Global (06271) 02/12/2020 7:28 AM EDT HYPERPARATHYROIDIS M Explore Parathyroid Glands (21846) 02/12/2020 7:28 AM EDT HYPERPARATHYROIDIS M documented in this encounter Results * Specimen to Pathology (02/12/2020 10:06 AM EDT) AP Specimen 02/12/2020 10:0 6 AM EDT 02/12/2020 10:06 AM EDT Narrative [facility] - 02/12/2020 10:06 AM EDT Specimen requisition ordered. ??Separate Pathology report to follow Jevon Fisher MD PATHOLOGY/CYTOLOG Y ORDERABLES Performing Organization Address [facility] Co de Phone Number [facility] [place] [address] * Intraoperative PTH ([facility]) (02/12/2020 9:40 AM EDT) PTH, Intraoperative 33 9 - 77 pg/mL [facility] Comment: peripheral post Called by: MICHAEL, Read back by: Linda Wallace_, Date/Time:02/12/20 10:10. A 50 % decrease in venous iPTH levels at 10 min post adenoma excision is expected if all the hypersecreting parathyroid tissue has been removed (Maxim GL et al. Surgery 1993:114; 1085-8765) Blood specimen (specimen) 02/12/2020 9:40 AM EDT 02/12/2020 9:46 AM EDT Narrative Resulting Agency Comment Spec In Lab Jevon Fisher MD CHEMISTRY ORDERAB LES Performing Organization Address [facility]/ZIP Co de Phone Number [facility] [place] [address] * (ABNORMAL) Intraoperative PTH ([facility]) (02/12/2020 9:05 AM EDT) PTH, Intraoperative 81(H) 9 - 77 pg/mL [facility] Comment: 20 minute post Called by: MICHAEL, Read back by: Linda Wallace_, Date/Time:02/12/20 09:37. A 50 % decrease in venous iPTH levels at 10 min post adenoma excision is expected if all the hypersecreting parathyroid tissue has been removed (Maxim GL et al. Surgery 1993:114; 8026-7722) Blood specimen (specimen) 02/12/2020 9:05 AM EDT 02/12/2020 9:11 AM EDT Narrative Resulting Agency Comment Spec In Lab Jevon Fisher MD CHEMISTRY ORDERAB LES Performing Organization Address [facility] de Phone Number [facility] [place] [address] * (ABNORMAL) Intraoperative PTH ([facility]) (02/12/2020 8:54 AM EDT) PTH, Intraoperative 101(H) 9 - 77 pg/mL [facility] Comment: 10 minute post Called by: MICHAEL, Read back by: Linda Wallace_, Date/Time:02/12/20 09:31. A 50 % decrease in venous iPTH levels at 10 min post adenoma excision is expected if all the hypersecreting parathyroid tissue has been removed (Maxim GL et al. Surgery 1993:114; 4047-0162) Blood specimen (specimen) 02/12/2020 8:54 AM EDT 02/12/2020 8:59 AM EDT Narrative Resulting Agency Comment Spec In Lab Jevon Fisher MD CHEMISTRY ORDERAB LES Performing Organization Address [facility] Co de Phone Number [facility] [place] [address] * Surgical Pathology Report (02/12/2020 8:45 AM EDT) Final Diagnosis [id number] ? Location: [place]; [facility]; A The signing pathologist has (i) examined the relevant preparation(s) for the specimen(s) and (ii) rendered or confirmed the diagnosis(es). . ?Surgical Pathology DIAGNOSIS A - Parathyroid, right lower, excision: Enlarged (0.10 g), hypercellular parathyroid, consistent with parathyroid adenoma. B - Central neck contents, left, excision: Two (2) benign lymph nodes. Electronically signed by: ??Lydia Harrington MD Verified: ??02/19/2020 ?Pathologist Performed at: ??-[facility] Dept. [place], [place], [place] SPECIMEN(S) SUBMITTED A - ? right [...] Howard MD Verified: ??02/12/2020 ?Pathologist Performed at: ??-[facility] Dept. of Pathology, [place], [place] This intraoperative consultation should be interpreted as a preliminary diagnosis pending review of the entire specimen and special studies, if any. 02/19/2020 10:17 AM EDT [facility] LYMPH NODE SPECIMEN / Unknown 02/12/2020 8:45 AM EDT 02/12/2020 8:45 AM EDT LYMPH NODE SPECIMEN / Unknown 02/12/2020 8:45 AM EDT 02/12/2020 8:45 AM EDT Jevon Fisher MD PATHOLOGY/CYTOLOG Y ORDERABLES Performing Organization Address [facility] de Phone Number [facility] [place] [address] * Specimen to Pathology (02/12/2020 8:45 AM EDT) AP Specimen 02/12/2020 8:45 AM EDT 02/12/2020 8:45 AM EDT Narrative [facility] - 02/12/2020 8:45 AM EDT Specimen requisition ordered. ??Separate Pathology report to follow Jevon Fisher MD PATHOLOGY/CYTOLOG Y ORDERABLES Performing Organization Address [facility] de Phone Number [facility] [place] [address] * (ABNORMAL) Intraoperative PTH ([facility]) (02/12/2020 8:23 AM EDT) PTH, Intraoperative 332(H) 9 - 77 pg/mL [facility] Comment: baseline. Called by: MICHAEL, Read back by: Linda Wallace_, Date/Time:02/12/20 08:52. A 50 % decrease in venous iPTH levels at 10 min post adenoma excision is expected if all the hypersecreting parathyroid tissue has been removed (Maxim GL et al. Surgery 1993:114; 6382-0490) Blood specimen (specimen) 02/12/2020 8:23 AM EDT 02/12/2020 8:28 AM EDT Narrative Resulting Agency Comment Spec In Lab Jevon Fisher MD CHEMISTRY ORDERAB LES Performing Organization Address [facility] Co de Phone Number [facility] [place] [address] documented in this encounter Visit Diagnoses Diagnosis [...] RN) documented in this encounter Care Teams Automatic I Threading Machine Feeder Relationship Specialty Start Date End Date Jordana Parsons MD [facility] [address] [place] [address] PCP - General 06/17/10 documented as of this encounter
--- OUTSIDE RECORDS SUMMARY | 2024-08-30 00:06 | XMS_ITS | Encounter Summary ---
Author Organization [facility] [place] [address] Care Team Providers Care Speech Teacher Name Role Phone Jordana Parsons MD [...] AM EDT TH Visit (TeleHealth) [place] [address] Elsy Staley MD [facility] [place] [address] 01/04/2025 10:45 AM EDT Office Visit Dermatology at [place] [address] [facility] [place] [address] Yousif Myers MD [address], ROB[place] [address] documented as of this encounter Visit Diagnoses Not on filedocumented in this encounter Care Teams Speech Teacher Relationship Specialty Start Date End Date Jordana Parsons MD [address] [place] [address] PCP - General 06/17/10 documented as of this encounter
--- OUTSIDE RECORDS SUMMARY | 2024-08-30 00:06 | XMS_ITS | Encounter Summary ---
Author Organization [facility] [place] [address] Care Team Providers Care Hydrotechnical Specialist Name Role Phone Jordana Parsons MD Primary Care Provider [phone] Encounter Details Date Type Department Care Team (Late st Contact Info) Description 08/20/2022 Telephone [place] [address] Paloma Frank Social History Tobacco Use Types [...] AM EDT TH Visit (TeleHealth) [place] [address] Elsy Staley MD [facility] [place] [place] [address] 01/04/2025 10:45 AM EDT Office Visit Dermatology at [place] [address] [facility] [place] [address] Yousif Myers MD [address] [facility], [place] [address] documented as of this encounter Visit Diagnoses Not on filedocumented in this encounter Care Teams Hydrotechnical Specialist Relationship Specialty Start Date End Date Jordana Parsons MD [address] [facility] 1 [place] [address] PCP - General 06/17/10 documented as of this encounter
--- OUTSIDE RECORDS SUMMARY | 2024-08-30 00:06 | XMS_ITS | Encounter Summary ---
Author Organization [facility] [place] [address] Care Team Providers Care Plastic Extruding Machine Operator Name Role Phone Jordana Parsons MD Primary Care Provider [phone] Encounter Details Date Type Department Care Team (Late st Contact Info) Description 03/21/2020 [place] [address] Caron Montgomery, [facility] Social History Tobacco Use Types Packs/Day Years [...] Notes * Telephone Encounter - Caron Luis, [facility] - 03/21/2020 9:57 AM EDT GAP Interlocking Machine Operator Pre-Telemedicine Phone Note [] Patient not reached [x] Patient reached and the following information was reviewed/obtained per protocol: [x] Confirmed patient name and date of [x] Confirmed telemedicine jett (Vidyo and Virtual Visit) is downloaded and functioning [x] Confirmed location of patient - TeleVisit is taking place in [x] [place] [] [place] [] If not on [facility], working on signing up for [facility] [x] Confirmed has completed any pre-visit questionnaires [] If has not received required pre-visit questionnaires, send via [facility] [x] Reviewed patient medications ??? calcium citrate-vitamin [...] AM EDT TH Visit (TeleHealth) [place] [address] Elsy Staley MD [facility] [place] [address] 01/04/2025 10:45 AM EDT Office Visit Dermatology at [address] [address] Yousif Myers MD [address] [facility] [place] [address] documented as of this encounter Visit Diagnoses Not on filedocumented in this encounter Care Teams Plastic Extruding Machine Operator Relationship Specialty Start Date End Date Jordana Parsons MD [facility] [address] [facility] 1 [place] [address] PCP - General 06/17/10 documented as of this encounter
--- OUTSIDE RECORDS SUMMARY | 2024-08-30 00:06 | XMS_ITS | Encounter Summary ---
Author Organization [facility] [place] [address] Care Team Providers Care Control Room Technician Name Role Phone Jordana Parsons MD Primary Care Provider [phone] Reason for Visit * Reason Comments Follow-up Encounter Details Date Type Department Care Team (Latest Contact Info) Description 05/17/2020 10:20 AM EDT TH Visit (TeleHealth) [place] [address] Isamar Chambers APRN [facility] [place] [address] S/P parathyroidectomy Social History Tobacco Use Types [...] AM EDT TH Visit (TeleHealth) [place] [address] Elsy Staley MD [facility] [place] [address] 01/04/2025 10:45 AM EDT Office Visit Dermatology at [place] [address] [facility] [place] [address] Yousif Myers MD [address], [place] [address] documented as of this encounter Visit Diagnoses Diagnosis S/P parathyroidectomy Other postprocedural status documented in this encounter Care Teams Control Room Technician Relationship Specialty Start Date End Date Jordana Parsons MD [address] [facility] 1 [place] [address] PCP - General 06/17/10 documented as of this encounter
--- OUTSIDE RECORDS SUMMARY | 2024-08-30 00:06 | XMS_ITS | Encounter Summary ---
[place] [address] Care Team Providers Care Rubber Tire And Tubes Supervisor Name Role Phone Jordana Parsons MD Primary Care Provider [phone] Reason for Visit * Reason Comments Follow-up Encounter Details Date Type Department Care Team (Late st Contact Info) Description 12/30/2023 10:00 AM EDT Office Visit Dermatology at [address] [address] Yousif Myers MD [address] [facility] [place] [address] Family history of malignant melanoma; Multiple benign [...] April 2002, excised by Dr. Jacob. 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 4. Family history of malignant melanoma in father who is alive and well. Brayden follows up for repeat skin checkup. She continues to work [employer] at the [employer] and is enjoying this very much. Patient grew up in [place] has had a fair amount of sun [...] AM EDT TH Visit (TeleHealth) [place] [address] Elsy Staley MD [facility] [place] [address] 01/04/2025 10:45 AM EDT Office Visit Dermatology at [place] [address] [facility] [place] [address] Yousif Myers MD [address] [facility], [place] [address] documented as of this encounter Visit Diagnoses Diagnosis Family history of malignant melanoma Family history of other specified malignant neoplasm Multiple benign nevi Benign neoplasm of skin, site unspecified documented in this encounter Care Teams [employer] T[employer] T[employer] Supervisor Relationship Specialty Start Date End Date Jordana Parsons MD [address] [place] [address] PCP - General 06/17/10 documented as of this encounter
--- OUTSIDE RECORDS SUMMARY | 2024-08-30 00:06 | XMS_ITS | Encounter Summary ---
Author Organization [facility] [place] [address] Care Team Providers Care Squeegee Operator Name Role Phone Jordana Parsons MD Primary Care Provider [phone] Encounter Details Date Type Department Care Team (Late st Contact Info) Description 09/15/2022 Telephone [place] [address] Leta Walton Social History Tobacco Use Types [...] Leta Walton - 09/15/2022 11:43 AM EST [facility] says they need a new DEXA dated for September it will w/today's date prior to when patient can have test done. documented in this encounter Plan of Treatment Upcoming Encounters Date Type Department Care Team (Late st Contact Info) Description 11/17/2024 9:30 AM EDT TH Visit (TeleHealth) [place] [address] Elsy Staley MD [facility] DR ENDOCRINOLOGY [place], [place] [address] 01/04/2025 10:45 AM EDT Office Visit Dermatology at [place] [address] [facility] [place] [address] Yousif Myers MD [address] [facility] [address], ROB[place] [address] documented as of this encounter Visit Diagnoses Not on filedocumented in this encounter Care Teams Squeegee Operator Relationship Specialty Start Date End Date Jordana Parsons MD [facility] [address] [facility] 1 [place] [address] PCP - General 06/17/10 documented as of this encounter
--- OUTSIDE RECORDS SUMMARY | 2024-08-30 00:06 | XMS_ITS | Encounter Summary ---
[place] [address] Care Team Providers Care Funeral Home Associate Name Role Phone Jordana Parsons MD Primary Care Provider [phone] Reason for Visit * Reason Comments Skin Check Encounter Details Date Type Department Care Team (Late st Contact Info) Description 05/25/2022 3:45 PM EDT Office Visit Dermatology at [address] [phone] Yousif Myers MD [address] [facility], [facility] [place] [address] Multiple benign nevi; Family history [...] 2002, excised by Dr. Jacob. ?? 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. ?? 4. ??Family history of malignant melanoma in father who is alive and well. Brayden follows up for repeat skin checkup. I last saw her in 2019. She is still working at the [employer] but plans to retire after this year. Patient grew up in [facility] has had a fair amount of [...] AM EDT TH Visit (TeleHealth) [place] [address] Elsy Staley MD [facility] [place] [address] 01/04/2025 10:45 AM EDT Office Visit Dermatology at [address] [place] [phone] Yousif Myers MD [address], [place] [address] documented as of this encounter Visit Diagnoses Diagnosis Multiple benign nevi Benign neoplasm of skin, site unspecified Family history of malignant melanoma Family history of other specified malignant neoplasm documented in this encounter Care Teams Funeral Home Associate Relationship Specialty Start Date End Date Jordana Parsons MD [address] [place] [address] [address] [place] [address] PCP - General 06/17/10 documented as of this encounter
--- OUTSIDE RECORDS SUMMARY | 2024-08-30 00:06 | XMS_ITS | Encounter Summary ---
Author Organization Formerly [facility] [place] [address] Care Team Providers Care Excavating Supervisor Name Role Phone Jordana Parsons MD Primary Care Provider [phone] Encounter Details Date Type Department Care Team (Late st Contact Info) Description 04/10/2024 Telephone [place] [phone] Elsy Staley MD [facility] [place] [address] Social History Tobacco Use Types Packs/Day Years [...] This nurse faxed the requested labs to [facility] per the patient's call to the office. * Telephone Encounter - Shanel Mcdonnell RN - 04/10/2024 2:41 PM EDT Copied from CRM #[id number]. Topic: Specialty Dept CRMs - Orders >> Apr 10, 2024 10:08 AM Gaby Resendiz wrote: Orders Request Specialist: Elsy Staley MD Relationship (if other than patient-full name): Brayden Silveira Type of Request: [x] Input orders Type/Name of Order: Labs If Labs and Imaging list name of specific test(s): To recheck lab yearly at [facility] lab for BMP, TSH, and 25vitD Date of Lab/Imaging/Testing Appt: x Date of Provider Appt: 11.14.24 Appt Type with Provider: FUV Patient Requesting to Have Orders Sent to Facility Outside of [facility]: Yes If Yes, Name of Facility: [facility] Address: x Phone #: x Fax #: x documented in this encounter Plan of Treatment Upcoming Encounters Date Type Department Care Team (Late st Contact Info) Description 11/17/2024 9:30 AM EDT TH Visit (TeleHealth) [place] [address] Elsy Staley MD [facility] [place] [address] 01/04/2025 10:45 AM EDT Office Visit Dermatology at [address] [phone] Yousif Myers MD [address] [facility] [address], [place] [address] documented as of this encounter Visit Diagnoses Not on filedocumented in this encounter Care Teams Excavating Supervisor Relationship Specialty Start Date End Date Jordana Parsons MD [facility] [address] [address] PCP - General 06/17/10 documented as of this encounter
--- OUTSIDE RECORDS SUMMARY | 2024-08-30 00:06 | XMS_ITS | Encounter Summary ---
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 of Pathology, [place], [place] Patient Active Problem List Diagnosis Code ??? Nevus D22.9 ??? Other seborrheic keratosis L82.1 ??? Hypercalcemia E83.52 ??? Rt PTH adenoma 1cm by ultrasound 09/07/19 s/p Rt lower PTH adenoma resection 02/12/20 with [id number] => 33 E21.0 ? ? Hyperparathyroidism (PTH 182, Ca 10.1-11.2; normal<10.1) before PTH surgery E21.3 Family Hx: Unsure if there is a family hx of FHH Mother is 85-pulmonary HTN, valve replacement, slight dementia- not as active as she used to be Father turning 90- bright still- had an [place], bypass in 70s 1 living sibling- they're [...] asymmetry. ENDOCRINOLOGY THYROID ULTRASOUND REPORT Patient:Brayden Silveira, [id number] Date of exam: 09/07/19 Indication: primary hyperparathyroidism, to assess for parathyroid adenoma Comparison: none Performed by: Jenn Smith MD, Elsy Staley MD Real time images of the thyroid gland were obtained using a [id number] US machine. 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 Recent lab (outside) after the surgery: [...] To recheck lab in 2 mo at [facility] lab for PTH, BMP and 25vitD Orders [...] AM EDT TH Visit (TeleHealth) [place] [address] Elsy Staley MD [facility] [place] [address] 01/04/2025 10:45 AM EDT Office Visit Dermatology at [place] [address] [facility] [place] [phone] Yousif Myers MD [address] [facility] [address], [place] [address] documented as of this encounter Visit Diagnoses Diagnosis Hyperparathyroidism (PTH 182, Ca 10.1-11.2; normal<10.1) before PTH surgery Hyperparathyroidism, unspecified documented in this encounter Care Teams Curer Acid Drum Relationship Specialty Start Date End Date Jordana Parsons MD [facility] [address] [address] PCP - General 06/17/10 documented as of this encounter
--- OUTSIDE RECORDS SUMMARY | 2024-08-30 00:07 | XMS_ITS | Encounter Summary ---
[place] [address] Care Team Providers Care Drilling Foreman Name Role Phone Jordana Parsons MD Primary Care Provider [phone] Reason for Referral * Diagnostic Test (Routine) - Closed Specialty Diagnoses / Procedures Referred By Contac t Referred To Contact Radiology Diagnoses Hyperparathyroidism, primary Procedures NM Parathyroid w Spect CT & Thyroid Imaging (Leb) Starla Mayers MD [facility] [place] [address] [place] [address] Referral ID Status Reason Start Date Expiration Date V isits Requested Visits Authorized [id number] Closed Specialty Service Requested 10/17/2019 04/18/2021 1 1 Reason for Visit * Diagnostic Test (Routine) - Closed Specialty Diagnoses / Procedures Referred By Contac t Referred To Contact Radiology Diagnoses Hyperparathyroidism, primary Procedures NM Parathyroid w Spect CT & Thyroid Imaging (Leb) Starla Mayers MD [facility] [place] [address] [place] [address] Referral ID Status Reason Start Date Expiration Date V isits Requested Visits Authorized [id number] Closed Specialty Service Requested 10/17/2019 04/18/2021 1 1 Encounter Details Date Type Department Care Team (Latest Contact Info) Description 11/15/2019 8:19 AM EDT Hospital Encounter [place] [address] Starla Mayers MD [facility] [place] [address] Hyperparathyroidism , primary (PTH 182, Ca 10.1-11.2; [...] TH Visit (TeleHealth) [place] [address] Elsy Staley MD [facility] ENDOCRINOLOGY [place], [place] [phone] 01/04/2025 10:45 AM EDT Office Visit Dermatology at [place] [address] [facility] [address] [place] [address] Yousif Myers MD [address], [place] [address] documented as of this encounter Procedures Procedure [...] this report, please contact the number below. Starla Mayers MD IMG NM ORDERABLES documented [...] Arm documented in this encounter Care Teams Drilling Foreman Relationship Specialty Start Date End Date Jordana Parsons MD [address] [place] [address] PCP - General 06/17/10 documented as of this encounter
--- OUTSIDE RECORDS SUMMARY | 2024-08-30 00:07 | XMS_ITS | Encounter Summary ---
Author Organization [facility] Address [address] [place] [address] Care Team Providers Care Dehairer Name Role Phone Unavailable Primary Care Provider Unavailabl e Encounter Details Date Type Department Care Team (Late st Contact Info) Description 07/22/2009 Orders Only [facility] Laboratory Services - [facility] ([facility] [address] [place], [place] [address] Zee Thapa, [facility] [address] [place] [address] Social History Tobacco Use Types Packs/Day Years Used Date Smoking Tobacco: Never Assessed Comments Unknown Sex and Gender Information Value Date Recorded Sex Assigned at Not on file Legal Sex Female 18:19 EST Gender Identity Not on file Sexual Orientation [...] ? BEST, KIKI ? Accession #: ? [id number] ? : ? 1955 (Age: 53) ??F ?Collect Date: ? 07/22/2009 ? Location: ? [facility] ? Receive Date: ? 07/23/2009 ? Provider: ?ZEE KRISSY WELLNESS EDUCATOR ? Copy to: ? Specimen/Source: ?Pap Test, [...] reviewed and electronically signed by: ? Barbara Nunezlogg, CT(ASCP) ? Report Date: ??07/24/2009 13:26 ? End of Report ? [facility] 07/22/2009 07/23/2009 us Zee Thapa WELLNESS EDUCATOR PATHOLOGY ORDERABLES Final R esult [facility] [address] [place] [address] documented in this encounter Visit Diagnoses Not on filedocumented in this encounter
--- OUTSIDE RECORDS SUMMARY | 2024-08-30 00:07 | XMS_ITS | Encounter Summary ---
Author Organization [facility] Address [address] [place] [address] Care Team Providers Care Crew Director Name Role Phone None, Provider Primary Care Provider Unavailabl e Encounter Details Date Type Department Care Team (Late st Contact Info) Description 03/25/2020 Lab Requisition [facility] Pathology & Laboratory Medicine - [address] [address] Outr Resulting Lab, Provider Social History Tobacco [...] 19 - 88 pg/mL 03/26/2020 11:49 EDT [facility] Blood VENOUS BLOOD / Unknown 03/25/2020 9:02 EDT 03/25/2020 16:03 EDT us Provider Outr Resulting Lab CHEMISTRY & BLOOD GA S ORDERABLES Final Result [facility] [address] [place] [address] documented in this encounter Visit Diagnoses Not on filedocumented in this encounter Care Teams Crew Director Relationship Specialty Start Date End Date None, Provider PCP - General 05/27/16 documented as of this encounter
--- OUTSIDE RECORDS SUMMARY | 2024-08-30 00:07 | XMS_ITS | Encounter Summary ---
Author Organization [facility] Address [address] [place] [address] Care Team Providers Care Utility Tech Name Role Phone Manas Dye MD Primary Care Provider Lola petit Reason for Visit * Reason Comments Travel Consult Encounter Details Date Type Department Care Team (Late st Contact Info) Description 08/01/2015 15:00 EST Office Visit [facility] Infectious Disease - [address] [address] Rosie Varner, DIRECTOR SEMICONDUCTOR [address] [facility], [address] [place] [phone] Travel advice encounter (Primary Dx) Discharge Disposition: [...] in this encounter Ordered Prescriptions Prescription Sig Dispense Quantity Refills Last Filled Start Date End Date ciprofloxacin HCl (CIPRO) 500 mg tablet Take 1 Tab by mouth every 12 hours For severe diarrhea 6 Tab 0 08/01/2015 poliovirus vaccine, IPV, (IPOL) 40-8-32 unit/0.5 mL syringeIndications:Franchesca binghamel advice encounter Inject 0.5 mL into the skin once for 1 dose 1 Syringe 0 08/01/2015 diphtheria, pertussis, acellular,, tetanus vaccine, PF, (ADACEL) 2 Lf-(2.5-5-3-5 mcg)-5Lf/0.5 mL syringeIndications:Franchesca binghamel advice encounter Inject 0.5 mL into the muscle once for 1 dose 1 Syringe 0 08/01/2015 typhoid polysaccharide vaccine (TYPHIM ) 25 mcg/0.5 mL syringeIndications:Franchesca binghamel advice encounter Inject 0.5 mL into the muscle once for 1 dose 1 Syringe 0 08/01/2015 hepatitis A vaccine, PF, (HAVRIX) 1,440 Karina unit/mL syringeIndications:Franchesca binghamel advice encounter Inject 1 mL into the muscle once for 1 dose 1 Syringe 0 08/01/2015 atovaquone-proguanil (MALARONE) 250-100 mg per tabletIndications:Ean fountain advice encounter Take 1 Tab by mouth daily for 27 days Start two days prior, while travel and 7 days post travel. Take with food. 27 Tab 0 08/01/2015 6 documented in this encounter Discharge Disposition Disposition [...] typhoid today. She will be traveling in [facility] and will need adult polio. She will [...] IM 1 08/01/2015 POLIOVIRUS VACCINE IPV SQ 1 08/01/2015 TDAP VACCINE =>7YO IM 1 08/01/2015 TYPHOID VICPS (TYPHIM ) VACCINE IM 01/2016 documented in this encounter Care Teams Utility Tech Relationship Specialty Start Date End Date Manas Dye MD PCP - General 05/31/15 05/26/16 documented as of this encounter
--- OUTSIDE RECORDS SUMMARY | 2024-08-30 00:07 | XMS_ITS | Encounter Summary ---
Author Organization [facility] Address [address] [place] [address] Care Team Providers Care Instructional Services Specialist Name Role Phone None, Provider Primary Care Provider Unavailabl e Encounter Details Date Type Department Care Team (Late st Contact Info) Description 09/09/2019 Lab Requisition [facility] Pathology & Laboratory Medicine - [address] [address] Unknown, Provider, Social History Tobacco Use Types [...] 19 - 88 pg/mL 09/11/2019 11:30 EST [facility] Blood VENOUS BLOOD / Unknown 09/09/2019 9:01 EST 09/10/2019 15:38 EST us Provider Unknown CHEMISTRY & BLOOD GAS ORDERA BLES Final Result [facility] [address] [place] [address] documented in this encounter Visit Diagnoses Not on filedocumented in this encounter Care Teams Instructional Services Specialist Relationship Specialty Start Date End Date None, Provider PCP - General 05/27/16 documented as of this encounter
--- OUTSIDE RECORDS SUMMARY | 2024-08-30 00:07 | XMS_ITS | Encounter Summary ---
Author Organization [facility] Address [address] [place] [address] Care Team Providers Care Instrument Worker Name Role Phone None, Provider Primary Care Provider Unavailabl e Encounter Details Date Type Department Care Team (Late st Contact Info) Description 05/23/2022 Lab Requisition [facility] Pathology & Laboratory Medicine - [facility] [address] [place], [place] [address] Outr Resulting Lab, Provider Social History Tobacco [...] 4th Generation Negative Negative 05/25/2022 10:40 EDT [facility] Comment:If acute HIV-1 infec tion is suspected in a high risk patient, submit plasma specimen for HIV-1 RNA quantitation test. Blood VENOUS BLOOD / Unknown 05/22/2022 15:55 EDT 05/23/2022 21:47 EDT Narrative [facility] - 05/25/2022 10:40 EDT Fourth Generation assay performed on the Siemens Centaur XPT. us Provider Outr Resulting Lab IMMUNOLOGY AND SEROL OGY ORDERABLES Final Result [facility] [address] [place] [address] documented in this encounter Visit Diagnoses Not on filedocumented in this encounter Care Teams Instrument Worker Relationship Specialty Start Date End Date None, Provider PCP - General 05/27/16 documented as of this encounter
--- OUTSIDE RECORDS SUMMARY | 2024-08-30 00:07 | XMS_ITS | Encounter Summary ---
Author Organization [facility] Address [address] [place] [address] Care Team Providers Care Facility Worker Name Role Phone Manas Dye MD Primary Care Provider Lola petit Encounter Details Date Type Department Care Team (Late st Contact Info) Description 10/24/2015 Results Only [facility] [phone] Liliana Lambert MD [address] [place] [address] Social History Tobacco Use Types Packs/Day Years [...] ? KIKI SILVEIRA ? Accession #: ? [id number] ? : ? 1955 (Age: 60) ??F [...] above diagnosis. Specimen(s) Received: End of Report [facility] 10/25/2015 11:2 7 EDT 10/25/2015 11:27 EDT us Provider Unknown PATHOLOGY ORDERABLES Final R esult [facility] [address] [place] [address] documented in this encounter Visit Diagnoses Not on filedocumented in this encounter Care Teams Facility Worker Relationship Specialty Start Date End Date Manas Dye MD PCP - General 05/31/15 05/26/16 documented as of this encounter
--- OUTSIDE RECORDS SUMMARY | 2024-08-30 00:07 | XMS_ITS | Encounter Summary ---
Author Organization [facility] Address [address] [place] [address] Care Team Providers Care Food Technologist Name Role Phone Unavailable Primary Care Provider Unavailabl e Encounter Details Date Type Department Care Team (Late st Contact Info) Description 01/25/2003 Results Only [facility] [address] [place] [address] Zoltan De La Garza, FLASH WELDING MACHINE OPERATOR [address] [place] [address] Social History Tobacco Use Types [...] ? KIKI SILVEIRA ? Accession #: ? [id number] : ? 1955 (Age: 47) ??F ?Collect Date: ? 01/25/2003 Location: ? [facility] ? Receive Date: ? 01/30/2003 Provider: ?ZOLTAN DE LA GARZA FLASH WELDING MACHINE OPERATOR Copy to: ? Specimen/Source: ?ThinPrep Pap Test, [...] End of Report [facility] 01/25/2003 01/30/2003 us Zoltan De La Garza FLASH WELDING MACHINE OPERATOR PATHOLOGY ORDERABLES Final R esult [facility] [address] [place] [address] documented in this encounter Visit Diagnoses Not on filedocumented in this encounter
--- OUTSIDE RECORDS SUMMARY | 2024-08-30 00:07 | XMS_ITS | Encounter Summary ---
Author Organization [facility] Address [address] [place] [address] Care Team Providers Care Mechanical Designer Name Role Phone Unavailable Primary Care Provider Unavailabl e Encounter Details Date Type Department Care Team (Late st Contact Info) Description 05/25/2002 Results Only [facility] [address] [place] [address] Hafsa Jacob MD [address] [place] [address] Social History Tobacco Use Types Packs/Day Years [...] ? KIKI SILVEIRA ? Accession #: ? [id number] ? : ? 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 ??There is papillary dermal fibroplasia. ??(Dr. Sparks)/klb Document reviewed and electronically signed by: Carlene [...] [facility] 05/25/2002 05/25/2002 15: 27 EST us Hafsa Jacob MD PATHOLOGY ORDERABLES Final R esult [facility] [address] [place] [address] documented in this encounter Visit Diagnoses Not on filedocumented in this encounter
--- OUTSIDE RECORDS SUMMARY | 2024-08-30 00:07 | XMS_ITS | Encounter Summary ---
Author Organization [facility] Address [facility] [place] [address] Care Team Providers Care Baker Test Name Role Phone Jordana Parsons MD Primary Care Provider [phone] Reason for Visit * Consultation (Routine) - Specialty Diagnoses / Procedures Referred By Contac t Referred To Contact Endocrinology Diagnoses Primary hyperparathyroidism Hypercalcemia Jordana Parsons MD [address] [place] [address] [address] [place] [address] [facility] Endocrinology [address] [place] [id number] Referral ID Status Reason Start Date Expiration Date V isits Requested Visits Authorized [id number] Consult, Test & Treat Connection Center PCP Updated and/or Approved 08/31/2019 11/29/2019 6 6 Encounter Details Date Type Department Care Team (Latest Contact Info) Description 09/07/2019 10:30 AM EST Office [place] [address] Elsy Staley MD [facility] [place] [address] Jenn Smith MD [facility] [place] [address] Primary hyperparathyroidism Social History Tobacco [...] cup 450 Yogurt drink 12 oz 300 Water View Instant Breakfast 1 packet 250 Hot Finley, calcium fortified 1 packet 320 Nonfat dry milk powder 5 Tbsp 300 Brie Cheese 1 oz 50 Hard Cheese (cheddar, yomi) 1 oz 200 Mozzarella 1 oz 200 Parmesan Cheese 1 Tbsp 70 Trinidadian or Gruyere 1 oz 270 Vegetables Westbrook squash, cooked 1 cup 90 Arugula, raw 1 cup 125 Bok Cuca, raw 1 cup 40 Broccoli, cooked 1 cup 180 Chard or Okra, cooked 1 cup 100 Chicory (curly endive), raw 1 cup 40 Guido greens 1 cup 50 Gainesville, brine packed 1 cup 10 Dandelion greens, raw 1 cup 80 Kale, raw 1 cup 55 Kelp or Kombe 1 cup 60 Mustard greens 1 cup 40 Spinach, cooked 1 cup 240 Turnip greens, raw 1 cup 80 Fruits Figs, dried, uncooked 1 cup 300 Kiwi, raw 1 cup 50 Grayson juice, calcium fortified 8 oz 300 Grayson juice, from concentrate 1 cup 20 Legumes [...] Sesame tahini 1 oz (2 Tbsp) 130 Aiken seeds, dried 1 oz 50 Fish Mackerel, canned 3 oz 250 Sarasota, canned, with bones 3 oz 170 to [...] Handbook 8 palm program ??? Mango and Anabaptism How Much Do You Need? Age Calcium (mg) 1 - 3 year old 500 mg 4 - 8 year old 800 mg 9 - 18 year old 1300 mg 19 - 50 year old 1000 mg 51 - 70 year old 1200 mg > 70 year old 1200 mg http://[email or web address]/adult/[email or web address]/index.html documented in this encounter Progress [...] 1 year ago. 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 Jenn Smith MD PGY-5 [facility] Endocrinology Fellow Pager #[phone] * Elsy Staley MD - 09/07/2019 10:30 [...] locally soon. 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 Patient Active Problem List Diagnosis Code ??? Nevus D22.9 ??? Other seborrheic keratosis L82.1 ??? Hypercalcemia E83.52 ? ? Hyperparathyroidism, primary (PTH 182, Ca 10.1-11.2; upper limit of normal 10.1) => US+1cm RPTH adenoma E21.0 Elsy Staley MD, PhD, FACP, FACE * Jenn Smith - 09/07/2019 10:30 AM EST ENDOCRINOLOGY THYROID ULTRASOUND REPORT Patient:Brayden Silveira, [id number] Date of exam: 09/07/2019 Indication: primary hyperparathyroidism, to assess for parathyroid adenoma Comparison: none Performed by: Jenn Smith MD, Elsy Staley MD Real time images of the thyroid gland were obtained using a [id number] US machine. All measurements aregiven as Longitudinal/Sagittal [...] AM EDT TH Visit (TeleHealth) [place] [address] Elsy Staley MD [facility] [place] [address] 01/04/2025 10:45 AM EDT Office Visit Dermatology at [place] [address] [place] [phone] Yousif Myers MD [address], [place] [address] documented as of this encounter Visit Diagnoses Diagnosis Primary hyperparathyroidism documented in this encounter Care Teams Baker Test Relationship Specialty Start Date End Date Jordana Parsons MD [address] [place] [address] PCP - General 06/17/10 documented as of this encounter
--- OUTSIDE RECORDS SUMMARY | 2024-08-30 00:07 | XMS_ITS | Encounter Summary ---
Author Organization [facility] [place] [address] Care Team Providers Care Coin Teller Name Role Phone Jordana Parsons MD Primary Care Provider [phone] Reason for Referral * Consultation (Routine) - Closed Specialty Diagnoses / Procedures Referred By Agus t Referred To Contact Neurology Diagnoses New daily persistent headache Jenn Smith MD [facility] [place] [address] [facility] Neurology [address] [place] [address] Referral ID Status Reason Start Date Expiration Date V isits Requested Visits Authorized [id number] Closed Specialty Service Requested 09/10/2019 09/09/2020 1 1 Encounter Details Date Type Department Care Team (Late st Contact Info) Description 09/10/2019 Orders [place] [phone] Jenn Smith MD [facility] [place] [address] New daily persistent headache Social [...] AM EDT TH Visit (TeleHealth) [place] [address] Elsy Staley MD [facility] [place] [address] 01/04/2025 10:45 AM EDT Office Visit Dermatology at [place] [address] [place] [address] Yousif Myers MD [address], [place] [address] Scheduled Referrals Name Type Priority Associated Diagnoses Orde r Schedule Referral to Neurology Outpatient Referral Routine New daily persistent headache Ordered: 09/10/2019 documented as of this encounter Visit Diagnoses Diagnosis New daily persistent headache documented in this encounter Care Teams Coin Teller Relationship Specialty Start Date End Date Jordana Parsons MD [facility] [address] [facility] [address] [place] [address] PCP - General 06/17/10 documented as of this encounter
--- OUTSIDE RECORDS SUMMARY | 2024-08-30 00:07 | XMS_ITS | Encounter Summary ---
[place] [address] Care Team Providers Care Trial Court Judge Name Role Phone Jordana Parsons MD Primary Care Provider [phone] Reason for Visit * Reason Comments Skin Check Encounter Details Date Type Department Care Team (Late st Contact Info) Description 04/27/2019 4:15 PM EDT Office Visit Dermatology at [address] [address] Yousif Myers MD [address] [facility] [place] [address] [place] (actinic keratosis); Family history of malignant [...] 2002, excised by Dr. Jacob. ?? 3. 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. ?? 4. Family history of malignant melanoma in father who is alive and well. Brayden follows up after last being seen in 2013. She has noted a new lesion on the left nasal tip. It feels a rough. She reminds me that she grew up in [place] and had a has had a fair [...] AM EDT TH Visit (TeleHealth) [place] [address] Elsy Staley MD [facility] [place] [address] 01/04/2025 10:45 AM EDT Office Visit Dermatology at [place] [address] [facility] [place] [address] Yousif Myers MD [address] [facility], [place] [address] documented as of this encounter Visit Diagnoses Diagnosis AK (actinic keratosis) Actinic keratosis Family history of malignant melanoma Family history of other specified malignant neoplasm documented in this encounter Care Teams Trial Court Judge Relationship Specialty Start Date End Date Jordana Parsons MD [facility] [address] [place] [address] PCP - General 06/17/10 documented as of this encounter
--- OUTSIDE RECORDS SUMMARY | 2024-08-30 00:07 | XMS_ITS | Encounter Summary ---
Author Organization [facility] Address [address] [place] [address] Care Team Providers Care Hydrochloric Area Supervisor Name Role Phone None, Provider Primary Care Provider Unavailabl e Encounter Details Date Type Department Care Team (Late st Contact Info) Description 06/19/2020 Lab Requisition [facility] Pathology & Laboratory Medicine - [address] [address] Outr Resulting Lab, Provider Social History Tobacco [...] 19 - 88 pg/mL 07/11/2020 11:46 EST [facility] Blood VENOUS BLOOD / Unknown 05/22/2020 15:34 EDT 07/09/2020 13:58 EST us Provider Outr Resulting Lab CHEMISTRY & BLOOD GA S ORDERABLES Final Result [facility] [address] [place] [address] documented in this encounter Visit Diagnoses Not on filedocumented in this encounter Care Teams Hydrochloric Area Supervisor Relationship Specialty Start Date End Date None, Provider PCP - General 05/27/16 documented as of this encounter
--- OUTSIDE RECORDS SUMMARY | 2024-08-30 00:07 | XMS_ITS | Encounter Summary ---
Author Organization [facility] Address [facility] [place] [address] Care Team Providers Care Cvicu Rn Name Role Phone Jordana Parsons MD Primary Care Provider [phone] Reason for Referral * Diagnostic Test (Routine) - Closed Specialty Diagnoses / Procedures Referred By Contac t Referred To Contact Radiology Diagnoses Hyperparathyroidism, primary Procedures NM Parathyroid w Spect CT & Thyroid Imaging (Leb) tSarla Mayers MD [facility] [place] [address] [place] [address] Referral ID Status Reason Start Date Expiration Date V isits Requested Visits Authorized [id number] Closed Specialty Service Requested 10/17/2019 04/18/2021 1 1 Encounter Details Date Type Department Care Team (Late st Contact Info) Description 10/17/2019 Orders Only [place] [address] Starla Mayers MD [facility] [place] [place] [address] Hyperparathyroidism, primary (PTH 182, Ca [...] AM EDT TH Visit (TeleHealth) [place] [address] Elsy Staley MD [facility] [place] [address] 01/04/2025 10:45 AM EDT Office Visit Dermatology at [place] [address] [place] [address] Yousif Myers MD [address], [place] [address] documented as of this encounter Results * [...] the number below. ? Electronically signed by: JOSE Donahue [facility] ([phone]), at 11/15/2019 4:18 PM Narrative 11/15/2019 4:18 [...] contact the number below. Starla Mayers MD IM [place] ORDERABLES documented in this encounter Visit Diagnoses Diagnosis Hyperparathyroidism, primary (PTH 182, Ca 10.1-11.2; upper limit of normal 10.1) => US+1cm R PTH adenoma Primary hyperparathyroidism Hyperparathyroidism, primary (PTH 182, Ca 10.1-11.2; upper limit of normal 10.1) => US+1cm R PTH adenoma Primary hyperparathyroidism documented in this encounter Care Teams Cvicu Rn Relationship Specialty Start Date End Date Jordana Parsons MD [address] [place] [address] PCP - General 06/17/10 documented as of this encounter
--- OUTSIDE RECORDS SUMMARY | 2024-08-30 00:07 | XMS_ITS | Encounter Summary ---
Author Organization [facility] Address [address] [place] [address] Care Team Providers Care Director Of Blood Name Role Phone Unavailable Primary Care Provider Unavailabl e Encounter Details Date Type Department Care Team (Late st Contact Info) Description 07/21/2012 Results Only [facility] Laboratory Services - [facility] [address] [place], [place] [address] Jordana Caldwell MD [address] [facility] [address] [place] [address] Social History Tobacco Use Types [...] ? KIKI SILVEIRA ? Accession #: ? [id number] ? : ? 1955 (Age: 56) ??F [...] types 16,18,31,33,35, 39,45,51,52,56,58, 59,66, and 68 by inspector material disposition mediated amplification. Comments Document reviewed and electronically signed by: ? System Interface ? Report date: 08/01/2012 By the signature above, the attending physician certifies that he/she has personally conducted a gross and/or microscopic examination of the described specimens and rendered or confirmed the above diagnosis. End of Report [facility] 07/21/2012 07/25/2012 us Jordana Caldwell MD PATHOLOGY ORDERABLES Final Resul t Performing Organization Address City/State/[facility] Co de Phone Number [facility] [address] [place] [address] documented in this encounter Visit Diagnoses Not on filedocumented in this encounter
--- OUTSIDE RECORDS SUMMARY | 2024-08-30 00:07 | XMS_ITS | Encounter Summary ---
Author Organization [facility] Address [address] [place] [address] Care Team Providers Care Director Of Alumni Relations Name Role Phone None, Provider Primary Care Provider Unavailabl e Encounter Details Date Type Department Care Team (Late st Contact Info) Description 05/14/2020 Lab Requisition [facility] Pathology & Laboratory Medicine - [address] [address] Outr Resulting Lab, Provider Social History Tobacco [...] 19 - 88 pg/mL 05/15/2020 11:[address] [facility] Blood VENOUS BLOOD / Unknown 05/14/2020 9:22 EDT 05/14/2020 16:58 EDT us Provider Outr Resulting Lab CHEMISTRY & BLOOD GA S ORDERABLES Final Result [facility] [address] [place] [address] documented in this encounter Visit Diagnoses Not on filedocumented in this encounter Care Teams Director Of Alumni Relations Relationship Specialty Start Date End Date None, Provider PCP - General 05/27/16 documented as of this encounter
--- OUTSIDE RECORDS SUMMARY | 2024-08-30 00:07 | XMS_ITS | Encounter Summary ---
Author Organization [facility] Address [address] [place] [address] Care Team Providers Care Permaculture Contractor Name Role Phone None, Provider Primary Care Provider Unavailabl e Encounter Details Date Type Department Care Team (Latest Contact Info) Description 05/06/2020 Lab Requisition [facility] Pathology & Laboratory Medicine - [facility] [address] [place] [address] Jordana Parsons MD [address] [place] [address] Encounter for general adult medical examination [...] Risk types, PCR Negative Negative 05/14/2020 15:14 [facility] Comment:No E6 or E7 mRNA is detected from HPV types 16,18,31,33,35,39,45,51,52,56,58,59,66, and 68 by department of natural resources officer mediated amplification. Papanicolaou smear specimen (specimen) CERVIX UTERI STRUCTURE / Unknown 05/03/2020 15:30 EDT 05/13/2020 10:53 EDT us Jordana Parsons MD MICROBIOLOGY - GENERAL ORDERABLE S Final Result [facility] [address] [place] [address] * PAP TEST (05/03/2020 15:30 EDT) Specimens A. Cervix and/or Endocervix , ThinPrep Imaging System with Manual Evaluation 05/14/2020 15:14 [facility] Specimen Adequacy Satisfactory for Evaluation - transformation zone component present 05/14/2020 15:14 [facility] General Categorization Negative for intraepithelial lesion or malignancy 05/14/2020 15:14 [facility] Attestation . 05/14/2020 15:14 [facility] at 1514 Clinical History See below 05/14/20 20 15:14 [facility] HPV The result for the Human Papillomavirus (HPV) Detection-High Risk Types is Negative. No E6 or E7 mRNA is detected from HPV types 16,18,31,33,35,39 ,45,51,52,56,58,5 9,66, and 68 by department of natural resources officer mediated amplification.Jade ting was performed on specimen [id number] and was resulted on 05/14/2020 1506 EDT by QUINTON, LAB INSTRUMENT RESULTS IN 05/14/2020 15:14 [facility] Performing Lab [facility] 05/14/2020 15:14 [facility] Scanned Images 05/14/2020 15:14 EDT [facility] Papanicolaou smear specimen (specimen) CERVIX UTERI STRUCTURE / Unknown 05/03/2020 15:30 EDT 05/06/2020 10:54 EDT us Jordana Parsons MD PATHOLOGY ORDERABLES Final Resul t [facility] [address] [place] [address] documented in this encounter Visit Diagnoses Diagnosis Encounter for general adult medical examination without abnormal findings Unspecified general medical examination Encounter for screening for malignant neoplasm of cervix Screening for malignant neoplasm of the cervix Encounter for screening for human papillomavirus (HPV) Special screening examination for human papillomavirus (HPV) documented in this encounter Care Teams Permaculture Contractor Relationship Specialty Start Date End Date None, Provider PCP - General 05/27/16 documented as of this encounter
--- OUTSIDE RECORDS SUMMARY | 2024-08-30 00:07 | XMS_ITS | Encounter Summary ---
[place] [address] Care Team Providers Care Centrifuge Separator Operator Name Role Phone Jordana Parsons MD Primary Care Provider [phone] Reason for Visit * Reason Comments Skin Check Encounter Details Date Type Department Care Team (Late st Contact Info) Description 11/16/2013 4:15 PM EDT Office Visit Dermatology at [address] [address] Yousif Myers MD [address] [facility] [place] [address] Nevus (Primary Dx); Other seborrheic [...] April 2002, excised by Dr. Jacob. 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 4. Family history of malignant melanoma [...] central darker pigmentation, brown to black, with shot hole driller brown peripherally. Otherwise, she has a very [...] AM EDT TH Visit (TeleHealth) [place] [address] Elsy Staley MD [facility] [place] [address] 01/04/2025 10:45 AM EDT Office Visit Dermatology at [place] [address] [facility] [place] [address] Yousif Myers MD [address] [place] [address] documented as of this encounter Visit Diagnoses Diagnosis Nevus- Primary Benign neoplasm of skin, site unspecified Other seborrheic keratosis documented in this encounter Care Teams Centrifuge Separator Operator Relationship Specialty Start Date End Date Jordana Parsons MD [address] [place] [address] PCP - General 06/17/10 documented as of this encounter
--- OUTSIDE RECORDS SUMMARY | 2024-08-30 00:07 | XMS_ITS | Encounter Summary ---
Author Organization [facility] Address [address] [place] [address] Care Team Providers Care Glove Factory Sewer Name Role Phone Unavailable Primary Care Provider Unavailabl e Encounter Details Date Type Department Care Team (Late st Contact Info) Description 07/24/2010 Results Only [facility] Laboratory Services - [facility] ([facility] [address] [place], [place] [address] Zee Thapa, [facility] [address] [place] [address] Social History Tobacco Use Types [...] ? BEST, KIKI ? Accession #: ? [id number] ? : ? 1955 (Age: 54) ??F ?Collect Date: ? 07/24/2010 ? Location: ? [facility] ? Receive Date: ? 07/24/2010 ? Provider: ?ZEE KRISSY [employer] ? Copy to: ? Specimen/Source: ?Pap Test, [...] of Report ? [facility] 07/24/2010 07/24/2010 us Zee Thapa [employer] PATHOLOGY ORDERABLES Final R esult [facility] [address] [place] [address] documented in this encounter Visit Diagnoses Not on filedocumented in this encounter
--- OUTSIDE RECORDS SUMMARY | 2024-08-30 00:07 | XMS_ITS | Encounter Summary ---
Author Organization [facility] Address [address] [place] [address] Care Team Providers Care Family Law Legal Assistant Name Role Phone Unavailable Primary Care Provider Unavailabl e Encounter Details Date Type Department Care Team (Late st Contact Info) Description 01/13/2002 Results Only [facility] [address] [place] [address] Zoltan De La Garza, ACUTE CARE PHYSICAL THERAPIST [address] [place] [address] Social History Tobacco Use Types [...] ? KIKI SILVEIRA ? Accession #: ? [id number] : ? 1955 (Age: 46) ??F ?Collect Date: ? 01/13/2002 Location: ? [facility] ? Receive Date: ? 01/17/2002 Provider: ?ZOLTAN DE LA GARZA ACUTE CARE PHYSICAL THERAPIST Copy to: ? Specimen/Source: ?ThinPrep Pap Test, Cervix/Endocervix Last Menstrual Period: ? 12/16/01 ? SPECIMEN ADEQUACY ? Satisfactory for Evaluation - transformation zone component present GENERAL CATEGORIZATION ? Negative for Intraepithelial Lesion or Malignancy ? Document reviewed and electronically signed by: ? Bel Suárez, SCT(ASCP) ? Report Date: ??01/20/2002 08:48 End of Report [facility] 01/13/2002 01/17/2002 us Zoltan De La Garza ACUTE CARE PHYSICAL THERAPIST PATHOLOGY ORDERABLES Final R esult [facility] [address] [place] [address] documented in this encounter Visit Diagnoses Not on filedocumented in this encounter
--- OUTSIDE RECORDS SUMMARY | 2024-08-30 00:07 | XMS_ITS | Referral Summary ---
Author Organization [facility] Address [address] [place] [address] Care Team Providers Care Machinist Set Up Name Role Phone None, Provider Primary Care Provider Unavailabl e Allergies No known active allergies Medications hepatitis A vaccine, PF, (HAVRIX) 1,440 Karina unit/mL syringeIndications: Travel advice encounter Inject 1 mL into the muscle once for 1 dose 1 Syringe 0 6 Active typhoid polysaccharide vaccine (TYPHIM ) 25 mcg/0.5 mL syringeIndications: Travel advice encounter Inject 0.5 mL into the muscle once for 1 dose 1 Syringe 0 6 Active diphtheria, pertussis, acellular,, tetanus vaccine, PF, (ADACEL) 2 Lf-(2.5-5-3-5 mcg)-5Lf/0.5 mL syringeIndications: Travel advice encounter Inject 0.5 mL into the muscle once for 1 dose 1 Syringe 0 6 Active poliovirus vaccine, IPV, (IPOL) 40-8-32 unit/0.5 mL syringeIndications: Travel advice encounter Inject 0.5 mL into the skin once for 1 dose 1 Syringe 0 6 Active ciprofloxacin HCl (CIPRO) 500 mg tablet Take 1 Tab by mouth every 12 hours For severe diarrhea 6 Tab 0 6 Active Immunizations Name Administration Dates Next Due [...] C Antibody Negative Negative 05/25/2022 10:35 EDT [facility] Blood VENOUS BLOOD / Unknown 05/22/2022 15:55 EDT 05/23/2022 21:47 EDT us Provider Outr Resulting Lab CHEMISTRY & BLOOD GA S ORDERABLES Final Result [facility] [address] [place] [address] from Last 3 Months or Most Recently Relevant to Health Maintenance Care Teams Machinist Set Up Relationship Specialty Start Date End Date None, Provider PCP - General 05/27/16
--- OUTSIDE RECORDS SUMMARY | 2024-08-30 00:07 | XMS_ITS | Encounter Summary ---
[place] [address] Care Team Providers Care Duralumin Metalworker Name Role Phone Jordana Parsons MD Primary Care Provider [phone] Reason for Visit * Diagnostic Test (Routine) - Closed Specialty Diagnoses / Procedures Referred By Contac t Referred To Contact Radiology Diagnoses Hyperparathyroidism, primary Procedures NM Parathyroid w Spect CT & Thyroid Imaging (Leb) Starla Mayers MD [facility] [place] [address] [place] [address] Referral ID Status Reason Start Date Expiration Date V isits Requested Visits Authorized [id number] Closed Specialty Service Requested 10/17/2019 04/18/2021 1 1 Encounter Details Date Type Department Care Team (Latest Contact Info) Description 11/15/2019 8:20 AM EDT Hospital Encounter [place] [address] Starla Mayers MD [facility] [place] [address] Discharge Disposition: Home Social History [...] AM EDT TH Visit (TeleHealth) [place] [address] Elsy Staley MD [facility] [place] [address] 01/04/2025 10:45 AM EDT Office Visit Dermatology at [place] [address] [facility] [place] [address] Yousif Myers MD [address] [facility], [place] [address] documented as of this encounter Procedures Procedure [...] mg documented in this encounter Care Teams Duralumin Metalworker Relationship Specialty Start Date End Date Jordana Parsons MD [address] [place] [address] PCP - General 06/17/10 documented as of this encounter
--- OUTSIDE RECORDS SUMMARY | 2024-08-30 00:07 | XMS_ITS | Encounter Summary ---
Author Organization [facility] Address [address] [place] [address] Care Team Providers Care Turbo Generator Oiler Name Role Phone Unavailable Primary Care Provider Unavailabl e Encounter Details Date Type Department Care Team (Late st Contact Info) Description 04/22/2006 Results Only [facility] - Maple conversion [address] [place] [address] Zee Thapa, [facility] [address] [place] [address] Social History Tobacco Use Types [...] ? KIKI SILVEIRA ? Accession #: ? [id number] : ? 1955 (Age: 50) ??F ?Collect Date: ? 04/22/2006 Location: ? [facility] ? Receive Date: ? 04/26/2006 Provider: ?ZEE THAPA RECORDS TECHNICIAN Copy to: ? Specimen/Source: ?ThinPrep Pap Test, Cervix/Endocervix, processed on 3TEN8 ThinPrep Imaging System, with manual evaluation Last [...] End of Report [facility] 04/22/2006 04/26/2006 us Zee Thapa RECORDS TECHNICIAN PATHOLOGY ORDERABLES Final R esult [facility] [address] [place] [address] documented in this encounter Visit Diagnoses Not on filedocumented in this encounter
--- OUTSIDE RECORDS SUMMARY | 2024-08-30 00:07 | XMS_ITS | Encounter Summary ---
Author Organization [facility] Address [address] [place] [address] Care Team Providers Care Wiring Technician Name Role Phone None, Provider Primary Care Provider Unavailabl e Encounter Details Date Type Department Care Team (Late st Contact Info) Description 09/09/2019 Lab Requisition [facility] Pathology & Laboratory Medicine - [address] [address] Unknown, Provider, Social History Tobacco Use Types [...] Urine 19.3 See Note mg/dL 09/11/2019 11:05 [facility] Comment: NOTE: Reference range not established Calcium, Urine 24 hr 386(H) 100 - 300 mg/24hrs 09/11/2019 11:05 [facility] Comment: Reference range assumes a normal daily intake of calcium between 600 - 800 mg/day. Urine Volume 2,000 mL 09/11/2019 11:05 [facility] Urine Collection Period 24.0 Hours 09/11/2019 11:05 [facility] Urine 24 HOUR URINE SPECIMEN / Unknown 09/09/2019 5:50 EST 09/10/2019 15:36 EST us Provider Unknown MD URINALYSIS ORDERABLES Final Result [facility] [address] [place] [address] documented in this encounter Visit Diagnoses Not on filedocumented in this encounter Care Teams Wiring Technician Relationship Specialty Start Date End Date None, Provider PCP - General 05/27/16 documented as of this encounter
--- OUTSIDE RECORDS SUMMARY | 2024-08-30 00:07 | XMS_ITS | Encounter Summary ---
Author Organization [facility] [place] [address] Care Team Providers Care Photoengraver Apprentice Name Role Phone Jordana Parsons MD Primary Care Provider [phone] Encounter Details Date Type Department Care Team (Late st Contact Info) Description 09/08/2019 Orders [place] [address] Jenn Smith MD [facility] [place] [address] Social History Tobacco Use Types Packs/Day Years [...] AM EDT TH Visit (TeleHealth) [place] [address] Elsy Staley MD [facility] [place] [address] 01/04/2025 10:45 AM EDT Office Visit Dermatology at [place] [address] [facility] [place] [address] Yousif Myers MD [address], [place] [address] documented as of this encounter Visit Diagnoses Not on filedocumented in this encounter Care Teams Photoengraver Apprentice Relationship Specialty Start Date End Date Jordana Parsons MD [facility] [address] [place] [address] PCP - General 06/17/10 documented as of this encounter
--- OUTSIDE RECORDS SUMMARY | 2024-08-30 00:07 | XMS_ITS | Encounter Summary ---
Author Organization [facility] Address [address] [place] [address] Care Team Providers Care Primary Care Coordinator Name Role Phone None, Provider Primary Care Provider Unavailabl e Encounter Details Date Type Department Care Team (Late st Contact Info) Description 08/25/2019 Lab Requisition [facility] Pathology & Laboratory Medicine - [address] [address] Unknown, Provider, Social History Tobacco Use Types [...] 1.12 - 1.32 mmol/L 08/25/2019 22:14 EST [facility] Blood VENOUS BLOOD / Unknown 08/25/2019 15:51 EST 08/25/2019 22:05 EST Narrative [facility] - 08/25/2019 22:14 EST Testing performed on heparinized plasma. Results may be biased 5% lower than that of whole blood. us Provider Unknown CHEMISTRY & BLOOD GAS ORDERA BLES Final Result [facility] [address] [place] [address] documented in this encounter Visit Diagnoses Not on filedocumented in this encounter Care Teams Primary Care Coordinator Relationship Specialty Start Date End Date None, Provider PCP - General 05/27/16 documented as of this encounter
--- OUTSIDE RECORDS SUMMARY | 2024-08-30 00:07 | XMS_ITS | Encounter Summary ---
Author Organization [facility] [place] [address] Care Team Providers Care Psychology Teacher Name Role Phone Jordana Parsons MD Primary Care Provider [phone] Encounter Details Date Type Department Care Team (Late st Contact Info) Description 10/11/2019 Ancillary Procedure Radiology Library at [facility] [place] [address] Jordana Parsons MD [address] [place] [address] [facility] [address] [place] [address] Social History Tobacco Use Types Packs/Day Years [...] AM EDT TH Visit (TeleHealth) [place] [address] Elsy Staley MD [facility] [place] [address] 01/04/2025 10:45 AM EDT Office Visit Dermatology at [place] [address] [facility] [place] [address] Yousif Myers MD [address] [facility] [address], ROB[place] [address] documented as of this encounter Procedures Procedure Name Priority Date/Time Associated Diagnosis Comments FILM LIBRARY- STORAGE ONLY DXA IMAGES Routine 10/11/2019 12:00 AM EDT documented in this encounter Results * Film Library- Storage Only DXA Images (10/11/2019 12:00 AM EDT) Narrative [facility] - 10/12/2019 3:36 PM EDT This exam is auto-finalizing. It's purpose is for storage only. Jordana Parsons MD IMG FILM LIBRARY ORD ERABLES [place], [place] documented in this encounter Visit Diagnoses Not on filedocumented in this encounter Care Teams Psychology Teacher Relationship Specialty Start Date End Date Jordana Parsons MD [address] [place] [address] [address] [place] [address] PCP - General 06/17/10 documented as of this encounter
--- OUTSIDE RECORDS SUMMARY | 2024-08-30 00:07 | XMS_ITS | Encounter Summary ---
Author Organization [facility] Address [address] [place] [address] Care Team Providers Care Nurse Transitional Name Role Phone Manas Dye MD Primary Care Provider Lola petit Encounter Details Date Type Department Care Team (Late st Contact Info) Description 10/23/2015 Results Only [facility] [phone] Crow Caldwell MD [address] [place] [address] Social History Tobacco Use Types [...] ? KIKI SILVEIRA ? Accession #: ? [id number] ? : ? 1955 (Age: 60) ??F [...] and electronically signed by: ? Shaina Rothman, [facility](ASCP) ? Report ??Date: 10/28/2015 14:46 HPV with Pap Test ? Date Ordered: ? 10/28/2015 ? Status: ?? Signed Out ?Date Complete: ? 10/31/2015 ? By: ??System Interface ? Date Reported: ? 10/31/2015 ? Interpretation RESULT: Negative for HPV. No E6 or E7 mRNA is detected from HPV types 16,18,31,33,35, 39,45,51,52,56,58, 59,66, and 68 by interlibrary loan services librarian mediated amplification. Comments Document reviewed and electronically signed by: ? System Interface ? Report date: 10/31/2015 By the signature above, the attending physician certifies that he/she has personally conducted a gross and/or microscopic examination of the described specimens and rendered or confirmed the above diagnosis. End of Report [facility] 10/23/2015 10/25/2015 us Crow Caldwell MD PATHOLOGY ORDERABLES Final Resul t [facility] [address] [place] [address] documented in this encounter Visit Diagnoses Not on filedocumented in this encounter Care Teams Nurse Transitional Relationship Specialty Start Date End Date Manas Dye MD PCP - General 05/31/15 05/26/16 documented as of this encounter
--- OUTSIDE RECORDS SUMMARY | 2024-08-30 00:07 | XMS_ITS | Encounter Summary ---
Author Organization [facility] Address [address] [place] [address] Care Team Providers Care Wine Blender Name Role Phone None, Provider Primary Care Provider Unavailabl e Encounter Details Date Type Department Care Team (Late st Contact Info) Description 05/23/2022 Lab Requisition [facility] Pathology & Laboratory Medicine - [address] [address] Outr Resulting Lab, Provider Social History Tobacco [...] C Antibody Negative Negative 05/25/2022 10:35 EDT [facility] Blood VENOUS BLOOD / Unknown 05/22/2022 15:55 EDT 05/23/2022 21:47 EDT us Provider Outr Resulting Lab CHEMISTRY & BLOOD GA S ORDERABLES Final Result [facility] [address] [place] [address] documented in this encounter Visit Diagnoses Not on filedocumented in this encounter Care Teams Wine Blender Relationship Specialty Start Date End Date None, Provider PCP - General 05/27/16 documented as of this encounter
--- OUTSIDE RECORDS SUMMARY | 2024-08-30 00:07 | XMS_ITS | Clinical Summary ---
Author Organization [facility] Address [address] [place] [address] Care Team Providers Care Manager Financial Planning Name Role Phone None, Provider Primary Care [...] Health Maintenance Due Date Last Done Comments Fall Risk Screening 2022 COVID-19 Vaccine (2023-25 season) 2024 RSV Immunization ( o r 60+ Years) (1 - 1-dose 75+ series) 2032 Hepatitis C Screen Completed 05/22/2022 Procedures Procedure Name Priority Date/Time Associated Diagnosis Comments HEPATITIS C AB W REFLEX TO HCV RNA BY PCR Routine 05/22/2022 15:55 EDT from Last 3 Months or Most Recently Relevant to Health Maintenance Results * HEPATITIS C AB W REFLEX TO HCV RNA BY PCR (05/22/2022 15:55 EDT) Hep C Antibody Negative Negative 05/25/2022 10:35 EDT [facility] Blood VENOUS BLOOD / Unknown 05/22/2022 15:55 EDT 05/23/2022 21:47 EDT us Provider Outr Resulting Lab CHEMISTRY & BLOOD GA S ORDERABLES Final Result [facility] [address] [place] [address] from Last 3 Months or Most Recently Relevant to Health Maintenance Care Teams Manager Financial Planning Relationship Specialty Start Date End Date None, Provider PCP - General 05/27/16
--- OUTSIDE RECORDS SUMMARY | 2024-08-30 00:07 | XMS_ITS | Encounter Summary ---
Author Organization [facility] [place] [address] Care Team Providers Care Monotype Setter Name Role Phone Jordana Parsons MD Primary Care Provider [phone] Encounter Details Date Type Department Care Team (Late st Contact Info) Description 09/13/2019 Notes [place] [address] Jenn Smith MD [facility] [place] [address] Social History Tobacco Use Types Packs/Day Years [...] Calcium to creatinine ratio: 0.5949- definitively excludes [facility]. Await dexa. Jenn Smith MD PGY-5 [facility] Endocrinology, Diabetes, and Metabolism Fellow Pager #[phone] documented in this encounter Plan of Treatment Upcoming Encounters Date Type Department Care Team (Late st Contact Info) Description 11/17/2024 9:30 AM EDT TH Visit (TeleHealth) [place] [address] Elsy Staley MD [facility] [place] [address] 01/04/2025 10:45 AM EDT Office Visit Dermatology at [place] [address] [place] [address] Yousif Myers MD [address] [facility] [address], ROB[place] [address] documented as of this encounter Visit Diagnoses Not on filedocumented in this encounter Care Teams Monotype Setter Relationship Specialty Start Date End Date Jordana Parsons MD [facility] [address] [place] [address] PCP - General 06/17/10 documented as of this encounter
--- OUTSIDE RECORDS SUMMARY | 2024-08-30 00:07 | XMS_ITS | Encounter Summary ---
[place] [address] Care Team Providers Care Automation Developer Name Role Phone Jordana Parsons MD Primary Care Provider [phone] Reason for Visit * Diagnostic Test (Routine) - Closed Specialty Diagnoses / Procedures Referred By Contac t Referred To Contact Radiology Diagnoses Hyperparathyroidism, primary Procedures NM Parathyroid w Spect CT & Thyroid Imaging (Leb) Starla Mayers MD [facility] [place] [address] [place] [address] Referral ID Status Reason Start Date Expiration Date V isits Requested Visits Authorized [id number] Closed Specialty Service Requested 10/17/2019 04/18/2021 1 1 Encounter Details Date Type Department Care Team (Latest Contact Info) Description 11/15/2019 8:20 AM EDT Hospital Encounter [place] [address] Starla Mayers MD [facility] [place] [address] Discharge Disposition: Home Social History [...] AM EDT TH Visit (TeleHealth) [place] [address] Elsy Staley MD [facility] [place] [address] 01/04/2025 10:45 AM EDT Office Visit Dermatology at [place] [address] [facility] [place] [address] Yousif Myers MD [address] [facility], [place] [address] documented as of this encounter Procedures Procedure [...] Arm documented in this encounter Care Teams Automation Developer Relationship Specialty Start Date End Date Jordana Parsons MD [facility] [address] [facility] [address] [place] [address] PCP - General 06/17/10 documented as of this encounter
--- OUTSIDE RECORDS SUMMARY | 2024-08-30 00:07 | XMS_ITS | Encounter Summary ---
Author Organization [facility] Address [address] [place] [address] Care Team Providers Care Asian Art Curator Name Role Phone None, Provider Primary Care Provider Unavailabl e Encounter Details Date Type Department Care Team (Late st Contact Info) Description 03/11/2020 Lab Requisition [facility] Pathology & Laboratory Medicine - [address] [address] Outr Resulting Lab, Provider Social History Tobacco [...] 19 - 88 pg/mL 03/12/2020 8:22 EDT [facility] Blood VENOUS BLOOD / Unknown 03/11/2020 13:48 EDT 03/11/2020 21:00 EDT us Provider Outr Resulting Lab CHEMISTRY & BLOOD GA S ORDERABLES Final Result [facility] [address] [place] [address] documented in this encounter Visit Diagnoses Not on filedocumented in this encounter Care Teams Asian Art Curator Relationship Specialty Start Date End Date None, Provider PCP - General 05/27/16 documented as of this encounter
--- OUTSIDE RECORDS SUMMARY | 2024-08-30 00:07 | XMS_ITS | Encounter Summary ---
Author Organization [facility] Address [facility] [place] [address] Care Team Providers Care Advertising Associate Name Role Phone Jordana Parsons MD Primary Care Provider [phone] Reason for Referral * Consultation (Routine) - Closed Specialty Diagnoses / Procedures Referred By Contac t Referred To Contact General Surgery Diagnoses Primary hyperparathyroidism Jenn Smith MD [facility] [place] [address] Starla Mayers MD [facility] [place] [address] Referral ID Status Reason Start Date Expiration Date V isits Requested Visits Authorized [id number] Closed Consult, Test & Treat 10/12/2019 10/11/2020 1 1 Encounter Details Date Type Department Care Team (Late st Contact Info) Description 10/12/2019 Telephone [place] [address] Jenn Smith MD [facility] [place] [address] Social History Tobacco Use Types Packs/Day Years [...] the wrong patient's chart- they are in [id number] (will contact certified legal secretary specialist about that). This finding does warrant consideration [...] at this time. Jenn Smith MD PGY-5 [facility] Endocrinology, Diabetes, and Metabolism Fellow Pager #[phone] documented in this encounter Plan of Treatment Upcoming Encounters Date Type Department Care Team (Late st Contact Info) Description 11/17/2024 9:30 AM EDT TH Visit (TeleHealth) [place] [address] Elsy Staley MD [facility] [place] [address] 01/04/2025 10:45 AM EDT Office Visit Dermatology at [place] [address] [facility] [place] [address] Yousif Myers MD [address] [address], [place] [address] Scheduled Referrals Name Type Priority Associated Diagnoses Orde r Schedule Referral to General Surgery Outpatient Referral Routine Primary hyperparathyroidism Ordered: 10/12/2019 documented as of this encounter Visit Diagnoses Diagnosis Primary hyperparathyroidism documented in this encounter Care Teams Advertising Associate Relationship Specialty Start Date End Date Jordana Parsons MD [address] [place] [address] PCP - General 06/17/10 documented as of this encounter
--- OUTSIDE RECORDS SUMMARY | 2024-08-30 00:07 | XMS_ITS | Encounter Summary ---
Author Organization [facility] Address [address] [place] [address] Care Team Providers Care Meter And Service Line Inspector Name Role Phone None, Provider Primary Care Provider Unavailabl e Encounter Details Date Type Department Care Team (Late st Contact Info) Description 08/25/2019 Lab Requisition [facility] Pathology & Laboratory Medicine - [address] [address] Unknown, Provider, Social History Tobacco Use Types [...] 19 - 88 pg/mL 08/28/2019 11:38 EST [facility] Blood VENOUS BLOOD / Unknown 08/25/2019 15:51 EST 08/26/2019 7:44 EST us Provider Unknown CHEMISTRY & BLOOD GAS ORDERA BLES Final Result [facility] [address] [place] [address] documented in this encounter Visit Diagnoses Not on filedocumented in this encounter Care Teams Meter And Service Line Inspector Relationship Specialty Start Date End Date None, Provider PCP - General 05/27/16 documented as of this encounter
--- OUTSIDE RECORDS SUMMARY | 2024-08-30 00:07 | XMS_ITS | Encounter Summary ---
Author Organization [facility] Address [address] [place] [address] Care Team Providers Care Pheresis Specialist Name Role Phone Unavailable Primary Care Provider Unavailabl e Encounter Details Date Type Department Care Team (Late st Contact Info) Description 04/25/2007 Results Only [facility] - Maple conversion [address] [place] [address] Zee Thapa, [facility] [address] [place] [address] Social History Tobacco Use Types [...] ? KIKI SILVEIRA ? Accession #: ? [id number] : ? 1955 (Age: 51) ??F ?Collect Date: ? 04/25/2007 Location: ? [facility] ? Receive Date: ? 04/27/2007 Provider: ?ZEE THAPA RANGE MANAGER Copy to: ? Specimen/Source: ?ThinPrep Pap Test, Cervix/Endocervix, processed on [employer] ThinPrep Imaging System, with manual evaluation Last Menstrual Period: ? 03/29 Other: ? HPVA - HPV testing requested if ASC-US on the current ThinPrep Pap test. ? SPECIMEN ADEQUACY ? Satisfactory for Evaluation - transformation zone component present - scant squamous epithelial component GENERAL CATEGORIZATION ? Negative for Intraepithelial Lesion or Malignancy ? Document reviewed and electronically signed by: ? Barbara Gay, SARAH(ASCP) ? Report Date: ??05/03/2007 13:21 End of Report [facility] 04/25/2007 04/27/2007 us Zee Thapa RANGE MANAGER PATHOLOGY ORDERABLES Final R esult [facility] [address] [place] [address] documented in this encounter Visit Diagnoses Not on filedocumented in this encounter
--- NOTE | 2024-08-30 11:45 | DI.MAMMO_ITS ---
Exam(s) MAMMO SCREENING EXAM: MAMMO SCREENING CLINICAL HISTORY: Screening, Z12.31 TECHNIQUE: Mammograms were interpreted according to the usual protocol including computer analysis w [employer] CAD system, tomosynthesis and C-view imaging. COMPARISON: 2015 through 2023 FINDINGS: The breasts are composed of heterogeneously dense fibroglandular densities, Breast Density category C . No suspicious masses or suspicious microcalcifications are seen. No skin thickening or abnormal axillary lymph nodes are seen. There has been no significant change from prior exams. IMPRESSION: BI-RADS Category 1, Negative mammogram. Yearly screening mammography is recommended. Breast Density Category C, heterogeneously Dense. The mammogram demonstrates the patient's breast tissue is dense. Dense breast tissue is very common a nd is not abnormal but dense breast tissue can make it harder to find cancer on a mammogram. Also, de nse breast tissue may increase breast cancer risk. This information about the result of the mammogram report was provided to the patient to raise their awareness. Use this report when you speak with the patient about their risks for breast cancer, which includes their family history. At that time, you may recommend additional screening tests (Ultrasound or MRI) as they might be useful based on their r isk. A negative radiographic report should not delay biopsy if a dominant or clinically suspicious mass is present. Up to ten percent of cancers are not identified on mammography. A negative report may reinforce clinical impression. Adenosis and dense breasts may obscure an underlying neoplasm. False positive reports average 6 to 10%.
== END 2024-08-30 00:24 ==
PROVIDERS: PCP Family Medicine; Visit Provider Family Medicine
DX: Z12.31 Encounter for screening mammogram for malignant neoplasm of breast (principal); R92.333 Mammographic heterogeneous density, bilateral breasts
CPT/HCPCS: 77063; 77067

== ENCOUNTER 2024-10-23 11:07 | Outpatient (CLI) | payer MEDICARE, OTHER, SELFPAY ==
[2024-10-23 11:43] LABS: Anion Gap 8.1 mmol/L (3-11); BUN 17 mg/dL (7-18); CO2 27.9 mmol/L (21.0-32.0); CREATININE 0.9 mg/dL (0.55-1.02); Calcium 9.1 mg/dL (8.5-10.1); Chloride 106 mmol/L (98-107); Estimated GFR 70.07 (mL/min/1.73m2); Glucose 90 mg/dL (74-106); Potassium 4.1 mmol/L (3.5-5.1); Sodium 142 mmol/L (136-145); TSH 3.17 uIU/mL (0.36-3.74); Vitamin D 25 Total 40 ng/mL (30-100)
== END 2024-10-23 11:08 | disposition home or self-care (01) ==
LOC: LBO 11:08
PROVIDERS: PCP Family Medicine; Visit Provider Internal Medicine Endocrinology, Diabetes & Metabolism
DX: R53.83 Other fatigue (principal); M81.8 Other osteoporosis without current pathological fracture
CPT/HCPCS: 36415; 80048; 82306; 84443

== ENCOUNTER 2025-02-15 02:44 | Outpatient (CLI) | payer MEDICARE, OTHER, SELFPAY ==
[2025-02-15 09:38] LABS: Anion Gap 5.8 mmol/L (3-11); BUN 23 mg/dL (7-18); CO2 30.2 mmol/L (21.0-32.0); Calcium 9.2 mg/dL (8.5-10.1); Chloride 105 mmol/L (98-107); Estimated GFR 61.75 (mL/min/1.73m2); Glucose 82 mg/dL (74-106); Potassium 4.5 mmol/L (3.5-5.1); Sodium 141 mmol/L (136-145); TSH (W/Ref FT4) 2.61 uIU/mL (0.36-3.74); Vitamin D 25 Total 51 ng/mL (30-100)
== END 2025-02-15 02:45 | disposition home or self-care (01) ==
LOC: LBO 02:44
PROVIDERS: PCP Family Medicine; Visit Provider Internal Medicine Endocrinology, Diabetes & Metabolism
DX: M81.8 Other osteoporosis without current pathological fracture (principal); Z86.39 Personal history of other endocrine, nutritional and metabolic disease; R53.83 Other fatigue
CPT/HCPCS: 36415; 80048; 82306; 84443

== ENCOUNTER 2025-03-14 19:49 | Outpatient (REF) | payer MEDICARE, OTHER, SELFPAY ==
[2025-03-15 11:07] LABS: Lyme Ab w Rflx to Lyme Confirm Negative (Negative)
== END 2025-03-14 19:50 | disposition home or self-care (01) ==
LOC: LBN 19:49
PROVIDERS: PCP Family Medicine; Visit Provider Physician Assistant Medical
DX: M25.571 Pain in right ankle and joints of right foot (principal)
CPT/HCPCS: 86618

== ENCOUNTER 2025-03-14 20:19 | Outpatient (CLI) | payer MEDICARE, OTHER, SELFPAY ==
--- NOTE | 2025-03-14 13:55 | DI.RAD_ITS ---
Exam(s) XR ANKLE RT COMPLETE EXAM: XR ANKLE RT COMPLETE CLINICAL HISTORY: PAIN, SWELLING RT ANKLE, M25.571. TECHNIQUE: 2D digital imaging was performed. Three views. COMPARISON: No exams were available for comparison FINDINGS: BONES: Question of a faint lucency extending transversely through the lateral malleolus, fracture versus artifact. No bony destructive lesion is seen. JOINTS: The ankle mortise is normally aligned. There is narrowing of the medial tibial talar joint which also shows spurring. SOFT TISSUE: There is soft tissue swelling, greatest around the lateral malleolus. IMPRESSION: Question of a nondisplaced fracture versus artifact at the lateral malleolus. DATA REPOSITORY: RADIATION DOSE DELIVERED:
--- NOTE | 2025-03-14 14:00 | DI.US_ITS ---
Exam(s) US LOWER EXTREMITY VENOUS RT EXAM: US LOWER EXTREMITY VENOUS RT CLINICAL HISTORY: SWELLING RT LOWER LEG, M79.89. TECHNIQUE: Lower extremity venous ultrasound performed using grayscale, color- flow, and spectral Doppler analysis. COMPARISON: No exams were available for comparison FINDINGS: The common femoral, femoral and popliteal veins demonstrate normal compressibility, augmentation, and color Doppler. The posterior tibial and peroneal veins are patent. No saphenous vein thrombosis or other superficial venous thrombosis is seen. No hematoma or Melara's cyst is seen. IMPRESSION: Negative lower extremity ultrasound. No evidence of DVT. DATA REPOSITORY:
== END 2025-03-14 20:39 ==
LOC: DI 20:20
PROVIDERS: PCP Family Medicine; Visit Provider Physician Assistant Medical
DX: M79.89 Other specified soft tissue disorders (principal); M25.571 Pain in right ankle and joints of right foot
CPT/HCPCS: 73610; 93971

== ENCOUNTER → 2025-04-23 09:55 | Outpatient (BNVA) | payer MEDICARE, OTHER, SELFPAY | PROVIDERS: PCP Family Medicine; Referring Provider Family Medicine; Visit Provider Physician Assistant | DX: M76.71 Peroneal tendinitis, right leg (principal) | CPT/HCPCS: 99203 ==